=== PATIENT | female | born 1935 | race Caucasian/White ===

== ENCOUNTER → 2019-09-30 14:09 | Outpatient (BNVA) | payer MEDICARE, MEDICAID, SELFPAY | PROVIDERS: Family Provider Family Medicine; PCP Family Medicine; Visit Provider Internal Medicine Cardiovascular Disease | DX: R06.02 Shortness of breath (principal); I50.33 Acute on chronic diastolic (congestive) heart failure | CPT/HCPCS: 80048; 83880 ==

== ENCOUNTER 2020-03-04 12:22 | Outpatient (CLI) | payer MEDICARE, MEDICAID, SELFPAY ==
--- NOTE | 2020-03-04 12:35 | MR_ITS ---
WS: [id number] MRI RIGHT SHOULDER NONCONTRAST TECHNIQUE: Sagittal T2, coronal T1, T2 and proton density imaging. Axial gradient PDE imaging. CLINICAL INFORMATION: SHOULDER PAIN COMPARISON: None. FINDINGS: Moderate degenerative arthritis at the AC joint. Subacromial space is relatively well-preserved. Prio r rotator cuff anchors. Rotator cuff anchors degrade imaging due to susceptibility artifact. Supraspinatus appears repaired and intact. Thinning of the supraspinatus distally. Infraspinatus appe ars intact. Normal teres minor and subscapularis. Chronic appearing thinning and atrophy of the dista l subscapularis. Subcoracoid effusion. Proximal biceps tendon is medially dislocated from the bicipit al groove. Middle and distal biceps tendon intact with physiologic fluid along the biceps tendon rangel th. Small joint effusion. Moderate to advanced degenerative arthritis involving the glenoid humeral artic ulation. Hypertrophic changes at the glenohumeral joint with spurring along the medial humeral neck. Chronic irregularity involving the glenoid labrum. MR/MR shoulder RT wo con* [id number] IMPRESSION: 1. Prior postoperative changes right rotator cuff anchors. This degrades image s due to susceptibility artifact. 2. Rotator cuff appears intact. No acute appearing rotator cuff tears. 3. Chronic atrophy involving the supraspinatus and subscapularis tendons. 4. Biceps tendon is medially dislocated from the bicipital groove proximally l ikely chronic. Middle and distal biceps tendon intact within the bicipital groo ve. 5. Moderate degenerative arthritis AC joint. 6. Advanced degenerative arthritis glenohumeral joint with hypertrophic spurri ng involving the medial humeral neck.
== END 2020-03-04 12:23 | disposition home or self-care (01) ==
LOC: RADWPI 12:27
PROVIDERS: Family Provider Family Medicine; PCP Family Medicine; Visit Provider Family Medicine
DX: M25.511 Pain in right shoulder (principal); M19.011 Primary osteoarthritis, right shoulder; M77.9 Enthesopathy, unspecified
CPT/HCPCS: 73221

== ENCOUNTER → 2020-04-06 08:23 | Outpatient (BNVA) | payer MEDICARE, MEDICAID, SELFPAY | PROVIDERS: Family Provider Family Medicine; PCP Family Medicine; Referring Provider Family Medicine; Visit Provider Specialist | DX: M25.511 Pain in right shoulder (principal); M19.011 Primary osteoarthritis, right shoulder | CPT/HCPCS: 73030 ==

== ENCOUNTER 2020-04-13 14:20 | Outpatient (CLI) | payer MEDICARE, MEDICAID, SELFPAY ==
[2020-04-13 15:03] LABS: Basophils % 0.3 %; Eosinophils # 0.4 10^3/uL (0.0-0.8); Eosinophils % 4.1 %; Hematocrit 35.4 % (37.0-47.0); Lymphocytes # 1.2 10^3/uL (0.8-4.8); Lymphocytes % 13.3 %; Mean Corpuscular HGB Conc 31.1 g/dL (30.0-36.0); Mean Corpuscular Hemoglobin 30.8 pg (28.0-34.0); Mean Corpuscular Volume 99.2 fL (81-99); Mean Platelet Volume 12.2 fL (7.4-10.4); Monocytes # 0.6 10^3/uL (0.2-0.9); Monocytes % 6.8 %; Neutrophils # 6.71 10^3/uL (1.8-7.7); Neutrophils % 74.9 %; Nucleated Red Blood Cells % 0 %; Platelet Count 151 10^3/cmm (130-400); Red Blood Count 3.57 10^6/uL (4.1-5.3); Red Cell Distribution Width 12.9 % (12.1-15.1)
[2020-04-13 15:15] LABS: Alanine Aminotransferase 25 U/L (0-33); Albumin Level 3.8 g/dL (3.5-5.2); Alkaline Phosphatase 91 IU/L (35-105); Anion Gap 12.9 (5-19); Aspartate Amino Transferase 19 U/L (0-32); Blood Urea Nitrogen 50 mg/dL (8-23); Calcium 7.9 mg/dL (8.5-10.5); Carbon Dioxide 28 mmol/L (22-29); Chloride 104 mmol/L (98-107); Globulin 2.4 g/dL (1.3-4.6); Glucose 122 mg/dL (65-115); Osmolality Calculated 305 mOsm/kg (285-295); Potassium 4.9 mmol/L (3.5-5.1); Sodium 140 mmol/L (136-145); Total Bilirubin 0.2 mg/dL (0.15-1.2); Total Protein 6.2 g/dL (6.6-8.7)
--- NOTE | 2020-04-13 18:59 | ONC FU_ITS ---
Dr. Borja Patient Follow-Up Note Patient: Cecilio Ashton Unit #: [id number]: 1935 Dicatated By: Dann Borja M.D.Date of Visit:Apr 13, 2020 Onc Med Follow-up/Prog Note Chief Complaint: Breast cancer. History of Present Illness: This is an 84 year-old woman with grade 2 infiltrating ductal carcinoma of the right breast, stage IA (T1c, N0, M0), ER/AZ positive and HER-2/jaime nonamplified. She had presented with an abnormal screening mammogram on 06/21/2016, which showed a new focal asymmetry in the subareolar region of the right breast, BI-RADS 0. Diagnostic mammogram/ultrasound on 07/19/2016 showed a persistent ill defined focal asymmetry in the anterior third subareolar region of the right breast. It measured 7 mm in diameter. Ultrasound showed a hypoechoic nodule or complex cyst measuring 3.5 x 4.6 x 5 mm. The findings were BI-RADS 4B category, suspicious. An ultrasound directed biopsy on 08/07/2016 showed infiltrating ductal carcinoma, grade 1/3. The breast prognostic profile showed intermediate Ki-67 at 15%. ER was positive at 100% with AZ positive at 47%. HER-2/jaime was nonamplified, 2+ by IHC with amplification ratio by FISH of 1.5, 4.1 HER-2 copies/cell. She was referred to Dr. Doan. She underwent right breast lumpectomy with axillary sentinel lymph node biopsy on 08/30/2016. Pathology showed grade 2/3 infiltrating ductal carcinoma measuring 1.3 x 1.0 cm. The margins were free of tumor and atypia. There was no involvement in 1 axillary sentinel lymph node. I had seen her initially on 09/18/2015. I opted to evaluate further with Oncotype DX before making a decision on her adjuvant therapy. She is seen here today to review those results. It showed a recurrence score of 25, intermediate risk category, corresponding to a recurrence risk of 16% at 10 years with adjuvant hormonal therapy. She opted not to take adjuvant chemotherapy. She was given radiation to the right breast, completed on 11/27/2016 to a total dose of 5256 cGy. She began adjuvant hormonal therapy with anastrozole 1 mg daily on 01/16/2017. Her baseline DEXA scan on 01/24/2017 showed osteopenia with T score -1.8 in the right femoral neck. On 04/10/2017 she started treatment with Prolia for maintenance of bone health. As of her followup visit on 04/10/2018 she appeared stable clinically and she continued anastrozole 1 mg daily. Her other medical illnesses include hypertension, hyperlipidemia, type II diabetes, and chronic kidney disease. She suffered a TIA/stroke in 2009. Her vision is severely impaired, apparently due to combination of diabetic retinopathy and macular degeneration. She is followed by Dr. Shore, and she has been getting injections in her eyes. She had previously smoked, but for only 10 years. She quit smoking in 1975. INTERIM HISTORY: In April 2018 she reported an increase in her musculoskeletal pain. Her treatment was put on hold. Bone scan on 05/14/2018 showed evidence of degenerative disease in the right shoulder and both knees. There was no evidence of metastatic disease. She continued adjuvant hormonal therapy with anastrozole. On 09/25/2018 she underwent surgical repair of an open wound on her abdomen, apparently related to a remote appendectomy procedure. She had no complications with the surgery. Pathology was benign. She continued her adjuvant hormonal therapy with anastrozole 1 mg daily. At her follow-up visit in March 2019 she had developed some new pain and swelling in the right leg. I opted to have her stop the anastrozole, at least temporarily. Her venous Doppler was negative. Her symptoms improved, and she restarted the anastrozole in May. Her further follow-up was interrupted by restrictions imposed by the coronavirus pandemic. She is seen now for a follow-up visit. She says her energy is not good, and she has been less active. She does a little walking, but she is mostly sedentary. She says she goes to sleep very easily. Her ECOG score is 3. She has good appetite. She does not have fever, night sweats, or hot flashes. She does have a home health nurse who checks her blood pressure once a week, and has been running normal at home. She has some shortness of breath with exertion. She does not complain of cough and she has not been having chest pain. She has no GI complaints. Bladder function has been adequate taking Lasix 3 days a week. She has been having pain in her right shoulder. She has seen Dr. Al, and she has been told that she needs a joint replacement. She sometimes has headache. She has no focal neurologic symptoms. Medications: AmLODIPine Besylate 1 Tablet (of 5 mg) Oral daily, Anastrozole 1 (1 mg) Tablet Oral daily, Aspirin 1 (81 mg) Tablet Oral daily, Carvedilol 1 (25 mg) Tablet Oral b.i.d., Cholecalciferol 1,000 (1000 Units) Capsule Oral daily, Fish Oil Capsule Oral, Flax Seeds Powder Oral, Gabapentin (100 mg) Capsule Oral b.i.d., Isosorbide Mononitrate ER 1 (60 mg) Tablet SR 24 HR Oral b.i.d., Klor-Con 10 1 (8 meq) Tablet, controlled release Oral daily PRN, Lasix 1 (20 mg) Tablet Oral daily PRN, Levothyroxine Sodium 1 (88 mcg) Tablet Oral daily, Losartan Potassium 1 (100 mg) Tablet Oral daily, Lovastatin 40 (40 mg) Tablet Oral daily, Multivitamin Adult 1 Tablet Oral daily, Omeprazole 1 (20 mg) Tablet, enteric coated Oral b.i.d., PreserVision AREDS 2 1 Capsule Oral daily, Requip 1 (0.25 mg) Tablet Oral at bedtime, Ventolin HFA 2 Puff(s) (of 108 (90 base) mcg/act) Aerosol, solution Inhalation q 4 hours PRN Allergies: Lisinopril, Plavix, and Sulfa Antibiotics. Review of Systems: Constitutional - Her energy is poor. She is able to do some light walking but she is otherwise sedentary. She has a caregiver that helps with housework. Her appetite is good and her weight is up about 4 pounds. No fever, night sweats, or hot flashes. ECOG score is 3, ENMT - She has sinus congestion/drainage. No mouth sores. No sore throat or difficulty swallowing, Hematologic/Lymphatic - She bruises easily, Respiratory - She gets short of breath with exertion. No cough. No pleuritic pain or hemoptysis, Cardiovascular - No angina pain. No palpitations, Gastrointestinal - No nausea or vomiting. No heartburn or acid reflux. No diarrhea or constipation. No blood in the stool or black stools, Genitourinary (F) - No dysuria or hematuria. She has urinary frequency with her Lasix. No urgency or incontinence, Musculoskeletal - She has pain in her right shoulder, Integumentary - No skin complications, Neurologic - She has sinus headaches. No dizziness. No numbness or tingling. No other focal neurologic symptoms, Psychiatric - No anxiety or depression. No insomnia. Vital Signs: Performed on Apr 13, 2020 15:40 Height - 59.00 in Weight - 168.4 lbs (HIGH) BSA - 1.71 sq.m BMI - 34.01 (HIGH) Temperature - 98.6 F Pulse - 60 /min Respiration - 22 /min BP - 178/91 mm(hg) (HIGH) O2 Sat - 98 % Pain - 6 Physical Examination: Constitutional - She looks pretty good generally, Eyes - Sclerae nonicteric. Conjunctivae clear, ENMT - No lesions noted in the oral cavity, Hematologic/Lymphatic - No cervical, clavicular, or axillary adenopathy, Respiratory - Lungs are clear with some decrease in air movement bilaterally, Cardiovascular - Heart rhythm is regular. There is a II/ systolic murmur at the base. There is no gallop or rub noted, Abdomen - Soft. Liver and spleen are not enlarged. There is no abdominal mass or ascites noted and there is no inguinal adenopathy, Extremities - No edema, Neurologic - No focal neurologic deficits noted. Lab/Imaging: Test performed on Apr 13, 2020 14:35 Sodium 140 mmol/L Potassium 4.9 mmol/L Chloride 104 mmol/L CO2 28 mmol/L Anion Gap 12.9 BUN 50 mg/dL Creatinine 2.3 mg/dL Cr Clearance (Est) 22.35 mL/min Glucose 122 mg/dL Osmolality - Calculated 305 mOsm/kg Calcium 7.9 mg/dL Protein, Total 6.2 g/dL Albumin 3.8 g/dL Globulin 2.4 g/dL Bilirubin, Total 0.2 mg/dL ALT (SGPT) 25 U/L AST (SGOT) 19 U/L Alkaline Phosphatase 91 IU/L WBC 9.0 10 3/uL RBC 3.57 10 6/uL HGB 11.0 g/dL HCT 35.4 % MCV 99.2 fL MCH 30.8 pg MCHC 31.1 g/dL RDW 12.9 % Platelet Count 151 10 3/cmm MPV 12.2 fL Neutrophils 6.71 10 3/uL Lymphocytes 1.2 10 3/uL Monocytes 0.6 10 3/uL Eosinophils 0.4 10 3/uL Basophils 0.0 10 3/uL Neutrophil % 74.9 % Lymphocyte % 13.3 % Monocyte % 6.8 % Eosinophil % 4.1 % Basophils % 0.3 % NRBC % 0 % Impression: 1. Patient with grade 2 infiltrating ductal carcinoma of the right breast, stage IA (T1c, N0, M0), ER/AZ positive and HER-2/jaime nonamplified. She underwent right breast lumpectomy with axillary sentinel lymph node biopsy on 08/30/2016. Her Oncotype DX showed a recurrence score of 25, corresponding to a recurrence risk of 16% at 10 years with adjuvant hormonal therapy. She opted not to take adjuvant chemotherapy. 2. She was given radiation to the right breast, which she completed on 11/27/2016 to a total dose of 5256 cGy. She tolerated treatment well. 3. Adjuvant hormonal therapy with anastrozole 1 mg daily began on 01/16/2017. 4. She had evidence of osteopenia on her baseline bone density, T score -1.8 in the right femoral neck. She has been on treatment with Prolia. Her other medical illnesses include: 5. Hypertension. 6. Hyperlipidemia. 7. Type II diabetes. 8. Chronic kidney disease. 9. She has a prior history of TIA/stroke in 2009. 10. She has severely impaired vision, apparently due to combination of diabetic retinopathy and macular degeneration. In April 2018 the anastrozole was put on hold because of an increase in her musculoskeletal pain. Bone scan showed no evidence of metastatic disease, and her symptoms did not improve significantly when she was off the medication. As of her follow-up visit on 04/04/2018 she restarted the anastrozole at 1 mg daily. As of her follow-up visit in September 2018 she appeared to be tolerating it well. At her follow-up visit in March 2019 she had new pain and swelling in her right leg. As a precaution I did have her stop the anastrozole. Her venous Doppler was negative. Her symptoms subsequently improved, and she restarted the anastrozole in May. Her further follow-up was interrupted by restrictions imposed by the coronavirus pandemic. During that time she did receive an injection of Prolia, administered at home by the home health nurse. Since her last visit, she has had some decline in her performance status. There has been no obvious recurrence of the breast cancer by clinical evaluation, but she has had a significant decline in her renal function with creatinine increasing from 1.8 to 2.3 mg/dL. 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 I also defer any further treatment with denosumab. I will tentatively plan a follow-up visit here in 3 months. Signed By: Dann Borja M.D. <<Signature on File>>
== END 2020-04-13 14:21 | disposition home or self-care (01) ==
PROVIDERS: PCP Family Medicine; Visit Provider Internal Medicine Medical Oncology
DX: C50.111 Malignant neoplasm of central portion of right female breast (principal); Z17.0 Estrogen receptor positive status [ER+]; E11.22 Type 2 diabetes mellitus with diabetic chronic kidney disease; N18.9 Chronic kidney disease, unspecified; E11.319 Type 2 diabetes mellitus with unspecified diabetic retinopathy without macular edema; E78.5 Hyperlipidemia, unspecified; H35.30 Unspecified macular degeneration; I10 Essential (primary) hypertension; Z79.811 Long term (current) use of aromatase inhibitors; Z86.73 Personal history of transient ischemic attack (TIA), and cerebral infarction without residual deficits; Z92.3 Personal history of irradiation
CPT/HCPCS: 80053; 85025; 99214

== ENCOUNTER → 2020-06-02 10:08 | Outpatient (BNVA) | payer MEDICARE, MEDICAID, SELFPAY | PROVIDERS: PCP Family Medicine; Visit Provider Specialist | DX: M19.011 Primary osteoarthritis, right shoulder (principal) | CPT/HCPCS: 73030 ==

== ENCOUNTER 2020-06-08 10:45 | Outpatient (CLI) | payer MEDICARE, MEDICAID, SELFPAY ==
--- NOTE | 2020-06-08 10:53 | MM_ITS ---
WS: [id number] BILATERAL DIGITAL DIAGNOSTIC MAMMOGRAM MAMMOGRAPHY WITH CAD CLINICAL INFORMATION: HX OF BREAST CA COMPARISON: October 13, 2018 TECHNIQUE: Bilateral CC, MLO, and ML views. FINDINGS: Scattered fibroglandular densities bilaterally. Punctate calcifications. Vascular calcifications. No suspicious focal mass, asymmetry, calcifications, or architectural distortion. No evidence of marko gnancy. MM/[place] [id number] IMPRESSION: BI-RADS: 2-Benign FOLLOW UP: 1 Year Follow-up Recommend return to annual diagnostic mammography.
== END 2020-06-08 10:46 | disposition home or self-care (01) ==
LOC: ONCMED 10:50
PROVIDERS: PCP Family Medicine; Visit Provider Internal Medicine Medical Oncology
DX: Z85.3 Personal history of malignant neoplasm of breast (principal)
CPT/HCPCS: 77066

== ENCOUNTER 2020-06-20 09:24 | Outpatient (CLI) | payer MEDICARE, MEDICAID, SELFPAY ==
--- NOTE | 2020-06-20 10:15 | USCV_ITS ---
Cecilio Ashton Age: 85 Gender: F : 1935 Exam Date: 06/20/2020 09:55 Ordering Phys: Edwin Soliz MD ([email or web address]) Technologist: Dale Lincoln Exam Location: [facility] – [place] Indication: RT SIDE ENDART Risk Factors: DIABETIC Previous Vascular Surgery: Right Brachial BP: / Left Brachial BP: / Right Left Velocity (cm/s) Spectral Plaque Velocity (cm/s) Spectral Plaque Syst/Diast Broadening Syst/Diast Broadening 58.80/ 11.90 Prox CCA 57.40 / 8.90 64.10/ 8.90 Mid CCA 65.50 / 11.20 70.00/ 7.40 Distal CCA 55.10 / 6.00 Hetro 42.90/ 11.70 Prox ICA 71.50 / 14.20 Hetro 60.80/ 13.90 Mid ICA 61.10 / 12.70 Hetro 54.10/ 13.40 Distal ICA 70.80 / 16.40 76.40 ECA 105.00 0.87 ICA/CCA 1.14 Antegrade Vertebral Antegrade 46.20/ 8.90 cm/s 29.10/ 8.20 cm/s Bi Subclavian Bi 99.80 92.40 FINDINGS Minimal plaques the right bifurcation and proximal internal carotid artery. Moderate dense plaques at the left bifurcation and proximal internal carotid artery. Antegrade flow in the vertebral arteries bilaterally. Normal Doppler flow velocities in the external carotid arteries bilaterally CONCLUSIONS Minimal plaques the right bifurcation and proximal internal carotid artery. Moderate dense plaques at the left bifurcation and proximal internal carotid arterywith velocity elevation consistent with 16-49% stenosis. Intimal thickening in the common carotid arteries bilaterally Compared to the study from 05/05/2018, there is slight worsening of stenosis on the left side Dr Edwin Soliz MD [facility] (Electronically Signed) Final Date: 20 June 2020 19:16 S
== END 2020-06-20 09:25 | disposition home or self-care (01) ==
LOC: US 09:25
PROVIDERS: PCP Family Medicine; Visit Provider Internal Medicine Cardiovascular Disease
DX: I65.23 Occlusion and stenosis of bilateral carotid arteries (principal); M19.011 Primary osteoarthritis, right shoulder
CPT/HCPCS: 80053; 81001; 85025; 87635; 93880

== ENCOUNTER → 2020-06-22 11:11 | Outpatient (BNVA) | payer MEDICARE, MEDICAID, SELFPAY | PROVIDERS: PCP Family Medicine; Visit Provider Specialist | DX: Z01.812 Encounter for preprocedural laboratory examination (principal); M12.811 Other specific arthropathies, not elsewhere classified, right shoulder | CPT/HCPCS: 87635 ==

== ENCOUNTER 2020-06-28 14:08 | Inpatient (IN) | payer MEDICARE, MEDICAID, SELFPAY ==
[2020-06-20 10:40] VITALS: BMI 31.2
[2020-06-20 11:10] LABS: Basophils % 0.8 %; Eosinophils # 0.3 10^3/uL (0.0-0.8); Eosinophils % 5.1 %; Hematocrit 35.7 % (37.0-47.0); Hemoglobin 10.8 g/dL (11.5-15.3); Lymphocytes # 1.1 10^3/uL (0.8-4.8); Lymphocytes % 20.7 %; Mean Corpuscular HGB Conc 30.3 g/dL (30.0-36.0); Mean Corpuscular Hemoglobin 30.6 pg (28.0-34.0); Mean Corpuscular Volume 101.1 fL (81-99); Mean Platelet Volume 11.9 fL (7.4-10.4); Monocytes # 0.4 10^3/uL (0.2-0.9); Monocytes % 7.1 %; Neutrophils # 3.51 10^3/uL (1.8-7.7); Neutrophils % 65.9 %; Nucleated Red Blood Cells % 0 %; Platelet Count 143 10^3/cmm (130-400); Red Blood Count 3.53 10^6/uL (4.1-5.3); Red Cell Distribution Width 13.5 % (12.1-15.1); White Blood Count 5.3 10^3/uL (4.0-10.0)
[2020-06-20 11:18] LABS: Alanine Aminotransferase 20 U/L (0-33); Albumin Level 3.7 g/dL (3.5-5.2); Alkaline Phosphatase 96 IU/L (35-105); Aspartate Amino Transferase 19 U/L (0-32); Blood Urea Nitrogen 44 mg/dL (8-23); Carbon Dioxide 28 mmol/L (22-29); Chloride 105 mmol/L (98-107); Globulin 2.2 g/dL (1.3-4.6); Glucose 111 mg/dL (65-115); Osmolality Calculated 306 mOsm/kg (285-295); Sodium 142 mmol/L (136-145); Total Bilirubin 0.2 mg/dL (0.15-1.2); Total Protein 5.9 g/dL (6.6-8.7)
--- NOTE | 2020-06-20 11:23 | ECG_ITS ---
[facility] Test Date: 2020-06-20 Pat Name: Cecilio Ashton Department: Room: Gender: Female [employer]: : 1935 Requested By: Nic Lopez Order Number: [id number] lOga MD: CHELSEA BUTLER Measurements Intervals Vendor Rate: 57 P: -2 MN: 157 QRS: 12 QRSD: 142 T: 52 QT: 422 QTc: 414 Interpretive Statements SINUS BRADYCARDIA WITH SINUS ARRHYTHMIA LEFT BUNDLE BRANCH BLOCK [120+ ms QRS DURATION, 80+ ms Q/S IN V1/V2, 85+ ms R IN I/aVL/V5/V6] Compared to ECG 02/25/2015 10:26:29 Sinus rhythm no longer present Electronically Signed On 06-20-2020 17:33:17 [employer] by CHELSEA BUTLER [id number]
[2020-06-20 11:30] LABS: Add Urine Microscopic? YES; Bacteria Urine TRACE /hpf; Bilirubin Urine Neg (Negative); Blood Urine Neg (Negative); Glucose Urine UA Norm (Normal); Ketones Urine Negative (Negative); Leukocyte Esterase Urine 1+ (Negative); Nitrate Urine Negative (Negative); Protein Urine 1+ (Negative); Squamous Epithelial Cell Urine 0-4 /hpf (0-5); Urine Appearance Clear (CLEAR); Urine Color Yellow (Yellow); Urobilinogen Urine Norm (Negative); pH Urine 5 (5-7)
[2020-06-20 11:31] LABS: Add Urine Culture? No; Mucus Urine 1+ /hpf
--- NOTE | 2020-06-20 12:25 | ANES.PREANE2 ---
Pre-Anesthetic Assessment Pre-Anesthetic Assessment: Height/Weight: Height 1.52 m Weight 72.575 kg Preop Diagnosis: DJD right shoulder Proposed Procedure: Operation Date: 06/28/20 15:10 Proposed Procedures p Right Total Reverse Shoulder Arthroplasty 52974 M19.011(Right) - Yesica Al MD Was Beta Andres taken within 24 hours: Yes Social: Social History: No alcohol and No tobacco Exam: Pre-Anes Outpt Exam: alert, oriented x 3, clear to auscultation bilaterally and regular rate & rhythm Airway: Submandibular: WNL Cervical ROM: WNL MP: 2 Dentition: Full Pulmonary: Pulmonary: None reported CV/HEM: CV/HEM: CAD, HTN and PVD : : None reported Hepatic: Hepatic: None reported GI: GI: GERD Metabolic: Metabolic: DM and Thyroid Neuropsych: Neuropsych: None reported Anesthetic Plan: ASA status: 3 Anesthesia: General and Regional (specify below) Other: Interscalene nerve blk Risk of > 500 ml blood loss (7ml/kg in children): Yes, adequate IV access and fluids planned Other Pertinent Information: Patient is blind. PFSH Anesthesia PFSH: Medical History (Updated 06/06/20 @ 12:40 by Yesica Al MD) Bilateral carotid artery stenosis Bilateral cataracts CAD (coronary artery disease) Had the most recent cardiac cauterization in January 2012. She was found to have mild to moderate diffuse coronary artery disease. Most recent myocardial perfusion imaging in 2013. No evidence of ischemia. Chronic kidney disease Diabetes Hyperlipidemia Hypertension Hypothyroid Leg swelling SOB (shortness of breath) Subclavian artery stenosis, right Surgical History History of appendectomy History of shoulder surgery Hx of cholecystectomy Family History Other CAD (coronary artery disease) Chronic kidney disease (CKD) Diabetes Family history of premature coronary artery disease Hyperlipidemia Hypertension Lung disease Stroke Social History Smoking and tobacco status: former smoker Alcohol intake: never Data Anesthesia CBC & Chem 7: 06/20/20 10:45 06/20/20 10:45 Other Labs: Laboratory Results - last 48 hr 06/20/20 06/20/20 06/20/20 10:45 10:45 10:50 WBC 5.3 RBC 3.53 L Hgb 10.8 L Hct 35.7 L MCV 101.1 H MCH 30.6 MCHC 30.3 RDW 13.5 Plt Count 143 MPV 11.9 H Neut % (Auto) 65.9 Lymph % (Auto) 20.7 [place] % (Auto) 7.1 Eos % (Auto) 5.1 Baso % (Auto) 0.8 Neut # (Auto) 3.51 Lymph # (Auto) 1.1 [place] # (Auto) 0.4 Eos # (Auto) 0.3 Baso # (Auto) 0.0 Nucleated RBC % (auto) 0 Nucleated RBCs # 0.0 Sodium 142 Potassium 5.0 Chloride 105 Carbon Dioxide 28 Anion Gap 14.0 BUN 44 H Creatinine 2.5 H GFR Calculation Not Reportable Glucose 111 Calculated Osmolality 306 H Calcium 9.0 Total Bilirubin 0.2 AST 19 ALT 20 Alkaline Phosphatase 96 Total Protein 5.9 L Albumin 3.7 Globulin 2.2 Urine Color Yellow Urine Appearance Clear Urine pH 5 Ur Specific [place] 1.020 Urine Protein 1+ H Urine Glucose (UA) Norm Urine Ketones Negative Urine Blood Neg Urine Nitrate Negative Urine Bilirubin Neg Urine Urobilinogen Norm Ur Leukocyte Esterase 1+ H Urine RBC None Urine WBC 5-10 H Ur Squamous Epith Cells 0-4 H Amorphous Sediment Not Reportable Urine Bacteria Trace Urine Mucus 1+ Cardiac Studies: No Data to Display
[2020-06-28] VITALS (18 sets, daily range): BP systolic 108–153; BP diastolic 55–82; PULSE 57–88; RESP 12–22; TEMP 36.1–36.5; O2SAT 90–100
--- NOTE | 2020-06-28 | SCC_ITS ---
Procedure Done: Right reverse shoulder arthroplasty with long head of biceps tenodesis with associated intra-articular biceps resection Implants: The [employer] reverse shoulder system with a size 28 reunion RSA glenoid base plate with a 24 mm x 6.5 mm center screw, 4.5 mm x 20 mm inferior, posterior and superior peripheral screws, and a 4.5 x 16 mm anterior screw, a concentric glenosphere size 32 with 2 mm offset. A reunion S humeral stem with a 13 mm diameter by 97 mm length and a humeral cup size 32 mm x 4 mm with a humeral insert size 32 mm x 4 mm 52.5 seconds of fluoroscopic guidance, for a cumulative dose of 4.48 mGy, was provided to Dr. Al by the radiology department. C-arm images of the RIGHT shoulder were saved for the patient's permanent record. RAVINDER
[2020-06-28] MEDS: sodium chloride 0.9% 1,000 ML 30 ML IV (11:44)
[2020-06-28] MEDS: fentaNYL 50 mcg/mL INJ 2mL 100 MCG IVP (12:36)
--- NOTE | 2020-06-28 12:36 | P.ANESUD_ITS ---
Pre-Anesthetic Update Pre-Anesthetic Assessment: Date of Surgery/Procedure: 06/28/20 Preop Drea gnosis: DJD right shoulder Proposed Procedure: Operation Date: 06/28/20 12:55 Proposed Procedures p Right Total Reverse Shoulder Arthroplasty 56328 M19.011(Right) - Yesica Al MD Any changes to Pre-Anesthetic Assessment?: No Last Intake: Intake Last Liquid Date 06/27/20 Last Liquid Time 21:00 Last Solid Date 06/27/20 Last Solid Time 17:30 Vitals: Temperature 97.2 F L 06/28/20 11:13 Temperature Source Temporal Artery S can 06/28/20 11:13 Pulse Rate 66 06/28/20 11:13 Pulse Rhythm 06/28/20 11:38 Pulse Strength 3+ Normal 06/28/20 11:38 Respiratory Rate 18 06/28/20 11:13 Blood Pressure 152/82 06/28/20 11:13 Blood Pressure [place] n 105 06/28/20 11:13 Pulse Oximetry 94 06/28/20 11:13 Oxygen Delivery Me thod 06/28/20 11:38 Exam: Pre-Anes Outpt Exam: alert, oriented x 3, clear to auscultation bilaterally and regular rate & rhythm Cardiac Studies: No Data to Display
--- NOTE | 2020-06-28 12:37 | ANES.PROC ---
Anesthesia Procedures Procedure/Date: 06/28/20 Nerve Block ^: Nerve Block 1: Main Anesthesia: general anesthesia Time Out Performed: Yes Consent: requested by attending/covering physician, risks and benefits reviewed and patient agrees to proceed Nerve block location: interscalene Anesthesia monitors applied: pulse oximetry, EKG and BP cuff Nerve block position: supine Anesthetic Used: ropivicaine 0.5% and with decadron Amount of anesthesia used (mL): 30 Ultrasound used to: recognize landmarks and visualize and ID interscalene groove Nerve Stimulator Used?: No Interscalene/Femoral BLK: 2 stimuplex 22 g needle used for position and inplane approach Injection: neg aspiration of heme Patient Tolerated Procedure: well and no complications Complications: none
[2020-06-28] MEDS: midazolam 1 mg/mL INJ 5 ML 5 MG IVP (12:38)
[2020-06-28] MEDS: vancomycin 1,000 MG in sodium chloride 0.9% 250 ML 250 MG IV (14:21)
--- NOTE | 2020-06-28 14:27 | P.HPUD_ITS ---
Surgery/Procedure H&P Update DATE OF PROCEDURE: June 28, 2020 DATE H&P PERFORMED: 06/02/20 H&P UPDATE INFORMATION: I have reviewed H&P completed within last 30 days, I have examined patient prior to procedure, No changes to prior documentation and H&P is in [facility] EMR on date indicated PREOP DIAGNOSIS: DJD right shoulder PLANNED PROCEDURE: Operation Date: 06/28/20 12:55 Proposed Procedures p Right Total Reverse Shoulder Arthroplasty 04277 M19.011(Right) - Yesica Al MD Related Problem List Diagnoses (1) Rotator cuff arthropathy of right shoulder: (2) Osteoarthritis of right shoulder: Qualifiers: Osteoarthritis type: primary Qualified Code(s): M19.011 - Primary osteoarthritis, right shoulder
[2020-06-28] MEDS: vancomycin 1,000 MG SDV 1000 MG XX (15:49)
[2020-06-28] MEDS: ceFAZolin 1,000 mg SDV 1000 MG IRRIGATION (15:49)
--- NOTE | 2020-06-28 17:53 | P.OP_ITS ---
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 A reunion S humeral stem with a 13 mm diameter by 97 mm length and a humeral cup size 32 mm x 4 mm with a humeral insert size 32 mm x 4 mm. Specimens removed/disposition: Humeral head disposed of Pathology: none sent Surgeon: Yesica Al Caregivers Non Medical: [facility] Caryn OR technicians Anesthesia: General (Intubated with preoperative interscalene block, ASA 3) Estimated blood loss (mL): 200 IV fluids (mL): 1,100 Urine output (mL): 300 Complications: None Findings: Severe degenerative osteoarthritis of the right shoulder Condition: stable Disposition: PACU (Then to floor for postoperative rehabilitation and pain management) Brief History: This 85-year-old woman presented with remote rotator cuff injury to the right shoulder. MRI demonstrated findings consistent with prior rotator cuff repair, significant thinning of the rotator cuff, and severe degenerative osteoarthritis consistent with rotator cuff arthropathy. She has had very limited use of her right upper extremity. She has pain with any range of motion. She presents today for reverse shoulder arthroplasty. Risks and complications were discussed with her preoperatively. She wished to proceed with operative intervention. Procedure: The patient was brought to the operating theater and placed in a beachchair position following administration of general anesthesia intubated as well as the preoperative interscalene block. Once she was positioned and confirmation was made that we could place the shoulder in appropriate positions to accomplish the surgical procedure, the right upper extremity was prepped and draped in usual fashion utilizing DuraPrep. We confirmed we could visualize appropriately with fluoroscopy as well prior to prepping. Following the DuraPrep, the patient's arm was draped free. A stockinette was placed distally. This allowed us full access to the shoulder. Preoperatively, the patient's arm had been marked and I subsequently initialed this, during our surgical pause, we confirmed the site and side of surgery and this ralph was visualized. Additionally, the clavicle as well as the acromioclavicular joint and the coracoid were marked to allow appropriate incision placement. Preoperative antibiotic, vancomycin g, and TXA 1 g was also given. Surgical pause was performed prior to incision. Prior to incision, a manipulation of the shoulder was accomplished as the patient only had, even under anesthesia, approximately 40 degrees of abduction and 0 external rotation. Incision then began between the acromioclavicular joint and coracoid and continued along the deltopectoral groove. This was a standard deltopectoral incision. Dissection continued through skin and soft tissues using a scalpel,and hemostasis was obtained using electrocautery. The deltopectoral fascia was incised and care was taken to protect the cephalic vein. Cephalic vein was retracted laterally and pectoralis was retracted medially. Soft tissues were then elevated from the subscapularis tendon. Retractors were placed. The coracoid was palpated as well as the musculocutaneous nerve and these were retracted as well as the deltoid on the opposite side. The leash of vessels at the inferior aspect of the subscapularis was cauterized. Tag sutures were placed 2 cm medial to the biceps tendon and further medial and an incision was made through the capsule and subscapularis tendon between the 2 lines of sutures. There was an osteophyte in this area which was excised. Additionally, note was made that the patient had a previous rotator cuff tear utilizing a metal anchor. Incision was continued transversely both superiorly through the rotator interval and inferiorly to allow access to the shoulder joint. Additionally, the biceps tendon was noted to be torn. This required a biceps tendon resection intra-articularly with associated extra- articular tenodesis. There was noted to be very thinned soft tissue in the area of the supraspinatus and infraspinatus. There was no soft tissue to which to reconnect the subscapularis at the end of the procedure. The humeral head was dislocated from the glenohumeral joint. Soft tissues were elevated off of the neck of the humerus following osteophyte removal. In this way we were able to mobilize the humerus. Osteotomy was accomplished of the humeral head, and we were then able to move the humeral head out of the way to visualize the glenoid. Soft tissues were resected from around glenoid and down onto the glenoid neck. Cautery was used to do this so that we could fully visualize for placement of the components. Care was taken to protect the musculocutaneous and also the axillary nerves during this process. The glenoid was found to be somewhat osteopenic. It also had a significant labrum and synovitis which appeared prominent and was excised. The glenoid was visualized. The guidewire was placed into the glenoid using the jig which is included in the system. This pin was placed until a bicortical hole was obtained. Care was taken to assure that we were bicortical. This was measured and the screw measured a size 24 mm. Prior to removal of the guidewire, reaming was accomplished. We reamed until we had good cortical bleeding bone. Following this the guide pin was removed and a depth gauge was utilized to assure that this was the appropriate length screw to truly be bicortical. Palpation with the depth gauge demonstrated that we were indeed bicortical. Finding this to be so and having reamed to good bleeding bone, the 28 mm reunion RSA glenoid base plate was screwed into position with the peripher al screws being at 12:00, 3:00, 6:00, and 9:00 positions. This was screwed securely into place and the peripheral screws were placed. We had good purchase with all peripheral screws and their length included 20 mm superior, posterior, and inferior, and a 16 mm screw anterior. Once the glenoid had been thus prepared, the concentric glenosphere, size 32 mm with a 2 mm offset was impacted into position. Care was taken to fully evaluate that the glenosphere had seated completely. Attention was directed to the humerus to prepare the humerus and avoid compression of the proximal humerus with retraction to allow access to the glenoid. Once the humeral head osteotomy had been accomplished and osteophytes at been removed, we were able to mobilize the humerus and bring it up out of the wound slightly. Sequential reamers were then passed and subsequently sequential broaches. We broached to a size 13 S with a 13 S reamer having been passed as well. The broach was left in position and a trial humeral cup size 32 mm x 4 mm with a 32 mm x 4 mm humeral insert was placed into position. A trial reduction was accomplished with the trial glenosphere at 32 mm with a 2 mm offset and with a 32 mm x 4 mm humeral cup and a 32 mm +10 mm humeral insert. With this construct, we had excellent range of motion. We were able to abduct to 90?, and we had free range of motion below this with excellent internal and external rotation. The patient was able to reach the back of his head. We had no obvious impingement. Distraction on the arm demonstrated less than a millimeter of distraction. Gentle range of motion was accomplished secondary to the severe osteopenia. Therefore, this was the chosen size for the implant. All trial components were removed including the broach. Upon evaluation of the humerus, we did feel that the size 13S good fit and fill with no evidence of loosening. Bony tissue was trimmed from around the area as was soft tissue. A size 13 S reunion TSA modular humeral stem was impacted into position. Onto this subsequently was placed the 32 mm x 4 mm humeral cup which had been assembled to the 32 x 4 mm humeral insert. The construct was reduced. Once again, range of motion was performed, we had excellent stability with no evidence of dislocation. Therefore, attention was directed to closure. The shoulder was irrigated copiously. This was suctioned dry and subsequently irrigated with normal saline containing Ancef. We were not able to effectively close the subscapularis secondary to contracture. The deltopectoral groove was then evaluated. The vein was intact. Soft tissues were closed in this area with 0 Vicryl over the vein area with care being taken to protect the vein. We then placed vancomycin powder and Surgiflo. The subcutaneous tissues were closed using 2-0 Monocryl. The skin was closed with a running 3-0 Monocryl. This was followed by Exofin and Steri-Strips. Sterile dressing was placed consisting of a Telfa, 4 x 4 and Tegaderm. The patient was placed in a slingshot style sling and was returned to recovery room in satisfactory condition where she will be discharged to the floor for postoperative rehabilitation and pain management. There were no specimens and no complications. X-rays were obtained intraoperatively and demonstrated both appropriate position and reduction of the components as well as excellent fit of the humeral canal. Associated Problem List Diagnoses (1) Rotator cuff arthropathy of right shoulder: (2) Osteoarthritis of right shoulder: Qualifiers: Osteoarthritis type: primary Qualified Code(s): M19.011 - Primary osteoarthritis, right shoulder
--- NOTE | 2020-06-28 18:03 | XR_ITS ---
WS: [id number] C-ARM RADIOGRAPHS RIGHT SHOULDER; 5 IMAGES HISTORY: RIGHT REVERSE TOTAL SHOULDER ARTHROPLASTY COMPARISON: 06/02/2020 Intraoperative imaging during reverse RIGHT shoulder replacement. Prosthetic components by C-arm appe ared good position and alignment. XR/XR shoulder RT min 2V* [id number] IMPRESSION: Intraoperative imaging during reverse shoulder prosthesis placement. No apparen t complications.
--- NOTE | 2020-06-28 18:33 | ANE.PACU2 ---
Inpatient post-anesthesia follow up: Airway intact: Yes Vital signs: Temperature 97.2 F Pulse Rate 66 Respiratory Rate 18 Blood Pressure 152/82 Pulse Oximetry 94 Oxygen Delivery Me thod Room Air Oxygen Flow Rate Fraction of Inspir ed Oxygen Hydration adequate: Yes Nausea and vomiting: No Pain level: 1 Mental status: Baseline
--- NOTE | 2020-06-28 18:54 | ANE.PACU2 ---
Inpatient post-anesthesia follow up: Airway intact: Yes Vital signs: Temperature 97 F Pulse Rate 58 Respiratory Rate 18 Blood Pressure 120/61 Pulse Oximetry 92 Oxygen Delivery Me thod Nasal Cannula Oxygen Flow Rate 3 Fraction of Inspir ed Oxygen Hydration adequate: Yes Nausea and vomiting: No Pain level: 1 Mental status: Altered Additional Comments: Mild sedation, slight hypoxemia (likely secondary to phrenic nerve blk from IS nerve blk)
[2020-06-28] MEDS: oxyCODONE 5 mg IR Tab/Cap PO (21:50)
[2020-06-29] VITALS (9 sets, daily range): BP systolic 123–157; BP diastolic 56–76; PULSE 67–89; RESP 16–22; TEMP 36.7–37.7; O2SAT 88–95
[2020-06-29 02:38] LABS: Basophils % 0.1 %; Hematocrit 32.8 % (37.0-47.0); Hemoglobin 10.3 g/dL (11.5-15.3); Lymphocytes # 0.5 10^3/uL (0.8-4.8); Lymphocytes % 5.3 %; Mean Corpuscular HGB Conc 31.4 g/dL (30.0-36.0); Mean Corpuscular Hemoglobin 30.7 pg (28.0-34.0); Mean Corpuscular Volume 97.6 fL (81-99); Monocytes # 0.4 10^3/uL (0.2-0.9); Monocytes % 4.1 %; Neutrophils # 8.17 10^3/uL (1.8-7.7); Neutrophils % 90.1 %; Nucleated Red Blood Cells % 0 %; Platelet Count 139 10^3/cmm (130-400); Red Blood Count 3.36 10^6/uL (4.1-5.3); Red Cell Distribution Width 13.2 % (12.1-15.1); White Blood Count 9.1 10^3/uL (4.0-10.0)
[2020-06-29 02:55] LABS: Anion Gap 14.1 (5-19); Blood Urea Nitrogen 38 mg/dL (8-23); Calcium 8.8 mg/dL (8.5-10.5); Carbon Dioxide 25 mmol/L (22-29); Chloride 105 mmol/L (98-107); Glucose 166 mg/dL (65-115); Osmolality Calculated 299 mOsm/kg (285-295); Potassium 6.1 mmol/L (3.5-5.1); Sodium 138 mmol/L (136-145)
[2020-06-29] MEDS: oxyCODONE 5 mg IR Tab/Cap PO ×2 (07:42→13:46)
[2020-06-29] MEDS: FUROsemide 20 mg Tablet PO (09:13)
[2020-06-29] MEDS: isosorbide mononitrate ER 60 mg Tablet PO (09:13)
[2020-06-29] MEDS: gabapentin 300 mg Capsule PO (09:13)
[2020-06-29] MEDS: cholecalciferol (vitamin D3) 1,000 unit Tablet 1000 UNIT PO (09:13)
[2020-06-29] MEDS: amlodipine 10 mg Tablet PO (09:13)
[2020-06-29] MEDS: docusate sodium 100 mg Capsule PO (09:13)
[2020-06-29] MEDS: carvedilol 25 mg Tablet PO (09:13)
[2020-06-29] MEDS: aspirin 81 mg EC Tablet PO (09:14)
[2020-06-29] MEDS: pantoprazole DR 40 mg Tablet PO (09:14)
[2020-06-29] MEDS: levothyroxine 88 mcg Tablet PO (09:14)
[2020-06-29] MEDS: losartan 50 mg Tablet 100 MG PO (09:14)
[2020-06-29] MEDS: atorvastatin 40 mg Tablet 20 MG PO (09:21)
[2020-06-29] MEDS: anastrozole 1 mg Tablet PO (09:21)
--- NOTE | 2020-06-29 11:41 | PC.NURSE ---
i reported the low 02 88% to the nurse
--- NOTE | 2020-06-29 14:09 | PC.CHAP ---
Pastoral Care Encounter/Spiritual Assessment Type of Contact [] Declined healthcare project manager visit [] Patient/Family/Request visit [] Outpatient visit [] Follow-up visit [] Physician referral [] Code/Alert [x] Routine visit [] Staff referral [] Actively dying [] Patient sleeping [] Family support [] [] Out of room [] Palliative care [] [] Receiving care in room [] Pre-surgical visit [] Trauma [] Long length of stay [] ICU visit [] Other: Relational/Emotional Strength [] Patient feels connected with others/family/visitors/staff [] Distress [] Loneliness/isolation [] Abandonment Spirituality of Patient [] Person of Kat [] Attends Islam of their Kat [] Believes in Prayer [] Reads Bible or Yarsani materials [] There are Spiritual issues to be addressed Hot Stone Setter Interventions [] Prayer [] Active listening [] Non-anxious presence [] Spiritual/emotional support [] Crisis/trauma care [] Spiritual counseling [] Bereavement support [] Provided bereavement packet [] Provided Bible/devotional materials [] Provided toy/stuffed animal, coloring book to patient or family member [] Provided Communion [] Anointing/[place] [] Salvation [] Completed spiritual assessment [] Other: Impact on Illness or Injury [] Angry [] Fearful [] Anxious [] Often cries [] Exhaustion [] Unable to work [] Unable to attend roman catholic [] Unable to walk/stand [] Unable to read [] Unable to drive [] Unable to eat/drink [] Unable to sleep [] Unable to be with family [] Patient intubated [] Other: Summary Time spent with patient
--- NOTE | 2020-06-29 16:20 | PC.NURSE ---
Reviewed patient's discharge with patient and her son. Patient provided with all discharge instructions including the [address] Al requested to be sent home. Patient was also dispensed her pain medication here and it was reviewed with patient and son how to take them. Patient has sling in place at discharge. Patient is A&Ox3. Respirations even and non-labored on room air. IV was removed intact. Patient tolerated well.
--- NOTE | 2020-06-29 16:57 | P.DS_ITS ---
Discharge Providers Date of Admission: 06/28/20 14:08 Date of Discharge: June 29, 2020 Attending Provider at Admission: Yesica Al MD Attending Provider at Discharge: Yesica Al MD Primary Care Provider: Yvette Pickens MD Diagnoses at Discharge Discharge Diagnosis (1) Rotator cuff arthropathy of right shoulder: Status: Acute (2) Osteoarthritis of right shoulder: Status: Acute Qualifiers: Osteoarthritis type: primary Qualified Code(s): M19.011 - Primary osteoarthritis, right shoulder Reason for Visit Reason for Visit: right reverse total shoulder arthroplasty Brief History: This 85-year-old woman presented with remote rotator cuff injury to the right shoulder. MRI demonstrated findings consistent with prior rotator cuff repair, significant thinning of the rotator cuff, and severe degenerative osteoarthritis consistent with rotator cuff arthropathy. She has had very limited use of her right upper extremity. She has pain with any range of motion. She presents today for reverse shoulder arthroplasty. Risks and complications were discussed with her preoperatively. She wished to proceed with operative intervention. Hospital Course Hospital Course Patient was admitted to the hospital after same-day surgery to address her right shoulder rotator cuff arthropathy. The procedure was as follows: Right reverse shoulder arthroplasty with long head of biceps tenodesis with associated intra- articular biceps resection. Following this procedure, the patient was admitted to the floor. She was monitored from a medical perspective and also her pain was addressed. The morning following surgery, she began physical therapy which she tolerated well. She was medically stable with no complications. Therefore, plans are made for the patient's discharge to home. The patient was in agreement and actually was very anxious to be discharged home on postop day 1. She was felt to be safe and therefore was discharged and will follow up with me as previously scheduled. The dressing was removed. The wound was benign. This was covered with a clear Tegaderm. The patient was in her slingshot sling and advised to remain there. She was also educated as to restrictions following this procedure. She understands and is sent home with a protocol to follow. She will also have in home therapies. Physical Exam Const: COMMON NORMALS: no acute distress, average body habitus, patient oriented x3 and alert GENERAL APPEARANCE: cooperative and comfortable ORIENTATION/CONSCIOUSNESS: Yes awake HENMT: COMMON NORMALS: normocephalic and atraumatic HEAD & SCALP: normocephalic and atraumatic Eye: GENERAL EYE: appearance normal, both eyes and all related structures Chest: COMMONS NORMALS: normal inspection of the chest Resp: COMMON NORMALS: normal respiratory effort EFFORT & INSPECTION: Yes able to speak in complete sentences and Yes symmetric chest movement Extremity: RIGHT UPPER EXTREMITY: Yes shoulder joint (Patient is status post reverse shoulder arthroplasty.) Right shoulder: Yes Right shoulder joint inspection exam (The wound is benign with no evidence of drainage. No tenderness), Yes Right shoulder joint ROM exam (Not evaluated.) and Yes Right sh oulder joint neurovascular exam (Intact distal to the surgical site.) Neuro: COMMON NORMALS: patient oriented x3 SENSORIUM/ORIENTATION: Yes alert Psych: COMMON NORMALS: mental status grossly normal APPEARANCE: Yes grossly normal ATTITUDE: Yes calm and Yes engaged ATTENTION/CONCENTRATION: Yes attention grossly intact Skin: COMMON NORMALS: no rashes or lesions noted GENERAL SKIN EXAM: no rashes or lesions noted Urinary Catheter Management^: F: Cath Placed During This Visit: yes, but has since been removed by the nurse Reason for Continuing Indwelling Catheter: Decision to DC Catheter Urinary Catheter Date of Insertion: 06/28/20 Urinary Catheter Time of Insertion: 14:55 Date Urinary Catheter Removed: 06/29/20 Time Urinary Catheter Discontinued: 08:00 Discharge Data Data Completed and Pending: Completed Studies During Hospitalization Category Date Time Status XR shoulder RT mi n 2V* [id number] Routin e Exams 06/28/20 18:03 Completed Labs from last 24 hours 06/29/20 06/29/20 02:04 02:04 WBC 9.1 RBC 3.36 L Hgb 10.3 L Hct 32.8 L MCV 97.6 MCH 30.7 MCHC 31.4 RDW 13.2 Plt Count 139 MPV 12.0 H Neut % (Auto) 90.1 Lymph % (Auto) 5.3 Roberts % (Auto) 4.1 Eos % (Auto) 0.0 Baso % (Auto) 0.1 Neut # (Auto) 8.17 H Lymph # (Auto) 0.5 L Roberts # (Auto) 0.4 Eos # (Auto) 0.0 Baso # (Auto) 0.0 Nucleated RBC % (a uto) 0 Nucleated RBCs # 0.0 Sodium 138 Potassium 6.1 H Chloride 105 Carbon Dioxide 25 Anion Gap 14.1 BUN 38 H Creatinine 2.3 H GFR Calculation Not Reportable Glucose 166 H Calculated Osmolal ity 299 H Calcium 8.8 Vitals: Last Vital Signs Temp 98.1 F 06/29/20 16:20 Pulse 70 06/29/20 16:20 Resp 16 06/29/20 16:20 BP 145/60 06/29/20 16:20 Pulse Ox 92 06/29/20 16:20 Discharge Plan Discharge Patient Disposition: Home Health Service Condition: Stable Prescriptions: New acetaminophen 500 mg Tablet 1,000 mg PO Q8H 15 Days Qty: 90 RF: 0 oxycodone 5 mg Tablet 5 mg PO Q4H PRN (Reason: Moderate To Severe Pain) Qty: 30 RF: 0 Continued amlodipine 10 mg tablet 10 mg PO DAILY RF: 0 levothyroxine [Levoxyl] 88 mcg tablet 88 mcg PO DAILY RF: 0 lovastatin 40 mg tablet 40 mg PO DAILY RF: 0 omeprazole 20 mg capsule,delayed release(DR/EC) 20 mg PO BID RF: 0 omega-3 fatty acids [Fish Oil Concentrate] 1,000 mg capsule 1,000 mg PO BID RF: 0 PreserVision Lutein 226 mg-200 unit -5 mg-0.8 mg capsule 1 cap PO DAILY RF: 0 aspirin [Adult Low Dose Aspirin] 81 mg tablet,delayed release (DR/EC) 81 mg PO BID RF: 0 flaxseed oil 1,000 mg capsule 1,000 mg PO DAILY RF: 0 cholecalciferol (vitamin D3) 25 mcg (1,000 unit) tablet 1,000 unit PO DAILY RF: 0 anastrozole 1 mg tablet 1 mg PO DAILY RF: 0 potassium chloride 8 mEq tablet extended release 8 meq PO DAILY RF: 0 gabapentin 300 mg tablet 300 mg PO DAILY RF: 0 furosemide 20 mg tablet 20 mg PO BID RF: 0 losartan 100 mg tablet 100 mg PO DAILY Qty: 90 RF: 3 isosorbide mononitrate 60 mg tablet extended release 24 hr 60 mg PO BID Qty: 180 RF: 3 carvedilol 25 mg tablet 25 mg PO BID Qty: 180 RF: 3 Discharge Orders: Discharge Order (Routine); Ordered 06/29/20 Ordered By: Yesica Al [place] [facility] [place] [Outside] Yesica Al MD [Physician] - 07/11/20 10:45 am Discharge Diet: Advance as tolerated and Usual diet Discharge Activity: Limit activity as instructed and As per PT/OT instructions Patient Instructions: Oxycodone, Rapid Release (By mouth), Shoulder Arthroplasty (DC), How to Use a Sling (GEN) Activity Restrictions/Additional Instructions: Wear sling at all times. Keep elbow in front of your side. You should have a shoulder protocol sent home with you. Please follow this as indicated and work with home health. Discharge Attestations Time Spent in Discharge Care*: greater than 30 min Specific Discharge Activities: educating patient, documenting/other paperwork and evaluating patient/reviewing data Quality Metrics Clinical Quality Measures During this hospital stay, did patient experience: None Coding Level of Care Code Acute Director Nicu for Andrés Deng Diagnoses Rotator cuff arthropathy of right shoulder M12.811 Osteoarthritis of right shoulder M19.011 Osteoarthritis type: primary
== END 2020-06-29 16:20 | disposition home or self-care (01) | DRG 483 ==
LOC: MEDSURG 14:08
PROVIDERS: Admitting Provider Specialist; PCP Family Medicine; Visit Provider Specialist
PROC: 0RRJ00Z Replacement of Right Shoulder Joint with Reverse Ball and Socket Synthetic Substitute, Open Approach (ICD-10-PCS; CPT 23472; principal; 2020-06-28 12:35)
DX: M19.011 Primary osteoarthritis, right shoulder (principal); I25.10 Atherosclerotic heart disease of native coronary artery without angina pectoris; K21.9 Gastro-esophageal reflux disease without esophagitis; H54.7 Unspecified visual loss; E11.51 Type 2 diabetes mellitus with diabetic peripheral angiopathy without gangrene; E03.9 Hypothyroidism, unspecified; I65.23 Occlusion and stenosis of bilateral carotid arteries; E78.5 Hyperlipidemia, unspecified; N18.9 Chronic kidney disease, unspecified; E11.22 Type 2 diabetes mellitus with diabetic chronic kidney disease; I12.9 Hypertensive chronic kidney disease with stage 1 through stage 4 chronic kidney disease, or unspecified chronic kidney disease; Z79.82 Long term (current) use of aspirin; Z87.891 Personal history of nicotine dependence
CPT/HCPCS: 12345; 36415; 64415; 73030; 76000; 76942; 80048; 85025; 93005; 96365; 96374; 96375; 97110; 97167; C1776; J0131; J0690; J1100; J2250; J2405; J2704; J2710; J2795; J3010; J3370; J3490; J7030; J7050; J8999

== ENCOUNTER 2020-06-30 19:42 | Inpatient (IN) | payer MEDICARE, MEDICAID, SELFPAY ==
[2020-06-30] VITALS (9 sets, daily range): BP systolic 82–125; BP diastolic 45–61; PULSE 72–97; RESP 15–24; TEMP 37.4; O2SAT 90–97; BMI 33.2
--- NOTE | 2020-06-30 19:49 | CTR_ITS ---
PROCEDURE INFORMATION: Exam: CT Head Without Contrast Exam date and time: 06/30/2020 8:01 PM Age: 85 years old Clinical indication: Altered mental status/memory loss TECHNIQUE: Imaging protocol: Computed tomography of the head without contrast. Radiation optimization: All CT scans at this facility use at least one of these dose optimization techniques: automated exposure control; mA and/or kV adjustment per patient size (includes targeted exams where dose is matched to clinical indication); or iterative reconstruction. COMPARISON: CT head wo con* [id number] 02/25/2015 11:00 AM RADIATION DOSE METRICS: Total DLP (mGy-cm): 937.56 FINDINGS: Brain: Normal. No hemorrhage. Unremarkable white matter. No mass effect. Cerebral ventricles: No ventriculomegaly. Bones/joints: Unremarkable. No acute fracture. Paranasal sinuses: Visualized sinuses are unremarkable. No fluid levels. Mastoid air cells: Visualized mastoid air cells are well aerated. Soft tissues: Unremarkable. CT/CT head wo con* [id number] IMPRESSION: Negative for intracranial hemorrhage or mass effect. Radiation Dose CTDIVOL = (mGy): DLP = 937.56 (mGy-cm)
--- NOTE | 2020-06-30 19:50 | XR_ITS ---
WS: [id number] XR chest 1V portable [id number] REASON FOR EXAM: Altered mental status FINDINGS: Moderate tortuosity of the thoracic aorta without dilatation. Heart is normal. Although a hand partially overlies the lower right chest there is definitely a right lower lobe inter stitial and alveolar infiltrate. There may also be an early infiltrate in the left lower lung. There is been total right shoulder arthroplasty. XR/XR chest 1V portable [id number] IMPRESSION: Right lower lobe infiltrate. This is of unknown chronicity since there are no p rior examinations but the finding is most compatible with acute/subacute pneumo nitis.
--- NOTE | 2020-06-30 19:51 | ECG_ITS ---
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 Measurements Intervals [place] Rate: 84 P: [place]: QRS: 33 QRSD: 137 T: 70 QT: 409 QTc: 486 Interpretive Statements Possible sinus rhythm heavy artifact Defective EKG Need to repeat Electronically Signed On 07-01-2020 20:47:19 CONDENSER SETTER by Edwin Soliz M.D. [id number]
--- NOTE | 2020-06-30 19:52 | W.ED.AMS ---
HPI - Altered Mental Status General: Chief Complaint: Altered Mental Status Stated Complaint: ams Time Seen by Provider: 06/30/20 19:43 Source: patient Mode of arrival: ambulatory Limitations: no limitations History of Present Illness: HPI narrative: Mrs. Ashton is a nice 85-year-old female brought in from home with report of altered mental status. Patient apparently had shoulder replacement surgery [address] Lewis here at the hospital. She was recovering expectedly according to her sister who she lives with until yesterday when she began taking a pain medication for her shoulder. Her sister states that since taking that pain medication the patient has slept almost all the time, is not eating or drinking well and today she appeared as though she was having trouble breathing. There is been no report of fever. EMS was called and found the patient to have a pulse ox of 89% on room air and she was hypotensive with a blood pressure of 90/70. Her blood pressure improved with 200 cc of normal saline. She was placed on 6 L of nasal cannula oxygen which raised her pulse ox into the mid 90s. The patient did improve with her mentation throughout the transport and upon arrival here. The patient when asked states she has pain in her right shoulder from her surgery but otherwise denies any distal numbness, tingling or weakness. She is alert to person, place, time but does not understand the situation or reason for her to be transferred to the hospital. EMS reports in route the patient would fall back asleep even midsentence and it was only as time went on that she improved with this. Patient denies cough, headache, shortness of breath, back pain, abdominal pain, urinary symptoms or other extremity pain. Review of Systems General: Reports: ROS unobtainable due to mental status (Pertinent positive review of systems noted in HPI) [facility] ED PFSH: Medical History (Updated 07/01/20 @ 00:32 by Jodi Ortega) Bilateral carotid artery stenosis Bilateral cataracts CAD (coronary artery disease) Had the most recent cardiac cauterization in January 2012. She was found to have mild to moderate diffuse coronary artery disease. Most recent myocardial perfusion imaging in 2013. No evidence of ischemia. Chronic kidney disease Diabetes Hyperlipidemia Hypertension Hypothyroid Leg swelling SOB (shortness of breath) Subclavian artery stenosis, right Surgical History History of appendectomy History of shoulder surgery Hx of cholecystectomy Family History Other CAD (coronary artery disease) Chronic kidney disease (CKD) Diabetes Family history of premature coronary artery disease Hyperlipidemia Hypertension Lung disease Stroke Social History Smoking and tobacco status: former smoker Alcohol intake: never Physical Exam Const: COMMON NORMALS: no acute distress, patient oriented x3, no limitations and alert GENERAL APPEARANCE: cooperative HENMT: COMMON NORMALS: normocephalic, atraumatic, external ears normal, EAC's normal and Normal external nose present HEAD & SCALP: normal to inspection, normocephalic and atraumatic FACE & SINUS: normal facial exam and face symmetric NOSE: Normal external nose present and Normal nares present EXTERNAL EAR: Yes external ears normal EXTERNAL AUDITORY CANAL: EAC's normal MOUTH: Normal oral and palatal mucosa present, lip normal and tongue normal Eye: COMMON NORMALS: Equal, round and reactive pupils present and conjunctivae normal GENERAL EYE: appearance normal, both eyes and all related structures ALIGNMENT: Yes alignment normal PERIORBITAL: periorbital findings normal EYELID: eyelids normal CONJUNCTIVA: Yes conjunctivae normal SCLERA: sclerae normal PUPIL: Yes Equal, round and reactive pupils present Neck/C-Spine: COMMON NORMALS: full ROM, no lymphadenopathy, supple, no meningeal signs and no JVD GENERAL: Yes normal visual inspection and Yes trachea midline Chest: COMMONS NORMALS: normal inspection of the chest and normal palpation of entire chest wall Resp: COMMON NORMALS: normal respiratory effort, No retractions, No use of accessory muscles and clear to auscultation bilaterally EFFORT & INSPECTION: Yes able to speak in complete sentences and Yes symmetric chest movement AUSCULTATION: clear to auscultation bilaterally, no crackles, no rales and no wheezes Cardio: COMMON NORMALS: no JVD, regular rate, regular rhythm, S1 normal heart sound present and S2 normal heart sound present RATE: regular rate RHYTHM: regular rhythm HEART SOUNDS: S1 normal heart sound present, S2 normal heart sound present, no click, no gallops, no murmurs and no rubs GI: COMMON NORMALS: Soft to palpation and No hepatosplenomegaly present PALPATION: Yes Soft to palpation, No Tenderness to palpation present (GI), No Guarding due to palpation present (GI), No Rigid due to palpation, Yes No hepatosplenomegaly present, No Hernia present, No Palpable mass present and No Pulsatile mass present : COMMON NORMALS: Yes no CVA tenderness BLADDER/KIDNEY EXAM: Yes no CVA tenderness EXTERNAL FEMALE EXAM: No Hernia present Back/Pelvis: COMMON NORMALS: no CVA tenderness, thoracic and lumbar spine normal to inspection, no thoracic nor lumbar tenderness and thoraco-lumbar ROM normal Extremity: COMMON NORMALS: capillary refill normal, no joint enlargement and no calf tenderness NARRATIVE EXTREMITY EXAM: Right shoulder with mild tenderness to palpation. Remainder of musculoskeletal examination is unremarkable. Neuro: COMMON NORMALS: patient oriented x3, CN's II-XII intact bilaterally, moves all extremities, no focal motor deficits and no sensory deficits noted SENSORIUM/ORIENTATION: Yes alert MENINGEAL SIGNS: Yes no meningeal signs SPEECH: speech normal Skin: COMMON NORMALS: no rashes or lesions noted, turgor normal, no jaundice, no petechiae and no mottling GENERAL SKIN EXAM: no rashes or lesions noted and turgor normal Course Vital Signs: Vital signs: Vital Signs Temperature 99.4 F 06/30/20 19:51 Pulse Rate 65 07/01/20 00:27 Respiratory Rate 18 07/01/20 00:27 Blood Pressure 114/69 07/01/20 00:27 Pulse Oximetry 96 07/01/20 00:27 MDM - Altered Mental Status MDM Narrative: Medical decision making narrative: Patient appears to be in hypercapnic respiratory failure secondary to narcotics. She may have some atelectasis or early pneumonia in her lungs to explain her hypoxia. PE cannot be completely ruled out but the patient has no leg pain or swelling. I discussed this with the hospitalist, Dr. Medel and he will decide whether he wants to anticoagulate her empirically or continue to watch her clinically. Patient's blood pressures been good and she is making urine after Ruiz catheter was placed. Patient CT on pelvis performed because there was concern about air in the gallbladder. The patient had thought she may have had a cholecystectomy in the past but it was not clear. CT abdomen pelvis does not reveal any gallbladder problems so we will just treat her medically at this time. Lab Data: Attestation: I reviewed the patient's lab results. Labs: Lab Results 06/30/20 06/30/20 06/30/20 Range/Units 20:20 20:20 20:20 WBC 6.3 (4.0-10.0) 10^3/ uL RBC 2.82 L (4.1-5.3) 10^6/u L Hgb 8.6 L (11.5-15.3) g/dL Hct 28.8 L (37.0-47.0) % MCV 102.1 H (81-99) fL MCH 30.5 (28.0-34.0) pg MCHC 29.9 L (30.0-36.0) g/dL RDW 13.4 (12.1-15.1) % Plt Count 118 L (130-400) 10^3/c mm MPV 11.9 H (7.4-10.4) fL Neut % (Auto) 71.9 % Lymph % (Auto) 15.6 % [place] % (Auto) 8.4 % Eos % (Auto) 2.7 % Baso % (Auto) 0.6 % Neut # (Auto) 4.55 (1.8-7.7) 10^3/u L Lymph # (Auto) 1.0 (0.8-4.8) 10^3/u L [place] # (Auto) 0.5 (0.2-0.9) 10^3/u L Eos # (Auto) 0.2 (0.0-0.8) 10^3/u L Baso # (Auto) 0.0 (0.0-0.1) 10^3/u L Nucleated RBC % (a uto) 0 % Nucleated RBCs # 0.0 /100WBC PT 15.90 H (12.1-14.9) SECO NDS INR 1.23 H (0.8-1.2) Specimen Type Sample Site ABG pH (7.35-7.45) ABG pCO2 (35-45) mmHg ABG pO2 (80.0-100.0) mmH g ABG HCO3 (22-26) mmol/L ABG Base Excess (-2.0-2.0) mmol/ L [place] Test Hematocrit (37-47) % O2 Delivery Device O2 Liters/Min % FiO2 % Scientific Artist ID Sodium 136 (136-145) mmol/L Potassium 5.2 H (3.5-5.1) mmol/L Chloride 102 (98-107) mmol/L Carbon Dioxide 28 (22-29) mmol/L Anion Gap 11.2 (5-19) BUN 44 H (8-23) mg/dL Creatinine 3.4 H (0.5-0.9) mg/dL GFR Calculation Not Reportable Glucose 151 H (65-115) mg/dL Calculated Osmolal ity 296 H (285-295) mOsm/k g Lactic Acid (0.5-2.2) mmol/L Calcium 8.4 L (8.5-10.5) mg/dL Magnesium 1.6 L (1.7-2.3) mg/dL Total Bilirubin 0.3 (0.15-1.2) mg/dL AST 18 (0-32) U/L ALT 14 (0-33) U/L Alkaline Phosphata se 75 (35-105) IU/L Troponin T Baselin e (0-10) ng/L NT-Pro-B Natriuret Pep 1820 H (0-450) pg/mL Total Protein 4.3 L (6.6-8.7) g/dL Albumin 2.8 L (3.5-5.2) g/dL Globulin 1.5 (1.3-4.6) g/dL Lipase (13-60) U/L Urine Color (Yellow) Urine Appearance (CLEAR) Urine pH (5-7) Ur Specific Gravit y (1.005-1.030) Urine Protein (Negative) Urine Glucose (UA) (Normal) Urine Ketones (Negative) Urine Blood (Negative) Urine Nitrate (Negative) Urine Bilirubin (Negative) Urine Urobilinogen (Negative) mg/dL Ur Leukocyte Fadia ase (Negative) Urine RBC (0-2) /hpf Urine WBC (0-5) /hpf Ur Squamous Epith Cells (0-5) /hpf Amorphous Sediment Urine Bacteria (NONE) /hpf Urine Opiates Scre en (Negative) ng/mL Ur Barbiturates Sc reen (Negative) ng/mL Ur Phencyclidine S crn (Negative) ng/mL Ur Amphetamines Sc reen (Negative) ng/mL U Benzodiazepines Scrn (Negative) ng/mL Urine Cocaine Scre en (Negative) ng/mL U Marijuana (THC) Screen (Negative) ng/mL Influenza Type A A g (Negative) Influenza Type B A g (Negative) SARS-CoV-2 Ag (Rap id) (Negative) 06/30/20 06/30/20 06/30/20 Range/Units 20:20 20:20 20:25 WBC (4.0-10.0) 10^3/ uL RBC (4.1-5.3) 10^6/u L Hgb (11.5-15.3) g/dL Hct (37.0-47.0) % MCV (81-99) fL MCH (28.0-34.0) pg MCHC (30.0-36.0) g/dL RDW (12.1-15.1) % Plt Count (130-400) 10^3/c mm MPV (7.4-10.4) fL Neut % (Auto) % Lymph % (Auto) % [place] % (Auto) % Eos % (Auto) % Baso % (Auto) % Neut # (Auto) (1.8-7.7) 10^3/u L Lymph # (Auto) (0.8-4.8) 10^3/u L [place] # (Auto) (0.2-0.9) 10^3/u L Eos # (Auto) (0.0-0.8) 10^3/u L Baso # (Auto) (0.0-0.1) 10^3/u L Nucleated RBC % (a uto) % Nucleated RBCs # /100WBC PT (12.1-14.9) SECO NDS INR (0.8-1.2) Specimen Type Sample Site ABG pH (7.35-7.45) ABG pCO2 (35-45) mmHg ABG pO2 (80.0-100.0) mmH g ABG HCO3 (22-26) mmol/L ABG Base Excess (-2.0-2.0) mmol/ L [place] Test Hematocrit (37-47) % O2 Delivery Device O2 Liters/Min % FiO2 % Scientific Artist ID Sodium (136-145) mmol/L Potassium (3.5-5.1) mmol/L Chloride (98-107) mmol/L Carbon Dioxide (22-29) mmol/L Anion Gap (5-19) BUN (8-23) mg/dL Creatinine (0.5-0.9) mg/dL GFR Calculation Glucose (65-115) mg/dL Calculated Osmolal ity (285-295) mOsm/k g Lactic Acid 0.6 (0.5-2.2) mmol/L Calcium (8.5-10.5) mg/dL Magnesium (1.7-2.3) mg/dL Total Bilirubin (0.15-1.2) mg/dL AST (0-32) U/L ALT (0-33) U/L Alkaline Phosphata se (35-105) IU/L Troponin T Baselin e 45 H (0-10) ng/L NT-Pro-B Natriuret Pep (0-450) pg/mL Total Protein (6.6-8.7) g/dL Albumin (3.5-5.2) g/dL Globulin (1.3-4.6) g/dL Lipase (13-60) U/L Urine Color (Yellow) Urine Appearance (CLEAR) Urine pH (5-7) Ur Specific Gravit y (1.005-1.030) Urine Protein (Negative) Urine Glucose (UA) (Normal) Urine Ketones (Negative) Urine Blood (Negative) Urine Nitrate (Negative) Urine Bilirubin (Negative) Urine Urobilinogen (Negative) mg/dL Ur Leukocyte Fadia ase (Negative) Urine RBC (0-2) /hpf Urine WBC (0-5) /hpf Ur Squamous Epith Cells (0-5) /hpf Amorphous Sediment Urine Bacteria (NONE) /hpf Urine Opiates Scre en (Negative) ng/mL Ur Barbiturates Sc reen (Negative) ng/mL Ur Phencyclidine S crn (Negative) ng/mL Ur Amphetamines Sc reen (Negative) ng/mL U Benzodiazepines Scrn (Negative) ng/mL Urine Cocaine Scre en (Negative) ng/mL U Marijuana (THC) Screen (Negative) ng/mL Influenza Type A A g Negative (Negative) Influenza Type B A g Negative (Negative) SARS-CoV-2 Ag (Rap id) (Negative) 06/30/20 06/30/20 06/30/20 Range/Units 20:25 20:27 21:42 WBC (4.0-10.0) 10^3/ uL RBC (4.1-5.3) 10^6/u L Hgb (11.5-15.3) g/dL Hct (37.0-47.0) % MCV (81-99) fL MCH (28.0-34.0) pg MCHC (30.0-36.0) g/dL RDW (12.1-15.1) % Plt Count (130-400) 10^3/c mm MPV (7.4-10.4) fL Neut % (Auto) % Lymph % (Auto) % [place] % (Auto) % Eos % (Auto) % Baso % (Auto) % Neut # (Auto) (1.8-7.7) 10^3/u L Lymph # (Auto) (0.8-4.8) 10^3/u L [place] # (Auto) (0.2-0.9) 10^3/u L Eos # (Auto) (0.0-0.8) 10^3/u L Baso # (Auto) (0.0-0.1) 10^3/u L Nucleated RBC % (a uto) % Nucleated RBCs # /100WBC PT (12.1-14.9) SECO NDS INR (0.8-1.2) Specimen Type Arterial Arterial Sample Site Radial, left Radial, left ABG pH 7.30 L 7.31 L (7.35-7.45) ABG pCO2 55.2 H 51.8 H (35-45) mmHg ABG pO2 60.5 L 122.0 H (80.0-100.0) mmH g ABG HCO3 27.2 H 26.0 (22-26) mmol/L ABG Base Excess 0.4 -0.6 (-2.0-2.0) mmol/ L [place] Test Pos Pos Hematocrit 26.8 L 27.6 L (37-47) % O2 Delivery Device Nc Bipap O2 Liters/Min 6.0 % FiO2 35.0 % Scientific Artist ID Harkr Harkr Sodium (136-145) mmol/L Potassium (3.5-5.1) mmol/L Chloride (98-107) mmol/L Carbon Dioxide (22-29) mmol/L Anion Gap (5-19) BUN (8-23) mg/dL Creatinine (0.5-0.9) mg/dL GFR Calculation Glucose (65-115) mg/dL Calculated Osmolal ity (285-295) mOsm/k g Lactic Acid (0.5-2.2) mmol/L Calcium (8.5-10.5) mg/dL Magnesium (1.7-2.3) mg/dL Total Bilirubin (0.15-1.2) mg/dL AST (0-32) U/L ALT (0-33) U/L Alkaline Phosphata se (35-105) IU/L Troponin T Baselin e (0-10) ng/L NT-Pro-B Natriuret Pep (0-450) pg/mL Total Protein (6.6-8.7) g/dL Albumin (3.5-5.2) g/dL Globulin (1.3-4.6) g/dL Lipase (13-60) U/L Urine Color (Yellow) Urine Appearance (CLEAR) Urine pH (5-7) Ur Specific Gravit y (1.005-1.030) Urine Protein (Negative) Urine Glucose (UA) (Normal) Urine Ketones (Negative) Urine Blood (Negative) Urine Nitrate (Negative) Urine Bilirubin (Negative) Urine Urobilinogen (Negative) mg/dL Ur Leukocyte Fadia ase (Negative) Urine RBC (0-2) /hpf Urine WBC (0-5) /hpf Ur Squamous Epith Cells (0-5) /hpf Amorphous Sediment Urine Bacteria (NONE) /hpf Urine Opiates Scre en (Negative) ng/mL Ur Barbiturates Sc reen (Negative) ng/mL Ur Phencyclidine S crn (Negative) ng/mL Ur Amphetamines Sc reen (Negative) ng/mL U Benzodiazepines Scrn (Negative) ng/mL Urine Cocaine Scre en (Negative) ng/mL U Marijuana (THC) Screen (Negative) ng/mL Influenza Type A A g (Negative) Influenza Type B A g (Negative) SARS-CoV-2 Ag (Rap id) Negative (Negative) 06/30/20 06/30/20 06/30/20 Range/Units 22:05 22:05 23:50 WBC (4.0-10.0) 10^3/ uL RBC (4.1-5.3) 10^6/u L Hgb (11.5-15.3) g/dL Hct (37.0-47.0) % MCV (81-99) fL MCH (28.0-34.0) pg MCHC (30.0-36.0) g/dL RDW (12.1-15.1) % Plt Count (130-400) 10^3/c mm MPV (7.4-10.4) fL Neut % (Auto) % Lymph % (Auto) % [place] % (Auto) % Eos % (Auto) % Baso % (Auto) % Neut # (Auto) (1.8-7.7) 10^3/u L Lymph # (Auto) (0.8-4.8) 10^3/u L [place] # (Auto) (0.2-0.9) 10^3/u L Eos # (Auto) (0.0-0.8) 10^3/u L Baso # (Auto) (0.0-0.1) 10^3/u L Nucleated RBC % (a uto) % Nucleated RBCs # /100WBC PT (12.1-14.9) SECO NDS INR (0.8-1.2) Specimen Type Sample Site ABG pH (7.35-7.45) ABG pCO2 (35-45) mmHg ABG pO2 (80.0-100.0) mmH g ABG HCO3 (22-26) mmol/L ABG Base Excess (-2.0-2.0) mmol/ L [place] Test Hematocrit (37-47) % O2 Delivery Device O2 Liters/Min % FiO2 % Scientific Artist ID Sodium (136-145) mmol/L Potassium (3.5-5.1) mmol/L Chloride (98-107) mmol/L Carbon Dioxide (22-29) mmol/L Anion Gap (5-19) BUN (8-23) mg/dL Creatinine (0.5-0.9) mg/dL GFR Calculation Glucose (65-115) mg/dL Calculated Osmolal ity (285-295) mOsm/k g Lactic Acid (0.5-2.2) mmol/L Calcium (8.5-10.5) mg/dL Magnesium (1.7-2.3) mg/dL Total Bilirubin (0.15-1.2) mg/dL AST (0-32) U/L ALT (0-33) U/L Alkaline Phosphata se (35-105) IU/L Troponin T Baselin e (0-10) ng/L NT-Pro-B Natriuret Pep (0-450) pg/mL Total Protein (6.6-8.7) g/dL Albumin (3.5-5.2) g/dL Globulin (1.3-4.6) g/dL Lipase 19 (13-60) U/L Urine Color Yellow (Yellow) Urine Appearance Clear (CLEAR) Urine pH 5.0 (5-7) Ur Specific Gravit y 1.015 (1.005-1.030) Urine Protein Trace (Negative) Urine Glucose (UA) Norm (Normal) Urine Ketones Negative (Negative) Urine Blood Neg (Negative) Urine Nitrate Negative (Negative) Urine Bilirubin Neg (Negative) Urine Urobilinogen Norm (Negative) mg/dL Ur Leukocyte Fadia ase Negative (Negative) Urine RBC None (0-2) /hpf Urine WBC None (0-5) /hpf Ur Squamous Epith Cells None (0-5) /hpf Amorphous Sediment Not Reportable Urine Bacteria Trace (NONE) /hpf Urine Opiates Scre en Negative (Negative) ng/mL Ur Barbiturates Sc reen Negative (Negative) ng/mL Ur Phencyclidine S crn Negative (Negative) ng/mL Ur Amphetamines Sc reen Negative (Negative) ng/mL U Benzodiazepines Scrn Negative (Negative) ng/mL Urine Cocaine Scre en Negative (Negative) ng/mL U Marijuana (THC) Screen Negative (Negative) ng/mL Influenza Type A A g (Negative) Influenza Type B A g (Negative) SARS-CoV-2 Ag (Rap id) (Negative) Imaging Data^: CXR: Attestation: I personally reviewed and interpreted this imaging study as follows: My impression: Possible right lower lobe infiltrate although this could be caused by patient's underlying arm. CT Head: Radiologist's impression: [address] [address] [address] Scan Report Signed Patient: Cecilio Ashton AUnfederico #: [id number] : 1935Acct#:[id number] Age/Sex: 85 / FADM Date: 06/30/20 Loc: ERRoom/Bed: Attending Dr: Ordering Provider/Ordering MD: Jodi Ortega DO Date of Service: 06/30/20 Procedure(s): CT head wo con* [id number] Accession Number(s): [id number] Report Number: [id number] PROCEDURE INFORMATION: Exam: CT Head Without Contrast Exam date and time: 06/30/2020 8:01 PM Age: 85 years old Clinical indication: Altered mental status/memory loss TECHNIQUE: Imaging protocol: Computed tomography of the head without contrast. Radiation optimization: All CT scans at this facility use at least one of these dose optimization techniques: automated exposure control; mA and/or kV adjustment per patient size (includes targeted exams where dose is matched to clinical indication); or iterative reconstruction. COMPARISON: CT head wo con* [id number] 02/25/2015 11:00 AM RADIATION DOSE METRICS: Total DLP (mGy-cm): 937.56 FINDINGS: Brain: Normal. No hemorrhage. Unremarkable white matter. No mass effect. Cerebral ventricles: No ventriculomegaly. Bones/joints: Unremarkable. No acute fracture. Paranasal sinuses: Visualized sinuses are unremarkable. No fluid levels. Mastoid air cells: Visualized mastoid air cells are well aerated. Soft tissues: Unremarkable. CT/CT head wo con* [id number] IMPRESSION: Negative for intracranial hemorrhage or mass effect. Radiation Dose CTDIVOL = (mGy): DLP = 937.56 (mGy-cm) Dictated By:Albert Lemons MD Signed By:Albert Lemons MDSigned Date/Time:06/30/202229 DD/ 27 CT Abd/Pel: Radiologist's impression: [address] [address] [address] Scan Report Signed Patient: Cecilio Ashton AUnit #: [id number] : 6Acct#:[id number] Age/Sex: 85 / FADM Date: 06/30/20 Loc: ERRoom/Bed: Attending Dr: Ordering Provider/Ordering MD: Jodi Ortega DO Date of Service: 06/30/20 Procedure(s): CT abdomen pelvis wo con [id number] Accession Number(s): [id number] Report Number: [id number] PROCEDURE INFORMATION: Exam: CT Abdomen And Pelvis Without Contrast Exam date and time: 06/30/2020 11:28 PM Age: 85 years old Clinical indication: Abnormal findings; Abnormal radiologic finding of the abdomen; Patient HX: Possible gb abnormality seen on chest CT this p. M. ; Additional info: Abdominal pain TECHNIQUE: Imaging protocol: Computed tomography of the abdomen and pelvis without contrast. Radiation optimization: All CT scans at this facility use at least one of these dose optimization techniques: automated exposure control; mA and/or kV adjustment per patient size (includes targeted exams where dose is matched to clinical indication); or iterative reconstruction. COMPARISON: CR Hips [place] 5v wwo Pelvis* [id number] 04/07/2019 12:06 PM RADIATION DOSE METRICS: Total DLP (mGy-cm): 1161.68 FINDINGS: Lungs: Bibasilar atelectasis versus infiltrate. Liver: Normal. No mass. Gallbladder and bile ducts: Gallbladder appears absent, a portion of duodenum is seen extending to the biliary fossa reflecting the area of concern on comparison chest CT. Pancreas: Normal. No ductal dilation. Spleen: Normal. No splenomegaly. Adrenal glands: Normal. No mass. Kidneys and ureters: Bilateral punctate nonobstructing renal calyceal stones Several bilateral renal cysts, negative for follow-up advised. Right distal ureter 5.6 mm calculus suspected without significant hydronephrosis. Stomach and bowel: Diverticulosis without diverticulitis. Appendix: No evidence of appendicitis. Intraperitoneal space: Unremarkable. No free air. No significant fluid collection. Vasculature: Infrarenal fusiform abdominal aneurysm measuring up 3 cm without findings of rupture. Lymph nodes: Unremarkable. No enlarged lymph nodes. Urinary bladder: Ruiz catheter in the urinary bladder with air presumed iatrogenic. Reproductive: Unremarkable as visualized. Bones/joints: Unremarkable. No acute fracture. Soft tissues: Unremarkable. CT/CT abdomen pelvis wo con [id number] IMPRESSION: 1. Right distal ureter 5.6 mm calculus suspected without significant hydronephrosis. 2. Ruiz catheter in the urinary bladder with air presumed iatrogenic. 3. Infrarenal fusiform abdominal aneurysm measuring up 3 cm without findings of rupture. 4. Bibasilar atelectasis versus infiltrate. 5. Bilateral punctate nonobstructing renal calyceal stones 6. Several bilateral renal cysts, negative for follow-up advised. 7. Diverticulosis without diverticulitis. 8. Gallbladder appears absent, a portion of duodenum is seen extending to the biliary fossa reflecting the area of concern on comparison chest CT. COMMENTS: Consistent with the [employer]'s Incidental Findings Committee white paper (J Am [place]iol 2018): Any incidental renal lesion less than 1 cm or classified as too small to characterize, or any incidental cystic renal lesion characterized as simple-appearing, is likely benign. No follow-up imaging is recommended for these lesions per consensus recommendations based on imaging criteria. Radiation Dose CTDIVOL = (mGy): DLP = 1161.68 (mGy-cm) Dictated By:Albert Lemons MD Signed By:Albert Lemons MDSigned Date/Time:06/30/202349 DD/ EKG Data^: EKG 1: Attestation: I personally reviewed and interpreted this EKG as follows: EKG interpretation date: 06/30/20 EKG interpretation time: 20:02 Interpretation: Possible atrial fibrillation with a ventricular rate of 84 beats a minute, significant wandering baseline artifact. Underlying wide-complex QRS rhythm. Wide complex QRS rhythm found on previous. EKG 2: Attestation: I personally reviewed and interpreted this EKG as follows: EKG interpretation date: 06/30/20 EKG interpretation time: 22:12 Interpretation: Probable normal sinus rhythm at 86 beats a minute, possible wandering atrial pacemaker, left bundle branch block. Similar to previous. Discharge Plan Discharge Patient Disposition: Admitted As Inpatient Admit Provider: Adriano Medel Clinical Impression: Acute hypercapnic respiratory failure, Pneumonia, Acute on chronic renal failure Condition: Stable Coding Level of Care Code ED Sales Analytics Manager for Chg Fwd Exam Comprehensive
[2020-06-30] MEDS: sodium chloride 0.9% 1,000 ML 75 ML IV (20:11)
--- NOTE | 2020-06-30 20:16 | PC.PHAR ---
pt unable to verify medications due to ams-pts sister states a nurse sets up pts medications-[facility] home is closed no way to get med list-entered meds from ext med history and some medications were entered from previous entered med list-everything is noted in the pharmacy comments on each medication
--- NOTE | 2020-06-30 20:20 | CTR_ITS ---
PROCEDURE INFORMATION: Exam: CT Chest Without Contrast; Diagnostic Exam date and time: 06/30/2020 9:29 PM Age: 85 years old Clinical indication: Cough; Additional info: Cough, hypoxemia TECHNIQUE: Imaging protocol: Diagnostic computed tomography of the chest without contrast. Radiation optimization: All CT scans at this facility use at least one of these dose optimization techniques: automated exposure control; mA and/or kV adjustment per patient size (includes targeted exams where dose is matched to clinical indication); or iterative reconstruction. COMPARISON: CR XR chest 1V portable [id number] 06/30/2020 8:02 PM RADIATION DOSE METRICS: Total DLP (mGy-cm): 1157.7 FINDINGS: Lungs: Bilateral atelectasis versus infiltrate in the basilar lung gilbert. Pleural space: Unremarkable. No pneumothorax. No pleural effusion. Heart: Coronary artery atherosclerotic calcifications. Aorta: Unremarkable. No aortic aneurysm. Lymph nodes: Unremarkable. No enlarged lymph nodes. Gallbladder and bile ducts: Possible air seen in the gallbladder, incompletely visualized. Bones/joints: Unremarkable. No acute fracture. Soft tissues: Subcutaneous air and soft tissue swelling about the right shoulder with a right shoulder replacement seen, findings may be postsurgical if there has been recent surgery in this region. Right adrenal apparent 18 mm fat density lesion consistent with a benign myelolipoma. CT/CT chest wo con [id number] IMPRESSION: 1. Bilateral atelectasis versus infiltrate in the basilar lung gilbert. 2. Possible air seen in the gallbladder, incompletely visualized. 3. Subcutaneous air and soft tissue swelling about the right shoulder with a right shoulder replacement seen, findings may be postsurgical if there has been recent surgery in this region. 4. Coronary artery atherosclerotic calcifications. Radiation Dose CTDIVOL = (mGy): DLP = 1157.7 (mGy-cm)
[2020-06-30 20:38] LABS: ABG PCO2 55.2 mmHg (35-45); Arterial Blood Gas Hematocrit 26.8 % (37-47); Base Excess ABG 0.4 mmol/L (-2.0-2.0); Blood Gas Allen Test Pos; Blood Gas Operator Identificat HARKR; Blood Gas Sample Site Radial, left; Blood Gas Sample Type Arterial; HCO3 ABG 27.2 mmol/L (22-26); Oxygen Device NC; PO2 ABG 60.5 mmHg (80.0-100.0)
[2020-06-30 20:40] LABS: Basophils % 0.6 %; Eosinophils # 0.2 10^3/uL (0.0-0.8); Eosinophils % 2.7 %; Hematocrit 28.8 % (37.0-47.0); Hemoglobin 8.6 g/dL (11.5-15.3); Lymphocytes % 15.6 %; Mean Corpuscular HGB Conc 29.9 g/dL (30.0-36.0); Mean Corpuscular Hemoglobin 30.5 pg (28.0-34.0); Mean Corpuscular Volume 102.1 fL (81-99); Mean Platelet Volume 11.9 fL (7.4-10.4); Monocytes # 0.5 10^3/uL (0.2-0.9); Monocytes % 8.4 %; Neutrophils # 4.55 10^3/uL (1.8-7.7); Neutrophils % 71.9 %; Nucleated Red Blood Cells % 0 %; Platelet Count 118 10^3/cmm (130-400); Red Blood Count 2.82 10^6/uL (4.1-5.3); Red Cell Distribution Width 13.4 % (12.1-15.1); White Blood Count 6.3 10^3/uL (4.0-10.0)
--- NOTE | 2020-06-30 20:41 | PC.PHAR ---
pt unable to verify medications-pts sister states a nurse sets up pts medications-[facility] at home is closed no way to get med list-entered meds from ext med history and some medications were entered from previous entered med list-everything is noted in the pharmacy comments on each medication
[2020-06-30 21:05] LABS: SARS Covid-2 Antigen Negative (Negative)
[2020-06-30 21:06] LABS: Influenza A by IFA Negative (Negative); Influenza B by IFA Negative (Negative)
[2020-06-30 21:07] LABS: Lactic Sepsis W/Reflex 0.6 mmol/L (0.5-2.2)
[2020-06-30 21:10] LABS: Troponin(5th) Baseline 45 ng/L (0-10)
[2020-06-30 21:19] LABS: Alanine Aminotransferase 14 U/L (0-33); Albumin Level 2.8 g/dL (3.5-5.2); Alkaline Phosphatase 75 IU/L (35-105); Anion Gap 11.2 (5-19); Aspartate Amino Transferase 18 U/L (0-32); Blood Urea Nitrogen 44 mg/dL (8-23); Calcium 8.4 mg/dL (8.5-10.5); Carbon Dioxide 28 mmol/L (22-29); Chloride 102 mmol/L (98-107); Globulin 1.5 g/dL (1.3-4.6); Glucose 151 mg/dL (65-115); Magnesium 1.6 mg/dL (1.7-2.3); NT Pro B Type Natriuretic Pept 1820 pg/mL (0-450); Osmolality Calculated 296 mOsm/kg (285-295); Potassium 5.2 mmol/L (3.5-5.1); Sodium 136 mmol/L (136-145); Total Bilirubin 0.3 mg/dL (0.15-1.2); Total Protein 4.3 g/dL (6.6-8.7)
[2020-06-30] MEDS: piperacillin-tazobactam 3.375 GM in sodium chloride 0.9% (plus) 50 ML IV (21:20)
[2020-06-30 21:23] LABS: INR 1.23 (0.8-1.2)
--- NOTE | 2020-06-30 21:51 | ECG_ITS ---
[facility] Test Date: 2020-06-30 Pat Name: Cecilio Ashton Department: Room: Gender: Female Make Up Artist: : 1935 Requested By: Jodi Holder Order Number: [id number] Olga MD: Edwin Soliz M.D. Measurements Intervals [place] Rate: 86 P: MT: QRS: -4 QRSD: 142 T: 23 QT: 406 QTc: 486 Interpretive Statements Possible multifocal atrial rhythm with heavy artifacts. LEFT BUNDLE BRANCH BLOCK [120+ ms QRS DURATION, 80+ ms Q/S IN V1/V2, 85+ ms R IN I/aVL/V5/V6] Compared to ECG 06/30/2020 20:02:35 Left bundle-branch block now present Ventricular premature complex(es) no longer present Aberrant conduction of supraventricular beat(s) no longer present Intraventricular conduction delay no longer present Myocardial infarct finding no longer present Need to repeat the study Electronically Signed On 07-01-2020 20:56:03 GUITAR REPAIR TECHNICIAN by Edwin Soliz M.D. [id number]
[2020-06-30 21:52] LABS: ABG PCO2 51.8 mmHg (35-45); ABG PH Result 7.31 (7.35-7.45); Arterial Blood Gas Hematocrit 27.6 % (37-47); Base Excess ABG -0.6 mmol/L (-2.0-2.0); Blood Gas Allen Test Pos; Blood Gas Sample Type Arterial
[2020-06-30 21:55] LABS: Blood Gas Operator Identificat HARKR; Blood Gas Sample Site Radial, left; Oxygen Device BIPAP
[2020-06-30 22:29] LABS: Urine Appearance Clear (CLEAR); Urine Color Yellow (Yellow)
[2020-06-30 22:30] LABS: Bilirubin Urine Neg (Negative); Blood Urine Neg (Negative); Glucose Urine UA Norm (Normal); Ketones Urine Negative (Negative); Leukocyte Esterase Urine Negative (Negative); Nitrate Urine Negative (Negative); Protein Urine Trace (Negative); Specific Gravity, Urine 1.015 (1.005-1.030); Urobilinogen Urine Norm (Negative)
[2020-06-30 22:32] LABS: Add Urine Culture? No; Bacteria Urine TRACE /hpf
[2020-06-30 22:36] LABS: Amphetamines Screen Urine Negative (Negative); Barbiturates Screen Urine Negative (Negative); Benzodiazepines Screen Urine Negative (Negative); Cocaine Screen Urine Negative (Negative); Opiate Screen Urine Negative (Negative); PCP Screen Urine Negative (Negative); THC Screen Urine Negative (Negative)
--- NOTE | 2020-06-30 22:53 | CTR_ITS ---
PROCEDURE INFORMATION: Exam: CT Abdomen And Pelvis Without Contrast Exam date and time: 06/30/2020 11:28 PM Age: 85 years old Clinical indication: Abnormal findings; Abnormal radiologic finding of the abdomen; Patient HX: Possible gb abnormality seen on chest CT this p. M. ; Additional info: Abdominal pain TECHNIQUE: Imaging protocol: Computed tomography of the abdomen and pelvis without contrast. Radiation optimization: All CT scans at this facility use at least one of these dose optimization techniques: automated exposure control; mA and/or kV adjustment per patient size (includes targeted exams where dose is matched to clinical indication); or iterative reconstruction. COMPARISON: CR Hips [place] 5v wwo Pelvis* [id number] 04/07/2019 12:06 PM RADIATION DOSE METRICS: Total DLP (mGy-cm): 1161.68 FINDINGS: Lungs: Bibasilar atelectasis versus infiltrate. Liver: Normal. No mass. Gallbladder and bile ducts: Gallbladder appears absent, a portion of duodenum is seen extending to the biliary fossa reflecting the area of concern on comparison chest CT. Pancreas: Normal. No ductal dilation. Spleen: Normal. No splenomegaly. Adrenal glands: Normal. No mass. Kidneys and ureters: Bilateral punctate nonobstructing renal calyceal stones Several bilateral renal cysts, negative for follow-up advised. Right distal ureter 5.6 mm calculus suspected without significant hydronephrosis. Stomach and bowel: Diverticulosis without diverticulitis. Appendix: No evidence of appendicitis. Intraperitoneal space: Unremarkable. No free air. No significant fluid collection. Vasculature: Infrarenal fusiform abdominal aneurysm measuring up 3 cm without findings of rupture. Lymph nodes: Unremarkable. No enlarged lymph nodes. Urinary bladder: Ruiz catheter in the urinary bladder with air presumed iatrogenic. Reproductive: Unremarkable as visualized. Bones/joints: Unremarkable. No acute fracture. Soft tissues: Unremarkable. CT/CT abdomen pelvis wo con [id number] IMPRESSION: 1. Right distal ureter 5.6 mm calculus suspected without significant hydronephrosis. 2. Ruiz catheter in the urinary bladder with air presumed iatrogenic. 3. Infrarenal fusiform abdominal aneurysm measuring up 3 cm without findings of rupture. 4. Bibasilar atelectasis versus infiltrate. 5. Bilateral punctate nonobstructing renal calyceal stones 6. Several bilateral renal cysts, negative for follow-up advised. 7. Diverticulosis without diverticulitis. 8. Gallbladder appears absent, a portion of duodenum is seen extending to the biliary fossa reflecting the area of concern on comparison chest CT. COMMENTS: Consistent with the [employer]'s Incidental Findings Committee white paper (J Am [place] Radiol 2018): Any incidental renal lesion less than 1 cm or classified as too small to characterize, or any incidental cystic renal lesion characterized as simple-appearing, is likely benign. No follow-up imaging is recommended for these lesions per consensus recommendations based on imaging criteria. Radiation Dose CTDIVOL = (mGy): DLP = 1161.68 (mGy-cm)
[2020-06-30] MEDS: sodium chloride 0.9% 1,000 ML 100 ML IV (23:03)
[2020-06-30] MEDS: magnesium sulfate premix 2 GM/50 ML PIGGYBACK IV (23:53)
--- NOTE | 2020-06-30 23:58 | P.HP_ITS ---
Providers/Chief Complaint Primary Care Provider: Yvette Pickens MD Chief Complaint: ams History of Present Illness Cecilio Ashton is a 85 year old female who was recently discharged on 06/28 after right reverse shoulder arthroplasty, was discharged home on oxycodone 5 mg every 4h as needed and acetaminophen came in today for chief complaint of altered mental status. As per the family since her day of discharge with initiation of opioids her mentation has been very fluctuant. She is also taking gabapentin 300 mg. 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 Her anastrozole was restarted at 1 mg which was stopped because of worsening kidney function. There is documentation regarding decline in her performance status and worsening of kidney function creatinine increasing from 1.8-2.3. She also carries history of hypertension, dyslipidemia, type 2 diabetes, prior history of TIA stroke in 2009 severely impaired vision due to diabetic retinopathy macular degeneration. Patient is stating that she does not do well with any kind of narcotic or sedating agent even Benadryl will knock her out she thinks her oxycodone is the culprit which made her very drowsy. She has not eaten well in last 48 hours she is feeling extremely dehydrated and thirsty, she has not noticed any nausea, vomiting, diarrhea, dysuria. At the time my evaluation she is awake alert oriented x3 GCS 15 very pleasant to communicate about any active shortness of breath however I noticed that her saturation dropped to 88% when I took her BiPAP off to get HPI. Diagnosis in the ER revealed metabolic encephalopathy, worsening creatinine, hypercapnic respiratory failure, macrocytic anemia hemoglobin 8.6 a day ago hemoglobin 10.3, will repeat H&H, hypomagnesemia, hyperkalemia 5.2, EKG showed left bundle branch block, atrial fibrillation pattern, BNP 1800 at the time of my evaluation she is on BiPAP, FiO2 35% decreased to 28%, CT chest showed groundglass opacities, ureteral stone noted without significant hydronephrosis, Review of Systems Const: Reports: change in appetite and fatigue; Denies: fever(s), chills or body aches Eyes: Denies: change in vision ENMT: Denies: throat pain Card: Denies: chest pain Resp: Denies: dyspnea GI: Denies: abdominal pain : Denies: flank pain Musc: Reports: extremity pain, joint pain, joint stiffness and limited range of motion Skin/Breast: Denies: lesions Neuro: Denies: headache(s) Psych: Denies: anxiety Endo: Denies: polyuria Mike/Lymph: Denies: easy bruising All/Imm: Denies: urticaria Medications/Allergies Home Medications Medication Instructions Recorded Confirmed Last Taken Type anastrozole 1 mg tablet 1 mg PO DAILY 09/30/19 06/30/20 06/27/20 History aspirin 81 mg tablet,delayed 81 mg PO BID tab 09/30/19 06/30/20 06/25/20 History release cholecalciferol (vitamin D3) 25 1,000 unit PO DAILY 09/30/19 06/30/20 06/27/20 History mcg (1,000 unit) tablet flaxseed oil 1,000 mg capsule 1,000 mg PO DAILY 09/30/19 06/30/20 06/27/20 History lovastatin 40 mg tablet 40 mg PO DAILY 09/30/19 06/30/20 06/27/20 History omega-3 fatty acids 1,000 mg 1,000 mg PO BID 09/30/19 06/30/20 06/27/20 History capsule omeprazole 20 mg capsule,delayed 20 mg PO BID 09/30/19 06/30/20 06/27/20 History release potassium chloride 8 mEq 8 meq PO BID 09/30/19 06/30/20 06/27/20 History tablet,extended release vit C-vit P-[id number] ox-lutein 1 cap PO DAILY cap 09/30/19 06/30/20 06/27/20 History 226 mg-200 unit-5 mg-0.8 mg capsule losartan 100 mg tablet 100 mg PO DAILY #90 tab 10/06/19 06/30/20 06/27/20 Rx carvedilol 25 mg tablet 25 mg PO BID #180 tab 02/12/20 06/30/20 06/28/20 08:00 Rx furosemide 20 mg tablet 20 mg PO BID tab 03/31/20 06/30/20 06/27/20 History acetaminophen 1,000 mg PO Q8H 15 Days #90 tab 06/29/20 06/30/20 Unknown Rx oxycodone 5 mg PO Q4H PRN #30 tab 06/29/20 06/30/20 Unknown Rx amlodipine 5 mg PO DAILY 06/30/20 06/30/20 Unknown History gabapentin 100 mg PO QID PRN 06/30/20 06/30/20 Unknown History isosorbide mononitrate 60 mg PO Q12H 06/30/20 06/30/20 Unknown History levothyroxine 100 mcg PO DAILY 06/30/20 06/30/20 Unknown History Allergies Allergy/AdvReac Type Severity Reaction Status Date / Time clopidogrel [From Plavix] Allergy gi bleed Verified 06/02/20 09:56 Sulfa (Sulfonamide Allergy cant Verified 06/02/20 09:56 Antibiotics) breathe lisinopril AdvReac cough Verified 06/02/20 09:56 PFSH Acute PFSH: Medical History (Updated 07/01/20 @ 00:48 by Adriano Medel MD) Bilateral carotid artery stenosis Bilateral cataracts CAD (coronary artery disease) Had the most recent cardiac cauterization in January 2012. She was found to have mild to moderate diffuse coronary artery disease. Most recent my ocardial perfusion imaging in 2013. No evidence of ischemia. Chronic kidney disease Diabetes Hyperlipidemia Hypertension Hypothyroid Leg swelling SOB (shortness of breath) Subclavian artery stenosis, right Surgical History History of appendectomy History of shoulder surgery Hx of cholecystectomy Family History Other CAD (coronary artery disease) Chronic kidney disease (CKD) Diabetes Family history of premature coronary artery disease Hyperlipidemia Hypertension Lung disease Stroke Social History Smoking and tobacco status: former smoker Alcohol intake: never Vitals/I&O/Wt Last Vital Signs Temp 99.4 F 06/30/20 19:51 Pulse 97 06/30/20 23:52 Resp 20 H 06/30/20 23:52 BP 111/48 06/30/20 23:52 Pulse Ox 96 06/30/20 23:52 06/30/20 06/30/20 07/01/20 14:59 22:59 06:59 Intake Total 277.5 / 277.5 872.5 / 1150.0 Balance 277.5 / 277.5 872.5 / 1150.0 Weight last 48 hrs Weight 77.111 kg Physical Exam Narrative: EXAM NARRATIVE: This is a very pleasant elderly female who at the time of my evaluation was on BiPAP Awake alert oriented x3 Appears very dehydrated No active respite distress noted S1, S2 variable, no active sign of CHF Assisted breath sounds bilaterally No active rhonchi or crackles noticed Abdomen soft bowel sounds present soft, visceral obesity Lower extremity no edema gangrene ulcer She is wearing compression stockings She is wearing sling shot in right arm No neurological deficit noted She is awake alert GCS 15 No active chest pain or respiratory distress Dry buccal mucous membranes, dry cracked lips Urinary Catheter Management^: Ruiz: Cath Placed During This Visit: yes Urinary Catheter Date of Insertion: 06/30/20 Urinary Catheter Time of Insertion: 22:06 Data : 06/30/20 20:20 06/30/20 20:20 A&P Assessment and plan (1) Acute hypercapnic respiratory failure: Status: Acute (2) Acute on chronic renal failure: Status: Acute Qualifiers: Acute renal failure type: unspecified Chronic kidney disease stage: unspecified stage Qualified Code(s): N17.9 - Acute kidney failure, unspecified; N18.9 - Chronic kidney disease, unspecified (3) Diabetes: Status: Acute Qualifiers: Diabetes mellitus type: type 2 Diabetes mellitus group home insulin use: with group home use Diabetes mellitus complication status: with hyperglycemia Qualified Code(s): E11.65 - Type 2 diabetes mellitus with hyperglycemia; Z79.4 - [place] (current) use of insulin (4) Hypothyroid: Status: Acute Qualifiers: Hypothyroidism type: acquired Qualified Code(s): E03.9 - Hypothyroidism, unspecified (5) Hyperkalemia: Status: Acute (6) Hypomagnesemia: Status: Acute Additional A&P Information Acute hypercapnic respiratory failure This most likely secondary to hypoventilation due to use of opioids and worsening kidney function Hold narcotics and use Tylenol for analgesia Currently doing well on BiPAP repeat ABG in the morning, she is awake alert GCS 15 Continue current BiPAP settings, FiO2 28% Noticed transient desaturation to 88% secondary to hypoventilation and atelectasis, will get home O2 evaluation before discharge, incentive spirometry at bedside Acute on chronic kidney disease stage III Hyperkalemia, no potassium related EKG changes however she has baseline atrial fibrillation left bundle branch block pattern We will give her Kayexalate Hold nephrotoxic agents, losartan Anastrozole is on hold, discontinue potassium supplementation Type 2 diabetes, currently she is euglycemic I will keep her on low dose sliding scale Hypomagnesemia: Repleted Macrocytic anemia noted, vitamin B12 level adequate, will check another H&H Full code Cardiac consistent carb diet DVT prophylaxis Heparin Attestations Medical Necessity Statement*: Anticipating discharge in less than 48 hours continued BiPAP for hypercapnic respiratory failure, nonopioid prescription for analgesia Time Spent in Patient Care: (>than 50% of time spent in counselling and/or direct pt care on unit) . 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
[2020-07-01] VITALS (13 sets, daily range): BP systolic 105–158; BP diastolic 62–78; PULSE 64–83; RESP 14–19; TEMP 36.4–36.8; O2SAT 94–97
[2020-07-01 00:18] LABS: Lipase 19 U/L (13-60)
[2020-07-01 00:33] LABS: Troponin 5 2HR 44.17 ng/L (0-10)
[2020-07-01 01:38] LABS: D Dimer 0.78 ug/mIFEU (0-0.59)
[2020-07-01 01:56] LABS: Procalcitonin 0.48 ng/mL (0-0.5)
[2020-07-01] MEDS: heparin 5,000 unit/mL INJ 1 mL 5000 UNIT SUBCUT ×3 (02:30→17:44)
[2020-07-01] MEDS: sodium polystyrene sulfonate 15 gm/60 mL Btl PO (02:31)
[2020-07-01] MEDS: sodium chloride 0.9% 1,000 ML 75 ML IV ×2 (02:32→11:29)
[2020-07-01 05:34] LABS: Blood Urea Nitrogen 45 mg/dL (8-23); Calcium 8.1 mg/dL (8.5-10.5); Carbon Dioxide 23 mmol/L (22-29); Chloride 103 mmol/L (98-107); Glucose 202 mg/dL (65-115); Osmolality Calculated 299 mOsm/kg (285-295); Sodium 136 mmol/L (136-145)
[2020-07-01 05:39] LABS: Anion Gap 15.7 (5-19); Potassium 5.7 mmol/L (3.5-5.1)
[2020-07-01 05:43] LABS: ABG PCO2 45.7 mmHg (35-45); ABG PH Result 7.32 (7.35-7.45); HCO3 ABG 23.7 mmol/L (22-26)
[2020-07-01 05:44] LABS: Arterial Blood Gas Hematocrit 28.5 % (37-47); BIPAP 18/6; Base Excess ABG -2.4 mmol/L (-2.0-2.0); Blood Gas Allen Test positive; Oxygen Device bipap
[2020-07-01 05:54] LABS: Basophils % 0.3 %; Hematocrit 29.8 % (37.0-47.0); Hemoglobin 9.1 g/dL (11.5-15.3); Lymphocytes # 0.5 10^3/uL (0.8-4.8); Lymphocytes % 7.7 %; Mean Corpuscular HGB Conc 30.5 g/dL (30.0-36.0); Mean Corpuscular Hemoglobin 30.7 pg (28.0-34.0); Mean Corpuscular Volume 100.7 fL (81-99); Mean Platelet Volume 11.9 fL (7.4-10.4); Monocytes # 0.1 10^3/uL (0.2-0.9); Monocytes % 1.4 %; Neutrophils # 5.71 10^3/uL (1.8-7.7); Neutrophils % 89.3 %; Nucleated Red Blood Cells % 0 %; Platelet Count 93 10^3/cmm (130-400); Red Blood Count 2.96 10^6/uL (4.1-5.3); Red Cell Distribution Width 13.2 % (12.1-15.1); White Blood Count 6.4 10^3/uL (4.0-10.0)
[2020-07-01 07:01] LABS: Glucose Point of Care 217 mg/dL (70-110)
[2020-07-01] MEDS: sennosides-docusate Tablet 1 TAB PO (08:10)
[2020-07-01] MEDS: cyanocobalamin 1,000 mcg Tablet 500 MCG PO (08:10)
[2020-07-01 10:47] LABS: Glucose Point of Care 269 mg/dL (70-110)
[2020-07-01] MEDS: fixodent 39 gm Tube 1 APPLIC DENTAL (11:52)
--- NOTE | 2020-07-01 13:23 | PM.PN ---
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 Laboratory work up on arrival showed WBC of 6.3, hemoglobin of 8.6 which was a decrease from 10.3 on 06/29, hematocrit 28.8 and a platelet count of 118. sodium 136, potassium 5.2, chloride 102, bicarb 28, BUN 44 and creatinine of 3.4. Magnesium of 1.6. INR 1.23 and D-dimer 0.78. ProBNP of 1820, Troponin T of 45 with repeat of 44.1. Procalcitonin of 0.48. Influenza A/B and CoV 19 Ag negative. Initial arterial blood gases showed a pH of 7.31, pCO2 51.8, bicarb of 26 while on BiPAP. Intial BP of 82/61, HR of 75, and temp of 98.0. In ER and overnight patient was given Solu-Medrol 125 mg IV x1, Zosyn 3.375 g IV x1, Kayexalate 15 g p.o. x1. Imaging studies included a CT head without contrast which did not show any evidence of acute intracranial abnormality. Chest x-ray showed right lower lobe infiltrate the chronicity of which was unknown. CT of chest showed bilateral atelectasis versus infiltrate in the bibasilar lung gilbert. Subcutaneous air in soft tissue swelling of the right shoulder consistent with postsurgical changes. Additionally coronary artery atherosclerotic calcifications. CT of abdomen and pelvis showed a right distal ureteral 5.6 mm calculus suspected without significant hydronephrosis , bilateral renal cysts. A additionally gallbladder appeared absent. Patient was eventually weaned off BiPAP at the time of my evaluation. She was resting comfortably on room air. Was alert and awake in wanting to be discharged home. Repeat laboratory workup has shown a WBC of 6.4, hemoglobin of 9.1 which was increased from 8.6, hematocrit 29.8 and a platelet count of 93. This was a further drop from 118. Sodium 136, potassium 5.7, chloride 103, bicarb 23, BUN 45 and creatinine of 3.5. Medications: Reviewed: Yes Vitals/I&O/Wt Last Vital Signs Temp 97.5 F L 07/01/20 15:00 Pulse 80 07/01/20 19:46 Resp 17 07/01/20 19:46 BP 139/67 07/01/20 15:00 Pulse Ox 97 07/01/20 19:46 07/01/20 07/01/20 07/01/20 06:59 14:59 22:59 Intake Total 872.5 / 1150.0 911.25 / 911.25 Output Total 900 / 900 400 / 400 250 / 650 Balance -27.5 / 250.0 511.25 / 511.25 -250 / 261.25 Weight last 48 hrs Weight 77.111 kg Physical Exam Narrative: EXAM NARRATIVE: General -alert awake oriented in no apparent distress HEENT -grossly unremarkable Chest -nonlabored respirations CVS -normal sinus rhythm Abdomen-soft nontender nondistended Extremity - no significant edema, Right shoulder post op/sling Urinary Catheter Management^: Ruiz: Cath Placed During This Visit: yes Reason for Continuing Indwelling Catheter: Acute Urinary Retention or Obstruction Urinary Catheter Date of Insertion: 06/30/20 Urinary Catheter Time of Insertion: 22:06 Data : 07/01/20 04:45 07/01/20 04:45 Micro: Microbiology 06/30/20 23:50 Blood Culture - Preliminary Blood SPECIMEN COLLECTED 06/30/20 23:50 Blood Culture - Preliminary Blood SPECIMEN COLLECTED A&P Assessment and plan (1) Acute hypercapnic respiratory failure: Status: Acute (2) Hyperkalemia: Status: Acute (3) Hypomagnesemia: Status: Acute (4) Acute on chronic renal failure: Status: Acute Qualifiers: Acute renal failure type: unspecified Chronic kidney disease stage: unspecified stage Qualified Code(s): N17.9 - Acute kidney failure, unspecified; N18.9 - Chronic kidney disease, unspecified (5) Rotator cuff arthropathy of right shoulder: Status: Acute (6) Osteoarthritis of right shoulder: Status: Acute Qualifiers: Osteoarthritis type: primary Qualified Code(s): M19.011 - Primary osteoarthritis, right shoulder (7) CAD (coronary artery disease): Status: Acute Qualifiers: Coronary Disease-Associated Artery/Lesion type: [place] artery [place] vs. transplanted heart: [place] heart Associated angina: without angina Qualified Code(s): I25.10 - Atherosclerotic heart disease of [place] coronary artery without angina pectoris (8) Bilateral carotid artery stenosis: Status: Acute (9) Hypertension: Status: Acute Qualifiers: Hypertension type: essential hypertension Qualified Code(s): I10 - Essential (primary) hypertension (10) Hyperlipidemia: Status: Acute Qualifiers: Hyperlipidemia type: mixed hyperlipidemia Qualified Code(s): E78.2 - Mixed hyperlipidemia (11) Diabetes: Status: Acute Qualifiers: Diabetes mellitus type: type 2 Diabetes mellitus long term care phlebotomist insulin use: with residential use Diabetes mellitus complication status: with hyperglycemia Qualified Code(s): E11.65 - Type 2 diabetes mellitus with hyperglycemia; Z79.4 - senior living (current) use of insulin (12) Hypothyroid: Status: Acute Qualifiers: Hypothyroidism type: acquired Qualified Code(s): E03.9 - Hypothyroidism, unspecified Acute hypercapnic / hypoxemic respiratory failure - Weaned off BiPAP - resolved - Supplemental o2 as needed - Doubt infectious process - CT chest / Chest xray - noted - Continue nebulizer treatments Acute on Chronic stage 3 kidney failure - Creatinine baseline 1.8 -2.0 - Increasing to 3.5 - Likely due to hypotension,dehydration - Holding lasix / Losartan - Renally dose medication - Will check Renal US - Cautious fluid hydration - NS at 75 cc/hr overnight x 12 hr - Will consult nephrology in am Hyperkalemia - Likely due to above - Hold Losartan - Hold Home K replacement - S/p Kayexelate last night - Repeat in AM - Monitor on tele Hypomagnesemia - Replaced last night - Repeat in AM Acute on chronic anemia - Likley due to Post op, renal disease - Will repeat h/h in am - No evidence of bleeding - Transfuse if < 7 - Holding aspirin - MCV high likely due to reticulocytosis Thrombocytopenia - Worsening - 118 - > 93 - Will hold Heparin - Monitor for bleeding Acute encephalopathy - Likely due to sedative medication vs metabolic - Will hold narcotics - Improving Diabetes Mellitus - Sliding scale insulin Hypothyroidism - Continue replacement Hypertension - No longer hypotensive - Will resume antihypertensive - Will start at lower dose - Increase slowly based on Bp Dyslipidemia - Lipitor 20 mg PO qhs DVT ppx - SCDS only due to worsening anemia / thrombocytopenia Attestations Medical Necessity Statement*: Will require further hospitalization for management of worsening renal failure, anemia, thrombocytopenia. Anticipate additional 2-3 days in hospital. Time Spent in Patient Care: Greater than 35 minutes (>than 50% of time spent in counselling and/or direct pt care on unit). Coding Level of Care Code Acute Station Helper for Andrés Fwd Diagnoses Acute hypercapnic respiratory failure J96.02 Hyperkalemia E87.5 Hypomagnesemia E83.42 Acute on chronic renal failure N17.9; N18.9 Acute renal failure type: unspecified Chronic kidney disease stage: unspecified stage Rotator cuff arthropathy of right shoulder M12.811 Osteoarthritis of right shoulder M19.011 Osteoarthritis type: primary CAD (coronary artery disease) I25.10 Coronary Disease-Associated Artery/Lesion type: [place] artery [place] vs. transplanted heart: [place] heart Associated angina: without angina Bilateral carotid artery stenosis I65.23 Hypertension I10 Hypertension type: essential hypertension Hyperlipidemia E78.2 Hyperlipidemia type: mixed hyperlipidemia Diabetes E11.65; Z79.4 Diabetes mellitus type: type 2 Diabetes mellitus long term care phlebotomist insulin use: with long term care phlebotomist use Diabetes mellitus complication status: with hyperglycemia Hypothyroid E03.9 Hypothyroidism type: acquired
[2020-07-01 16:02] LABS: Glucose Point of Care 219 mg/dL (70-110)
[2020-07-01] MEDS: ipratropium-albuterol 3 mL Neb INHALATION (19:41)
[2020-07-01 21:36] LABS: Glucose Point of Care 124 mg/dL (70-110)
[2020-07-01] MEDS: isosorbide mononitrate ER 60 mg Tablet PO (22:01)
[2020-07-02] VITALS (9 sets, daily range): BP systolic 144–160; BP diastolic 71–79; PULSE 67–79; RESP 16–19; TEMP 36.6–36.7; O2SAT 94–98
[2020-07-02] MEDS: sodium chloride 0.9% 1,000 ML 75 ML IV (00:39)
[2020-07-02 06:17] LABS: Glucose Point of Care 123 mg/dL (70-110)
[2020-07-02 06:41] LABS: Basophils % 0.4 %; Eosinophils # 0.1 10^3/uL (0.0-0.8); Eosinophils % 1.9 %; Hemoglobin 8.7 g/dL (11.5-15.3); Lymphocytes # 0.7 10^3/uL (0.8-4.8); Lymphocytes % 12.7 %; Mean Corpuscular Hemoglobin 30.6 pg (28.0-34.0); Mean Corpuscular Volume 105.6 fL (81-99); Mean Platelet Volume 11.6 fL (7.4-10.4); Monocytes # 0.4 10^3/uL (0.2-0.9); Monocytes % 8.1 %; Neutrophils # 3.94 10^3/uL (1.8-7.7); Neutrophils % 76.1 %; Nucleated Red Blood Cells % 0 %; Platelet Count 144 10^3/cmm (130-400); Red Blood Count 2.84 10^6/uL (4.1-5.3); White Blood Count 5.2 10^3/uL (4.0-10.0)
[2020-07-02 07:02] LABS: Alanine Aminotransferase 19 U/L (0-33); Albumin Level 2.6 g/dL (3.5-5.2); Alkaline Phosphatase 73 IU/L (35-105); Anion Gap 12.5 (5-19); Aspartate Amino Transferase 22 U/L (0-32); Blood Urea Nitrogen 44 mg/dL (8-23); Calcium 8.3 mg/dL (8.5-10.5); Carbon Dioxide 26 mmol/L (22-29); Chloride 109 mmol/L (98-107); Globulin 2.4 g/dL (1.3-4.6); Glucose 131 mg/dL (65-115); Magnesium 1.9 mg/dL (1.7-2.3); Osmolality Calculated 309 mOsm/kg (285-295); Potassium 4.5 mmol/L (3.5-5.1); Sodium 143 mmol/L (136-145); Total Bilirubin 0.2 mg/dL (0.15-1.2)
[2020-07-02 08:12] LABS: Glucose Point of Care 109 mg/dL (70-110)
[2020-07-02] MEDS: cyanocobalamin 1,000 mcg Tablet 500 MCG PO (09:36)
[2020-07-02] MEDS: sennosides-docusate Tablet 1 TAB PO (09:37)
[2020-07-02] MEDS: levothyroxine 100 mcg Tablet PO (09:37)
[2020-07-02] MEDS: amlodipine 5 mg Tablet PO (09:37)
[2020-07-02] MEDS: atorvastatin 40 mg Tablet 20 MG PO (09:37)
[2020-07-02] MEDS: isosorbide mononitrate ER 60 mg Tablet PO ×2 (09:37→19:57)
[2020-07-02] MEDS: carvedilol 25 mg Tablet 3.125 MG PO ×2 (09:38→18:08)
[2020-07-02] MEDS: ipratropium-albuterol 3 mL Neb INHALATION ×2 (09:49→14:28)
[2020-07-02 11:28] LABS: Glucose Point of Care 147 mg/dL (70-110)
--- NOTE | 2020-07-02 14:24 | P.PN_ITS ---
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 Laboratory work up on arrival showed WBC of 6.3, hemoglobin of 8.6 which was a decrease from 10.3 on 06/29, hematocrit 28.8 and a platelet count of 118. sodium 136, potassium 5.2, chloride 102, bicarb 28, BUN 44 and creatinine of 3.4. Magnesium of 1.6. INR 1.23 and D-dimer 0.78. ProBNP of 1820, Troponin T of 45 with repeat of 44.1. Procalcitonin of 0.48. Influenza A/B and CoV 19 Ag negative. Initial arterial blood gases showed a pH of 7.31, pCO2 51.8, bicarb of 26 while on BiPAP. Intial BP of 82/61, HR of 75, and temp of 98.0. In ER and overnight patient was given Solu-Medrol 125 mg IV x1, Zosyn 3.375 g IV x1, Kayexalate 15 g p.o. x1. Imaging studies included a CT head without contrast which did not show any evidence of acute intracranial abnormality. Chest x-ray showed right lower lobe infiltrate the chronicity of which was unknown. CT of chest showed bilateral atelectasis versus infiltrate in the bibasilar lung gilbert. Subcutaneous air in soft tissue swelling of the right shoulder consistent with postsurgical changes. Additionally coronary artery atherosclerotic calcifications. CT of abdomen and pelvis showed a right distal ureteral 5.6 mm calculus suspected without significant hydronephrosis , bilateral renal cysts. A additionally gallbladder appeared absent. Patient was eventually weaned off BiPAP at the time of my evaluation. She was resting comfortably on room air. Was alert and awake in wanting to be discharged home. Repeat laboratory workup has shown a WBC of 6.4, hemoglobin of 9.1 which was increased from 8.6, hematocrit 29.8 and a platelet count of 93. This was a further drop from 118. Sodium 136, potassium 5.7, chloride 103, bicarb 23, BUN 45 and creatinine of 3.5. Subjective 07/02/20 No new clinical events overnight. No fever, chills, nausea or vomiting. Patient was working with physical therapy. Was placed on 2L of o2 via NC overnight. Medications: Reviewed: Yes Vitals/I&O/Wt Last Vital Signs Temp 97.9 F 07/02/20 11:04 Pulse 73 07/02/20 11:04 Resp 16 07/02/20 11:04 BP 156/71 07/02/20 11:04 Pulse Ox 97 07/02/20 11:04 07/01/20 07/02/20 07/02/20 22:59 06:59 14:59 Intake Total 120 / 1031.25 600 / 600 Output Total 250 / 650 1300 / 1950 550 / 550 Balance -250 / 261.25 -1180 / -918.75 50 / 50 Weight last 48 hrs Weight 77.111 kg Physical Exam Narrative: EXAM NARRATIVE: General -alert awake oriented in no apparent distress on 2L via NC HEENT -grossly unremarkable Chest -nonlabored respirations CVS -normal sinus rhythm Abdomen-soft nontender nondistended Extremity - no significant edema, Right shoulder post op/sling Urinary Catheter Management^: Good: Cath Placed During This Visit: yes Reason for Continuing Indwelling Catheter: Acute Urinary Retention or Obstruction Urinary Catheter Date of Insertion: 06/30/20 Urinary Catheter Time of Insertion: 22:06 Data : 07/02/20 06:04 07/02/20 06:04 Micro: Microbiology 06/30/20 23:50 Blood Culture - Preliminary Blood NEGATIVE TO DATE 06/30/20 23:50 Blood Culture - Preliminary Blood NEGATIVE TO DATE A&P Assessment and plan (1) Acute hypercapnic respiratory failure: Status: Acute (2) Hyperkalemia: Status: Acute (3) Hypomagnesemia: Status: Acute (4) Acute on chronic renal failure: Status: Acute Qualifiers: Acute renal failure type: unspecified Chronic kidney disease stage: unspecified stage Qualified Code(s): N17.9 - Acute kidney failure, unspecified; N18.9 - Chronic kidney disease, unspecified (5) Rotator cuff arthropathy of right shoulder: Status: Acute (6) Osteoarthritis of right shoulder: Status: Acute Qualifiers: Osteoarthritis type: primary Qualified Code(s): M19.011 - Primary osteoarthritis, right shoulder (7) CAD (coronary artery disease): Status: Acute Qualifiers: Coronary Disease-Associated Artery/Lesion type: [place] artery [place] vs. transplanted heart: [place] heart Associated angina: without angina Qualified Code(s): I25.10 - Atherosclerotic heart disease of [place] coronary artery without angina pectoris (8) Bilateral carotid artery stenosis: Status: Acute (9) Hypertension: Status: Acute Qualifiers: Hypertension type: essential hypertension Qualified Code(s): I10 - Essential (primary) hypertension (10) Hyperlipidemia: Status: Acute Qualifiers: Hyperlipidemia type: mixed hyperlipidemia Qualified Code(s): E78.2 - Mixed hyperlipidemia (11) Diabetes: Status: Acute Qualifiers: Diabetes mellitus type: type 2 Diabetes mellitus jail insulin use: with jail use Diabetes mellitus complication status: with hyperglycemia Qualified Code(s): E11.65 - Type 2 diabetes mellitus with hyperglycemia; Z79.4 - long-term (current) use of insulin (12) Hypothyroid: Status: Acute Qualifiers: Hypothyroidism type: acquired Qualified Code(s): E03.9 - Hypothyroidism, unspecified Acute hypercapnic / hypoxemic respiratory failure - Likely due to respiratory depression from narcotics - Weaned off BiPAP - Doubt infectious process - CT chest / Chest xray - noted - Continue nebulizer treatments - Currently on 2L via NC - Will needed home o2 eval prior to dischage. Acute on Chronic stage 3 kidney failure - Creatinine baseline 1.8 -2.0 - Increasing to 3.5 -> improved to 2.6 today - Will D/C IVF now - Increasing oral intake - Likely due to hypotension,dehydration - Holding lasix / Losartan - Renally dose medication - Follow up on renal US - Will consult nephrology if worsening - If continues to improve will d/c good in am Non-obstructive Ureteral stone - Noted on CT abd/Pelvis - Right distal ureteral 5.6 mm calculus - No associated hydronephrosis - Outpatient urology consult Hyperkalemia - Resolved. - Likely due to above - Hold Losartan - Hold Home K replacement - S/p Kayexelate last night - Repeat in AM - Monitor on tele Hypomagnesemia - Resolved - 1.6 to 1.9 post replacement - Repeat in AM Acute on chronic anemia - Likely due to Post op, renal disease - Will repeat h/h in am - Hb stable -. 8.7 - Will start iron replacement - No evidence of bleeding - Transfuse if < 7 - Resume aspirin 81 mg PO BID - MCV high likely due to reticulocytosis Thrombocytopenia - Improving today - 118 - > 93 - > 143 - Resume heparin 5000 unit BID - No prior hx of HIT - Monitor for bleeding Acute encephalopathy - Resolved. - Likely due to sedative medication vs metabolic - Will hold narcotics - Improving Diabetes Mellitus - Sliding scale insulin Hypothyroidism - Continue replacement Hypertension - No longer hypotensive - Will resume antihypertensive - Increasing slowing - Will consider resuming b-[place] Dyslipidemia - Lipitor 20 mg PO qhs DVT ppx - SCDS only due to worsening anemia / thrombocytopenia Attestations Medical Necessity Statement*: Require further hospitalization management of acute renal insufficiency on chronic, hypoxia requiring supplemental oxygen and postop care. Time Spent in Patient Care: Greater than 35 minutes (>than 50% of time spent in counselling and/or direct pt care on unit) . Coding Level of Care Code Acute [employer] for Andrés Deng Diagnoses Acute hypercapnic respiratory failure J96.02 Hyperkalemia E87.5 Hypomagnesemia E83.42 Acute on chronic renal failure N17.9; N18.9 Acute renal failure type: unspecified Chronic kidney disease stage: unspecified stage Rotator cuff arthropathy of right shoulder M12.811 Osteoarthritis of right shoulder M19.011 Osteoarthritis type: primary CAD (coronary artery disease) I25.10 Coronary Disease-Associated Artery/Lesion type: [place] artery [place] vs. 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
[2020-07-02] MEDS: heparin 5,000 unit/mL INJ 1 mL 5000 UNIT SUBCUT (15:06)
[2020-07-02 16:25] LABS: LAB Peripheral Smear Sent for Review
[2020-07-02 16:39] LABS: Glucose Point of Care 169 mg/dL (70-110)
[2020-07-02] MEDS: aspirin 81 mg EC Tablet PO (18:09)
--- NOTE | 2020-07-02 20:21 | USR_ITS ---
PROCEDURE INFORMATION: Exam: US Retroperitoneal; Complete; Kidneys and Bladder Exam date and time: 07/02/2020 8:38 AM Age: 85 years old Clinical indication: Abnormal findings; Abnormal lab test; Abnormal kidney function lab tests; Additional info: Worsening renal failure TECHNIQUE: Imaging protocol: Real-time ultrasound of the retroperitoneum with image documentation. Complete exam focused on the kidneys and bladder. COMPARISON: US Renal Kidney Structu* [id number] 07/23/2017 12:47 PM FINDINGS: Pancreas: Right kidney: Right kidney measures 10.0 cm in length. Thinning of renal parenchyma. No hydronephrosis. 1.3 cm right renal cyst. Small quantity of right perinephric fluid. Left kidney: CT detected 3 mm left renal calculus is not visualized on ultrasound. Poorly visualized left kidney. 1.3 cm left renal cyst. No hydronephrosis. Urinary bladder: Ruiz catheter in the decompressed bladder limiting evaluation. US/US renal BI* [id number] IMPRESSION: 1. 1.3 cm bilateral renal cysts. 2. Small quantity of right perinephric fluid. COMMENTS: Consistent with the [employer]'s Incidental Findings Committee white paper (J Am [place] [employer]iol 2018): Any incidental renal lesion less than 1 cm or classified as too small to characterize, or any incidental cystic renal lesion characterized as simple-appearing, is likely benign. No follow-up imaging is recommended for these lesions per consensus recommendations based on imaging criteria.
[2020-07-02 21:29] LABS: Glucose Point of Care 145 mg/dL (70-110)
[2020-07-03] VITALS (11 sets, daily range): BP systolic 151–182; BP diastolic 74–79; PULSE 72–88; RESP 17–20; TEMP 36.5–37.8; O2SAT 94–97
[2020-07-03] MEDS: heparin 5,000 unit/mL INJ 1 mL 5000 UNIT SUBCUT ×2 (03:08→14:16)
[2020-07-03] MEDS: ipratropium-albuterol 3 mL Neb INHALATION ×3 (04:00→14:34)
[2020-07-03 05:44] LABS: Basophils % 0.3 %; Eosinophils # 0.4 10^3/uL (0.0-0.8); Eosinophils % 6.8 %; Hematocrit 28.7 % (37.0-47.0); Hemoglobin 8.8 g/dL (11.5-15.3); Lymphocytes # 0.7 10^3/uL (0.8-4.8); Lymphocytes % 12.8 %; Mean Corpuscular HGB Conc 30.7 g/dL (30.0-36.0); Mean Corpuscular Hemoglobin 30.3 pg (28.0-34.0); Mean Platelet Volume 11.3 fL (7.4-10.4); Monocytes # 0.5 10^3/uL (0.2-0.9); Neutrophils # 4.12 10^3/uL (1.8-7.7); Neutrophils % 71.4 %; Nucleated Red Blood Cells % 0 %; Platelet Count 154 10^3/cmm (130-400); Red Cell Distribution Width 12.8 % (12.1-15.1); White Blood Count 5.8 10^3/uL (4.0-10.0)
[2020-07-03 06:15] LABS: Ferritin 205 ng/mL (15-150); Iron 41 ug/dL (37-145); Percent Saturation 22.4 % (20-50); Total Iron Binding Capacity 183 mcg/dl; Unsaturated Iron Binding 142 ug/dL (112-347)
[2020-07-03 06:16] LABS: Alanine Aminotransferase 22 U/L (0-33); Albumin Level 2.9 g/dL (3.5-5.2); Alkaline Phosphatase 72 IU/L (35-105); Anion Gap 13.7 (5-19); Aspartate Amino Transferase 21 U/L (0-32); Blood Urea Nitrogen 39 mg/dL (8-23); Calcium 8.6 mg/dL (8.5-10.5); Carbon Dioxide 23 mmol/L (22-29); Chloride 106 mmol/L (98-107); Globulin 1.8 g/dL (1.3-4.6); Glucose 116 mg/dL (65-115); Magnesium 1.5 mg/dL (1.7-2.3); Osmolality Calculated 296 mOsm/kg (285-295); Potassium 4.7 mmol/L (3.5-5.1); Sodium 138 mmol/L (136-145); Total Bilirubin 0.2 mg/dL (0.15-1.2); Total Protein 4.7 g/dL (6.6-8.7)
[2020-07-03 06:29] LABS: Vitamin B12 1041 pg/mL (232-1245)
[2020-07-03 06:56] LABS: Glucose Point of Care 132 mg/dL (70-110)
[2020-07-03 07:18] LABS: Folate Level 16.4 ng/mL (4.8-37.3)
[2020-07-03] MEDS: sennosides-docusate Tablet 1 TAB PO (09:12)
[2020-07-03] MEDS: aspirin 81 mg EC Tablet PO ×2 (09:12→16:46)
[2020-07-03] MEDS: amlodipine 5 mg Tablet PO (09:13)
[2020-07-03] MEDS: levothyroxine 100 mcg Tablet PO (09:13)
[2020-07-03] MEDS: atorvastatin 40 mg Tablet 20 MG PO (09:13)
[2020-07-03] MEDS: carvedilol 25 mg Tablet 3.125 MG PO ×2 (09:13→16:47)
[2020-07-03 11:43] LABS: Glucose Point of Care 132 mg/dL (70-110)
[2020-07-03] MEDS: cyanocobalamin 1,000 mcg Tablet 500 MCG PO (12:12)
[2020-07-03] MEDS: isosorbide mononitrate ER 60 mg Tablet PO ×2 (12:12→20:36)
[2020-07-03 16:48] LABS: Glucose Point of Care 113 mg/dL (70-110)
--- NOTE | 2020-07-03 19:00 | PM.PN ---
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 Laboratory work up on arrival showed WBC of 6.3, hemoglobin of 8.6 which was a decrease from 10.3 on 06/29, hematocrit 28.8 and a platelet count of 118. sodium 136, potassium 5.2, chloride 102, bicarb 28, BUN 44 and creatinine of 3.4. Magnesium of 1.6. INR 1.23 and D-dimer 0.78. ProBNP of 1820, Troponin T of 45 with repeat of 44.1. Procalcitonin of 0.48. Influenza A/B and CoV 19 Ag negative. Initial arterial blood gases showed a pH of 7.31, pCO2 51.8, bicarb of 26 while on BiPAP. Intial BP of 82/61, HR of 75, and temp of 98.0. In ER and overnight patient was given Solu-Medrol 125 mg IV x1, Zosyn 3.375 g IV x1, Kayexalate 15 g p.o. x1. Imaging studies included a CT head without contrast which did not show any evidence of acute intracranial abnormality. Chest x-ray showed right lower lobe infiltrate the chronicity of which was unknown. CT of chest showed bilateral atelectasis versus infiltrate in the bibasilar lung gilbert. Subcutaneous air in soft tissue swelling of the right shoulder consistent with postsurgical changes. Additionally coronary artery atherosclerotic calcifications. CT of abdomen and pelvis showed a right distal ureteral 5.6 mm calculus suspected without significant hydronephrosis , bilateral renal cysts. A additionally gallbladder appeared absent. Patient was eventually weaned off BiPAP at the time of my evaluation. She was resting comfortably on room air. Was alert and awake in wanting to be discharged home. Repeat laboratory workup has shown a WBC of 6.4, hemoglobin of 9.1 which was increased from 8.6, hematocrit 29.8 and a platelet count of 93. This was a further drop from 118. Sodium 136, potassium 5.7, chloride 103, bicarb 23, BUN 45 and creatinine of 3.5. Subjective 07/02/20 No new clinical events overnight. No fever, chills, nausea or vomiting. Patient was working with physical therapy. Was placed on 2L of o2 via NC overnight. 07/03 Noted to have a temp of 100.0 last night otherwise doing well. No chills, nausea or vomiting. Respiratory status stable. Medications: Reviewed: Yes Vitals/I&O/Wt Last Vital Signs Temp 98.3 F 07/03/20 15:36 Pulse 72 07/03/20 15:36 Resp 18 07/03/20 15:36 BP 178/75 07/03/20 15:36 Pulse Ox 96 07/03/20 15:36 07/03/20 07/03/20 07/03/20 06:59 14:59 22:59 Intake Total 240 / 240 Output Total 1000 / 2725 900 / 900 910 / 1810 Balance -1000 / -1885 -660 / -660 -910 / -1570 Physical Exam Narrative: EXAM NARRATIVE: General -alert awake oriented in no apparent distress on 2L via NC HEENT -grossly unremarkable Chest -nonlabored respirations CVS -normal sinus rhythm Abdomen-soft nontender nondistended Extremity - no significant edema, Right shoulder post op/sling Urinary Catheter Management^: Good: Cath Placed During This Visit: yes, but has since been removed by the nurse Reason for Continuing Indwelling Catheter: Decision to DC Catheter Urinary Catheter Date of Insertion: 06/30/20 Urinary Catheter Time of Insertion: 22:06 Date Urinary Catheter Removed: 07/03/20 Time Urinary Catheter Discontinued: 17:00 Data : 07/03/20 05:27 07/03/20 05:27 A&P Assessment and plan (1) Acute hypercapnic respiratory failure: Status: Acute (2) Hyperkalemia: Status: Acute (3) Hypomagnesemia: Status: Acute (4) Acute on chronic renal failure: Status: Acute Qualifiers: Acute renal failure type: unspecified Chronic kidney disease stage: unspecified stage Qualified Code(s): N17.9 - Acute kidney failure, unspecified; N18.9 - Chronic kidney disease, unspecified (5) Rotator cuff arthropathy of right shoulder: Status: Acute (6) Osteoarthritis of right shoulder: Status: Acute Qualifiers: Osteoarthritis type: primary Qualified Code(s): M19.011 - Primary osteoarthritis, right shoulder (7) CAD (coronary artery disease): Status: Acute Qualifiers: Coronary Disease-Associated Artery/Lesion type: [place] artery [place] vs. transplanted heart: [place] heart Associated angina: without angina Qualified Code(s): I25.10 - Atherosclerotic heart disease of [place] coronary artery without angina pectoris (8) Bilateral carotid artery stenosis: Status: Acute (9) Hypertension: Status: Acute Qualifiers: Hypertension type: essential hypertension Qualified Code(s): I10 - Essential (primary) hypertension (10) Hyperlipidemia: Status: Acute Qualifiers: Hyperlipidemia type: mixed hyperlipidemia Qualified Code(s): E78.2 - Mixed hyperlipidemia (11) Diabetes: Status: Acute Qualifiers: Diabetes mellitus type: type 2 Diabetes mellitus 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 - Likely due to respiratory depression from narcotics - Doubt infectious process however low grade temp today - Recheck pro-keyur in am - CT chest / Chest xray - noted - Continue nebulizer treatments - Currently on 2L via NC - Will needed home o2 eval prior to discharge - will order eval for am . Acute on Chronic stage 3 kidney failure - Creatinine baseline 1.8 -2.0 - Increasing to 3.5 -> improved to 2.2 today - Likely due to hypotension,dehydration - Holding lasix / Losartan - Renally dose medication - Renal US - no hydronephrosis , small right perinephric fluid - If recurrant fever will check UA - Will consult nephrology if worsening - Remove Good Non-obstructive Ureteral stone - Noted on CT abd/Pelvis - Right distal ureteral 5.6 mm calculus - No associated hydronephrosis - Outpatient urology consult Hyperkalemia - Resolved. - Likely due to above - Hold Losartan - Hold Home K replacement - S/p Kayexelate last night - Repeat in AM - Monitor on tele Hypomagnesemia - 1.5 - Mag 2g IV x 1 ordered - Recheck in am Acute on chronic anemia - Likely due to Post op, renal disease - Will repeat h/h in am - Hb stable -. 8.7 - 8.8 - Iron studies - WNL - No evidence of bleeding - Transfuse if < 7 - On aspirin 81 mg PO BID - V12, folate level pending. - peripheral smear ordered on 07/02 Thrombocytopenia - Improving today - 118 - > 93 - > 143 0 > 154 - Heparin 5000 unit BID - No prior hx of HIT - Monitor for bleeding Acute encephalopathy - Resolved. - Likely due to sedative medication vs metabolic - Will hold narcotics - Improving Diabetes Mellitus - Sliding scale insulin Hypothyroidism - Continue replacement Hypertension - No longer hypotensive - Will resume antihypertensive - Increasing slowing - Will consider resuming b-[place] Dyslipidemia - Lipitor 20 mg PO qhs DVT ppx - SCDS - Heparin 5000 units BID resumed. Disposition - Anticipate discharge in am if no recurrance of fever. Attestations Medical Necessity Statement*: Require additional day in hospital for temp monitoring, good removal, home o2 eval possible placement. Time Spent in Patient Care: Greater than 35 minutes (>than 50% of time spent in counselling and/or direct pt care on unit). Coding Level of Care Code Acute [employer] Depositor for g Fwd Diagnoses Acute hypercapnic respiratory failure J96.02 Hyperkalemia E87.5 Hypomagnesemia E83.42 Acute on chronic renal failure N17.9; N18.9 Acute renal failure type: unspecified Chronic kidney disease stage: unspecified stage Rotator cuff arthropathy of right shoulder M12.811 Osteoarthritis of right shoulder M19.011 Osteoarthritis type: primary CAD (coronary artery disease) I25.10 Coronary Disease-Associated Artery/Lesion type: [place] artery [place] vs. transplanted heart: [place] heart Associated angina: without angina Bilateral carotid artery stenosis I65.23 Hypertension I10 Hypertension type: essential hypertension Hyperlipidemia E78.2 Hyperlipidemia type: mixed hyperlipidemia Diabetes E11.65; Z79.4 Diabetes mellitus type: type 2 Diabetes mellitus termite renewal inspector insulin use: with group home use Diabetes mellitus complication status: with hyperglycemia Hypothyroid E03.9 Hypothyroidism type: acquired
[2020-07-03 20:32] LABS: Glucose Point of Care 139 mg/dL (70-110)
[2020-07-03] MEDS: magnesium sulfate premix 2 GM/50 ML PIGGYBACK IV (20:36)
[2020-07-04] VITALS: BP 158/86; PULSE 75; RESP 18; TEMP 36.9; O2SAT 96
[2020-07-04] MEDS: heparin 5,000 unit/mL INJ 1 mL 5000 UNIT SUBCUT (02:29)
[2020-07-04 04:00] VITALS: BP 183/75; PULSE 81; RESP 20; TEMP 36.5; O2SAT 96
--- NOTE | 2020-07-04 05:25 | PC.NURSE ---
SHIFT SUMMARY Has done well tonight. No distress noted. O2 in place at 2l per NC. Occ dry cough. Up to BSC with assist and is voiding well since DC of Sara 07/03/20. Right arm in sling/immobilizer from recent shoulder replacement surgery. Received dose of IV Mag 2 gms last pm.
[2020-07-04 05:53] LABS: Basophils % 0.4 %; Eosinophils # 0.3 10^3/uL (0.0-0.8); Eosinophils % 6.2 %; Hematocrit 28.4 % (37.0-47.0); Hemoglobin 8.8 g/dL (11.5-15.3); Lymphocytes # 0.6 10^3/uL (0.8-4.8); Lymphocytes % 13.7 %; Mean Corpuscular Hemoglobin 30.2 pg (28.0-34.0); Mean Corpuscular Volume 97.6 fL (81-99); Mean Platelet Volume 11.3 fL (7.4-10.4); Monocytes # 0.4 10^3/uL (0.2-0.9); Monocytes % 8.1 %; Neutrophils # 3.23 10^3/uL (1.8-7.7); Neutrophils % 71.2 %; Nucleated Red Blood Cells % 0 %; Platelet Count 141 10^3/cmm (130-400); Red Blood Count 2.91 10^6/uL (4.1-5.3); Red Cell Distribution Width 12.8 % (12.1-15.1); White Blood Count 4.5 10^3/uL (4.0-10.0)
[2020-07-04 06:22] LABS: Procalcitonin 0.17 ng/mL (0-0.5)
[2020-07-04 06:41] LABS: Alanine Aminotransferase 20 U/L (0-33); Albumin Level 2.9 g/dL (3.5-5.2); Alkaline Phosphatase 69 IU/L (35-105); Anion Gap 13.4 (5-19); Aspartate Amino Transferase 18 U/L (0-32); Blood Urea Nitrogen 32 mg/dL (8-23); Calcium 9.1 mg/dL (8.5-10.5); Carbon Dioxide 25 mmol/L (22-29); Chloride 107 mmol/L (98-107); Globulin 2.2 g/dL (1.3-4.6); Glucose 122 mg/dL (65-115); Magnesium 1.9 mg/dL (1.7-2.3); Osmolality Calculated 300 mOsm/kg (285-295); Potassium 4.4 mmol/L (3.5-5.1); Sodium 141 mmol/L (136-145); Total Bilirubin 0.3 mg/dL (0.15-1.2); Total Protein 5.1 g/dL (6.6-8.7)
[2020-07-04 07:48] LABS: Glucose Point of Care 133 mg/dL (70-110)
[2020-07-04 07:53] VITALS: BP 175/79; PULSE 75; RESP 20; TEMP 36.8; O2SAT 96
[2020-07-04] MEDS: carvedilol 25 mg Tablet 3.125 MG PO (08:15)
[2020-07-04] MEDS: levothyroxine 100 mcg Tablet PO (08:16)
[2020-07-04] MEDS: cyanocobalamin 1,000 mcg Tablet 500 MCG PO (08:16)
[2020-07-04] MEDS: atorvastatin 40 mg Tablet 20 MG PO (08:17)
[2020-07-04] MEDS: sennosides-docusate Tablet 1 TAB PO (08:17)
[2020-07-04] MEDS: isosorbide mononitrate ER 60 mg Tablet PO (08:17)
[2020-07-04] MEDS: aspirin 81 mg EC Tablet PO (08:17)
[2020-07-04] MEDS: amlodipine 5 mg Tablet PO (08:17)
[2020-07-04] MEDS: ipratropium-albuterol 3 mL Neb INHALATION (08:56)
[2020-07-04 09:00] VITALS: PULSE 81; RESP 20; O2SAT 96
[2020-07-04 09:11] VITALS: O2SAT 92
[2020-07-04 10:53] VITALS: BP 175/79; PULSE 81; RESP 20; TEMP 36.8; O2SAT 96
--- NOTE | 2020-07-04 16:01 | P.DS_ITS ---
Discharge Providers Date of Admission: 07/01/20 17:32 Date of Discharge: July 04, 2020 Attending Provider at Admission: Adriano Medel MD Attending Provider at Discharge: Grazyna Stinson Primary Care Provider: Yvette Pickens MD Diagnoses at Discharge Discharge Diagnosis (1) Acute hypercapnic respiratory failure: Status: Resolved (2) Hyperkalemia: Status: Resolved (3) Hypomagnesemia: Status: Resolved (4) Acute on chronic renal failure: Status: Resolved Qualifiers: Acute renal failure type: unspecified Chronic kidney disease stage: unspecified stage Qualified Code(s): N17.9 - Acute kidney failure, unspecified; N18.9 - Chronic kidney disease, unspecified (5) Rotator cuff arthropathy of right shoulder: Status: Acute (6) Osteoarthritis of right shoulder: Status: Acute Qualifiers: Osteoarthritis type: primary Qualified Code(s): M19.011 - Primary osteoarthritis, right shoulder (7) CAD (coronary artery disease): Status: Acute Permanent problem details: Had the most recent cardiac cauterization in January 2012. She was found to have mild to moderate diffuse coronary artery disease. Most recent myocardial perfusion imaging in 2013. No evidence of ischemia. Qualifiers: Coronary Disease-Associated Artery/Lesion type: [place] artery [place] vs. transplanted heart: [place] heart Associated angina: without angina Qualified Code(s): I25.10 - Atherosclerotic heart disease of [place] coronary artery without angina pectoris (8) Bilateral carotid artery stenosis: Status: Acute (9) Hypertension: Status: Acute Qualifiers: Hypertension type: essential hypertension Qualified Code(s): I10 - Essential (primary) hypertension (10) Hyperlipidemia: Status: Acute Qualifiers: Hyperlipidemia type: mixed hyperlipidemia Qualified Code(s): E78.2 - Mixed hyperlipidemia (11) Diabetes: Status: Acute Qualifiers: Diabetes mellitus type: type 2 Diabetes mellitus half-way insulin use: with half-way use Diabetes mellitus complication status: with hyperglycemia Qualified Code(s): E11.65 - Type 2 diabetes mellitus with hyperglycemia; Z79.4 - retirement (current) use of insulin (12) Hypothyroid: Status: Acute Qualifiers: Hypothyroidism type: acquired Qualified Code(s): E03.9 - Hypothyroidism, unspecified Reason for Visit Reason for Visit: ams Hospital Course Hospital Course 85 year old female with past medical history of 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 Laboratory work up on arrival showed WBC of 6.3, hemoglobin of 8.6 which was a decrease from 10.3 on 06/29, hematocrit 28.8 and a platelet count of 118. sodium 136, potassium 5.2, chloride 102, bicarb 28, BUN 44 and creatinine of 3.4. Magnesium of 1.6. INR 1.23 and D-dimer 0.78. ProBNP of 1820, Troponin T of 45 with repeat of 44.1. Procalcitonin of 0.48. Influenza A/B and CoV 19 Ag negative. Initial arterial blood gases showed a pH of 7.31, pCO2 51.8, bicarb of 26 while on BiPAP. Intial BP of 82/61, HR of 75, and temp of 98.0. In ER and overnight patient was given Solu-Medrol 125 mg IV x1, Zosyn 3.375 g IV x1, Kayexalate 15 g p.o. x1. Imaging studies included a CT head without contrast which did not show any evidence of acute intracranial abnormality. Chest x-ray showed right lower lobe infiltrate the chronicity of which was unknown. CT of chest showed bilateral atelectasis versus infiltrate in the bibasilar lung [place]. Subcutaneous air in soft tissue swelling of the right shoulder consistent with postsurgical changes. Additionally coronary artery atherosclerotic calcifications. CT of abdomen and pelvis showed a right distal ureteral 5.6 mm calculus suspected without significant hydronephrosis , bilateral renal cysts. A additionally gallbladder appeared absent. Repeat laboratory workup has shown a WBC of 6.4, hemoglobin of 9.1 which was increased from 8.6, hematocrit 29.8 and a platelet count of 93. This was a fur ther drop from 118. Sodium 136, potassium 5.7, chloride 103, bicarb 23, BUN 45 and creatinine of 3.5. Acute worsening of renal failure was suspected to be due to hypotension and poor po intake. Ruiz was placed. Cautiously re-hydrated. Lasix was changed to PRN instead of scheduled until repeat outpatient follow up. Creatinine had significantly improved back to around baseline. 3.5- > 2.2. Renal US was done which did not show any evidence of hydronephrosis. Did have a ureteral stone on CT noted above. Urology follow up outpatient was requested. Did not have any flank pain or hematuria. Patient was eventually weaned off BiPAP at the time of my evaluation shortly after admission. She was resting comfortably on room air. Did not qualify for oxygen on home o2 eval. Mental status had returned to baseline. Discharged in stable condition. Physical Exam Narrative: EXAM NARRATIVE: General -alert awake oriented in no apparent distress on RA HEENT -grossly unremarkable Chest -nonlabored respirations CVS -normal sinus rhythm Abdomen-soft nontender nondistended Extremity - no significant edema, Right shoulder post op/sling Urinary Catheter Management^: Ruiz: Cath Placed During This Visit: yes, but has since been removed by the nurse Reason for Continuing Indwelling Catheter: Decision to DC Catheter Urinary Catheter Date of Insertion: 06/30/20 Urinary Catheter Time of Insertion: 22:06 Date Urinary Catheter Removed: 07/03/20 Time Urinary Catheter Discontinued: 17:00 Discharge Data Data Completed and Pending: Completed Studies During Hospitalization Category Date Time Status CT abdomen pelvis wo con [id number] Stat Cat Scan 06/30/20 22:[address] chest wo con 7 1250 Stat Cat Scan 06/30/20 20:[address] head wo con* 7 0450 Stat Cat Scan 06/30/20 19:49 Completed XR chest 1V jennifer ble [id number] Stat Exams 06/30/20 19:50 Completed US renal BI* [id number] Routine Ultrasound 07/02/20 20:21 Completed Pending at discharge Category Date Time Status Blood Culture Sta t Lab 06/30/20 23:50 Results Vitals: Last Vital Signs Temp 98.3 F 07/04/20 10:53 Pulse 81 07/04/20 10:53 Resp 20 H 07/04/20 10:53 BP 175/79 07/04/20 10:53 Pulse Ox 96 07/04/20 10:53 Discharge Plan Discharge Patient Disposition: Home Health Service Condition: Stable Prescriptions: Continued lovastatin 40 mg tablet 40 mg PO DAILY RF: 0 omeprazole 20 mg capsule,delayed release(DR/EC) 20 mg PO BID RF: 0 omega-3 fatty acids [Fish Oil Concentrate] 1,000 mg capsule 1,000 mg PO BID RF: 0 PreserVision Lutein 226 mg-200 unit -5 mg-0.8 mg capsule 1 cap PO DAILY RF: 0 aspirin [Adult Low Dose Aspirin] 81 mg tablet,delayed release (DR/EC) 81 mg PO BID RF: 0 flaxseed oil 1,000 mg capsule 1,000 mg PO DAILY RF: 0 cholecalciferol (vitamin D3) 25 mcg (1,000 unit) tablet 1,000 unit PO DAILY RF: 0 anastrozole 1 mg tablet 1 mg PO DAILY RF: 0 losartan 100 mg tablet 100 mg PO DAILY Qty: 90 RF: 3 carvedilol 25 mg tablet 25 mg PO BID Qty: 180 RF: 3 acetaminophen 500 mg Tablet 1,000 mg PO Q8H 15 Days Qty: 90 RF: 0 amlodipine 5 mg tablet 5 mg PO DAILY RF: 0 levothyroxine 100 mcg tablet 100 mcg PO DAILY RF: 0 gabapentin 100 mg capsule 100 mg PO QID PRN (Reason: Pain) RF: 0 isosorbide mononitrate 60 mg tablet extended release 24 hr 60 mg PO Q12H RF: 0 Changed furosemide 20 mg tablet 40 mg PO DAILY PRN (Reason: Weight Gain) Qty: 0 RF: 0 Discontinued potassium chloride 8 mEq tablet extended release 8 meq PO BID RF: 0 oxycodone 5 mg Tablet 5 mg PO Q4H PRN (Reason: Moderate To Severe Pain) Qty: 30 RF: 0 Discharge Orders: Discharge Order (Routine); Ordered 07/04/20 Ordered By: Grazyna Stinson Other Ambulatory Orders: Basic Metabolic Panel (Routine) Timeframe: 1 Week Facility: [facility] - Location: Lab - Main Lab Ordered By: Grazyna Stinson Referrals: [facility] [Outside] Yvette Pickens MD [Primary Care Provider] - 07/14/20 10:00 am Discharge Diet: Cardiac Discharge Activity: Resume usual activity Patient Instructions: Chronic Kidney Disease (DC), Hyperkalemia (DC), Hypertension (DC), Hypomagnesemia (DC), Pneumonia (DC) Activity Restrictions/Additional Instructions: Monitor daily weight - take lasix if rapidly increasing > 5lb in 24hr. Repeat BPM in 3 days. Return to ER if recurrance of respiratory distress or fever. Discharge Attestations Time Spent in Discharge Care*: greater than 30 min Specific Discharge Activities: educating patient, discussing with case work aide/social workers/dc planners, documenting/other paperwork and evaluating patient/reviewing data Status at Discharge: Cognitive status at discharge: cognitively intact , Behavioral status at discharge: cooperative , Functional status at discharge: other assisted ambulation Overall status at discharge: patient is back to baseline Quality Metrics Clinical Quality Measures During this hospital stay, did patient experience: None Coding Level of Care Code Acute Customer Specialist for [facility] Fwd Diagnoses Acute hypercapnic respiratory failure J96.02 Hyperkalemia E87.5 Hypomagnesemia E83.42 Acute on chronic renal failure N17.9; N18.9 Acute renal failure type: unspecified Chronic kidney disease stage: unspecified stage Rotator cuff arthropathy of right shoulder M12.811 Osteoarthritis of right shoulder M19.011 Osteoarthritis type: primary CAD (coronary artery disease) I25.10 Coronary Disease-Associated Artery/Lesion type: [place] artery [place] vs. transplanted heart: [place] heart Associated angina: without angina Bilateral carotid artery stenosis I65.23 Hypertension I10 Hypertension type: essential hypertension Hyperlipidemia E78.2 Hyperlipidemia type: mixed hyperlipidemia Diabetes E11.65; Z79.4 Diabetes mellitus type: type 2 Diabetes mellitus half-way insulin use: with termite treater use Diabetes mellitus complication status: with hyperglycemia Hypothyroid E03.9 Hypothyroidism type: acquired
== END 2020-07-04 11:04 | disposition home health service (06) | DRG 189 ==
LOC: ER 19:49 → MEDSURG 07-01 00:16
PROVIDERS: Admitting Provider Internal Medicine; Emergency Provider Emergency Medicine; PCP Family Medicine; Visit Provider Hospitalist
DX: J96.02 Acute respiratory failure with hypercapnia (principal); G93.41 Metabolic encephalopathy; J98.11 Atelectasis; N20.1 Calculus of ureter; Q61.02 Congenital multiple renal cysts; N17.9 Acute kidney failure, unspecified; Z96.611 Presence of right artificial shoulder joint; C50.911 Malignant neoplasm of unspecified site of right female breast; Z92.23 Personal history of estrogen therapy; E11.22 Type 2 diabetes mellitus with diabetic chronic kidney disease; I12.9 Hypertensive chronic kidney disease with stage 1 through stage 4 chronic kidney disease, or unspecified chronic kidney disease; N18.30 Chronic kidney disease, stage 3 unspecified; E78.5 Hyperlipidemia, unspecified; E11.65 Type 2 diabetes mellitus with hyperglycemia; E11.311 Type 2 diabetes mellitus with unspecified diabetic retinopathy with macular edema; Z86.73 Personal history of transient ischemic attack (TIA), and cerebral infarction without residual deficits; E86.0 Dehydration; D53.9 Nutritional anemia, unspecified; E83.42 Hypomagnesemia; E87.5 Hyperkalemia; I44.7 Left bundle-branch block, unspecified; I48.91 Unspecified atrial fibrillation; I95.9 Hypotension, unspecified; D69.6 Thrombocytopenia, unspecified; H54.8 Legal blindness, as defined in USA; Z92.3 Personal history of irradiation; Z92.21 Personal history of antineoplastic chemotherapy; T40.605A Adverse effect of unspecified narcotics, initial encounter; Z87.891 Personal history of nicotine dependence; E03.9 Hypothyroidism, unspecified; I25.10 Atherosclerotic heart disease of native coronary artery without angina pectoris; I65.23 Occlusion and stenosis of bilateral carotid arteries
CPT/HCPCS: 12345; 36415; 36416; 36600; 51702; 70450; 71045; 71250; 74176; 76770; 80048; 80053; 80306; 80500; 81001; 82607; 82728; 82746; 82803; 82962; 83540; 83550; 83605; 83690; 83735; 83880; 84145; 84484; 85025; 85045; 85378; 85610; 87040; 87426; 87804; 93005; 94640; 94660; 96372; 96375; 97110; 97167; 97535; 99283; G0378; J0131; J1644; J1815; J2543; J2930; J3475; J7030

== ENCOUNTER 2020-07-27 09:39 | Outpatient (CLI) | payer MEDICARE, MEDICAID, SELFPAY ==
--- NOTE | 2020-07-27 09:30 | XR_ITS ---
WS: [id number] KUB, 07/27/2020 Clinical Data: KIDNEY STONE Comparison: CT abdomen and pelvis, 06/30/2020. Findings: There are calcifications overlying the midportion of the left kidney. The right kidney is greatly obs cured by colon gas and fecal material. There is partial obscuring of the left kidney by colon gas. Th ere is a true pelvic calcification on the right and this is possibly a distal right ureteral calculus . There is degenerative change of the lumbar vertebral bodies. There is a large amount of fecal materia l throughout the colon. There are vascular calcifications in the abdominal aorta and the splenic lianne ry. XR/XR KUB [id number] Impression: 1. Possible left renal calcifications. 2. Possible distal right ureteral calcification.
== END 2020-07-27 09:40 | disposition home or self-care (01) ==
PROVIDERS: PCP Family Medicine; Visit Provider Nurse Practitioner Family
DX: N20.0 Calculus of kidney (principal)
CPT/HCPCS: 74018; 81003

== ENCOUNTER → 2020-08-03 08:52 | Outpatient (BNVA) | payer MEDICARE, MEDICAID, SELFPAY | PROVIDERS: PCP Family Medicine; Visit Provider Specialist | DX: M19.011 Primary osteoarthritis, right shoulder (principal) | CPT/HCPCS: 73030 ==

== ENCOUNTER 2020-08-08 07:56 | Outpatient (CLI) | payer MEDICARE, MEDICAID, SELFPAY ==
--- NOTE | 2020-08-08 08:15 | XRR_ITS ---
PROCEDURE INFORMATION: Exam: XR Abdomen, 1 View Exam date and time: 08/08/2020 8:10 AM Age: 85 years old Clinical indication: Condition or disease; Kidney or ureter condition; Calculus (stone) in kidney; Prior surgery; Surgery type: Gb, appy TECHNIQUE: Imaging protocol: XR of the abdomen. Views: Frontal supine view of the abdomen. 1 View. COMPARISON: CR XR KUB [id number] 07/27/2020 9:59 AM FINDINGS: Gastrointestinal tract: Scattered abdominal and pelvic colonic fecal debris. Organs: Calcifications overlies the left renal shadow and are similar. Vasculature: Calcified abdominal aorta. Clustered small calcifications adjacent to the lower sacrococcygeal structure are similar and may reflect phlebolith. A larger oval calcification in the low right pelvis is not visualized and could represent interval passage or could be obscured. Bones/joints: Advanced degenerative change of the spine. XR/XR KUB [id number] IMPRESSION: 1. Persistent suspected left intrarenal calculi. 2. Larger low right pelvic oval calcification could reflect interval passage or is obscured by fecal debris.
== END 2020-08-08 07:57 | disposition home or self-care (01) ==
LOC: RAD 08:09
PROVIDERS: PCP Family Medicine; Visit Provider Urology
DX: N20.0 Calculus of kidney (principal)
CPT/HCPCS: 74018; 81003

== ENCOUNTER 2020-08-22 06:41 | Outpatient (CLI) | payer MEDICARE, MEDICAID, SELFPAY ==
--- NOTE | 2020-08-22 08:30 | CT_ITS ---
WS: [id number] CT ABDOMEN AND PELVIS NONCONTRAST HISTORY: RENAL STONE TECHNIQUE: Imaging performed through the abdomen and pelvis. Coronal and sagittal reformats are submi tted. All CT scans at [facility] use at least one of these dose optimization techniques: automated exposure control; mA and/or kV adjustment per patient size (includes targeted exams where d ose is matched to clinical indication); or iterative reconstruction. DLP: 1756.41 mGy.cm COMPARISON: 06/30/2020 Lower thorax: Heart is slightly enlarged. Small hiatal hernia. Extensive atherosclerosis in the thora cic aorta. Liver: Normal size liver. No mass or bile duct dilatation. Gallbladder: Not visualized. May been surgically removed. No bile duct dilatation. Pancreas: Mild diffuse pancreatic atrophy. Normal size duct. No mass or pancreatitis. Spleen: Normal spleen with granulomata. Adrenal glands: Macroscopic fat-containing mass associated with the RIGHT adrenal gland is poorly def ined measuring 2 cm in diameter. There are a few calcifications in the RIGHT adrenal gland limbs. Thi s fat-containing mass has been present since at least 2007 with only slight enlargement. LEFT adrenal gland is negative. Right kidney: Mild atrophy of the RIGHT kidney. There are several small cortical densities and hypode nsities associated with the kidney. There is no significant hydronephrosis. Again noted is a 5 mm keyur cification which may be in the distal RIGHT ureter. This may be better in the ureter but does not donna ear to be causing any significant obstruction. Left kidney: Mild atrophy with cortical cyst exophytic from the mid kidney measuring 1.5 cm. Nonobstr ucting calcification in the mid kidney measures 6 mm. Aorta: Mild dilatation and atherosclerosis. Extensive calcification continues into the iliac arteries . No free fluid, intraperitoneal air or significant lymphadenopathy. GI tract: Fecal retention and constipation. No obstruction. Numerous diverticula without evidence for acute diverticulitis. Abdominal wall: Fat-containing umbilical hernia. Pelvis: Atrophic uterus and ovaries. Urinary bladder is moderately well distended. Osseous structures: Advanced degenerative changes in the lumbar spine. No fractures. CT/CT kidney stone [id number] IMPRESSION: 1. No significant RIGHT hydroureter ureter or hydronephrosis. 2. Previously described calcification in the distal RIGHT ureter measuring 5 m m is again identified without change in position. This could be embedded in the distal RIGHT ureter but is not causing a significant obstruction. 3. Mild bilateral renal atrophy and LEFT nephrolithiasis. 4. Moderate to severe atherosclerosis aorta with mild ectasia and dilatation. No interval change.
== END 2020-08-22 06:42 | disposition home or self-care (01) ==
LOC: CT 06:49
PROVIDERS: PCP Family Medicine; Visit Provider Urology
DX: N20.0 Calculus of kidney (principal); I70.0 Atherosclerosis of aorta; I77.819 Aortic ectasia, unspecified site; N26.1 Atrophy of kidney (terminal); N20.1 Calculus of ureter
CPT/HCPCS: 74176; 81003; 87635

== ENCOUNTER 2020-08-24 11:57 | Outpatient (CLI) | payer MEDICARE, MEDICAID, SELFPAY ==
[2020-08-24 12:44] LABS: Basophils % 0.9 %; Eosinophils # 0.4 10^3/uL (0.0-0.8); Eosinophils % 8.3 %; Hematocrit 31.4 % (37.0-47.0); Hemoglobin 9.6 g/dL (11.5-15.3); Lymphocytes % 23.3 %; Mean Corpuscular HGB Conc 30.6 g/dL (30.0-36.0); Mean Corpuscular Hemoglobin 30.5 pg (28.0-34.0); Mean Corpuscular Volume 99.7 fL (81-99); Mean Platelet Volume 11.9 fL (7.4-10.4); Monocytes # 0.4 10^3/uL (0.2-0.9); Neutrophils # 2.59 10^3/uL (1.8-7.7); Neutrophils % 58.1 %; Nucleated Red Blood Cells % 0 %; Platelet Count 161 10^3/cmm (130-400); Red Blood Count 3.15 10^6/uL (4.1-5.3); Red Cell Distribution Width 13.2 % (12.1-15.1); White Blood Count 4.5 10^3/uL (4.0-10.0)
[2020-08-24 13:16] LABS: Alanine Aminotransferase 9 U/L (0-33); Albumin Level 3.2 g/dL (3.5-5.2); Alkaline Phosphatase 79 IU/L (35-105); Anion Gap 12.8 (5-19); Aspartate Amino Transferase 12 U/L (0-32); Blood Urea Nitrogen 43 mg/dL (8-23); Calcium 9.3 mg/dL (8.5-10.5); Carbon Dioxide 28 mmol/L (22-29); Chloride 103 mmol/L (98-107); Globulin 2.4 g/dL (1.3-4.6); Glucose 116 mg/dL (65-115); Osmolality Calculated 300 mOsm/kg (285-295); Potassium 4.8 mmol/L (3.5-5.1); Sodium 139 mmol/L (136-145); Total Bilirubin 0.2 mg/dL (0.15-1.2); Total Protein 5.6 g/dL (6.6-8.7)
--- NOTE | 2020-08-24 20:22 | ONC FU_ITS ---
Dr. Borja Patient Follow-Up Note Patient: Cecilio Ashton Unit #: [id number]: 1935 Dicatated By: Dann Borja M.D.Date of Visit:Aug 24, 2020 Onc Med Follow-up/Prog Note Chief Complaint: Breast cancer. History of Present Illness: This is an 85 year-old woman with grade 2 infiltrating ductal carcinoma of the right breast, stage IA (T1c, N0, M0), ER/MA positive and HER-2/jaime nonamplified. She had presented with an abnormal screening mammogram on 06/21/2016, which showed a new focal asymmetry in the subareolar region of the right breast, BI-RADS 0. Diagnostic mammogram/ultrasound on 07/19/2016 showed a persistent ill defined focal asymmetry in the anterior third subareolar region of the right breast. It measured 7 mm in diameter. Ultrasound showed a hypoechoic nodule or complex cyst measuring 3.5 x 4.6 x 5 mm. The findings were BI-RADS 4B category, suspicious. An ultrasound directed biopsy on 08/07/2016 showed infiltrating ductal carcinoma, grade 1/3. The breast prognostic profile showed intermediate Ki-67 at 15%. ER was positive at 100% with MA positive at 47%. HER-2/jaime was nonamplified, 2+ by IHC with amplification ratio by FISH of 1.5, 4.1 HER-2 copies/cell. She was referred to Dr. Doan. She underwent right breast lumpectomy with axillary sentinel lymph node biopsy on 08/30/2016. Pathology showed grade 2/3 infiltrating ductal carcinoma measuring 1.3 x 1.0 cm. The margins were free of tumor and atypia. There was no involvement in 1 axillary sentinel lymph node. I had seen her initially on 09/18/2015. I opted to evaluate further with Oncotype DX before making a decision on her adjuvant therapy. She is seen here today to review those results. It showed a recurrence score of 25, intermediate risk category, corresponding to a recurrence risk of 16% at 10 years with adjuvant hormonal therapy. She opted not to take adjuvant chemotherapy. She was given radiation to the right breast, completed on 11/27/2016 to a total dose of 5256 cGy. She began adjuvant hormonal therapy with anastrozole 1 mg daily on 01/16/2017. Her baseline DEXA scan on 01/24/2017 showed osteopenia with T score -1.8 in the right femoral neck. On 04/10/2017 she started treatment with Prolia for maintenance of bone health. As of her followup visit on 04/10/2018 she appeared stable clinically and she continued anastrozole 1 mg daily. Her other medical illnesses include hypertension, hyperlipidemia, type II diabetes, and chronic kidney disease. She suffered a TIA/stroke in 2009. Her vision is severely impaired, apparently due to combination of diabetic retinopathy and macular degeneration. She is followed by Dr. Shore, and she has been getting injections in her eyes. She had previously smoked, but for only 10 years. She quit smoking in 1975. INTERIM HISTORY: In April 2018 she reported an increase in her musculoskeletal pain. Her treatment was put on hold. Bone scan on 05/14/2018 showed evidence of degenerative disease in the right shoulder and both knees. There was no evidence of metastatic disease. She continued adjuvant hormonal therapy with anastrozole. On 09/25/2018 she underwent surgical repair of an open wound on her abdomen, apparently related to a remote appendectomy procedure. She had no complications with the surgery. Pathology was benign. She continued her adjuvant hormonal therapy with anastrozole 1 mg daily. At her follow-up visit in March 2019 she had developed some new pain and swelling in the right leg. I opted to have her stop the anastrozole, at least temporarily. Her venous Doppler was negative. Her symptoms improved, and she restarted the anastrozole in May. Her further follow-up was interrupted by restrictions imposed by the coronavirus pandemic. She returned for a follow-up visit on 2020-04-13. At that point there had been a significant decline in her renal function with creatinine increasing from 1.8 to 2.3 mg/dL. As a precaution, I had her stop the anastrozole and I deferred any further treatment with denosumab. On 06/28/20 she underwent rotator cuff repair on the right. She had no complications with the procedure, but 2 days later she was admitted to the hospital with acute respiratory failure in association with acute renal failure and hyperkalemia. She improved with IV fluids and other supportive measures. She was found to have a right distal ureteral stone by CT scan. The stone was persistent and outpatient follow-up with Dr. Kim, and she is scheduled to undergo shockwave lithotripsy. She complains that she still has no energy. She is able to get up and around pretty well. Her ECOG score is 2. She has good appetite. She does not have fever or night sweats. She is short of breath with activity. She does not complain of cough and she has not been having chest pain. She has no GI complaints. She says her bladder function is somewhat erratic. She is pushing her fluid intake. She still has some discomfort in the low abdomen/pelvic area. She also has been having back pain. She still has some pain in the right shoulder following the surgery in June. She does not complain of headache or dizziness, and she has no focal neurologic symptoms. Medications: AmLODIPine Besylate 1 Tablet (of 5 mg) Oral daily, Anastrozole 1 (1 mg) Tablet Oral daily, Aspirin 1 (81 mg) Tablet Oral daily, Carvedilol 1 (25 mg) Tablet Oral b.i.d., Cholecalciferol 1,000 (1000 Units) Capsule Oral daily, Fish Oil Capsule Oral, Flax Seeds Powder Oral, Gabapentin (100 mg) Capsule Oral b.i.d., Isosorbide Mononitrate ER 1 (60 mg) Tablet SR 24 HR Oral b.i.d., Klor-Con 10 1 (8 meq) Tablet, controlled release Oral daily PRN, Lasix 1 (20 mg) Tablet Oral daily PRN, Levothyroxine Sodium 1 (88 mcg) Tablet Oral daily, Losartan Potassium 1 (25 mg) Tablet Oral daily, Lovastatin 40 (40 mg) Tablet Oral daily, Multivitamin Adult 1 Tablet Oral daily, Omeprazole 1 (20 mg) Tablet, enteric coated Oral b.i.d., PreserVision AREDS 2 1 Capsule Oral daily, Requip 1 (0.25 mg) Tablet Oral at bedtime, Ventolin HFA 2 Puff(s) (of 108 (90 base) mcg/act) Aerosol, solution Inhalation q 4 hours PRN Allergies: Lisinopril, Plavix, and Sulfa Antibiotics. Vital Signs: Performed on Aug 24, 2020 13:51 Height - 59.00 in Weight - 169.4 lbs (HIGH) BSA - 1.72 sq.m BMI - 34.21 (HIGH) Temperature - 98.1 F (LOW) Pulse - 68 /min Respiration - 16 /min BP - 122/62 mm(hg) O2 Sat - 94 % (LOW) Pain - 5 Physical Examination: Constitutional - She appears somewhat weak generally, Eyes - Sclerae nonicteric. Conjunctivae clear, ENMT - No lesions noted in the oral cavity, Hematologic/Lymphatic - No cervical, clavicular, or axillary adenopathy, Respiratory - Lungs sound clear, Cardiovascular - Heart rhythm is regular. There is a II/ systolic murmur at the base. There is no gallop or rub noted, Abdomen - Soft. Liver and spleen are not enlarged. There is no abdominal mass or ascites noted and there is no inguinal adenopathy, Extremities - Slight edema, Neurologic - No focal neurologic deficits noted. Lab/Imaging: Test performed on Aug 24, 2020 12:19 Sodium 139 mmol/L Potassium 4.8 mmol/L Chloride 103 mmol/L CO2 28 mmol/L Anion Gap 12.8 BUN 43 mg/dL Creatinine 2.6 mg/dL Cr Clearance (Est) 19.54 mL/min Glucose 116 mg/dL Osmolality - Calculated 300 mOsm/kg Calcium 9.3 mg/dL Protein, Total 5.6 g/dL Albumin 3.2 g/dL Globulin 2.4 g/dL Bilirubin, Total 0.2 mg/dL ALT (SGPT) 9 U/L AST (SGOT) 12 U/L Alkaline Phosphatase 79 IU/L WBC 4.5 10 3/uL RBC 3.15 10 6/uL HGB 9.6 g/dL HCT 31.4 % MCV 99.7 fL MCH 30.5 pg MCHC 30.6 g/dL RDW 13.2 % Platelet Count 161 10 3/cmm MPV 11.9 fL Neutrophils 2.59 10 3/uL Lymphocytes 1.0 10 3/uL Monocytes 0.4 10 3/uL Eosinophils 0.4 10 3/uL Basophils 0.0 10 3/uL Neutrophil % 58.1 % Lymphocyte % 23.3 % Monocyte % 9.0 % Eosinophil % 8.3 % Basophils % 0.9 % NRBC % 0 % Problem List: 1. Grade 2 infiltrating ductal carcinoma of the right breast, stage IA (T1c, N0, M0), ER/MA positive and HER-2/jaime nonamplified. She underwent right breast lumpectomy with axillary sentinel lymph node biopsy on 08/30/2016. Her Oncotype DX showed a recurrence score of 25, corresponding to a recurrence risk of 16% at 10 years with adjuvant hormonal therapy. She opted not to take adjuvant chemotherapy. 2. She was given radiation to the right breast, which she completed on 11/27/2016 to a total dose of 5256 cGy. She tolerated treatment well. 3. Adjuvant hormonal therapy with anastrozole 1 mg daily began on 01/16/2017. 4. She had evidence of osteopenia on her baseline bone density, T score -1.8 in the right femoral neck. She has been on treatment with Prolia. 5. Hypertension. 6. Hyperlipidemia. 7. Type II diabetes. 8. Chronic kidney disease. 9. She has a prior history of TIA/stroke in 2009. 10. She has severely impaired vision, apparently due to combination of diabetic retinopathy and macular degeneration. Problems Addressed with this Encounter and Plan: 1. Grade 2 infiltrating ductal carcinoma of the right breast, stage IA (T1c, N0, M0), ER/MA positive and HER-2/jaime nonamplified. She underwent right breast lumpectomy with axillary sentinel lymph node biopsy on 08/30/2016. Her Oncotype DX showed a recurrence score of 25, corresponding to a recurrence risk of 16% at 10 years with adjuvant hormonal therapy. She opted not to take adjuvant chemotherapy. She completed radiation to the right breast in November 2016 and she then began adjuvant hormonal therapy with anastrozole 1 mg daily. It was temporarily put on hold in Apr 2018 due to increased musculoskeletal pain, but it was restarted the following month. As of her follow-up visit on 04/13/2020 both the anastrozole and the Prolia were put on hold due to a significant decline in her renal function. Thus far during follow-up there has been no evidence of recurrence of the breast cancer. However, with continued worsening in her renal function, I think it is best for now to keep the anastrozole on hold. I will tentatively plan a follow-up visit in 3 months. 2. As of Mar 2020 there have been a decline in her renal function. In Jun 2020 she was admitted to the hospital with acute respiratory failure and acute renal failure 2 days following a right shoulder rotator cuff repair. She did improve with IV fluids and supportive measures. However, her renal function has since then declined again. 3. She has been followed by urology for a persistent right distal ureteral stone, and she is scheduled to undergo ESWL. 4. She has become moderately anemic. This may just be due to to her worsening chronic kidney disease. At least for now I will just check her serum iron studies. She will have further evaluation as indicated. Signed By: Dann Borja M.D. <<Signature on File>>
[2020-08-25 10:37] LABS: Iron 64 ug/dL (37-145); Percent Saturation 28.5 % (20-50); Total Iron Binding Capacity 224 mcg/dl; Unsaturated Iron Binding 160 ug/dL (112-347)
== END 2020-08-24 11:58 | disposition home or self-care (01) ==
LOC: ONCMED 12:00
PROVIDERS: PCP Family Medicine; Visit Provider Internal Medicine Medical Oncology
DX: Z92.3 Personal history of irradiation (principal); Z79.890 Hormone replacement therapy; M85.861 Other specified disorders of bone density and structure, right lower leg; I10 Essential (primary) hypertension; E78.5 Hyperlipidemia, unspecified; E11.9 Type 2 diabetes mellitus without complications; N18.9 Chronic kidney disease, unspecified; Z86.73 Personal history of transient ischemic attack (TIA), and cerebral infarction without residual deficits; H54.7 Unspecified visual loss
CPT/HCPCS: 80053; 83540; 83550; 85025; 99214

== ENCOUNTER 2020-08-25 12:14 | Day surgery (SDC) | payer MEDICARE, MEDICAID, SELFPAY ==
[2020-08-24 15:50] VITALS: BMI 33.0
[2020-08-25] VITALS (7 sets, daily range): BP systolic 103–171; BP diastolic 61–97; PULSE 62–77; RESP 16–20; TEMP 36.2–36.8; O2SAT 92–99
--- NOTE | 2020-08-25 | SCC_ITS ---
Procedure Done: 1. Cystoscopy with RIGHT retrograde ureteropyelogram 2. Right ureteroscopy, laser lithotripsy and stent 25.4 seconds of fluoroscopic guidance, for a cumulative dose of 6.87 mGy, was provided to Dr. Kim by the radiology department. C-arm images of the abdomen were saved for the patient's permanent record. [facility]
--- NOTE | 2020-08-25 13:11 | ANES.PREANE2 ---
Pre-Anesthetic Assessment Pre-Anesthetic Assessment: Height/Weight: Height 1.52 m Weight 76.657 kg Temp Pulse Resp BP Pulse Ox 97.3 F L 68 16 171/67 95 08/25/20 12:39 08/25/20 12:39 08/25/20 12:39 08/25/20 12:39 08/25/20 12:39 Preop Diagnosis: Right distal ureteral stone Proposed Procedure: Operation Date: 08/25/20 12:40 Proposed Procedures p Cystoscopy 21564 [id number] N20.0(Not Applicable) - Hussain Kim MD s Retrograde Pyelogram(Right) - MD leatha Elizabeth Ureteroscopy(Not Applicable) - MD leatha Elizabeth Laser Lithotripsy(Not Applicable) - MD leatha Elizabeth Ureteral Stent Placement(Not Applicable) - Hussain Kim MD Familial anesthetic complications: None Was Beta Andres taken within 24 hours: Yes Last intake: Intake Last Liquid Date 08/25/20 Last Liquid Time 08:30 Last Solid Date 08/24/20 Last Solid Time 17:30 Social: Social History: No alcohol and No tobacco Exam: Pre-Anes Outpt Exam: alert, oriented x 3, clear to auscultation bilaterally and regular rate & rhythm Airway: Cervical ROM: WNL MP: 3 Dentition: False CV/HEM: CV/HEM: CAD and HTN : : Chronic renal Insufficiency GI: GI: GERD Metabolic: Metabolic: Morbid obesity and Thyroid Anesthetic Plan: ASA status: 3 Anesthesia: General Risk of > 500 ml blood loss (7ml/kg in children): No PFSH Anesthesia PFSH: Medical History Bilateral carotid artery stenosis Bilateral cataracts CAD (coronary artery disease) Had the most recent cardiac cauterization in January 2012. She was found to have mild to moderate diffuse coronary artery disease. Most recent myocardial perfusion imaging in 2013. No evidence of ischemia. Chronic kidney disease Diabetes Hyperlipidemia Hypertension Hypothyroid Leg swelling Renal stone Right ureteral stone Rotator cuff arthropathy of right shoulder SOB (shortness of breath) Subclavian artery stenosis, right Surgical History History of appendectomy History of shoulder surgery Hx of cholecystectomy Family History Other CAD (coronary artery disease) Chronic kidney disease (CKD) Diabetes Family history of premature coronary artery disease Hyperlipidemia Hypertension Lung disease Stroke Social History Smoking and tobacco status: former smoker Alcohol intake: never Current occupational status: retired Data Anesthesia Cardiac Studies: No Data to Display
[2020-08-25] MEDS: sodium chloride 0.9% 1,000 ML 30 ML IV (13:21)
--- NOTE | 2020-08-25 13:36 | W.PM.OPSUD ---
Surgery/Procedure H&P Update DATE OF PROCEDURE: August 25, 2020 DATE H&P PERFORMED: 08/22/20 H&P UPDATE INFORMATION: I have reviewed H&P completed within last 30 days, I have examined patient prior to procedure, No changes to prior documentation and [place] [facility] date indicated CHANGES TO PREVIOUS DOCUMENTATION: Reviewed the CT scan again. The calcification in question could potentially be embedded in the wall of the ureter or even potentially outside of the ureter. Retrograde ureteroscopy will clarify for us. If the stone is visualized in the ureter or embedded in the ureteral wall we will treated as prescribed with laser lithotripsy removal and stent placement. PREOP DIAGNOSIS: Right distal ureteral stone PLANNED PROCEDURE: Operation Date: 08/25/20 12:40 Proposed Procedures p Cystoscopy [id number] N20.0(Not Applicable) - Hussain Kim MD s Retrograde Pyelogram(Right) - MD leatha Elizabeth Ureteroscopy(Not Applicable) - MD leatha Elizabeth Laser Lithotripsy(Not Applicable) - MD leatha Elizabeth Ureteral Stent Placement(Not Applicable) - Hussain Kim MD
--- NOTE | 2020-08-25 13:38 | P.OP_ITS ---
Operative Report Date of procedure: August 25, 2020 Pre-op Diagnosis: Right distal ureteral stone Post-op diagnosis: same Procedure Done: 1. Cystoscopy with RIGHT retrograde ureteropyelogram 2. Right ureteroscopy, laser lithotripsy and stent Implants: 6 Luxembourger by 24 cm double-pigtail stent without string Pathology: Right distal ureteral stone fragments Surgeon: Judy Anesthesia: General Estimated blood loss: minimal Urine output: not measured Complications: None Findings: Stone in the expected position of the distal ureter. Was not embedded in the wall. Easily fragmented with 365 ?m thulium superpulse laser fiber. Fragments removed. Stent left indwelling Condition: stable Disposition: PACU Brief History: Mrs. Ashton is a delightful 85-year-old white female who was originally evaluated on 07/27/2020 after being hospitalized ( June 2020) for acute renal failure respiratory failure and with the discovery of a 5.6 mm right distal ureteral calculus without severe hydronephrosis. She was unaware of having passed the stone. She did complain of some lower abdominal pain consistent with a stone located in the distal ureter as well as some right flank pain suspicious for renal colic. The symptoms persisted. Follow-up KUB is failed to show the stone clearly and ultimately because of the persistent symptoms a repeat CT scan was performed which confirmed the suspicious calcification in the same location. Description was that the stone appeared to be potentially embedded in the wall of the ureter. There was some inflammatory change of the UVJ on that side. Could not completely rule out the possibility of the calcification being extra ureteral. She is admitted today for further evaluation with retrograde ureteropyelogram ureteroscopy and as needed laser lithotripsy with stent placement. Procedure: After routine preoperative evaluation examination and obtaining of informed consent she was taken to the operating suite on 08/25/2020 where general anesthesia was administered without difficulty after appropriate timeout was performed, SCDs confirmed to be functioning, preoperative antibiotics administ ered, beta-tonia protocol confirmed. Prepped and draped in usual sterile fashion in dorsolithotomy position paying careful attention to avoiding pressure points. 21 Luxembourger cystoscope with 30 degree lens was introduced into the urethra meatus and advanced into the bladder under videoscopy. The bladder was systematically examined and found to be normal. No stones were seen. An 8 Luxembourger cone-tipped catheter was intubated to the right ureteral orifice for right retrograde ureteropyelogram: A filling defect in the very distal aspect of the ureter was identified. The ureter proximal to that was minimally dilated. The filling defect was consistent with a stone seen on CT scan. Flexible tip guidewire was then passed up to the right ureter into the upper pole calyx. The wire was secured to the drapes as a safety wire. 7.5 Luxembourger offset semirigid ureteroscope was then advanced next to the wire into the ureter. The stone was encountered in the expected position and was fragmented with a 365 ?m thulium superpulse laser fiber into small fragments that were and removed with several passes of the parachute basket. On final inspection all fragments were removed. There was some inflammation where the stone had been located and for that reason the stent was left indwelling. The cystoscope was then backloaded over the guidewire and a 6 Luxembourger by 24 cm double-pigtail stent without string was passed without difficulty through the cystoscope over the guidewire up the ureter into appropriate position as confirmed via fluoroscopy and cystoscopy. The bladder was drained. No fragments remained. She tolerated procedure well without complications and was awakened in the operating room and returned to the recovery room in stable condition. PLANS: 1. Anticipate discharge from outpatient surgery 2. Follow-up next week for cystoscopy and stent removal.
[2020-08-25] MEDS: levofloxacin-dextrose 5 % 500 MG/100 ML PREMIX 100 MG IV (13:40)
--- NOTE | 2020-08-25 13:43 | SC_ITS ---
WS: [id number] C-arm fluoroscopy for right retrograde, 08/25/2020 Clinical Data: surgery Comparison: None. Findings: Dr. Kim injected the right ureter. The contrast material flowed into the right renal pelvis. The n a right ureteral catheter was inserted. SC/C-arm FL for Urology Impression: Insertion of right ureteral catheter.
[2020-08-25] MEDS: iohexol 300 mg/mL 50 mL Btl (OR ONLY) XX (14:10)
--- NOTE | 2020-08-25 14:55 | SUR.PHASEI ---
PT AWAKES EASILY TO VOICE , PT ASKS APPROPRIATE QUESTIONS, PT DENIES PAIN AND NAUSEA, PT NOW ON RA TRIAL, PT SLEEPS IF NOT DISTURBED, VSS MONITOR SR WITH BBB OCC PVC UNCHANGED FROM PRE SURGERY.
--- NOTE | 2020-08-25 15:53 | ANE.PACU2 ---
Inpatient post-anesthesia follow up: Airway intact: Yes Vital signs: Temperature 98.1 F Pulse Rate 62 Respiratory Rate 16 Blood Pressure 138/81 Pulse Oximetry 96 Oxygen Delivery Me thod Room Air Oxygen Flow Rate 3 Fraction of Inspir ed Oxygen Hydration adequate: Yes Nausea and vomiting: No Pain level: 2 Mental status: Baseline
[2020-08-30 22:47] LABS: Stone Source RIGHT URETER
== END 2020-08-25 15:55 | disposition home or self-care (01) ==
PROVIDERS: PCP Family Medicine; Visit Provider Urology
PROC: 0TJB8ZZ Inspection of Bladder, Via Natural or Artificial Opening Endoscopic (ICD-10-PCS; CPT 52000; principal; 2020-08-25 12:40)
PROC: (CPT 74420; 2020-08-25 12:40)
PROC: 0TJ98ZZ Inspection of Ureter, Via Natural or Artificial Opening Endoscopic (ICD-10-PCS; CPT 52351; 2020-08-25 12:40)
PROC: (CPT 52356; 2020-08-25 12:40)
PROC: (CPT 50605; 2020-08-25 12:40)
DX: N20.1 Calculus of ureter (principal); I25.10 Atherosclerotic heart disease of native coronary artery without angina pectoris; K21.9 Gastro-esophageal reflux disease without esophagitis; E66.01 Morbid (severe) obesity due to excess calories; Z68.33 Body mass index [BMI] 33.0-33.9, adult; E11.22 Type 2 diabetes mellitus with diabetic chronic kidney disease; I12.9 Hypertensive chronic kidney disease with stage 1 through stage 4 chronic kidney disease, or unspecified chronic kidney disease; N18.9 Chronic kidney disease, unspecified; E03.9 Hypothyroidism, unspecified; Z87.891 Personal history of nicotine dependence; Z79.82 Long term (current) use of aspirin
CPT/HCPCS: 52356; 12345; 76000; 82365; 88300; C2625; J1956; J2704; J3010; J3490; J7030

== ENCOUNTER → 2020-09-02 09:32 | Outpatient (BNVA) | payer MEDICARE, MEDICAID, SELFPAY | PROVIDERS: PCP Family Medicine; Visit Provider Urology | DX: N20.1 Calculus of ureter (principal); Z96.0 Presence of urogenital implants | CPT/HCPCS: 81003 ==

== ENCOUNTER 2020-09-09 12:22 | Outpatient (CLI) | payer MEDICARE, MEDICAID, SELFPAY ==
--- NOTE | 2020-09-09 12:31 | USCV_ITS ---
Cecilio Ashton Age: 85 Gender: F : 1935 Exam Date: 09/09/2020 12:44 Ordering Phys: Yvette Pickens MD Technologist: Mini Lafleur Exam Location: [facility] [place]_ Indication: LOCALIZED EDEMA, RECENT SHOULDER SURGERY HISTORY: Upper extremity swelling. PROCEDURES: Venous duplex imaging was performed in only the right upper extremity. The following venous structures were evaluated: internal jugular vein, subclavian vein, axillary vein, and brachial veins. In addition, the basilic vein, cephalic vein, radial vein, and ulnar vein. Serial compression, augmentation maneuvers, and spectral Doppler flow evaluation were performed. FINDINGS: Normal 2-D, color Doppler and phasicity noted in ther right upper extremity venous system extending from the right internal jugular vein through the main forearm. No thrombosis or occlusion noted. CONCLUSIONS No right upper extremity DVT. Dr. Trudy Jacobsen DO (Electronically Signed) Final Date: 09 September 2020 13:35 S
== END 2020-09-09 12:23 | disposition home or self-care (01) ==
LOC: RAD 12:25
PROVIDERS: PCP Family Medicine; Visit Provider Family Medicine
DX: R60.0 Localized edema (principal)
CPT/HCPCS: 93971

== ENCOUNTER → 2020-09-28 12:30 | Outpatient (BNVA) | payer MEDICARE, MEDICAID, SELFPAY | PROVIDERS: PCP Family Medicine; Visit Provider Internal Medicine Cardiovascular Disease | DX: I13.0 Hypertensive heart and chronic kidney disease with heart failure and stage 1 through stage 4 chronic kidney disease, or unspecified chronic kidney disease (principal); I50.33 Acute on chronic diastolic (congestive) heart failure; R06.02 Shortness of breath; N18.30 Chronic kidney disease, stage 3 unspecified; E11.22 Type 2 diabetes mellitus with diabetic chronic kidney disease; I25.10 Atherosclerotic heart disease of native coronary artery without angina pectoris; E11.65 Type 2 diabetes mellitus with hyperglycemia; Z79.4 Long term (current) use of insulin; E03.9 Hypothyroidism, unspecified; E78.2 Mixed hyperlipidemia; I65.23 Occlusion and stenosis of bilateral carotid arteries; Z87.891 Personal history of nicotine dependence | CPT/HCPCS: 80048; 83880 ==

== ENCOUNTER → 2020-10-19 09:37 | Outpatient (BNVA) | payer MEDICARE, MEDICAID, SELFPAY | PROVIDERS: PCP Family Medicine; Visit Provider Specialist | DX: M19.011 Primary osteoarthritis, right shoulder (principal) | CPT/HCPCS: 73030 ==

== ENCOUNTER 2020-12-01 10:46 | Outpatient (CLI) | payer MEDICARE, MEDICAID, SELFPAY ==
[2020-12-01 11:27] LABS: Basophils % 0.4 %; Eosinophils # 0.2 10^3/uL (0.0-0.8); Eosinophils % 3.7 %; Hematocrit 35.1 % (37.0-47.0); Lymphocytes # 1.2 10^3/uL (0.8-4.8); Lymphocytes % 23.8 %; Mean Corpuscular HGB Conc 31.3 g/dL (30.0-36.0); Mean Corpuscular Hemoglobin 30.1 pg (28.0-34.0); Mean Corpuscular Volume 95.9 fL (81-99); Mean Platelet Volume 11.7 fL (7.4-10.4); Monocytes # 0.4 10^3/uL (0.2-0.9); Monocytes % 8.7 %; Neutrophils # 3.05 10^3/uL (1.8-7.7); Neutrophils % 63.2 %; Nucleated Red Blood Cells % 0 %; Platelet Count 163 10^3/cmm (130-400); Red Blood Count 3.66 10^6/uL (4.1-5.3); Red Cell Distribution Width 14.2 % (12.1-15.1); White Blood Count 4.8 10^3/uL (4.0-10.0)
[2020-12-01 11:46] LABS: Alanine Aminotransferase 12 U/L (0-33); Albumin Level 3.5 g/dL (3.5-5.2); Alkaline Phosphatase 87 IU/L (35-105); Anion Gap 11.2 (5-19); Aspartate Amino Transferase 17 U/L (0-32); Blood Urea Nitrogen 49 mg/dL (8-23); Calcium 9.3 mg/dL (8.5-10.5); Carbon Dioxide 28 mmol/L (22-29); Chloride 101 mmol/L (98-107); Globulin 2.4 g/dL (1.3-4.6); Glucose 96 mg/dL (65-115); Osmolality Calculated 293 mOsm/kg (285-295); Potassium 5.2 mmol/L (3.5-5.1); Sodium 135 mmol/L (136-145); Total Bilirubin 0.3 mg/dL (0.15-1.2); Total Protein 5.9 g/dL (6.6-8.7)
--- NOTE | 2020-12-04 08:48 | ONC FU_ITS ---
Dr. Borja Patient Follow-Up Note Patient: Cecilio Ashton Unit #: [id number]: 1935 Dicatated By: Dann Borja M.D.Date of Visit:December 01, 2020 Onc Med Follow-up/Prog Note Chief Complaint: Breast cancer. History of Present Illness: This is an 85 year-old woman with grade 2 infiltrating ductal carcinoma of the right breast, stage IA (T1c, N0, M0), ER/WI positive and HER-2/jaime nonamplified. She had presented with an abnormal screening mammogram on 06/21/2016, which showed a new focal asymmetry in the subareolar region of the right breast, BI-RADS 0. Diagnostic mammogram/ultrasound on 07/19/2016 showed a persistent ill defined focal asymmetry in the anterior third subareolar region of the right breast. It measured 7 mm in diameter. Ultrasound showed a hypoechoic nodule or complex cyst measuring 3.5 x 4.6 x 5 mm. The findings were BI-RADS 4B category, suspicious. An ultrasound directed biopsy on 08/07/2016 showed infiltrating ductal carcinoma, grade 1/3. The breast prognostic profile showed intermediate Ki-67 at 15%. ER was positive at 100% with WI positive at 47%. HER-2/jaime was nonamplified, 2+ by IHC with amplification ratio by FISH of 1.5, 4.1 HER-2 copies/cell. She was referred to Dr. Doan. She underwent right breast lumpectomy with axillary sentinel lymph node biopsy on 08/30/2016. Pathology showed grade 2/3 infiltrating ductal carcinoma measuring 1.3 x 1.0 cm. The margins were free of tumor and atypia. There was no involvement in 1 axillary sentinel lymph node. I had seen her initially on 09/18/2015. I opted to evaluate further with Oncotype DX before making a decision on her adjuvant therapy. She is seen here today to review those results. It showed a recurrence score of 25, intermediate risk category, corresponding to a recurrence risk of 16% at 10 years with adjuvant hormonal therapy. She opted not to take adjuvant chemotherapy. She was given radiation to the right breast, completed on 11/27/2016 to a total dose of 5256 cGy. She began adjuvant hormonal therapy with anastrozole 1 mg daily on 01/16/2017. Her baseline DEXA scan on 01/24/2017 showed osteopenia with T score -1.8 in the right femoral neck. On 04/10/2017 she started treatment with Prolia for maintenance of bone health. As of her followup visit on 04/10/2018 she appeared stable clinically and she continued anastrozole 1 mg daily. In April 2018 she reported an increase in her musculoskeletal pain. Her treatment was put on hold. Bone scan on 05/14/2018 showed evidence of degenerative disease in the right shoulder and both knees. There was no evidence of metastatic disease, and she then restarted the anastrozole. On 09/25/2018 she underwent surgical repair of an open wound on her abdomen, apparently related to a remote appendectomy procedure. She had no complications with the surgery. Pathology was benign. She continued her adjuvant hormonal therapy with anastrozole 1 mg daily. At her follow-up visit in March 2019 she had developed some new pain and swelling in the right leg. I opted to have her stop the anastrozole, at least temporarily. Her venous Doppler was negative. Her symptoms improved, and she restarted the anastrozole in May. Her further follow-up was interrupted by restrictions imposed by the coronavirus pandemic. She was seen again on 04/13/2020. At that point there had been a significant decline in her renal function with creatinine increasing from 1.8 to 2.3 mg/dL. As a precaution, I had her stop the anastrozole and I deferred any further treatment with denosumab. On 06/28/20 she underwent rotator cuff repair on the right. She had no complications with the procedure, but 2 days later she was admitted to the hospital with acute respiratory failure in association with acute renal failure and hyperkalemia. She improved with IV fluids and other supportive measures. She was found to have a right distal ureteral stone by CT scan. The stone was persistent and on 08/25/2020 she underwent cystoscopy with right ureteroscopy, laser lithotripsy, and placement of ureteral stent. Her other medical illnesses include hypertension, hyperlipidemia, type II diabetes, and chronic kidney disease. She suffered a TIA/stroke in 2009. Her vision is severely impaired, apparently due to combination of diabetic retinopathy and macular degeneration. She is followed by Dr. Shore, and she has been getting injections in her eyes. She had previously smoked, but for only 10 years. She quit smoking in 1975. INTERIM HISTORY: She is seen for a follow-up visit. She says she has been getting more energy and getting stronger gradually. She has been able to do more walking and she is able to do a little bit of light work. ECOG score is 2. She has good appetite. She has no fever, night sweats, or hot flashes. She has some allergy related sinus drainage and cough. She is sometimes short of breath. She does not complain of chest pain. She has no GI or complaints. She has some residual pain following a right shoulder replacement. She has no other joint or bone pain. She does report having a few headaches, presumed to be sinus. She has no focal neurologic symptoms. Medications: AmLODIPine Besylate 1 Tablet (of 5 mg) Oral daily, Anastrozole 1 (1 mg) Tablet Oral daily, Aspirin 1 (81 mg) Tablet Oral daily, Carvedilol 1 (25 mg) Tablet Oral b.i.d., Cholecalciferol 1,000 (1000 Units) Capsule Oral daily, Fish Oil Capsule Oral, Flax Seeds Powder Oral, Gabapentin (100 mg) Capsule Oral b.i.d., Isosorbide Mononitrate ER 1 (60 mg) Tablet SR 24 HR Oral b.i.d., Klor-Con 10 1 (8 meq) Tablet, controlled release Oral daily PRN, Lasix 1 (20 mg) Tablet Oral daily PRN, Levothyroxine Sodium 1 (88 mcg) Tablet Oral daily, Losartan Potassium 1 (25 mg) Tablet Oral daily, Lovastatin 40 (40 mg) Tablet Oral daily, Multivitamin Adult 1 Tablet Oral daily, Omeprazole 1 (20 mg) Tablet, enteric coated Oral b.i.d., PreserVision AREDS 2 1 Capsule Oral daily, Requip 1 (0.25 mg) Tablet Oral at bedtime, Ventolin HFA 2 Puff(s) (of 108 (90 base) mcg/act) Aerosol, solution Inhalation q 4 hours PRN Allergies: Lisinopril, Plavix, and Sulfa Antibiotics. Vital Signs: Performed on December 01, 2020 12:37 Height - 59.00 in Weight - 166.2 lbs (LOW) BSA - 1.70 sq.m BMI - 33.57 (HIGH) Temperature - 98.0 F (LOW) Pulse - 69 /min Respiration - 18 /min BP - 107/65 mm(hg) O2 Sat - 98 % Pain - 8 Fatigue - 0 Physical Examination: Constitutional - She appears somewhat weak generally, Eyes - Sclerae nonicteric. Conjunctivae clear, ENMT - No lesions noted in the oral cavity, Hematologic/Lymphatic - No cervical, clavicular, or axillary adenopathy, Respiratory - Lungs sound clear, Cardiovascular - Heart rhythm is regular. There is a II/ systolic murmur at the base. There is no gallop or rub noted, Abdomen - Soft. Liver and spleen are not enlarged. There is no abdominal mass or ascites noted and there is no inguinal adenopathy, Extremities - There are mild venous stasis changes. There is no edema, Integumentary - There is a small elevated skin lesion on the right nasal ala. It measures 0.5 cm, Neurologic - No focal neurologic deficits noted. Lab/Imaging: Test performed on December 01, 2020 11:10 Sodium 135 mmol/L Potassium 5.2 mmol/L Chloride 101 mmol/L CO2 28 mmol/L Anion Gap 11.2 BUN 49 mg/dL Creatinine 2.2 mg/dL Cr Clearance (Est) 22.65 mL/min Glucose 96 mg/dL Osmolality - Calculated 293 mOsm/kg Calcium 9.3 mg/dL Protein, Total 5.9 g/dL Albumin 3.5 g/dL Globulin 2.4 g/dL Bilirubin, Total 0.3 mg/dL ALT (SGPT) 12 U/L AST (SGOT) 17 U/L Alkaline Phosphatase 87 IU/L WBC 4.8 10 3/uL RBC 3.66 10 6/uL HGB 11.0 g/dL HCT 35.1 % MCV 95.9 fL MCH 30.1 pg MCHC 31.3 g/dL RDW 14.2 % Platelet Count 163 10 3/cmm MPV 11.7 fL Neutrophils 3.05 10 3/uL Lymphocytes 1.2 10 3/uL Monocytes 0.4 10 3/uL Eosinophils 0.2 10 3/uL Basophils 0.0 10 3/uL Neutrophil % 63.2 % Lymphocyte % 23.8 % Monocyte % 8.7 % Eosinophil % 3.7 % Basophils % 0.4 % NRBC % 0 % Problem List: 1. Grade 2 infiltrating ductal carcinoma of the right breast, stage IA (T1c, N0, M0), ER/WI positive and HER-2/jaime nonamplified. She underwent right breast lumpectomy with axillary sentinel lymph node biopsy on 08/30/2016. Her Oncotype DX showed a recurrence score of 25, corresponding to a recurrence risk of 16% at 10 years with adjuvant hormonal therapy. She opted not to take adjuvant chemotherapy. 2. She was given radiation to the right breast, which she completed on 11/27/2016 to a total dose of 5256 cGy. She tolerated treatment well. 3. Adjuvant hormonal therapy with anastrozole 1 mg daily began on 01/16/2017. 4. She had evidence of osteopenia on her baseline bone density, T score -1.8 in the right femoral neck. She has been on treatment with Prolia. 5. Hypertension. 6. Hyperlipidemia. 7. Type II diabetes. 8. Chronic kidney disease. 9. She has a prior history of TIA/stroke in 2009. 10. She has severely impaired vision, apparently due to combination of diabetic retinopathy and macular degeneration. Problems Addressed with this Encounter and Plan: 1. Patient with grade 2 infiltrating ductal carcinoma of the right breast, stage IA (T1c, N0, M0), ER/WI positive and HER-2/jaime nonamplified. She underwent right breast lumpectomy with axillary sentinel lymph node biopsy on 08/30/2016. Her Oncotype DX showed a recurrence score of 25, corresponding to a recurrence risk of 16% at 10 years with adjuvant hormonal therapy. She opted not to take adjuvant chemotherapy. She completed radiation to the right breast in November 2016 and she then began adjuvant hormonal therapy with anastrozole 1 mg daily. It was temporarily put on hold in Apr 2018 due to increased musculoskeletal pain, but it was restarted the following month. As of her follow-up visit on 04/13/2020 both the anastrozole and the Prolia were put on hold due to a significant decline in her renal function. She has had some ongoing problems associated with her renal function and she also has become mildly anemic. There has been no evidence, though, of recurrence of the breast cancer. She remains on expectant management. I will see her again in 6 months, or sooner as needed. 2. As of March 2020 there was a decline in her renal function, and in June 2020 she was admitted to the hospital with acute respiratory failure and acute renal failure 2 days following a right shoulder rotator cuff repair. She initially improved with IV fluids and supportive measures. However, her renal function had subsequently declined again. She appears now to have stabilized wtih stage IV chronic kidney disease. 3. She has osteopenia. She had previously been on treatment with Prolia. It has been on hold since her renal function decline. Her most recent DEXA scan was in January 2017, and I will schedule a repeat study with her next visit, at which time she also will be due for her surveillance mammogram. 4. She has a small elevated skin lesion on the right nasal ala. It appears somewhat suspicious, so I will go ahead and schedule her for a dermatology appointment. Signed By: Dann Borja M.D. <<Signature on File>>
== END 2020-12-01 10:47 | disposition home or self-care (01) ==
LOC: ONCMED 10:48
PROVIDERS: PCP Family Medicine; Visit Provider Internal Medicine Medical Oncology
DX: Z08 Encounter for follow-up examination after completed treatment for malignant neoplasm (principal); Z85.3 Personal history of malignant neoplasm of breast; Z90.11 Acquired absence of right breast and nipple; M81.0 Age-related osteoporosis without current pathological fracture; M85.80 Other specified disorders of bone density and structure, unspecified site; I10 Essential (primary) hypertension; E78.5 Hyperlipidemia, unspecified; E11.22 Type 2 diabetes mellitus with diabetic chronic kidney disease; N18.9 Chronic kidney disease, unspecified; E11.311 Type 2 diabetes mellitus with unspecified diabetic retinopathy with macular edema; Z86.73 Personal history of transient ischemic attack (TIA), and cerebral infarction without residual deficits; Z79.899 Other long term (current) drug therapy; Z79.890 Hormone replacement therapy
CPT/HCPCS: 36415; 80053; 85025; 99214

== ENCOUNTER 2021-05-05 09:25 | Outpatient (CLI) | payer MEDICARE, MEDICAID, SELFPAY ==
--- NOTE | 2021-05-05 09:33 | XR_ITS ---
WS: [id number] XR knee RT 3V* [id number] REASON FOR EXAM: R KNEE PAIN FINDINGS: Moderate narrowing of the medial knee joint space with small marginal osteophytes. Mild narrowing of the lateral knee joint space. Small marginal osteophytes of the patella. No focal bone or soft tissue abnormality. 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
== END 2021-05-05 09:26 | disposition home or self-care (01) ==
PROVIDERS: PCP Family Medicine; Visit Provider Family Medicine
DX: G25.3 Myoclonus (principal); M17.11 Unilateral primary osteoarthritis, right knee
CPT/HCPCS: 73562

== ENCOUNTER 2021-05-24 16:46 | Outpatient (CLI) | payer MEDICARE, MEDICAID, SELFPAY | END 2021-05-24 16:47 | disposition home or self-care (01) | LOC: SLEEP 16:47 | PROVIDERS: PCP Family Medicine; Visit Provider Family Medicine | DX: G25.3 Myoclonus (principal) | CPT/HCPCS: 94762 ==

== ENCOUNTER 2021-06-08 14:29 | Outpatient (CLI) | payer MEDICARE, MEDICAID, SELFPAY ==
--- NOTE | 2021-06-08 14:44 | XR_ITS ---
WS: [id number] DEXA (DUAL ENERGY X-RAY ABSORPTIOMETRY) Bone mineral density was performed using a [employer] machine. HISTORY: OSTEOPENIA, ASSISTED USE OF AROMATASE INHIBITORS, DISORDER COMPARISON: 01/24/2017 Lumbar spine BMD (L1-L4): 1.445 g/cm2 T score: 2.2 Z score: 3.6 Total hip BMD: Left: 0.805 g/cm2. T score: -1.6 Z score: 0.3 Right: 0.794 g/cm2. T score: -1.7 Z score: 0.2 10 year probability of a major osteoporotic fracture is 18%. Compared to the prior study from 01/24/2017. Lumbar spine bone mineral density has increased by 12.9%. Bilateral hips bone mineral density has increased by 1.3%. XR/XR DEXA axial skeleton* [id number] IMPRESSION: OSTEOPENIA based upon the WHO classification for females. 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
== END 2021-06-08 14:30 | disposition home or self-care (01) ==
PROVIDERS: PCP Family Medicine; Visit Provider Internal Medicine Medical Oncology
DX: M85.80 Other specified disorders of bone density and structure, unspecified site (principal); Z79.899 Other long term (current) drug therapy
CPT/HCPCS: 77080

== ENCOUNTER 2021-06-12 12:16 | Outpatient (CLI) | payer MEDICARE, MEDICAID, SELFPAY ==
--- NOTE | 2021-06-12 12:51 | MM_ITS ---
WS: [id number] I osteophytic DIGITAL MAMMOGRAM WITH CAD HISTORY: HX OF BREAST CA COMPARISON: 06/08/2020, 10/13/2018, 10/10/2017 and 07/19/2016 Bilateral CC, ML and MLO views submitted. Computer aided detection analyzed. Breast composition: There are scattered areas of fibroglandular density. 8mm area of increased densit y and spiculation central to the RIGHT nipple. This is the area of prior lumpectomy. The asymmetry ap pears slightly more prominent on the CC projection as compared to prior studies. This postsurgical ar ea is intermittently appeared more prominent. MM/[place] [id number] IMPRESSION: BI-RADS: 0-Incomplete: Need additional imaging evaluation FOLLOW UP: Need Additional Imaging RIGHT breast: Spot compression views (CC and MLO). True ML. Ultrasound to follo w if abnormality persists.
[2021-06-12 13:46] LABS: Basophils % 0.4 %; Eosinophils # 0.3 10^3/uL (0.0-0.8); Eosinophils % 4.3 %; Hemoglobin 11.7 g/dL (11.5-15.3); Lymphocytes # 1.1 10^3/uL (0.8-4.8); Lymphocytes % 16.4 %; Mean Corpuscular HGB Conc 32.5 g/dL (30.0-36.0); Mean Corpuscular Hemoglobin 31.8 pg (28.0-34.0); Mean Corpuscular Volume 97.8 fl (81-99); Mean Platelet Volume 11.6 fL (7.4-10.4); Monocytes # 0.5 10^3/uL (0.2-0.9); Monocytes % 7.3 %; Neutrophils # 4.75 10^3/uL (1.8-7.7); Neutrophils % 70.7 %; Nucleated Red Blood Cells % 0 %; Platelet Count 145 10^3/cmm (130-400); Red Blood Count 3.68 10^6/uL (4.1-5.3); White Blood Count 6.7 10^3/uL (4.0-10.0)
[2021-06-12 14:25] LABS: Alanine Aminotransferase 19 U/L (0-33); Albumin Level 3.4 g/dL (3.5-5.2); Alkaline Phosphatase 98 IU/L (35-105); Anion Gap 11.6 (5-19); Aspartate Amino Transferase 17 U/L (0-32); Blood Urea Nitrogen 40 mg/dL (8-23); Calcium 8.6 mg/dL (8.5-10.5); Carbon Dioxide 31 mmol/L (22-29); Chloride 101 mmol/L (98-107); Globulin 2.2 g/dL (1.3-4.6); Glucose 89 mg/dL (65-115); Osmolality Calculated 297 mOsm/kg (285-295); Potassium 4.6 mmol/L (3.5-5.1); Sodium 139 mmol/L (136-145); Total Bilirubin 0.3 mg/dL (0.15-1.2); Total Protein 5.6 g/dL (6.6-8.7)
[2021-06-12 14:41] LABS: 25 Hydroxy Vitamin D 77 ng/mL (30-100)
--- NOTE | 2021-06-16 09:22 | ONC FU_ITS ---
Dr. Borja Patient Follow-Up Note Patient: Cecilio Ashton Unit #: [id number]: 1935 Dicatated By: Dann Borja M.D.Date of Visit:Jun 12, 2021 Onc Med Follow-up/Prog Note Chief Complaint: Breast cancer. History of Present Illness: This is an 86 year-old woman with grade 2 infiltrating ductal carcinoma of the right breast, stage IA (T1c, N0, M0), ER/ID positive and HER-2/jaime nonamplified. She had presented with an abnormal screening mammogram on 06/21/2016, which showed a new focal asymmetry in the subareolar region of the right breast, BI-RADS 0. Diagnostic mammogram/ultrasound on 07/19/2016 showed a persistent ill defined focal asymmetry in the anterior third subareolar region of the right breast. It measured 7 mm in diameter. Ultrasound showed a hypoechoic nodule or complex cyst measuring 3.5 x 4.6 x 5 mm. The findings were BI-RADS 4B category, suspicious. An ultrasound directed biopsy on 08/07/2016 showed infiltrating ductal carcinoma, grade 1/3. The breast prognostic profile showed intermediate Ki-67 at 15%. ER was positive at 100% with ID positive at 47%. HER-2/jaime was nonamplified, 2+ by IHC with amplification ratio by FISH of 1.5, 4.1 HER-2 copies/cell. She was referred to Dr. Doan. She underwent right breast lumpectomy with axillary sentinel lymph node biopsy on 08/30/2016. Pathology showed grade 2/3 infiltrating ductal carcinoma measuring 1.3 x 1.0 cm. The margins were free of tumor and atypia. There was no involvement in 1 axillary sentinel lymph node. I had seen her initially on 09/18/2015. I opted to evaluate further with Oncotype DX before making a decision on her adjuvant therapy. She is seen here today to review those results. It showed a recurrence score of 25, intermediate risk category, corresponding to a recurrence risk of 16% at 10 years with adjuvant hormonal therapy. She opted not to take adjuvant chemotherapy. She was given radiation to the right breast, completed on 11/27/2016 to a total dose of 5256 cGy. She began adjuvant hormonal therapy with anastrozole 1 mg daily on 01/16/2017. Her baseline DEXA scan on 01/24/2017 showed osteopenia with T score -1.8 in the right femoral neck. On 04/10/2017 she started treatment with Prolia for maintenance of bone health. As of her followup visit on 04/10/2018 she appeared stable clinically and she continued anastrozole 1 mg daily. In April 2018 she reported an increase in her musculoskeletal pain. Her treatment was put on hold. Bone scan on 05/14/2018 showed evidence of degenerative disease in the right shoulder and both knees. There was no evidence of metastatic disease, and she then restarted the anastrozole. On 09/25/2018 she underwent surgical repair of an open wound on her abdomen, apparently related to a remote appendectomy procedure. She had no complications with the surgery. Pathology was benign. She continued her adjuvant hormonal therapy with anastrozole 1 mg daily. At her follow-up visit in March 2019 she had developed some new pain and swelling in the right leg. I opted to have her stop the anastrozole, at least temporarily. Her venous Doppler was negative. Her symptoms improved, and she restarted the anastrozole in May. Her further follow-up was interrupted by restrictions imposed by the coronavirus pandemic. She was seen again on 04/13/2020. At that point there had been a significant decline in her renal function with creatinine increasing from 1.8 to 2.3 mg/dL. As a precaution, I had her stop the anastrozole and I deferred any further treatment with denosumab. On 06/28/20 she underwent rotator cuff repair on the right. She had no complications with the procedure, but 2 days later she was admitted to the hospital with acute respiratory failure in association with acute renal failure and hyperkalemia. She improved with IV fluids and other supportive measures. She was found to have a right distal ureteral stone by CT scan. The stone was persistent and on 08/25/2020 she underwent cystoscopy with right ureteroscopy, laser lithotripsy, and placement of ureteral stent. Her other medical illnesses include hypertension, hyperlipidemia, type II diabetes, and chronic kidney disease. She suffered a TIA/stroke in 2009. Her vision is severely impaired, apparently due to combination of diabetic retinopathy and macular degeneration. She is followed by Dr. Shore, and she has been getting injections in her eyes. She had previously smoked, but for only 10 years. She quit smoking in 1975. INTERIM HISTORY: She is seen for a follow-up visit. She has been feeling pretty good generally. Her activity is limited by her vision. She says she does walk every day. ECOG score is 2. She has good appetite. She has no fever or night sweats. She has not had sore mouth or throat. She does get short of breath with activity. She was found to have oxygen desaturation on overnight oximetry test, and she is now on supplemental oxygen at night. She does not complain of cough and she has not been having chest pain. She currently has no GI or complaints. She has joint pain, especially in her knees, and she also has back pain. She says she has had some relief following a cortisone shot in her right knee last Saturday. She does not complain of headache or dizziness, and she has no focal neurologic symptoms. Medications: AmLODIPine Besylate 1 Tablet (of 5 mg) Oral daily, Aspirin 1 (81 mg) Tablet Oral daily, Carvedilol 1 (25 mg) Tablet Oral b.i.d., Cholecalciferol 1,000 (1000 Units) Capsule Oral daily, Fish Oil Capsule Oral, Flax Seeds Powder Oral, Gabapentin (100 mg) Capsule Oral b.i.d., Isosorbide Mononitrate ER 1 (60 mg) Tablet SR 24 HR Oral b.i.d., Klor-Con 10 1 (8 meq) Tablet, controlled release Oral daily PRN, Lasix 1 (20 mg) Tablet Oral daily PRN, Levothyroxine Sodium 1 (88 mcg) Tablet Oral daily, Losartan Potassium 1 (25 mg) Tablet Oral daily, Lovastatin 40 (40 mg) Tablet Oral daily, Omeprazole 1 (20 mg) Tablet, enteric coated Oral b.i.d., PreserVision AREDS 2 1 Capsule Oral daily Allergies: Lisinopril, Plavix, and Sulfa Antibiotics. Vital Signs: Performed on Jun 12, 2021 15:30 Height - 59.00 in Weight - 173.8 lbs (HIGH) BSA - 1.74 sq.m BMI - 35.10 (HIGH) Temperature - 98.5 F Pulse - 74 /min Respiration - 18 /min BP - 166/70 mm(hg) (HIGH) O2 Sat - 92 % (LOW) Pain - 6 Fatigue - 4 Physical Examination: Constitutional - She appears somewhat weak generally, Eyes - Sclerae nonicteric. Conjunctivae clear, ENMT - No lesions noted in the oral cavity, Hematologic/Lymphatic - No cervical, clavicular, or axillary adenopathy, Respiratory - Lungs sound clear, Cardiovascular - Heart rhythm is regular. There is a II/ systolic murmur at the base. There is no gallop or rub noted, Abdomen - Soft. Liver and spleen are not enlarged. There is no abdominal mass or ascites noted and there is no inguinal adenopathy, Extremities - Mild edema, Neurologic - No focal neurologic deficits noted. Lab/Imaging: CBC shows hemoglobin 11.7 g, white blood cell count 6700, and platelet count 145,000. Comprehensive metabolic profile shows an increase in her creatinine to 2.5 mg/dL with BUN 40 mg/dL. The bilirubin and liver enzymes are normal. Albumin is slightly low at 3.4 g/dL. Problem List: 1. Grade 2 infiltrating ductal carcinoma of the right breast, stage IA (T1c, N0, M0), ER/ID positive and HER-2/jaime nonamplified. She underwent right breast lumpectomy with axillary sentinel lymph node biopsy on 08/30/2016. Her Oncotype DX showed a recurrence score of 25, corresponding to a recurrence risk of 16% at 10 years with adjuvant hormonal therapy. She opted not to take adjuvant chemotherapy. 2. She was given radiation to the right breast, which she completed on 11/27/2016 to a total dose of 5256 cGy. She tolerated treatment well. 3. Adjuvant hormonal therapy with anastrozole 1 mg daily began on 01/16/2017. 4. She had evidence of osteopenia on her baseline bone density, T score -1.8 in the right femoral neck. She has been on treatment with Prolia. 5. Hypertension. 6. Hyperlipidemia. 7. Type II diabetes. 8. Chronic kidney disease. 9. She has a prior history of TIA/stroke in 2009. 10. She has severely impaired vision, apparently due to combination of diabetic retinopathy and macular degeneration. Problems Addressed with this Encounter and Plan: Patient with grade 2 infiltrating ductal carcinoma of the right breast, stage IA (T1c, N0, M0), ER/ID positive and HER-2/jaime nonamplified. She underwent right breast lumpectomy with axillary sentinel lymph node biopsy on 08/30/2016. Her Oncotype DX showed a recurrence score of 25, corresponding to a recurrence risk of 16% at 10 years with adjuvant hormonal therapy. She opted not to take adjuvant chemotherapy. She completed radiation to the right breast in November 2016 and she then began adjuvant hormonal therapy with anastrozole 1 mg daily. It was temporarily put on hold in Apr 2018 due to increased musculoskeletal pain, but it was restarted the following month. As of her follow-up visit on 04/13/2020 both the anastrozole and the Prolia were put on hold due to a significant decline in her renal function. During follow-up she has had ongoing issues with the chronic kidney disease and she also has been mildly anemic. There has been no evidence, though, of recurrence of her breast cancer. She continues expectant management. I will see her again in 6 months. Signed By: Dann Borja M.D. <<Signature on File>>
== END 2021-06-12 12:17 | disposition home or self-care (01) ==
LOC: RADSHAW 12:29 → ONCMED 13:19
PROVIDERS: PCP Family Medicine; Visit Provider Internal Medicine Medical Oncology
DX: Z08 Encounter for follow-up examination after completed treatment for malignant neoplasm (principal); Z85.3 Personal history of malignant neoplasm of breast; Z90.11 Acquired absence of right breast and nipple; M85.80 Other specified disorders of bone density and structure, unspecified site; I10 Essential (primary) hypertension; E78.5 Hyperlipidemia, unspecified; E11.22 Type 2 diabetes mellitus with diabetic chronic kidney disease; N18.9 Chronic kidney disease, unspecified; E11.311 Type 2 diabetes mellitus with unspecified diabetic retinopathy with macular edema; Z86.73 Personal history of transient ischemic attack (TIA), and cerebral infarction without residual deficits; Z79.899 Other long term (current) drug therapy; Z92.21 Personal history of antineoplastic chemotherapy; Z92.3 Personal history of irradiation
CPT/HCPCS: 36415; 77066; 80053; 82306; 85025; 99214

== ENCOUNTER 2021-07-04 09:44 | Outpatient (CLI) | payer MEDICARE, MEDICAID, SELFPAY ==
--- NOTE | 2021-07-04 09:52 | US_ITS ---
WS: [id number] ADDITIONAL VIEWS RIGHT BREAST RIGHT breast ultrasound, limited. HISTORY: INCREASED DENSITY RT BREAST COMPARISON: 06/12/2021, 08/08/2019 Compression views right CC and MLO projection. The asymmetry posterior to the RIGHT nipple nearly completely resolves with additional imaging. There are a few adjacent calcifications and at least 2 biopsy clips at this site. Minimally persistent sof t tissue thickening. RIGHT breast ultrasound, limited. There is a large amount of shadowing posterior to the areolar. Ther e is shadowing and areas of decreased echogenicity. No increased vascularity. Favor all these changes are probably post operative and post biopsy changes with scarring and gliosis. Due to the persistent increased soft tissue six-month diagnostic imaging will be recommended. US/US breast RT limited* [id number] IMPRESSION: BI-RADS: 3-Probably Benign FOLLOW-UP: 6 Month Follow-up Diagnostic imaging RIGHT breast and ultrasound recommended in 6 months.
== END 2021-07-04 09:45 | disposition home or self-care (01) ==
LOC: RADSHAW 09:48
PROVIDERS: PCP Family Medicine; Visit Provider Internal Medicine Medical Oncology
DX: R92.8 Other abnormal and inconclusive findings on diagnostic imaging of breast (principal)
CPT/HCPCS: 76642; 77065

== ENCOUNTER → 2021-12-14 12:45 | Outpatient (BNVA) | payer MEDICARE, MEDICAID, SELFPAY | PROVIDERS: PCP Family Medicine; Visit Provider Internal Medicine Cardiovascular Disease | DX: I25.10 Atherosclerotic heart disease of native coronary artery without angina pectoris (principal); I12.9 Hypertensive chronic kidney disease with stage 1 through stage 4 chronic kidney disease, or unspecified chronic kidney disease; E11.22 Type 2 diabetes mellitus with diabetic chronic kidney disease; E11.65 Type 2 diabetes mellitus with hyperglycemia; Z79.4 Long term (current) use of insulin; Z79.84 Long term (current) use of oral hypoglycemic drugs; N18.30 Chronic kidney disease, stage 3 unspecified; R06.02 Shortness of breath; I65.23 Occlusion and stenosis of bilateral carotid arteries; E78.2 Mixed hyperlipidemia; E03.9 Hypothyroidism, unspecified; R60.0 Localized edema; Z87.891 Personal history of nicotine dependence | CPT/HCPCS: 99214 ==

== ENCOUNTER 2022-01-05 09:14 | Outpatient (CLI) | payer MEDICARE, MEDICAID, SELFPAY ==
--- NOTE | 2022-01-05 09:19 | MM_ITS ---
WS: [id number] DIAGNOSTIC BILATERAL DIGITAL BREAST TOMOSYNTHESIS MAMMOGRAPHY WITH CAD HISTORY: Follow-up soft tissue prominence RIGHT breast. COMPARISON: 07/04/2021, 06/12/2021 and 06/08/2020 TECHNIQUE: Bilateral craniocaudad, mediolateral oblique, and mediolateral views are submitted with to mosynthesis and SM. Spot compression RIGHT CC and MLO. Computer aided detection utilized. Breast composition: There are scattered areas of fibroglandular density. The asymmetry central to the nipple is still present on tomosynthesis but appears less masslike. This may be scar tissue adjacent to several biopsy clips. Calcifications in the LEFT breast are stable. MM/[place] [id number] IMPRESSION: BI-RADS: 3-Probably Benign FOLLOW UP: 6 Month Follow-up Recommend diagnostic RIGHT mammogram follow-up in 6 months. Asymmetry persists but appears less masslike. Probably scar tissue. Ultrasound was not performed t cameron at the patient's request.
[2022-01-05 10:32] LABS: Basophils % 0.7 %; Eosinophils # 0.2 10^3/uL (0.0-0.8); Eosinophils % 4.1 %; Hematocrit 31.1 % (37.0-47.0); Lymphocytes % 23.6 %; Mean Corpuscular HGB Conc 32.2 g/dL (30.0-36.0); Mean Corpuscular Hemoglobin 31.3 pg (28.0-34.0); Mean Corpuscular Volume 97.5 fl (81-99); Mean Platelet Volume 11.7 fL (7.4-10.4); Monocytes # 0.4 10^3/uL (0.2-0.9); Neutrophils # 2.76 10^3/uL (1.8-7.7); Neutrophils % 63.1 %; Nucleated Red Blood Cells % 0 %; Platelet Count 150 10^3/cmm (130-400); Red Blood Count 3.19 10^6/uL (4.1-5.3); Red Cell Distribution Width 13.2 % (12.1-15.1); White Blood Count 4.4 10^3/uL (4.0-10.0)
[2022-01-05 10:46] LABS: Alanine Aminotransferase 14 U/L (0-33); Albumin Level 3.3 g/dL (3.5-5.2); Alkaline Phosphatase 69 IU/L (35-105); Anion Gap 14.7 (5-19); Aspartate Amino Transferase 16 U/L (0-32); Blood Urea Nitrogen 56 mg/dL (8-23); Carbon Dioxide 27 mmol/L (22-29); Chloride 100 mmol/L (98-107); Globulin 2.2 g/dL (1.3-4.6); Glucose 102 mg/dL (65-115); Osmolality Calculated 298 mOsm/kg (285-295); Potassium 5.7 mmol/L (3.5-5.1); Sodium 136 mmol/L (136-145); Total Bilirubin 0.4 mg/dL (0.15-1.2); Total Protein 5.5 g/dL (6.6-8.7)
== END 2022-01-05 09:15 | disposition home or self-care (01) ==
LOC: RAD 09:16
PROVIDERS: PCP Family Medicine; Visit Provider Internal Medicine Medical Oncology
DX: C50.111 Malignant neoplasm of central portion of right female breast (principal)
CPT/HCPCS: 77062; 80053; 85025

== ENCOUNTER 2022-01-05 10:53 | Oncology outpatient (recurring) (ONCR) | payer MEDICARE, MEDICAID, SELFPAY | END 2022-01-18 23:59 | disposition home or self-care (01) | PROVIDERS: PCP Family Medicine; Referring Provider Surgery; Visit Provider Nurse Practitioner Family | DX: C50.111 Malignant neoplasm of central portion of right female breast (principal); Z17.0 Estrogen receptor positive status [ER+]; M81.0 Age-related osteoporosis without current pathological fracture; E11.22 Type 2 diabetes mellitus with diabetic chronic kidney disease; I12.9 Hypertensive chronic kidney disease with stage 1 through stage 4 chronic kidney disease, or unspecified chronic kidney disease; N18.30 Chronic kidney disease, stage 3 unspecified; Z79.899 Other long term (current) drug therapy; Z79.818 Long term (current) use of other agents affecting estrogen receptors and estrogen levels; Z87.891 Personal history of nicotine dependence | CPT/HCPCS: 99214 ==

== ENCOUNTER 2022-01-17 17:37 | Inpatient (IN) | payer MEDICARE, MEDICAID, SELFPAY ==
--- NOTE | 2022-01-17 17:46 | CTR_ITS ---
PROCEDURE INFORMATION: Exam: CT Chest Without Contrast; Diagnostic Exam date and time: 01/17/2022 9:33 PM Age: 86 years old Clinical indication: Abdominal pain; Flank; Other: Bilateral; Chest wall pain; Prior surgery; Surgery date: 6+ months; Surgery type: Hyst, carlos, appx; Patient HX: HX of breast cancer; Additional info: Chest/abd pain TECHNIQUE: Imaging protocol: Diagnostic computed tomography of the chest without contrast. Radiation optimization: All CT scans at this facility use at least one of these dose optimization techniques: automated exposure control; mA and/or kV adjustment per patient size (includes targeted exams where dose is matched to clinical indication); or iterative reconstruction. COMPARISON: CT chest wo con [id number] 06/30/2020 10:13 PM RADIATION DOSE METRICS: Total DLP (mGy-cm): 1710.96 FINDINGS: Lungs: Emphysema. 3 mm right upper lobe nodule, series 2, image 7. 5 mm right upper lobe nodule, image 12. 11 mm nodule in the left upper lobe, image 20. Mild interstitial scarring in both lungs. No consolidation. Pleural spaces: Unremarkable. No pneumothorax. No pleural effusion. Heart: Coronary artery calcifications. The heart size is upper normal. Trace pericardial effusion. Lymph nodes: Unremarkable. No enlarged lymph nodes. Vasculature: Calcified plaque in the thoracic aorta without aneurysm. Bones/joints: Right shoulder arthroplasty. Soft tissues: Unremarkable. at 18-24 months. (Reference: Tk) 2. No acute finding. References: Tk Carrillo, et al. Guidelines for Management of Incidental Pulmonary Nodules Detected on CT Images: From the Fleischner Society 2017. Radiology. 2017;284(1):228-243. PROCEDURE INFORMATION: Exam: CT Abdomen And Pelvis Without Contrast Exam date and time: 01/17/2022 9:33 PM Age: 86 years old Clinical indication: Abdominal pain; Flank; Other: Bilateral; Chest wall pain; Prior surgery; Surgery date: 6+ months; Surgery type: Hyst, carlos, appx; Patient HX: HX of breast cancer; Additional info: Chest/abd pain TECHNIQUE: Imaging protocol: Computed tomography of the abdomen and pelvis without contrast. Radiation optimization: All CT scans at this facility use at least one of these dose optimization techniques: automated exposure control; mA and/or kV adjustment per patient size (includes targeted exams where dose is matched to clinical indication); or iterative reconstruction. COMPARISON: CT abdomen pelvis wo con [id number] 06/30/2020 11:21 PM RADIATION DOSE METRICS: Total DLP (mGy-cm): 1710.96 FINDINGS: Liver: Normal. No mass. Gallbladder and bile ducts: The gallbladder is not visualized. The bile ducts are normal. Pancreas: Small calcifications in the pancreatic head. Otherwise unremarkable. Spleen: Calcified granulomas in the spleen. 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 The left adrenal is normal. Kidneys and ureters: Bilateral renal cysts, Hounsfield units less than 20. No follow-up imaging recommended. 2 mm calcifications in both kidneys could represent nonobstructing calculi or arterial calcifications. No ureteral calculus or hydronephrosis. Stomach and bowel: Diverticulosis of the colon. No diverticulitis. The stomach and small bowel are unremarkable. No obstruction. Appendix: The appendix is not visualized. No secondary signs of appendicitis. Intraperitoneal space: Unremarkable. No free air. No significant fluid collection. Vasculature: Diffuse arterial calcifications. Borderline aneurysmal dilatation of the abdominal aorta measuring 3.0 cm. Lymph nodes: Unremarkable. No enlarged lymph nodes. Urinary bladder: Unremarkable as visualized. Reproductive: Small calcified uterine fibroid. The ovaries are unremarkable. Bones/joints: Degenerative spine. No fracture. Soft tissues: Small fat containing umbilical hernia. CT/[place] [id number] IMPRESSION: 1. 11 mm left upper lobe nodule and smaller nodules in the right lung. For patients at low risk (minimal or absent history of smoking and of other known risk factors), recommend CT Chest at 3-6 months, then consider CT Chest at 18-24 months. For patients at high risk (history of smoking or of other known risk factors), recommend CT Chest at 3-6 months, then CT Chest IMPRESSION: 1. No acute finding. 2. Diverticulosis of the colon. COMMENTS: 1. Consistent with the [employer]'s Incidental Findings Committee white paper (J Am [place] Radiol 2017): For any incidental adrenal lesion greater than or equal to 1 cm but less than or equal to 4 cm classified in this report as benign, likely benign, or containing fat (including classification as an adenoma or myelolipoma), no follow-up imaging is recommended per consensus recommendations based on imaging criteria. Further lab evaluation could be pursued if warranted based on clinical findings. 2. Consistent with the [employer]'s Incidental Findings Committee white paper (J Am [place] Radiol 2018): Any incidental renal lesion less than 1 cm or classified as too small to characterize, or any incidental cystic renal lesion characterized as simple-appearing, is likely benign. No follow-up imaging is recommended for these lesions per consensus recommendations based on imaging criteria.
--- NOTE | 2022-01-17 17:47 | ECG_ITS ---
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 Measurements Intervals [place] Rate: 85 P: 59 [place]: 173 QRS: 9 QRSD: 150 T: 74 QT: 409 QTc: 488 Interpretive Statements SINUS RHYTHM LEFT BUNDLE BRANCH BLOCK [120+ ms QRS DURATION, 80+ ms Q/S IN V1/V2, 85+ ms R IN I/aVL/V5/V6] Compared to ECG 06/30/2020 22:12:58 No significant changes Electronically Signed On 01-18-2022 18:57:32 CDT by Elian Rogers M.D. [email or web address] residential centerIgnis IT Solutionsuniversity [email or web address] health [email or web address].[email or web address]/OM/[id number]
--- NOTE | 2022-01-17 17:48 | ED_ITS ---
HPI - Chest Pain General: Chief Complaint: Back Pain/Injury Stated Complaint: BACK PAIN, KIDNEY PAIN Time Seen by Provider: 01/17/22 17:42 History of Present Illness: 86-year-old presents due to left flank pain chest pain and left lower quadrant abdominal pain. States this started yesterday. Denies any nausea vomiting diarrhea or constipation. She told EMS that she had pain on the right side of the abdomen but denies this to me. States pain is achy and nonradiating. Is not exertional or pleuritic. Denies any shortness of breath or lower extremity pain or swelling. Denies any dysuria or pelvic discharge. Review of Systems Narrative: - CONSTITUTIONAL: Denies weight loss, fever and chills. - HEENT: Denies changes in vision and hearing. - RESPIRATORY: Denies SOB and cough. - CV: As above - GI: As above - : Denies dysuria and urinary frequency. - MSK: Denies myalgia and joint pain. - SKIN: Denies rash and pruritus. - NEUROLOGICAL: Denies headache, weakness, numbness and syncope. - PSYCHIATRIC: Denies suicidal ideation PFSH ED PFSH: Medical History Bilateral carotid artery stenosis Bilateral cataracts CAD (coronary artery disease) Had the most recent cardiac cauterization in January 2012. She was found to have mild to moderate diffuse coronary artery disease. Most recent myocar dial perfusion imaging in 2013. No evidence of ischemia. Chronic kidney disease Diabetes Hyperlipidemia Hypertension Hypothyroid Leg swelling Retained ureteral stent Right ureteral stone Rotator cuff arthropathy of right shoulder SOB (shortness of breath) Subclavian artery stenosis, right Surgical History History of appendectomy History of shoulder surgery Hx of cholecystectomy Family History Other CAD (coronary artery disease) Chronic kidney disease (CKD) Diabetes Family history of premature coronary artery disease Hyperlipidemia Hypertension Lung disease Stroke Social History Smoking and tobacco status: former smoker Alcohol intake: never Current occupational status: retired Physical Exam Narrative: EXAM NARRATIVE: - GENERAL: Alert and oriented x 3. No acute distress. Well-nourished. - EYES: EOMI. Anicteric. - HENT: Atraumatic, no C-spine tenderness. Moist mucous membranes. No scleral icterus. No cervical lymphadenopathy. - LUNGS: Clear to auscultation bilaterally. No accessory muscle use. Equal lung sounds bilaterally. No respiratory distress. - CARDIOVASCULAR: Regular rate and rhythm. No murmur. No JVD. - ABDOMEN: Soft, mild left lower quadrant tenderness, non-distended. Left CVA tenderness , no rebound or guarding, negative Hubbard sign. No palpable masses. - EXTREMITIES: No edema. Non-tender. - SKIN: No rashes or lesions. Warm. - NEUROLOGIC: No meningismus or focal neurological deficits. CN II-XII grossly intact. - PSYCHIATRIC: Cooperative. Appropriate mood and affect. Course Vital Signs: Vital signs: Vital Signs Temperature 98.7 F 01/17/22 17:54 Pulse Rate 89 01/17/22 18:31 Respiratory Rate 20 H 01/17/22 18:31 Blood Pressure 188/80 01/17/22 18:31 Pulse Oximetry 99 01/17/22 18:31 MDM - Chest Pain Medical Decision Making 86-year-old presents due to abdominal pain and chest pain. Physical exam largely unremarkable except for some abdominal and flank tenderness. Urinalysis concerning for UTI. Rocephin provided. EKG does not reveal any acute ischemic change however high-sensitivity troponin is elevated to the 80s which is higher than her previous baseline 40s. She also has CKD and her creatinine is 4. There may be a an element of reduced troponin clearance. Repeat 2-hour troponin is not significantly changing. Aspirin provided. Unable to obtain CTA due to creatinine elevation. Noncontrast CT does not reveal any sign of dissection or other acute abnormality. There are some pulmonary nodules for which outpatient follow-up was recommended. However unable to obtain complete evaluation for PE. Patient may benefit from VQ scan. Remainder of lab work is unremarkable. Remainder of lab work and imaging reviewed. Discussed with hospitalist and they agreed patient would benefit from admission. Patient admitted in stable condition. Further evaluation management per hospitalist team. Lab Data : 01/17/22 18:50 01/17/22 20:19 Radiology Impressions Chest/Abdomen/Pelvis CT 01/17/22 17:46 IMPRESSION: 1. 11 mm left upper lobe nodule and smaller nodules in the right lung. For patients at low risk (minimal or absent history of smoking and of other known risk factors), recommend CT Chest at 3-6 months, then consider CT Chest at 18-24 months. For patients at high risk (history of smoking or of other known risk factors), recommend CT Chest at 3-6 months, then CT Chest IMPRESSION: 1. No acute finding. 2. Diverticulosis of the colon. COMMENTS: 1. Consistent with the [employer]'s Incidental Findings Committee white paper (J Am [place] Radiol 2017): For any incidental adrenal lesion greater than or equal to 1 cm but less than or equal to 4 cm classified in this report as benign, likely benign, or containing fat (including classification as an adenoma or myelolipoma), no follow-up imaging is recommended per consensus recommendations based on imaging criteria. Further lab evaluation could be pursued if warranted based on clinical findings. 2. Consistent with the [place] [employer]'s Incidental Findings Committee white paper (J Am [place] Radiol 2018): Any incidental renal lesion less than 1 cm or classified as too small to characterize, or any incidental cystic renal lesion characterized as simple-appearing, is likely benign. No follow-up imaging is recommended for these lesions per consensus recommendations based on imaging criteria. Laboratory Results WBC Cancelled 01/17/22 20:19 Corrected WBC Cancelled 01/17/22 20:19 RBC Cancelled 01/17/22 20:19 Hgb Cancelled 01/17/22 20:19 Hct Cancelled 01/17/22 20:19 MCV Cancelled 01/17/22 20:19 MCH Cancelled 01/17/22 20:19 MCHC Cancelled 01/17/22 20:19 RDW Cancelled 01/17/22 20:19 Plt Count Cancelled 01/17/22 20:19 MPV Cancelled 01/17/22 20:19 Gran % Cancelled 01/17/22 20:19 Neut % (Auto) Cancelled 01/17/22 20:19 Lymph % (Auto) Cancelled 01/17/22 20:19 [place] % (Auto) Cancelled 01/17/22 20:19 Eos % (Auto) Cancelled 01/17/22 20:19 Baso % (Auto) Cancelled 01/17/22 20:19 Neut # (Auto) Cancelled 01/17/22 20:19 Lymph # (Auto) Cancelled 01/17/22 20:19 [place] # (Auto) Cancelled 01/17/22 20:19 Eos # (Auto) Cancelled 01/17/22 20:19 Baso # (Auto) Cancelled 01/17/22 20:19 Absolute Gran (auto) Cancelled 01/17/22 20:19 Nucleated RBC % (auto) Cancelled 01/17/22 20:19 Nucleated RBCs # Cancelled 01/17/22 20:19 Sodium 138 mmol/L (136-145) 01/17/22 20:19 Potassium 4.3 mmol/L (3.5-5.1) 01/17/22 20:19 Chloride 102 mmol/L (98-107) 01/17/22 20:19 Carbon Dioxide 24 mmol/L (22-29) 01/17/22 20:19 Anion Gap 16.3 (5-19) 01/17/22 20:19 BUN 46 mg/dL (8-23) H 01/17/22 20:19 Creatinine 4.1 mg/dL (0.5-0.9) H 01/17/22 20:19 GFR Calculation Not Reportable 01/17/22 20:19 Glucose 85 mg/dL (65-115) 01/17/22 20:19 Calculated Osmolality 297 mOsm/kg (285-295) H 01/17/22 20:19 Lactate 0.6 mmol/L (0.5-2.2) 01/17/22 18:50 Calcium 8.0 mg/dL (8.5-10.5) L 01/17/22 20:19 Total Bilirubin 0.5 mg/dL (0.15-1.2) 01/17/22 20:19 AST 16 U/L (0-32) 01/17/22 20:19 ALT 11 U/L (0-33) 01/17/22 20:19 Alkaline Phosphatase 59 IU/L (35-105) 01/17/22 20:19 Troponin T Baseline 89 ng/L (0-10) H 01/17/22 18:50 Troponin T 120 Minute 81.13 ng/L (0-10) H 01/17/22 21:55 Delta Troponin T -7.87 ABS# (0-10) L 01/17/22 21:55 Total Protein 4.7 g/dL (6.6-8.7) L 01/17/22 20:19 Albumin 2.8 g/dL (3.5-5.2) L 01/17/22 20:19 Globulin 1.9 g/dL (1.3-4.6) 01/17/22 20:19 Lipase 38 U/L (13-60) 01/17/22 20:19 Urine Color Yellow (Yellow) 01/17/22 18:50 Urine Appearance Sl hazy (CLEAR) 01/17/22 18:50 Urine pH 5 (5-7) 01/17/22 18:50 Ur Specific [place] 1.010 (1.005-1.030) 01/17/22 18:50 Urine Protein 3+ (Negative) H 01/17/22 18:50 Urine Glucose (UA) Norm (Normal) 01/17/22 18:50 Urine Ketones Negative (Negative) 01/17/22 18:50 Urine Blood 3+ (Negative) H 01/17/22 18:50 Urine Nitrate Negative (Negative) 01/17/22 18:50 Urine Bilirubin Neg (Negative) 01/17/22 18:50 Urine Urobilinogen Norm mg/dL (Negative) 01/17/22 18:50 Ur Leukocyte Esterase Trace (Negative) H 01/17/22 18:50 Urine RBC >100 /hpf (0-2) H 01/17/22 18:50 Urine WBC >100 /hpf (0-5) H 01/17/22 18:50 Ur Squamous Epith Cells 0-4 /hpf (0-5) H 01/17/22 18:50 Amorphous Sediment 1+ /hpf 01/17/22 18:50 Urine Bacteria Trace /hpf (NONE) 01/17/22 18:50 SARS-CoV-2 Ag (Rapid) Negative (Negative) 01/17/22 18:50 EKG Data EKG 1: Other EKG comments: Sinus rhythm, left bundle branch block, no sign of acute ischemia or other acute abnormality. Discharge Plan Discharge Condition: Stable Prescriptions: No Action losartan 25 mg tablet 25 mg PO DAILY 0RF furosemide 20 mg tablet 40 mg PO DAILY PRN0RF levothyroxine 125 mcg tablet 125 mcg PO DAILY 0RF magnesium oxide 400 mg (241.3 mg magnesium) tablet 400 mg PO DAILY 0RF omeprazole 20 mg capsule,delayed release(DR/EC) 20 mg PO BID 0RF omega-3 fatty acids [Fish Oil Concentrate] 1,000 mg capsule 1,000 mg PO BID 0RF flaxseed oil 1,000 mg capsule 1,000 mg PO DAILY 0RF cholecalciferol (vitamin D3) 25 mcg (1,000 unit) tablet 1,000 unit PO DAILY 0RF aspirin [Adult Low Dose Aspirin] 81 mg tablet,delayed release (DR/EC) 81 mg PO DAILY 0RF PreserVision Lutein 226 mg-200 unit -5 mg-0.8 mg capsule 1 cap PO BID 0RF carvedilol 25 mg tablet 25 mg PO BID Qty: 180 3RF isosorbide mononitrate 60 mg tablet extended release 24 hr 60 mg PO Q12H Qty: 180 2RF hydralazine 25 mg tablet 25 mg PO TID Qty: 90 6RF gabapentin 100 mg capsule 200 mg PO DAILY 0RF lovastatin 20 mg tablet 40 mg PO DAILY 0RF Referrals: Yvette Pickens MD [Primary Care Provider] - Coding Level of Care Code ED Rate Clerk for Andrés Deng
[2022-01-17 17:54] VITALS: BP 165/88; PULSE 90; RESP 20; TEMP 37.1; O2SAT 99
[2022-01-17] MEDS: sodium chloride 0.9% 1,000 ML 999 ML IV (18:25)
[2022-01-17 18:26] VITALS: RESP 20; O2SAT 98
[2022-01-17] MEDS: ondansetron 2 mg/ML SDV 2 mL 4 MG IVP (18:26)
[2022-01-17] MEDS: fentaNYL 50 mcg/mL INJ 2mL IVP (18:26)
[2022-01-17 18:31] VITALS: BP 188/80; PULSE 89; RESP 20; O2SAT 99
[2022-01-17 18:58] LABS: Basophils % 0.3 %; Eosinophils # 0.2 10^3/uL (0.0-0.8); Eosinophils % 2.3 %; Lymphocytes # 0.9 10^3/uL (0.8-4.8); Lymphocytes % 12.9 %; Monocytes # 0.5 10^3/uL (0.2-0.9); Monocytes % 7.4 %; Neutrophils # 5.37 10^3/uL (1.8-7.7); Neutrophils % 76.8 %; Nucleated Red Blood Cells % 0 %; Red Cell Distribution Width 12.9 % (12.1-15.1)
[2022-01-17 19:21] LABS: Troponin(5th) Baseline 89 ng/L (0-10)
[2022-01-17 19:22] LABS: Lactate (Lactic Acid level) 0.6 mmol/L (0.5-2.2)
--- NOTE | 2022-01-17 19:47 | ECG_ITS ---
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 Measurements Intervals [place] Rate: 66 P: 62 MD: 166 QRS: 34 QRSD: 141 T: 68 QT: 460 QTc: 485 Interpretive Statements SINUS RHYTHM LEFT BUNDLE BRANCH BLOCK [120+ ms QRS DURATION, 80+ ms Q/S IN V1/V2, 85+ ms R IN I/aVL/V5/V6] Compared to ECG 01/17/2022 18:19:35 No significant changes Electronically Signed On 01-18-2022 19:02:51 CDT by Elian Rogers M.D. [id number]
[2022-01-17 19:50] LABS: Add Urine Culture? Yes; Amorphous Sediment Urine 1+ /hpf; Bacteria Urine TRACE /hpf; Bilirubin Urine Neg (Negative); Blood Urine 3+ (Negative); Glucose Urine UA Norm (Normal); Ketones Urine Negative (Negative); Leukocyte Esterase Urine Trace (Negative); Nitrate Urine Negative (Negative); Protein Urine 3+ (Negative); RBC Urine >100 /hpf (0-2); Squamous Epithelial Cell Urine 0-4 /hpf (0-5); Urine Appearance SL Hazy (CLEAR); Urine Color Yellow (Yellow); Urobilinogen Urine Norm (Negative); WBC Urine >100 /hpf (0-5); pH Urine 5 (5-7)
[2022-01-17 20:31] LABS: Hematocrit 26.9 % (37.0-47.0); Hemoglobin 8.9 g/dL (11.5-15.3); Mean Corpuscular HGB Conc 33.1 g/dL (30.0-36.0); Mean Corpuscular Hemoglobin 31.9 pg (28.0-34.0); Mean Corpuscular Volume 96.4 fl (81-99); Mean Platelet Volume 12.1 fL (7.4-10.4); Platelet Count 93 10^3/cmm (130-400); Red Blood Count 2.79 10^6/uL (4.1-5.3); White Blood Count 6.5 10^3/uL (4.0-10.0)
[2022-01-17 20:35] LABS: SARS Covid-2 Antigen Negative (Negative)
[2022-01-17 20:43] LABS: Alanine Aminotransferase 11 U/L (0-33); Albumin Level 2.8 g/dL (3.5-5.2); Alkaline Phosphatase 59 IU/L (35-105); Anion Gap 16.3 (5-19); Aspartate Amino Transferase 16 U/L (0-32); Blood Urea Nitrogen 46 mg/dL (8-23); Carbon Dioxide 24 mmol/L (22-29); Chloride 102 mmol/L (98-107); Globulin 1.9 g/dL (1.3-4.6); Glucose 85 mg/dL (65-115); Lipase 38 U/L (13-60); Osmolality Calculated 297 mOsm/kg (285-295); Potassium 4.3 mmol/L (3.5-5.1); Sodium 138 mmol/L (136-145); Total Bilirubin 0.5 mg/dL (0.15-1.2); Total Protein 4.7 g/dL (6.6-8.7)
[2022-01-17] MEDS: cefTRIAXone 2,000 MG in sodium chloride 0.9% (plus) 50 ML 100 MG IV (20:45)
[2022-01-17 22:26] LABS: Troponin 5 2HR 81.13 ng/L (0-10); Troponin 5 2HR Delta -7.87 ABS# (0-10)
--- NOTE | 2022-01-17 23:47 | ECG_ITS ---
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 Measurements Intervals [place] Rate: 63 P: 36 DC: 171 QRS: 8 QRSD: 140 T: 68 QT: 463 QTc: 478 Interpretive Statements SINUS RHYTHM LEFT BUNDLE BRANCH BLOCK [120+ ms QRS DURATION, 80+ ms Q/S IN V1/V2, 85+ ms R IN I/aVL/V5/V6] Compared to ECG 01/17/2022 20:26:19 No significant changes Electronically Signed On 01-18-2022 19:01:21 CDT by Elian Rogers M.D. [email or web address] [email or web address] [email or web address] community hospitalColoWrapriverside method[facility] [email or web address]/[id number]
[2022-01-18] VITALS (8 sets, daily range): BP systolic 150–180; BP diastolic 54–73; PULSE 0–72; RESP 16–24; TEMP 36.6–36.9; O2SAT 93–98; BMI 33.1
[2022-01-18] MEDS: aspirin 81 mg Chew Tablet 324 MG PO (00:06)
[2022-01-18 02:55] LABS: Troponin 5 6HR 88.46 ng/L (0-10)
[2022-01-18 02:57] LABS: Troponin 5 6HR Delta -0.54 ng/L (0-12)
--- NOTE | 2022-01-18 04:25 | P.HP_ITS ---
Providers/Chief Complaint Admitting Physician: Florence Alcala MD Primary Care Provider: Yvette Pickens MD Chief Complaint: BACK PAIN, KIDNEY PAIN History of Present Illness Cecilio Ashton is a 86 year old female with h/o breast Ca, not currently on chemo, CKD , oxygen dependent at baseline 2-3lpm, recurrent nephrolithiasis, HTN, HLD, DM, CVa 2009 presented to the ER with c/o left flank pain over the last 24 hrs. describes pain as sharp, intermittent, no exacerbating or relieving factors. Pain was eventually improved after undergoing straight cath. Unknown urine amount at this time. Denies any burning or pain during urination. CT abd/pelvis without ureteral calculus or hydronephrosis. Denies any fever, chest pain, dyspnea, palpitations, syncope Review of Systems General: Reports: 10 or more systems reviewed and unremarkable except in HPI and below Const: Denies: fever(s), chills or body aches Eyes: Denies: change in vision, blurry vision or photophobia ENMT: Reports: hoarseness; Denies: throat pain, enlarged tonsils, odynophagia or nasal congestion Card: Denies: chest pain, palpitations, irregular heart rhythm, edema, swelling of feet/ankles, lightheadedness, pre-syncope, dyspnea on exertion or orthopnea Resp: Denies: dyspnea, productive cough, non-productive cough, wheezing, stridor, pain on inspiration, change in phlegm color, hemoptysis or chest congestion GI: Denies: abdominal pain, nausea, vomiting, hematemesis, coffee ground emesis, dysphagia, heartburn, diarrhea, constipation, GI cramping, change in stool character, hematochezia or melena : Denies: flank pain, difficulty voiding, dysuria, urinary frequency, urinary urgency, urinary hesitancy or hematuria Musc: Denies: neck pain, back pain, extremity pain, joint swelling, joint warmth or deformity Neuro: Denies: headache(s), numbness in extremities, weakness in extremities, sensory changes, difficulty walking, frequent falls, dizziness, vertigo, behavioral changes, Slurred speech present or seizure-like activity Psych: Denies: anxiety, depression, suicidal ideation or homicidal ideation Endo: Denies: polyuria, polydipsia, tired all the time, cold intolerance or hot flashes Mike/Lymph: Denies: easy bruising or easy bleeding Medications/Allergies Home Medications Medication Instructions Recorded Confirmed Last Taken Type cholecalciferol (vitamin D3) 25 1,000 unit PO DAILY 09/30/19 01/18/22 1 Day Ago History mcg (1,000 unit) tablet ~08/24/20 flaxseed oil 1,000 mg capsule 1,000 mg PO DAILY 09/30/19 01/05/22 08/25/20 07:00 History omega-3 fatty acids 1,000 mg 1,000 mg PO BID 09/30/19 01/05/22 1 Day Ago History capsule (Fish Oil Concentrate) ~08/24/20 omeprazole 20 mg capsule,delayed 20 mg PO BID 09/30/19 01/18/22 08/25/20 07:00 History release carvedilol 25 mg tablet 25 mg PO BID #180 tab 09/20/20 01/18/22 Unknown Rx losartan 25 mg tablet 25 mg PO DAILY tab 09/28/20 01/18/22 Unknown History isosorbide mononitrate 60 mg 60 mg PO Q12H #180 tab 04/14/21 01/18/22 Unknown Rx tablet,extended release 24 hr aspirin 81 mg tablet,delayed 81 mg PO DAILY tab 06/20/21 01/18/22 Unknown History release (Adult Low Dose Aspirin) lovastatin 20 mg tablet 40 mg PO DAILY tab 06/20/21 01/18/22 Unknown History vit C-vit [id number] ox-lutein 1 cap PO BID cap 06/20/21 01/18/22 Unknown History 226 mg-200 unit-0.8 mg-5 mg capsule (PreserVision Lutein) furosemide 20 mg tablet 20 mg PO DAILY ea 12/14/21 01/18/22 Unknown History levothyroxine 125 mcg tablet 125 mcg PO DAILY tab 12/14/21 01/05/22 Unknown History magnesium oxide 400 mg (241.3 mg 400 mg PO DAILY 12/14/21 01/05/22 Unknown History magnesium) tablet hydralazine 25 mg tablet 25 mg PO TID #90 tab 12/19/21 01/18/22 Unknown Rx gabapentin 100 mg capsule 200 mg PO DAILY cap 01/05/22 01/05/22 Unknown History Allergies Allergy/AdvReac Type Severity Reaction Status Date / Time amlodipine Allergy Severe Swelling Verified 01/05/22 11:06 clopidogrel [From Plavix] Allergy gi bleed Verified 01/05/22 11:06 oxycodone Allergy can't Verified 01/05/22 11:06 breathe Sulfa (Sulfonamide Allergy cant Verified 01/05/22 11:06 Antibiotics) breathe lisinopril AdvReac cough Verified 01/05/22 11:06 prednisone AdvReac chest pain Verified 01/05/22 11:06 and heaviness PFSH Acute PFSH: Medical History Bilateral carotid artery stenosis Bilateral cataracts CAD (coronary artery disease) Had the most recent cardiac cauterization in January 2012. She was found to have mild to moderate diffuse coronary artery disease. Most recent myocardial perfusion imaging in 2013. No evidence of ischemia. Chronic kidney disease Diabetes Hyperlipidemia Hypertension Hypothyroid Leg swelling Retained ureteral stent Right ureteral stone Rotator cuff arthropathy of right shoulder SOB (shortness of breath) Subclavian artery stenosis, right Surgical History History of appendectomy History of shoulder surgery Hx of cholecystectomy Family History Other CAD (coronary artery disease) Chronic kidney disease (CKD) Diabetes Family history of premature coronary artery disease Hyperlipidemia Hypertension Lung disease Stroke Social History Smoking and tobacco status: former smoker Alcohol intake: never Current occupational status: retired Vitals/I&O/Wt Last Vital Signs Temp 98.5 F 01/18/22 04:10 Pulse 65 01/18/22 04:10 Resp 17 01/18/22 04:10 BP 178/70 01/18/22 04:10 Pulse Ox 96 01/18/22 04:10 01/17/22 01/17/22 01/18/22 14:59 22:59 06:59 Intake Total 1050 / 1050 Balance 1050 / 1050 Weight last 48 hrs Weight 74.525 kg Physical Exam Narrative: General: No acute distress, AO x3 HEENT: PERRLA, pupils bilaterally equal and reactive Chest: Normal vesicular breath sounds, no added sounds CVS: S1-S2 regular, no murmurs, no tachycardia, no gallops, no rubs Abdomen: Soft, nontender, mild tenderness to palpation left CVA Ext: no edema, clubbing or cyanosis Data : 01/17/22 18:50 01/17/22 20:19 Other Labs: Radiology Impressions Chest/Abdomen/Pelvis CT 01/17/22 17:46 IMPRESSION: 1. 11 mm left upper lobe nodule and smaller nodules in the right lung. For patients at low risk (minimal or absent history of smoking and of other known risk factors), recommend CT Chest at 3-6 months, then consider CT Chest at 18-24 months. For patients at high risk (history of smoking or of other known risk factors), recommend CT Chest at 3-6 months, then CT Chest IMPRESSION: 1. No acute finding. 2. Diverticulosis of the colon. COMMENTS: 1. Consistent with the [employer]'s Incidental Findings Committee white paper (J Am [place] [employer]iol 2017): For any incidental adrenal lesion greater than or equal to 1 cm but less than or equal to 4 cm classified in this report as benign, likely benign, or containing fat (including classification as an adenoma or myelolipoma), no follow-up imaging is recommended per consensus recommendations based on imaging criteria. Further lab evaluation could be pursued if warranted based on clinical findings. 2. Consistent with the [employer]'s Incidental Findings Committee white paper (J [employer] [place] [employer]iol 2018): Any incidental renal lesion less than 1 cm or classified as too small to characterize, or any incidental cystic renal lesion characterized as simple-appearing, is likely benign. No follow-up imaging is recommended for these lesions per consensus recommendations based on imaging criteria. Laboratory Results WBC Cancelled 01/17/22 20:19 Corrected WBC Cancelled 01/17/22 20:19 RBC Cancelled 01/17/22 20:19 Hgb Cancelled 01/17/22 20:19 Hct Cancelled 01/17/22 20:19 MCV Cancelled 01/17/22 20:19 MCH Cancelled 01/17/22 20:19 MCHC Cancelled 01/17/22 20:19 RDW Cancelled 01/17/22 20:19 Plt Count Cancelled 01/17/22 20:19 MPV Cancelled 01/17/22 20:19 Gran % Cancelled 01/17/22 20:19 Neut % (Auto) Cancelled 01/17/22 20:19 Lymph % (Auto) Cancelled 01/17/22 20:19 Rains % (Auto) Cancelled 01/17/22 20:19 Eos % (Auto) Cancelled 01/17/22 20:19 Baso % (Auto) Cancelled 01/17/22 20:19 Neut # (Auto) Cancelled 01/17/22 20:19 Lymph # (Auto) Cancelled 01/17/22 20:19 Rains # (Auto) Cancelled 01/17/22 20:19 Eos # (Auto) Cancelled 01/17/22 20:19 Baso # (Auto) Cancelled 01/17/22 20:19 Absolute Gran (auto) Cancelled 01/17/22 20:19 Nucleated RBC % (auto) Cancelled 01/17/22 20:19 Nucleated RBCs # Cancelled 01/17/22 20:19 Sodium 138 mmol/L (136-145) 01/17/22 20:19 Potassium 4.3 mmol/L (3.5-5.1) 01/17/22 20:19 Chloride 102 mmol/L (98-107) 01/17/22 20:19 Carbon Dioxide 24 mmol/L (22-29) 01/17/22 20:19 Anion Gap 16.3 (5-19) 01/17/22 20:19 BUN 46 mg/dL (8-23) H 01/17/22 20:19 Creatinine 4.1 mg/dL (0.5-0.9) H 01/17/22 20:19 GFR Calculation Not Reportable 01/17/22 20:19 Glucose 85 mg/dL (65-115) 01/17/22 20:19 Calculated Osmolality 297 mOsm/kg (285-295) H 01/17/22 20:19 Lactate 0.6 mmol/L (0.5-2.2) 01/17/22 18:50 Calcium 8.0 mg/dL (8.5-10.5) L 01/17/22 20:19 Total Bilirubin 0.5 mg/dL (0.15-1.2) 01/17/22 20:19 AST 16 U/L (0-32) 01/17/22 20:19 ALT 11 U/L (0-33) 01/17/22 20:19 Alkaline Phosphatase 59 IU/L (35-105) 01/17/22 20:19 Troponin T Baseline 89 ng/L (0-10) H 01/17/22 18:50 Troponin T 120 Minute 81.13 ng/L (0-10) H 01/17/22 21:55 Delta Troponin T -7.87 ABS# (0-10) L 01/17/22 21:55 Troponin T Hi Sens 6Hr 88.46 ng/L (0-10) H 01/18/22 01:42 Troponin T Hi Sens 6Hr Delta -0.54 ng/L (0-12) L 01/18/22 01:42 Total Protein 4.7 g/dL (6.6-8.7) L 01/17/22 20:19 Albumin 2.8 g/dL (3.5-5.2) L 01/17/22 20:19 Globulin 1.9 g/dL (1.3-4.6) 01/17/22 20:19 Lipase 38 U/L (13-60) 01/17/22 20:19 Urine Color Yellow (Yellow) 01/17/22 18:50 Urine Appearance Sl hazy (CLEAR) 01/17/22 18:50 Urine pH 5 (5-7) 01/17/22 18:50 Ur Specific [place] 1.010 (1.005-1.030) 01/17/22 18:50 Urine Protein 3+ (Negative) H 01/17/22 18:50 Urine Glucose (UA) Norm (Normal) 01/17/22 18:50 Urine Ketones Negative (Negative) 01/17/22 18:50 Urine Blood 3+ (Negative) H 01/17/22 18:50 Urine Nitrate Negative (Negative) 01/17/22 18:50 Urine Bilirubin Neg (Negative) 01/17/22 18:50 Urine Urobilinogen Norm mg/dL (Negative) 01/17/22 18:50 Ur Leukocyte Esterase Trace (Negative) H 01/17/22 18:50 Urine RBC >100 /hpf (0-2) H 01/17/22 18:50 Urine WBC >100 /hpf (0-5) H 01/17/22 18:50 Ur Squamous Epith Cells 0-4 /hpf (0-5) H 01/17/22 18:50 Amorphous Sediment 1+ /hpf 01/17/22 18:50 Urine Bacteria Trace /hpf (NONE) 01/17/22 18:50 SARS-CoV-2 Ag (Rapid) Negative (Negative) 01/17/22 18:50 A&P Assessment and plan (1) UTI (urinary tract infection): + UA with + LA, >100WBC Started on Ceftriaxone 1giv q24h pending urine cx check blood cx Given also left CVA tenderness cannot exclude pyelonpehritis at this time Status: Acute (2) Acute kidney injury superimposed on CKD: Cr at 4.1 >>3.9 >> 2.5 patient unable to tell me if she has been making usual amount of urine States that pain was significantly improved after straight cath ?may have been urinary retention - amount of urine obtained not currently charted Clinically appears to be dehydrated, gentle iv hydration with NS @ 50 cc/hr Bladder scan and Jean-Baptiste placement if urinary retention monitor I/O CT abd/ pelvis without obstructing calculus Status: Acute (3) Flank pain: Status: Acute Attestations Medical Necessity Statement*: anticipate >2 midnight admission for iv abx for UTI, management of MARI on CKD Coding Level of Care Code Acute Sash Sticker for [facility] Fwd Diagnoses UTI (urinary tract infection) N39.0 Acute kidney injury superimposed on CKD N17.9; N18.9 Flank pain R10.9
[2022-01-18] MEDS: heparin 5,000 unit/mL INJ 1 mL 5000 UNIT SUBCUT ×2 (05:49→17:59)
[2022-01-18] MEDS: isosorbide mononitrate ER 60 mg Tablet PO ×2 (05:50→17:59)
[2022-01-18] MEDS: sodium chloride 0.9% 1,000 ML 50 ML IV (05:50)
--- NOTE | 2022-01-18 08:03 | PM.MISC ---
Miscellaneous Note Note: Patient was examined in [facility] room #2 52 She is not complaining of any active chest pain, CVA tenderness absent Patient stated that she was not able to rest all night because of the IV pole BP She asked what she was diagnosed with I did tell her that her urine looks abnormal, she has UTI however CT abdomen pelvis did not show pyelonephritis, CVA tenderness is improved Patient is stating that as soon as Ruiz cath was placed her chest discomfort also improved EKG showing incomplete left bundle branch block No active chest pain Troponin trending down I would request echo No active chest pain Patient was going to rest Euvolemic Pupils are symmetrical Abdomen distended visceral obesity soft CVA tenderness absent No signs of edema of legs Patient looks dehydrated UTI Continue antibiotics Acute on chronic kidney disease, likely postobstructive, will repeat BMP today Patient has a Ruiz catheter draining clear yellow urine We will follow-up with urine culture I did not appreciate signs of CVA tenderness CT abdomen pelvis did not mention pyelonephritis as well No fever or leukocytosis Patient was asked me when she can go home I told her about continuation of antibiotics and waiting at least 48 hours Chronic normocytic anemia hemoglobin ranges between 8.9-10 Monitor for now, Patient lives alone She is full code
[2022-01-18 08:46] LABS: Anion Gap 15.2 (5-19); Blood Urea Nitrogen 48 mg/dL (8-23); Calcium 8.1 mg/dL (8.5-10.5); Carbon Dioxide 25 mmol/L (22-29); Chloride 103 mmol/L (98-107); Glucose 80 mg/dL (65-115); Osmolality Calculated 300 mOsm/kg (285-295); Potassium 4.2 mmol/L (3.5-5.1); Sodium 139 mmol/L (136-145)
[2022-01-18] MEDS: aspirin 81 mg EC Tablet PO (08:50)
[2022-01-18] MEDS: atorvastatin 40 mg Tablet 20 MG PO (08:51)
[2022-01-18] MEDS: carvedilol 25 mg Tablet PO ×2 (08:51→18:00)
[2022-01-18] MEDS: levothyroxine 125 mcg Tablet PO (08:51)
[2022-01-18] MEDS: pantoprazole DR 40 mg Tablet PO (08:51)
[2022-01-18] MEDS: hyDRALAzine 50 mg Tablet PO ×3 (10:10→20:12)
--- NOTE | 2022-01-18 10:23 | PC.CHAP ---
Pastoral Care Encounter/Spiritual Assessment Type of Contact [x] Declined tray delivery aide visit [] Patient/Family/Request visit [] Outpatient visit [] Follow-up visit [] Physician referral [] Code/Alert [] Routine visit [] Staff referral [] Actively dying [] Patient sleeping [] Family support [] [] Out of room [] Palliative care [] [] Receiving care in room [] Pre-surgical visit [] Trauma [] Long length of stay [] ICU visit [] Other: Relational/Emotional Strength [] Patient feels connected with others/family/visitors/staff [] Distress [] Loneliness/isolation [] Abandonment Spirituality of Patient [] Person of Kat [] Attends Yarsani of their Kat [] Believes in Prayer [] Reads Bible or Baptism materials [] There are Spiritual issues to be addressed Geriatric Aide Interventions [] Prayer [] Active listening [] Non-anxious presence [] Spiritual/emotional support [] Crisis/trauma care [] Spiritual counseling [] Bereavement support [] Provided bereavement packet [] Provided Bible/devotional materials [] Provided toy/stuffed animal, coloring book to patient or family member [] Provided Communion [] Anointing/[place] [] Salvation [] Completed spiritual assessment [] Other: Impact on Illness or Injury [] Angry [] Fearful [] Anxious [] Often cries [] Exhaustion [] Unable to work [] Unable to attend congregation [] Unable to walk/stand [] Unable to read [] Unable to drive [] Unable to eat/drink [] Unable to sleep [] Unable to be with family [] Patient intubated [] Other: Summary Declined tray delivery aide visit Time spent with patient 5 mins
--- NOTE | 2022-01-18 15:43 | PC.PHAR ---
PT HAS A NURSE FROM [facility] FILL HER PILL BOXES WEEKLY- PT UNABLE TO VERIFY MEDICATIONS- VERIFIED MEDS USING EXTERNAL MED LIST. AMLODIPINE WAS ON PT'S EXTERNAL MED LIST FILLED 12/08/21 FOR 90DS, HOWEVER AMLODIPINE IS ALSO ON PT'S ALLERGY LIST SO I DID NOT ADD IT TO PT'S MED LIST AND PT'S NURSE ON MED SURGE SAID IT WAS NOT SCHEDULED TO BE GIVEN. I CALLED [facility] FOR A MED LIST AND TO SPEAK TO PT'S NURSE AND WAS TOLD THEY COULD NOT GIVE ME AN UPDATED MED LIST BECAUSE THE DR HAS NOT SIGNED OFF ON IT SINCE JANUARY 2021. ALSO THE PT'S NURSE WAS NOT AVAILABLE BOTH TIMES I CALLED.
[2022-01-18] MEDS: acetaminophen 325 mg Tablet 650 MG PO (17:59)
--- NOTE | 2022-01-18 18:48 | PC.NURSE ---
Patient continues to report pain and groaning. Patient describes pain as burning with catheter and states she has quit peeing . Explained to patient that the catheter will cause irritation to bladder and urethra and despite feeling like she may need to urinate the catheter will drain bladder.
[2022-01-18] MEDS: lidocaine 5% Patch 1 PATCH TOPICAL (20:11)
[2022-01-18] MEDS: cefTRIAXone 1,000 MG in sodium chloride 0.9% (plus) 50 ML 100 MG IV (20:13)
[2022-01-19] VITALS (8 sets, daily range): BP systolic 117–164; BP diastolic 46–62; PULSE 69–91; RESP 16–20; TEMP 36.7–36.9; O2SAT 93–99
[2022-01-19 00:14] LABS: Glucose Point of Care 95 mg/dL (70-110)
[2022-01-19] MEDS: sodium chloride 0.9% 1,000 ML 50 ML IV (00:42)
[2022-01-19 03:00] LABS: Basophils % 0.7 %; Eosinophils # 0.2 10^3/uL (0.0-0.8); Eosinophils % 3.4 %; Hematocrit 29.7 % (37.0-47.0); Hemoglobin 9.6 g/dL (11.5-15.3); Lymphocytes # 0.9 10^3/uL (0.8-4.8); Lymphocytes % 15.9 %; Mean Corpuscular HGB Conc 32.3 g/dL (30.0-36.0); Mean Corpuscular Hemoglobin 31.6 pg (28.0-34.0); Mean Corpuscular Volume 97.7 fl (81-99); Monocytes # 0.3 10^3/uL (0.2-0.9); Neutrophils # 4.01 10^3/uL (1.8-7.7); Neutrophils % 72.6 %; Nucleated Red Blood Cells % 0 %; Platelet Count 109 10^3/cmm (130-400); Red Blood Count 3.04 10^6/uL (4.1-5.3); Red Cell Distribution Width 12.9 % (12.1-15.1); White Blood Count 5.5 10^3/uL (4.0-10.0)
[2022-01-19 03:21] LABS: Alanine Aminotransferase 12 U/L (0-33); Alkaline Phosphatase 60 IU/L (35-105); Anion Gap 15.6 (5-19); Aspartate Amino Transferase 19 U/L (0-32); Blood Urea Nitrogen 42 mg/dL (8-23); Calcium 8.4 mg/dL (8.5-10.5); Carbon Dioxide 23 mmol/L (22-29); Chloride 104 mmol/L (98-107); Globulin 2.1 g/dL (1.3-4.6); Glucose 97 mg/dL (65-115); Osmolality Calculated 296 mOsm/kg (285-295); Potassium 4.6 mmol/L (3.5-5.1); Sodium 138 mmol/L (136-145); Total Bilirubin 0.2 mg/dL (0.15-1.2); Total Protein 5.1 g/dL (6.6-8.7)
[2022-01-19] MEDS: heparin 5,000 unit/mL INJ 1 mL 5000 UNIT SUBCUT ×2 (05:18→17:22)
[2022-01-19] MEDS: isosorbide mononitrate ER 60 mg Tablet PO ×2 (05:18→17:22)
[2022-01-19 06:48] LABS: Glucose Point of Care 95 mg/dL (70-110)
[2022-01-19 07:11] LABS: Glucose Point of Care 89 mg/dL (70-110)
--- NOTE | 2022-01-19 07:47 | ECG_ITS ---
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 Interpretive Statements NAME OF STUDY: LEXISCAN SESTAMIBI STRESS TEST INDICATION: Unstable angina PROCEDURE: At the baseline, the blood pressure was 147/59 mm Hg with a heart rate of 74 bpm. The electrocardiogram showed sinus rhythm with frequent PAC's. LBBB. ??? The Lexiscan was infused over a period of 20 seconds. A total of 0.4 milligrams of Lexiscan was infused. The stress phase was continued for a total of 5 minutes. Heart rate at the end of the stress phase was 76 bpm with a blood pressure of 138/50 mm Hg. The EKG at the peak infusion revealed no significant ST-T wave changes. ??? Sestamibi was injected 20 seconds after the Lexiscan infusion. ??? Blood pressure at the end of the recovery phase was 150/53 mm Hg with a heart rate of 77 beats per minute. ??? CONCLUSION: 1. Non diagnostic EKG changes with the LexiScan infusion due to baseline LBBB. 2. No LexiScan induced chest pain or cardiac arrhythmia. 3. Normal blood pressure and heart rate response. 4. Sestamibi/sestamibi perfusion scan pending; see separate report. Electronically Signed On 01-28-2022 19:30:21 CDT by Brittany Johnson M.D. [id number]
[2022-01-19] MEDS: ondansetron 2 mg/ML SDV 2 mL 4 MG IVP ×2 (08:05→08:13)
[2022-01-19] MEDS: regadenoson 0.4 Mg/5 ml Syringe IVP (08:13)
[2022-01-19] MEDS: aminophylline 25 mg/mL SDV 10 mL IVP ×2 (08:16→08:18)
--- NOTE | 2022-01-19 08:34 | NMCV_ITS ---
NM ernie perf SPECT r/s* [id number] Cecilio Ashton Age: 86 Gender: F : 1935 Exam Date: 01/19/2022 08:34 Ordering Phys: Adriano Medel MD Technologist: TIMOTHY Snowden Exam Location: [facility] Indications: CHEST PAIN STRESS TEST Please see separate stress test report in [facility] for full findings IMAGE PROTOCOL Rest/Stress 1 Lexiscan Day Radiopharmaceutical Dose (mCi) Administration Site Administered by Rest: Tc-99m 10.9 IV TIMOTHY Mccoy Sestamibi Stress:Tc-99m 32.7 IV TIMOTHY Mccoy Sestamibi Rest: 19-Jan-2022 60 Discovery 630 Stress: 19-Jan-2022 30 Discovery 630 0.4mg Lexiscan. Supine position only as patient was unable to lay prone. SPECT RESULTS Technical Quality: Excellent Raw Data Analysis: Normal Image Corrections: No attenuation or motion correction applied Summed Stress Score: 0 Summed Rest Score: 0 Summed Difference Score: 0 PERFUSION FINDINGS SPECT images demonstrate homogeneous tracer distribution throughout the myocardium. FUNCTIONAL RESULTS (calculated via Gated SPECT) Stress Image LV EF (%): 76 Stress EDV (mL):97 TID: 0.96 Stress ESV (mL):23 FUNCTIONAL FINDINGS: The left ventricle is normal in size. Transient Ischemia Dilatation of 0.96. There is normal left ventricular systolic function. The left ventricular ejection fraction is normal with a value of 76%. There is normal left ventricular wall thickening with no regional wall motion abnormality. IMPRESSIONS 1. Myocardial perfusion imaging is normal. 2. Overall left ventricular systolic function is normal without regional wall motion abnormalities, LVEF=76%. 3. EKG portion of the study will be reported separately. 4. Scan indicates low risk for cardiac events. Brittany Johnson MD (Electronically Signed) Final Date: 19 January 2022 13:14 S
[2022-01-19] MEDS: levothyroxine 125 mcg Tablet PO (09:14)
[2022-01-19] MEDS: aspirin 81 mg EC Tablet PO (09:14)
[2022-01-19] MEDS: hyDRALAzine 50 mg Tablet PO ×2 (09:14→17:22)
[2022-01-19] MEDS: pantoprazole DR 40 mg Tablet PO (09:14)
[2022-01-19] MEDS: carvedilol 25 mg Tablet PO ×2 (09:14→17:22)
[2022-01-19] MEDS: atorvastatin 40 mg Tablet 20 MG PO (09:14)
[2022-01-19] MEDS: lidocaine 5% Patch 1 PATCH TOPICAL (09:15)
--- NOTE | 2022-01-19 09:35 | P.PN_ITS ---
Subjective Subjective: Good urine output Creatinine trending down Patient is stating that last night she was hurting in her back around paraspinal area She did not spike fever, no leukocytosis She is also complaining of pain in her left groin area I saw her after her stress test, she said she is worn out and wants to sleep Vitals/I&O/Wt Last Vital Signs Temp 98.2 F 01/19/22 04:00 Pulse 78 01/19/22 08:24 Resp 20 H 01/19/22 04:00 BP 150/53 01/19/22 08:24 Pulse Ox 98 01/19/22 04:00 01/18/22 01/19/22 01/19/22 22:59 06:59 14:59 Intake Total 200 / 800 1000 / 1800 Output Total 850 / 850 300 / 1150 Balance -650 / -50 700 / 650 Weight last 48 hrs Weight 74.525 kg Physical Exam Narrative: I did not appreciate any rash, fungal infection of left groin area She has paraspinal muscle tenderness I would not call it severe tenderness at this point S1, S2 Currently on 2.5 L nasal cannula No active chest pain Abdomen soft No signs of peritonitis Awake and alert Nonfocal neuro exam Does look dehydrated Urinary Catheter Management: Ruiz Latex: Cath Placed During This Visit: yes Reason for Continuing Indwelling Catheter: Acute Urinary Retention or Obstruction Urinary Catheter Date of Insertion: 01/18/22 Urinary Catheter Time of Insertion: 05:53 Data : 01/19/22 02:39 01/19/22 02:39 Micro: Microbiology 01/17/22 18:50 Urine Culture - Final Urine,Clean Catch 01/18/22 06:15 Blood Culture - Preliminary Blood NEGATIVE TO DATE 01/18/22 06:10 Blood Culture - Preliminary Blood NEGATIVE TO DATE A&P Assessment and plan (1) Flank pain: Status: Acute (2) Acute kidney injury superimposed on CKD: Status: Acute (3) UTI (urinary tract infection): Status: Acute (4) Leg edema: Status: Acute (5) Chronic kidney disease (CKD): Status: Acute (6) 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: Status: Acute (7) Leg swelling: Status: Acute (8) Retained ureteral stent: Status: Resolved (9) Right ureteral stone: Status: Acute (10) Diabetes: Status: Acute Qualifiers: Diabetes mellitus type: type 2 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 insulin use: with extermination supervisor use Diabetes mellitus complication status: with hyperglycemia Qualified Code(s): E11.65 - Type 2 diabetes mellitus with hyperglycemia; 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 (11) Hypothyroid: Status: Acute Qualifiers: Hypothyroidism type: acquired Qualified Code(s): E03.9 - Hypothyroidism, unspecified Plan UTI Continue antibiotics We can discontinue IV fluids and let her eat She has stress test done today No active chest pain Echo is unremarkable Hemodynamically stable Paraspinal muscle tenderness Left groin area pain I do not appreciate any hernia or rash Will give her Tylenol for now Acute on chronic kidney disease, creatinine improving Good urine output Chronic anemia and thrombocytopenia: Stable Patient does not want to go to a [facility] She lives alone Full code Plan to discharge her over the weekend if stays clinically stable She can have cardiac consistent carb diet Attestations Medical Necessity Statement*: Discharge over the weekend Time Spent in Patient Care: 30 Coding Level of Care Code Acute [place] Machine Operator for [facility] Fwd Diagnoses Flank pain R10.9 Acute kidney injury superimposed on CKD N17.9; N18.9 UTI (urinary tract infection) N39.0 Leg edema R60.0 Chronic kidney disease (CKD) N18.9 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
[2022-01-19 10:22] LABS: Estmated Average Glucose 103; Hemoglobin A1C 5.2 % (4.0-6.0)
[2022-01-19 12:26] LABS: Glucose Point of Care 120 mg/dL (70-110)
[2022-01-19 16:57] LABS: Glucose Point of Care 128 mg/dL (70-110)
[2022-01-19] MEDS: cefTRIAXone 1,000 MG in sodium chloride 0.9% (plus) 50 ML 100 MG IV (21:15)
--- NOTE | 2022-01-19 22:04 | PC.NURSE ---
BP @ 1999 was 117/46, BP @ 2129 was 121/47, Dr. Alcala notified, instruction to hold 2100 dose
[2022-01-20] VITALS (7 sets, daily range): BP systolic 113–151; BP diastolic 48–70; PULSE 71–90; RESP 16–18; TEMP 36.8–37.1; O2SAT 92–98
[2022-01-20 04:29] LABS: Basophils % 0.4 %; Eosinophils # 0.1 10^3/uL (0.0-0.8); Eosinophils % 1.4 %; Hemoglobin 9.5 g/dL (11.5-15.3); Lymphocytes # 0.9 10^3/uL (0.8-4.8); Lymphocytes % 12.4 %; Mean Corpuscular HGB Conc 30.6 g/dL (30.0-36.0); Mean Corpuscular Hemoglobin 30.8 pg (28.0-34.0); Mean Corpuscular Volume 100.6 fl (81-99); Mean Platelet Volume 11.8 fL (7.4-10.4); Monocytes # 0.5 10^3/uL (0.2-0.9); Monocytes % 7.5 %; Neutrophils # 5.19 10^3/uL (1.8-7.7); Nucleated Red Blood Cells % 0 %; Platelet Count 126 10^3/cmm (130-400); Red Blood Count 3.08 10^6/uL (4.1-5.3); Red Cell Distribution Width 13.1 % (12.1-15.1)
[2022-01-20] MEDS: heparin 5,000 unit/mL INJ 1 mL 5000 UNIT SUBCUT (04:53)
[2022-01-20] MEDS: isosorbide mononitrate ER 60 mg Tablet PO (04:53)
[2022-01-20 05:15] LABS: Anion Gap 17.7 (5-19); Blood Urea Nitrogen 45 mg/dL (8-23); Calcium 8.4 mg/dL (8.5-10.5); Carbon Dioxide 23 mmol/L (22-29); Chloride 104 mmol/L (98-107); Creatinine Clr Calc Pharmacy 10.7532; Glucose 109 mg/dL (65-115); Osmolality Calculated 302 mOsm/kg (285-295); Potassium 4.7 mmol/L (3.5-5.1); Sodium 140 mmol/L (136-145)
[2022-01-20 07:01] LABS: Glucose Point of Care 118 mg/dL (70-110)
[2022-01-20 07:01] LABS: Glucose Point of Care 206 mg/dL (70-110)
[2022-01-20 07:27] LABS: NT Pro B Type Natriuretic Pept 23646 pg/mL (0-450)
[2022-01-20] MEDS: bumetanide 0.25 mg/mL SDV 4 mL 1 MG IVP (09:24)
[2022-01-20] MEDS: insulin lispro 100 unit/1 mL SUBCUT (09:24)
[2022-01-20] MEDS: levothyroxine 125 mcg Tablet PO (09:25)
[2022-01-20] MEDS: aspirin 81 mg EC Tablet PO (09:25)
[2022-01-20] MEDS: carvedilol 25 mg Tablet PO (09:25)
[2022-01-20] MEDS: pantoprazole DR 40 mg Tablet PO (09:25)
[2022-01-20] MEDS: atorvastatin 40 mg Tablet 20 MG PO (09:25)
[2022-01-20] MEDS: lidocaine 5% Patch 1 PATCH TOPICAL (09:30)
[2022-01-20 11:43] LABS: Glucose Point of Care 132 mg/dL (70-110)
--- NOTE | 2022-01-20 12:16 | PM.DCS ---
Discharge Providers Date of Admission: 01/17/22 22:42 Date of Discharge: January 20, 2022 Attending Provider at Admission: Florence Alcala MD Attending Provider at Discharge: Adriano Medel MD Primary Care Provider: Yvette Pickens MD Diagnoses at Discharge Discharge Diagnosis (1) Flank pain: Status: Acute (2) Acute kidney injury superimposed on CKD: Status: Acute (3) UTI (urinary tract infection): Status: Acute (4) Leg edema: Status: Acute (5) Chronic kidney disease (CKD): Status: Acute (6) 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: Status: Acute (7) Leg swelling: Status: Acute (8) Retained ureteral stent: Status: Resolved (9) Right ureteral stone: Status: Acute (10) Diabetes: Status: Acute Qualifiers: Diabetes mellitus type: type 2 Diabetes mellitus group home insulin use: with group home use Diabetes mellitus complication status: with hyperglycemia Qualified Code(s): E11.65 - Type 2 diabetes mellitus with hyperglycemia; Z79.4 - halfway (current) use of insulin (11) Hypothyroid: Status: Acute Qualifiers: Hypothyroidism type: acquired Qualified Code(s): E03.9 - Hypothyroidism, unspecified Reason for Visit Reason for Visit: BACK PAIN, KIDNEY PAIN Hospital Course Hospital Course 86-year-old female who carries history of chronic kidney disease, chronic COPD uses 3 to 4 L of oxygen at home, was admitted for management of UTI and acute on chronic kidney disease. She also complained of chest pain. Patient stated that as soon as Ruiz cath was placed her symptoms resolved. There was concern for urinary retention, patient was not oliguric, she was given gentle fluid hydration that brought her creatinine down to 3.9 on 01/20 it is 4.5, patient is stating that she is aware of her chronic kidney disease and does not want to stay in the hospital longer, she would like to follow-up with leak patcher outpatient, I have discontinued her magnesium and losartan. For her hypertension I have added metoprolol, she takes Imdur and hydralazine at home. I have updated her daughter about aortic aneurysm 3 cm which needs to be looked at annually, she also has pulmonary nodule I have given her CT scan of chest and abdomen which can be done within 3 months. 's referral has been provided at the time of discharge. Cardiac stress test was unremarkable which was done to rule out coronary ischemia for her symptoms of chest pain. CT chest abdomen pelvis did not show any signs of pyelonephritis. My concern is related to her worsening of chronic kidney disease I have made some adjustment in her medications, she will need outpatient nephrology follow-up as soon as possible. Urine output on day 1 1200 mL, urine output on day 2 800ml, no signs of uremia, patient is stating that she has been noticing twitching of her upper extremities, she was on gabapentin however that has been discontinued because of chronic kidney disease Cultures remain negative, I will give her 3 more days of cefpodoxime. ReMains afebrile. I will CC myself for her CT scan of her chest, BMP along PCP. On day of discharge I have requested BNP which is 23,000, she can take Lasix at home, recheck BMP within few days clinically patient did not look fluid overloaded Physical Exam Narrative: Very pleasant cooperative female Nonfocal neuro exam She is awake and alert Abdomen soft No CVA tenderness Paraspinal muscle tenderness elicited Clinically does not look fluid overloaded Currently doing well between 3 to 4 L of nasal cannula No audible stridor or wheezing S1, S2 Urinary Catheter Management: Ruiz Latex: Cath Placed During This Visit: yes Reason for Continuing Indwelling Catheter: Acute Urinary Retention or Obstruction Urinary Catheter Date of Insertion: 01/18/22 Urinary Catheter Time of Insertion: 05:53 Discharge Data Studies Completed and Pending Completed Studies During Hospitalization Category [place] [id number] Stat Cat Scan 01/17/22 17:46 Completed Sestamibi Stress Test Request Routine Exams 01/19/22 07:47 Draft NM ernie perf SPECT r/s* [id number] Routine Nuc Med 01/19/22 08:34 Completed Pending at discharge Category Date Time Status Sestamibi Stress Test Request Routine Exams 01/18/22 08:34 Stop Req Blood Culture Stat Lab 01/18/22 06:15 Results Radiology Impressions Chest/Abdomen/Pelvis CT 01/17/22 17:46 IMPRESSION: 1. 11 mm left upper lobe nodule and smaller nodules in the right lung. For patients at low risk (minimal or absent history of smoking and of other known risk factors), recommend CT Chest at 3-6 months, then consider CT Chest at 18-24 months. For patients at high risk (history of smoking or of other known risk factors), recommend CT Chest at 3-6 months, then CT Chest IMPRESSION: 1. No acute finding. 2. Diverticulosis of the colon. COMMENTS: 1. Consistent with the [employer]'s Incidental Findings Committee white paper (J Am [place] [employer] 2017): For any incidental adrenal lesion greater than or equal to 1 cm but less than or equal to 4 cm classified in this report as benign, likely benign, or containing fat (including classification as an adenoma or myelolipoma), no follow-up imaging is recommended per consensus recommendations based on imaging criteria. Further lab evaluation could be pursued if warranted based on clinical findings. 2. Consistent with the [employer]'s Incidental Findings Committee white paper ([employer] [place] [employer] 2018): Any incidental renal lesion less than 1 cm or classified as too small to characterize, or any incidental cystic renal lesion characterized as simple-appearing, is likely benign. No follow-up imaging is recommended for these lesions per consensus recommendations based on imaging criteria. Laboratory Results WBC 7.0 10^3/uL (4.0-10.0) 01/20/22 04:09 Corrected WBC Cancelled 01/17/22 20:19 RBC 3.08 10^6/uL (4.1-5.3) L 01/20/22 04:09 Hgb 9.5 g/dL (11.5-15.3) L 01/20/22 04:09 Hct 31.0 % (37.0-47.0) L 01/20/22 04:09 MCV 100.6 fl (81-99) H 01/20/22 04:09 MCH 30.8 pg (28.0-34.0) 01/20/22 04:09 MCHC 30.6 g/dL (30.0-36.0) D 01/20/22 04:09 RDW 13.1 % (12.1-15.1) 01/20/22 04:09 Plt Count 126 10^3/cmm (130-400) L 01/20/22 04:09 MPV 11.8 fL (7.4-10.4) H 01/20/22 04:09 Gran % Cancelled 01/17/22 20:19 Neut % (Auto) 74.0 % 01/20/22 04:09 Lymph % (Auto) 12.4 % 01/20/22 04:09 Mckenzie % (Auto) 7.5 % 01/20/22 04:09 Eos % (Auto) 1.4 % 01/20/22 04:09 Baso % (Auto) 0.4 % 01/20/22 04:09 Neut # (Auto) 5.19 10^3/uL (1.8-7.7) 01/20/22 04:09 Lymph # (Auto) 0.9 10^3/uL (0.8-4.8) 01/20/22 04:09 Mckenzie # (Auto) 0.5 10^3/uL (0.2-0.9) 01/20/22 04:09 Eos # (Auto) 0.1 10^3/uL (0.0-0.8) 01/20/22 04:09 Baso # (Auto) 0.0 10^3/uL (0.0-0.1) 01/20/22 04:09 Absolute Gran (auto) Cancelled 01/17/22 20:19 Nucleated RBC % (auto) 0 % 01/20/22 04:09 Nucleated RBCs # 0.0 /100WBC 01/20/22 04:09 Sodium 140 mmol/L (136-145) 01/20/22 04:09 Potassium 4.7 mmol/L (3.5-5.1) 01/20/22 04:09 Chloride 104 mmol/L (98-107) 01/20/22 04:09 Carbon Dioxide 23 mmol/L (22-29) 01/20/22 04:09 Anion Gap 17.7 (5-19) 01/20/22 04:09 BUN 45 mg/dL (8-23) H 01/20/22 04:09 Creatinine 4.5 mg/dL (0.5-0.9) H 01/20/22 04:09 GFR Calculation Not Reportable 01/20/22 04:09 Glucose 109 mg/dL (65-115) 01/20/22 04:09 POC Glucose 132 mg/dL (70-110) H 01/20/22 10:53 Estimat Average Glucose 103 01/19/22 02:39 Hemoglobin A1c 5.2 % (4.0-6.0) 01/19/22 02:39 Calculated Osmolality 302 mOsm/kg (285-295) H 01/20/22 04:09 Lactate 0.6 mmol/L (0.5-2.2) 01/17/22 18:50 Calcium 8.4 mg/dL (8.5-10.5) L 01/20/22 04:09 Total Bilirubin 0.2 mg/dL (0.15-1.2) 01/19/22 02:39 AST 19 U/L (0-32) 01/19/22 02:39 ALT 12 U/L (0-33) 01/19/22 02:39 Alkaline Phosphatase 60 IU/L (35-105) 01/19/22 02:39 Troponin T Baseline 89 ng/L (0-10) H 01/17/22 18:50 Troponin T 120 Minute 81.13 ng/L (0-10) H 01/17/22 21:55 Delta Troponin T -7.87 ABS# (0-10) L 01/17/22 21:55 Troponin T Hi Sens 6Hr 88.46 ng/L (0-10) H 01/18/22 01:42 Troponin T Hi Sens 6Hr Delta -0.54 ng/L (0-12) L 01/18/22 01:42 NT-Pro-B Natriuret Pep 00582 pg/mL (0-450) H 01/20/22 04:09 Total Protein 5.1 g/dL (6.6-8.7) L 01/19/22 02:39 Albumin 3.0 g/dL (3.5-5.2) L 01/19/22 02:39 Globulin 2.1 g/dL (1.3-4.6) 01/19/22 02:39 Lipase 38 U/L (13-60) 01/17/22 20:19 Urine Color Yellow (Yellow) 01/17/22 18:50 Urine Appearance Sl hazy (CLEAR) 01/17/22 18:50 Urine pH 5 (5-7) 01/17/22 18:50 Ur Specific [place] 1.010 (1.005-1.030) 01/17/22 18:50 Urine Protein 3+ (Negative) H 01/17/22 18:50 Urine Glucose (UA) Norm (Normal) 01/17/22 18:50 Urine Ketones Negative (Negative) 01/17/22 18:50 Urine Blood 3+ (Negative) H 01/17/22 18:50 Urine Nitrate Negative (Negative) 01/17/22 18:50 Urine Bilirubin Neg (Negative) 01/17/22 18:50 Urine Urobilinogen Norm mg/dL (Negative) 01/17/22 18:50 Ur Leukocyte Esterase Trace (Negative) H 01/17/22 18:50 Urine RBC >100 /hpf (0-2) H 01/17/22 18:50 Urine WBC >100 /hpf (0-5) H 01/17/22 18:50 Ur Squamous Epith Cells 0-4 /hpf (0-5) H 01/17/22 18:50 Amorphous Sediment 1+ /hpf 01/17/22 18:50 Urine Bacteria Trace /hpf (NONE) 01/17/22 18:50 SARS-CoV-2 Ag (Rapid) Negative (Negative) 01/17/22 18:50 Vitals Last Vital Signs Temp 98.7 F 01/20/22 07:39 Pulse 73 01/20/22 07:39 Resp 16 01/20/22 07:39 BP 125/48 01/20/22 07:39 Pulse Ox 96 01/20/22 08:00 Discharge Plan Discharge Patient Disposition: Home Condition: Stable Prescriptions: New metoprolol tartrate 50 mg tablet 50 mg PO BID Qty: 60 3RF cefpodoxime 200 mg tablet 200 mg PO BID Qty: 6 0RF Rx Instructions: must administer with a meal/food Continued furosemide 20 mg tablet 20 mg PO DAILY 0RF levothyroxine 125 mcg tablet 125 mcg PO DAILY 0RF omeprazole 20 mg capsule,delayed release(DR/EC) 20 mg PO BID 0RF flaxseed oil 1,000 mg capsule 1,000 mg PO DAILY 0RF cholecalciferol (vitamin D3) 25 mcg (1,000 unit) tablet 1,000 unit PO DAILY 0RF aspirin [Adult Low Dose Aspirin] 81 mg tablet,delayed release (DR/EC) 81 mg PO DAILY 0RF PreserVision Lutein 226 mg-200 unit -5 mg-0.8 mg capsule 1 cap PO BID 0RF isosorbide mononitrate 60 mg tablet extended release 24 hr 60 mg PO Q12H Qty: 180 2RF gabapentin 100 mg capsule 200 mg PO DAILY 0RF lovastatin 20 mg tablet 40 mg PO DAILY 0RF Fish Oil 300-1,000 mg Capsule,Delayed Release(Dr/Ec) 1 cap PO DAILY 0RF hydralazine 25 mg tablet 25 mg PO TID Qty: 90 3RF Discontinued losartan 25 mg tablet 25 mg PO DAILY 0RF magnesium oxide 400 mg (241.3 mg magnesium) tablet 400 mg PO DAILY 0RF carvedilol 25 mg tablet 25 mg PO BID Qty: 180 3RF Discharge Orders: Discharge Order (Routine); Ordered 01/20/22 Ordered By: Adriano Medel Other Ambulatory Orders: Basic Metabolic Panel (Routine) Timeframe: 1 Week Facility: [facility] - Location: Lab - Main Lab Ordered By: Adriano Medel CT chest abdomen wo con (Routine) Timeframe: 3 Months Facility: [facility] - Location: Radiology [place] [facility] Ordered By: Adriano Medel Referrals: Yvette Pickens MD [Primary Care Provider] - 2 weeks John Garcia MD [Referring] - 1 week Discharge Diet: Cardiac and Low Salt Discharge Activity: Increase activity as tolerated Patient Instructions: Opioid Safety Discharge Attestations Time Spent in Discharge Care*: less than 30 min Status at Discharge: Cognitive status at discharge: cognitively intact, Behavioral status at discharge: cooperative, Quality Metrics Clinical Quality Measures [ No reported AMI, CVA or VTE this stay] Coding Level of Care Code Acute Chg [facility] note Diagnoses Flank pain R10.9 Acute kidney injury superimposed on CKD N17.9; N18.9 UTI (urinary tract infection) N39.0 Leg edema R60.0 Chronic kidney disease (CKD) N18.9 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 C50.111 Leg swelling M79.89 Retained ureteral stent Z96.0 Right ureteral stone N20.1 Diabetes E11.65; Z79.4 Diabetes mellitus type: type 2 Diabetes mellitus group home insulin use: with 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
--- NOTE | 2022-01-20 13:42 | PC.SOCIAL ---
IMM Updated IMM dated and initialed and copy placed in chart and given to patient
== END 2022-01-20 13:35 | disposition home or self-care (01) | DRG 683 ==
LOC: ER 23:07 → MEDSURG 23:36
PROVIDERS: Admitting Provider Student in an Organized Health Care Education/Training Program; Emergency Provider Emergency Medicine; PCP Family Medicine; Visit Provider Internal Medicine
DX: N17.9 Acute kidney failure, unspecified (principal); N39.0 Urinary tract infection, site not specified; I25.10 Atherosclerotic heart disease of native coronary artery without angina pectoris; E11.22 Type 2 diabetes mellitus with diabetic chronic kidney disease; E11.65 Type 2 diabetes mellitus with hyperglycemia; I12.9 Hypertensive chronic kidney disease with stage 1 through stage 4 chronic kidney disease, or unspecified chronic kidney disease; N18.9 Chronic kidney disease, unspecified; E78.5 Hyperlipidemia, unspecified; E03.9 Hypothyroidism, unspecified; Z87.891 Personal history of nicotine dependence; R91.8 Other nonspecific abnormal finding of lung field; Z85.3 Personal history of malignant neoplasm of breast; Z99.81 Dependence on supplemental oxygen; Z87.442 Personal history of urinary calculi; D63.1 Anemia in chronic kidney disease; Z96.0 Presence of urogenital implants; D69.6 Thrombocytopenia, unspecified; J44.9 Chronic obstructive pulmonary disease, unspecified; N20.0 Calculus of kidney
CPT/HCPCS: 36415; 36416; 51702; 51798; 71250; 74176; 78452; 80048; 80053; 81001; 82962; 83036; 83605; 83690; 83880; 84484; 85025; 87040; 87086; 87426; 93005; 93017; 96365; 96372; 96375; 97110; 97161; 99285; A9500; J0280; J0696; J1644; J1815; J2405; J2785; J3010; J3490; J7030

== ENCOUNTER → 2022-06-18 12:45 | Outpatient (BNVA) | payer MEDICARE, MEDICAID, SELFPAY | PROVIDERS: PCP Family Medicine; Visit Provider Internal Medicine Cardiovascular Disease | DX: I25.10 Atherosclerotic heart disease of native coronary artery without angina pectoris (principal); I71.40 Abdominal aortic aneurysm, without rupture, unspecified; E11.22 Type 2 diabetes mellitus with diabetic chronic kidney disease; I12.0 Hypertensive chronic kidney disease with stage 5 chronic kidney disease or end stage renal disease; N18.6 End stage renal disease; Z99.2 Dependence on renal dialysis; Z87.891 Personal history of nicotine dependence; Z79.84 Long term (current) use of oral hypoglycemic drugs; E78.2 Mixed hyperlipidemia | CPT/HCPCS: 99214 ==

== ENCOUNTER 2022-07-31 14:08 | Emergency (ER) | payer MEDICARE, MEDICAID, SELFPAY ==
[2022-07-31 14:11] VITALS: BP 120/59; PULSE 71; RESP 16; TEMP 36.3; O2SAT 100; BMI 26.0
--- NOTE | 2022-07-31 14:12 | W.ED.GENADLT ---
HPI - General Adult General: Chief complaint: General Medical Stated complaint: Port Bleeding Time Seen by Provider: 07/31/22 14:10 Source: patient Mode of arrival: EMS History of Present Illness: 87-year-old female presents emergency room with a tunneled dialysis catheter in the left femoral artery. She has noticed little bleeding from it with motion. She just recently returned home she has a history of breast cancer and is currently also in renal failure receiving dialysis. No other complaints no chest pain Onset (ago): minute(s) Severity: moderate Relieving factors: none Exacerbating factors: none Associated symptoms: Deny chest pain, confusion, cough, diaphoresis, decreased appetite, dyspnea, fevers/chills, headache(s), malaise, nausea, rash, palpitations, seizures, short of breath, syncope, vomiting or weakness Treatments prior to arrival: none Review of Systems Const: Denies: fever(s), chills, fatigue, malaise or diaphoresis ENMT: Denies: throat pain, ear or mastoid pain, nasal discharge or nasal congestion Card: Denies: chest pain, palpitations or syncope Resp: Denies: dyspnea GI: Denies: abdominal pain, nausea or vomiting : Denies: flank pain, difficulty voiding, dysuria, urinary frequency or urinary urgency Skin/Breast: Denies: rash or pruritus Neuro: Denies: headache(s) or confusion PFSH ED PFSH: Medical History Acute kidney injury superimposed on CKD Asymptomatic menopausal state Bilateral carotid artery stenosis Bilateral cataracts CAD (coronary artery disease) Had the most recent cardiac catheterization in January 2012. She was found to have mild to moderate diffuse coronary artery disease. Most recent myocardial perfusion imaging in 2013. No evidence of ischemia. 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 Other specified disorders of bone density and structure, unspecified thigh Personal history of irradiation Retained ureteral stent Right ureteral stone Rotator cuff arthropathy of right shoulder SOB (shortness of breath) Subclavian artery stenosis, right UTI (urinary tract infection) Surgical History History of appendectomy History of lumpectomy of right breast History of shoulder surgery Hx of cholecystectomy Hx of repair of rotator cuff Hx of shoulder replacement Family History Other CAD (coronary artery disease) Chronic kidney disease (CKD) Diabetes Family history of premature coronary artery disease Hyperlipidemia Hypertension Lung disease Stroke Social History Smoking and tobacco status: former smoker Alcohol intake: never Current occupational status: retired Physical Exam Const: COMMON NORMALS: no acute distress GENERAL APPEARANCE: cooperative and comfortable ORIENTATION/CONSCIOUSNESS: Yes awake, Yes oriented to person, Yes oriented to place and Yes oriented to time HENMT: COMMON NORMALS: normocephalic, atraumatic and hearing grossly normal bilaterally HEAD & SCALP: normocephalic and atraumatic Resp: COMMON NORMALS: normal respiratory effort, No retractions, No use of accessory muscles and clear to auscultation bilaterally AUSCULTATION: clear to auscultation bilaterally Cardio: COMMON NORMALS: regular rate, regular rhythm and No murmurs present (Cardio) RATE: regular rate RHYTHM: regular rhythm GI: COMMON NORMALS: Soft to palpation and No hepatosplenomegaly present AUSCULTATION: Yes normoactive bowel sounds PALPATION: Yes Soft to palpation, No Tenderness to palpation present (GI), No Guarding due to palpation present (GI) and Yes No hepatosplenomegaly present Extremity: COMMON NORMALS: normal to inspection, capillary refill normal, no clubbing, cyanosis or edema, no calf tenderness and no pedal edema Neuro: SENSORIUM/ORIENTATION: Yes oriented to person, Yes oriented to place and Yes oriented to time Skin: COMMON NORMALS: no rashes or lesions noted GENERAL SKIN EXAM: no rashes or lesions noted OTHER: At the entrance site of the tunneled catheter in the left groin there is a small amount of bloody draining with movement but mostly is dried no active bleeding. Course Vital Signs: Vital signs: Vital Signs Temperature 97.4 F L 07/31/22 14:11 Pulse Rate 71 07/31/22 14:11 Respiratory Rate 16 07/31/22 14:11 Blood Pressure 120/59 07/31/22 14:11 Pulse Oximetry 100 07/31/22 14:11 Oxygen Delivery Me thod 07/31/22 14:11 Oxygen Flow Rate 2 07/31/22 14:11 MDM - General Adult Medical Decision Making Tunneled catheter redressed. Unfortunately because of positioning sink until it develops some epithelialization at the entrance site will continue to use from time to time advised patient to hold mild direct pressure in that area return if has bleeding is not well controlled with direct pressure. there is no sign of infection at the site. Medical Records I reviewed the patient's medical records. Lab Data I reviewed the patient's lab results. 07/31/22 15:49 Laboratory Results WBC 3.4 10^3/uL (4.0-10.0) L 07/31/22 15:49 RBC 3.01 10^6/uL (4.1-5.3) L 07/31/22 15:49 Hgb 10.0 g/dL (11.5-15.3) L 07/31/22 15:49 Hct 32.7 % (37.0-47.0) L 07/31/22 15:49 MCV 108.6 fl (81-99) H 07/31/22 15:49 MCH 33.2 pg (28.0-34.0) 07/31/22 15:49 MCHC 30.6 g/dL (30.0-36.0) 07/31/22 15:49 RDW 15.9 % (12.1-15.1) H 07/31/22 15:49 Plt Count 96 10^3/cmm (130-400) L 07/31/22 15:49 MPV 11.2 fL (7.4-10.4) H 07/31/22 15:49 Neut % (Auto) 56.8 % 07/31/22 15:49 Lymph % (Auto) 25.4 % 07/31/22 15:49 [place] % (Auto) 10.5 % 07/31/22 15:49 Eos % (Auto) 5.8 % 07/31/22 15:49 Baso % (Auto) 1.2 % 07/31/22 15:49 Neut # (Auto) 1.95 10^3/uL (1.8-7.7) 07/31/22 15:49 Lymph # (Auto) 0.9 10^3/uL (0.8-4.8) 07/31/22 15:49 [place] # (Auto) 0.4 10^3/uL (0.2-0.9) 07/31/22 15:49 Eos # (Auto) 0.2 10^3/uL (0.0-0.8) 07/31/22 15:49 Baso # (Auto) 0.0 10^3/uL (0.0-0.1) 07/31/22 15:49 Nucleated RBC % (auto) 0 % 07/31/22 15:49 Nucleated RBCs # 0.0 /100WBC 07/31/22 15:49 Discharge Plan Discharge Patient Disposition: Home Clinical Impression: Hemorrhage from dialysis catheter Condition: Stable Prescriptions: No Action furosemide 20 mg tablet 20 mg PO DAILY levothyroxine 125 mcg tablet 125 mcg PO DAILY omeprazole 20 mg capsule,delayed release(DR/EC) 20 mg PO BID flaxseed oil 1,000 mg capsule 1,000 mg PO DAILY cholecalciferol (vitamin D3) 25 mcg (1,000 unit) tablet 1,000 unit PO DAILY aspirin [Adult Low Dose Aspirin] 81 mg tablet,delayed release (DR/EC) 81 mg PO DAILY PreserVision Lutein 226 mg-200 unit -5 mg-0.8 mg capsule 1 cap PO BID isosorbide mononitrate 60 mg tablet extended release 24 hr See Rx Instructions .ROUTE .COMPLEX Qty: 180 3RF Dose Instruction: TAKE ONE TABLET BY MOUTH EVERY 12 HOURS Rx Instructions: TAKE ONE TABLET BY MOUTH EVERY 12 HOURS metoprolol tartrate 50 mg tablet 50 mg PO BID Qty: 180 3RF gabapentin 100 mg capsule 200 mg PO DAILY lovastatin 20 mg tablet 40 mg PO DAILY Fish Oil 300-1,000 mg Capsule,Delayed Release(Dr/Ec) 1 cap PO DAILY hydralazine 25 mg tablet 25 mg PO TID Qty: 90 3RF Discharge Orders: Discharge ED (Routine); Ordered 07/31/22 Ordered By: Cipriano Earl Referrals: Yvette Pickens MD [Primary Care Provider] - Discharge Diet: Usual diet Discharge Activity: Resume usual activity Patient Instructions: Opioid Safety, Pain Management Activity Restrictions/Additional Instructions: You had a small amount of bleeding from the dialysis catheter. Because of its location in the groin it has more potential for oozing and bleeding with movement with your leg. Recommend whenever possible for the next few days to stay at rest and/or keep pressure on it. You can apply topical antibiotic ointment at the entrance point. Follow-up with your doctor as needed. Coding Level of Care Code ED Council Member for Andrés Deng
[2022-07-31 15:57] LABS: Basophils % 1.2 %; Eosinophils # 0.2 10^3/uL (0.0-0.8); Eosinophils % 5.8 %; Hematocrit 32.7 % (37.0-47.0); Lymphocytes # 0.9 10^3/uL (0.8-4.8); Lymphocytes % 25.4 %; Mean Corpuscular HGB Conc 30.6 g/dL (30.0-36.0); Mean Corpuscular Hemoglobin 33.2 pg (28.0-34.0); Mean Corpuscular Volume 108.6 fl (81-99); Mean Platelet Volume 11.2 fL (7.4-10.4); Monocytes # 0.4 10^3/uL (0.2-0.9); Monocytes % 10.5 %; Neutrophils # 1.95 10^3/uL (1.8-7.7); Neutrophils % 56.8 %; Nucleated Red Blood Cells % 0 %; Platelet Count 96 10^3/cmm (130-400); Red Blood Count 3.01 10^6/uL (4.1-5.3); Red Cell Distribution Width 15.9 % (12.1-15.1); White Blood Count 3.4 10^3/uL (4.0-10.0)
== END 2022-07-31 17:24 | disposition home or self-care (01) ==
PROVIDERS: Emergency Provider Family Medicine; PCP Family Medicine
DX: T82.838A Hemorrhage due to vascular prosthetic devices, implants and grafts, initial encounter (principal); Z79.82 Long term (current) use of aspirin; Z87.891 Personal history of nicotine dependence; I25.10 Atherosclerotic heart disease of native coronary artery without angina pectoris; E11.22 Type 2 diabetes mellitus with diabetic chronic kidney disease; I12.9 Hypertensive chronic kidney disease with stage 1 through stage 4 chronic kidney disease, or unspecified chronic kidney disease; N18.9 Chronic kidney disease, unspecified; E78.5 Hyperlipidemia, unspecified; Z85.3 Personal history of malignant neoplasm of breast; Y71.1 Therapeutic (nonsurgical) and rehabilitative cardiovascular devices associated with adverse incidents
CPT/HCPCS: 36415; 85025; 99283

== ENCOUNTER 2022-08-13 14:38 | Oncology outpatient (recurring) (ONCR) | payer MEDICARE, MEDICAID, SELFPAY ==
--- NOTE | 2022-08-13 13:08 | MM_ITS ---
WS: [id number] DIAGNOSTIC RIGHT DIGITAL TOMOSYNTHESIS MAMMOGRAPHY. WITH CAD. HISTORY: breast cancer, follow-up asymmetry in the central anterior breast. COMPARISON: 01/05/2022, 07/04/2021 and 06/12/2021 Technique: CC, MLO and ML views. Spot compression RIGHT MLO and cc. Breast composition: There are scattered areas of fibroglandular density. Asymmetry since 2020 is les s prominent. There are coarse benign calcifications in the anterior breast. Increasing calcification may be due to degenerating fibroid. MM/[place] [id number] IMPRESSION: BI-RADS: 2-Benign FOLLOW UP: 1 Year Follow-up Return to annual mammography.
== END 2022-08-21 23:59 | disposition home or self-care (01) ==
LOC: RAD 14:38 → ONCMED 14:39
PROVIDERS: PCP Family Medicine; Visit Provider Nurse Practitioner Family
DX: C50.111 Malignant neoplasm of central portion of right female breast (principal); Z17.0 Estrogen receptor positive status [ER+]; M25.59 Pain in other specified joint; E11.22 Type 2 diabetes mellitus with diabetic chronic kidney disease; N18.6 End stage renal disease; I12.0 Hypertensive chronic kidney disease with stage 5 chronic kidney disease or end stage renal disease; Z99.2 Dependence on renal dialysis; I89.0 Lymphedema, not elsewhere classified; L98.8 Other specified disorders of the skin and subcutaneous tissue; Z79.4 Long term (current) use of insulin; Z92.21 Personal history of antineoplastic chemotherapy; Z92.3 Personal history of irradiation
CPT/HCPCS: 77061; 99214; 99215; G0279

== ENCOUNTER 2022-11-10 11:06 | Inpatient (IN) | payer MEDICARE, MEDICAID, SELFPAY ==
[2022-11-10] VITALS (27 sets, daily range): BP systolic 110–190; BP diastolic 56–96; PULSE 64–123; RESP 18–24; TEMP 36.7–36.8; O2SAT 92–100; BMI 25.8
--- NOTE | 2022-11-10 11:29 | ECG_ITS ---
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 Measurements Intervals [place] Rate: 117 P: 0 GA: 0 QRS: 77 QRSD: 145 T: 18 QT: 372 QTc: 521 Interpretive Statements ATRIAL FIBRILLATION WITH RAPID VENTRICULAR RESPONSE LEFT BUNDLE BRANCH BLOCK [120+ ms QRS DURATION, 80+ ms Q/S IN V1/V2, 85+ ms R IN I/aVL/V5/V6] Compared to ECG 01/18/2022 00:17:53 Sinus rhythm no longer present Electronically Signed On 11-11-2022 9:41:10 CDT by Miguel Nguyen M.D. [email or web address]
--- NOTE | 2022-11-10 11:29 | XRR_ITS ---
PROCEDURE INFORMATION: Exam: XR Chest Exam date and time: 11/10/2022 11:35 AM Age: 87 years old Clinical indication: Shortness of breath; Prior surgery; Surgery type: Shoulder; Cath; Additional info: Chest pain TECHNIQUE: Imaging protocol: Radiologic exam of the chest. Views: 1 view. COMPARISON: [place] [id number] 01/17/2022 9:33 PM FINDINGS: Lungs: There is extensive bilateral lower lobe airspace disease in part secondary to atelectasis with superimposed pneumonia and/or pulmonary edema felt likely. Bandlike opacity right mid lung zone representing either subsegmental atelectasis or fluid within a fissure. Pleural spaces: There are small bilateral pleural effusions likely cardiogenic in nature. Heart/Mediastinum: Heart is moderately enlarged with pulmonary vascular redistribution indicating elevated central venous pressure. Bones/joints: Prior right shoulder replacement. No acute abnormalities. XR/XR chest 1V portable [id number] IMPRESSION: 1. Cardiomegaly with elevated central venous pressure and small bibasilar pleural effusions likely cardiogenic in nature. 2. Diffuse lower lobe airspace disease, nonspecific as discussed above.
[2022-11-10] MEDS: dilTIAZem 5 mg/mL SDV 5 mL 10 MG IVP (11:45)
--- NOTE | 2022-11-10 11:45 | ED_ITS ---
HPI - Chest Pain General: Chief Complaint: Chest Pain Stated Complaint: Chest Pain Time Seen by Provider: 11/10/22 11:29 History of Present Illness: Patient presents to the ER by EMS with complaints of left-sided chest pain. Patient was at dialysis when his pain started. Patient was given 324 mg aspirin and 1 nitro glycerin and the pain resolved. Patient states when his pain came she is very short of breath. Patient did finish 2 hours approximately of dialysis and still had 1 hour left ago. Patient says her heart is beating very fast. MD complaint: chest pain Onset (ago): minute(s) (Prior to arrival while at dialysis) Timing of current episode: constant and now resolved Prior episodes: No Onset: during rest Pain location: left chest Pain radiation: none Relieving factors: nitroglycerin Exacerbating factors: nothing Associated symptoms: Reports dyspnea and palpitations; Deny abdominal pain, fever(s), nausea or vomiting Treatment prior to arrival: aspirin and nitroglycerin Review of Systems General: Reports: 10 or more systems reviewed and unremarkable except in HPI and below Const: Denies: fever(s) or chills Eyes: Denies: change in vision or photophobia ENMT: Denies: throat pain or odynophagia Card: Reports: chest pain and palpitations Resp: Reports: dyspnea; Denies: productive cough or non-productive cough GI: Denies: abdominal pain, nausea, vomiting or diarrhea : Denies: flank pain or difficulty voiding PFSH ED PFSH: Medical History Acute kidney injury superimposed on CKD Bilateral carotid artery stenosis Breast cancer CAD (coronary artery disease) Had the most recent cardiac catheterization in January 2012. She was found to have mild to moderate diffuse coronary artery disease. Most recent myoca rdial perfusion imaging in 2013. No evidence of ischemia. Diabetes End stage renal disease Hyperlipidemia Hypertension Hypothyroidism Osteopenia Personal history of irradiation Right ureteral stone Rotator cuff arthropathy of right shoulder Subclavian artery stenosis, right UTI (urinary tract infection) Surgical History History of appendectomy History of lumpectomy of right breast History of shoulder surgery Hx of cholecystectomy Hx of repair of rotator cuff Hx of shoulder replacement S/P ureteral stent placement Family History Other CAD (coronary artery disease) Chronic kidney disease (CKD) Diabetes Family history of premature coronary artery disease Hyperlipidemia Hypertension Lung disease Stroke Social History Smoking and tobacco status: former smoker Alcohol intake: never Substance/Drug Use: never Current occupational status: retired Physical Exam Const: COMMON NORMALS: average body habitus, patient oriented x3, no limitations, healthy appearing, alert and well nourished HENMT: COMMON NORMALS: normocephalic, atraumatic, hearing grossly normal bilaterally, external ears normal, Normal external nose present and moist oral mucous membranes HEAD & SCALP: normocephalic and atraumatic NOSE: Normal external nose present EXTERNAL EAR: Yes external ears normal Eye: COMMON NORMALS: Equal, round and reactive pupils present, EOMs intact bilaterally, conjunctivae normal and no scleral icterus CONJUNCTIVA: Yes conjunctivae normal PUPIL: Yes Equal, round and reactive pupils present Neck/C-Spine: COMMON NORMALS: full ROM, no lymphadenopathy, supple, no me ningeal signs, no JVD and Thyroid normal THYROID: Thyroid normal Chest: COMMONS NORMALS: normal inspection of the chest and normal palpation of entire chest wall Resp: COMMON NORMALS: normal respiratory effort, No retractions, No use of accessory muscles and clear to auscultation bilaterally AUSCULTATION: clear to auscultation bilaterally Cardio: COMMON NORMALS: no JVD RATE: tachycardic RHYTHM: abnormal rhythm irregularly irregular GI: COMMON NORMALS: Normal to inspection, nondistended, normoactive bowel sounds present, Soft to palpation, non-tender, No hepatosplenomegaly present and no masses PALPATION: Yes Soft to palpation and Yes No hepatosplenomegaly present : COMMON NORMALS: Yes no CVA tenderness BLADDER/KIDNEY EXAM: Yes no CVA tenderness Back/Pelvis: COMMON NORMALS: no CVA tenderness Neuro: COMMON NORMALS: patient oriented x3 SENSORIUM/ORIENTATION: Yes alert MENINGEAL SIGNS: Yes no meningeal signs Course Vital Signs: Vital signs: Vital Signs Temperature 98.2 F 11/10/22 11:14 Pulse Rate 102 H 11/10/22 13:26 Respiratory Rate 20 H 11/10/22 13:15 Blood Pressure 123/77 11/10/22 13:26 Pulse Oximetry 94 11/10/22 13:26 Oxygen Delivery Me thod Nasal Cannula 11/10/22 12:26 Oxygen Flow Rate 3 11/10/22 12:26 MDM - Chest Pain Medical Decision Making Patient presents to the ER by EMS with complaints of left-sided nonradiating chest pain that started at dialysis. Patient was given 1 nitro and a 3 and 24 mg aspirin and pain resolved. Upon arrival patient was in A-fib with RVR with a rate of 123 bpm. And visibly dyspneic. Patient was on 4 L of oxygen which were she normally wears 2 L of oxygen at all times. Per patient she does not have a history of A-fib. Lab work was obtained which showed initial troponin of 68. We are waiting on the 2-hour troponin. EKG showed atrial fibrillation with RVR. Patient was given 10 mg IV push of Cardizem which slowed her heart rate down to the 80s. When this started wearing off she went back up to the 120s. And placed was placed on a Cardizem drip starting off at 5. This was discussed with the patient and as well as Dr. Dudley patient will be placed in CSU and we will get a CT exam exam of the chest. Differential Diagnosis Likely acute respiratory failure; Unlikely acute massive pulmonary embolism, cardiac arrest or sudden cardiac Medical Records I reviewed the patient's medical records. Lab Data I reviewed the patient's lab results. 11/10/22 12:24 11/10/22 12:24 Radiology Impressions Chest X-Ray 11/10/22 11:29 IMPRESSION: 1. Cardiomegaly with elevated central venous pressure and small bibasilar pleural effusions likely cardiogenic in nature. 2. Diffuse lower lobe airspace disease, nonspecific as discussed above. Laboratory Results WBC 2.8 10^3/uL (4.0-10.0) L 11/10/22 12:24 Corrected WBC Cancelled 11/10/22 11:44 RBC 3.08 10^6/uL (4.1-5.3) L 11/10/22 12:24 Hgb 10.5 g/dL (11.5-15.3) L 11/10/22 12:24 Hct 34.1 % (37.0-47.0) L 11/10/22 12:24 MCV 110.7 fl (81-99) H 11/10/22 12:24 MCH 34.1 pg (28.0-34.0) H 11/10/22 12:24 MCHC 30.8 g/dL (30.0-36.0) 11/10/22 12:24 RDW 13.7 % (12.1-15.1) 11/10/22 12:24 Plt Count 105 10^3/cmm (130-400) L 11/10/22 12:24 MPV 12.0 fL (7.4-10.4) H 11/10/22 12:24 Gran % Cancelled 11/10/22 11:44 Neut % (Auto) 40.4 % 11/10/22 12:24 Lymph % (Auto) 38.1 % 11/10/22 12:24 [place] % (Auto) 15.8 % 11/10/22 12:24 Eos % (Auto) 3.6 % 11/10/22 12:24 Baso % (Auto) 1.4 % 11/10/22 12:24 Neut # (Auto) 1.12 10^3/uL (1.8-7.7) L 11/10/22 12:24 Lymph # (Auto) 1.1 10^3/uL (0.8-4.8) 11/10/22 12:24 [place] # (Auto) 0.4 10^3/uL (0.2-0.9) 11/10/22 12:24 Eos # (Auto) 0.1 10^3/uL (0.0-0.8) 11/10/22 12:24 Baso # (Auto) 0.0 10^3/uL (0.0-0.1) 11/10/22 12:24 Absolute Gran (auto) Cancelled 11/10/22 11:44 Nucleated RBC % (auto) 0 % 11/10/22 12:24 Nucleated RBCs # 0.0 /100WBC 11/10/22 12:24 PT 14.80 SECONDS (12.1-14.9) 11/10/22 12:24 INR 1.12 (0.8-1.2) 11/10/22 12:24 Sodium 138 mmol/L (136-145) 11/10/22 12:24 Potassium 3.6 mmol/L (3.5-5.1) 11/10/22 12:24 Chloride 99 mmol/L (98-107) 11/10/22 12:24 Carbon Dioxide 29 mmol/L (22-29) 11/10/22 12:24 Anion Gap 13.6 (5-19) 11/10/22 12:24 BUN 11 mg/dL (8-23) 11/10/22 12:24 Creatinine 1.8 mg/dL (0.5-0.9) H 11/10/22 12:24 GFR Calculation Not Reportable 11/10/22 12:24 Glucose 90 mg/dL (65-115) 11/10/22 12:24 Calculated Osmolality 285 mOsm/kg (285-295) 11/10/22 12:24 Calcium 8.8 mg/dL (8.5-10.5) 11/10/22 12:24 Phosphorus 1.7 mg/dL (2.5-4.5) L 11/10/22 12:24 Magnesium 1.8 mg/dL (1.7-2.3) 11/10/22 12:24 Total Bilirubin 0.6 mg/dL (0.15-1.2) 11/10/22 12:24 AST 20 U/L (0-32) 11/10/22 12:24 ALT 7 U/L (0-33) 11/10/22 12:24 Alkaline Phosphatase 62 U/L (35-105) 11/10/22 12:24 Troponin T Baseline 68 ng/L (0-10) H 11/10/22 12:24 Total Protein 5.5 g/dL (6.6-8.7) L 11/10/22 12:24 Albumin 3.6 g/dL (3.5-5.2) 11/10/22 12:24 Globulin 1.9 g/dL (1.3-4.6) 11/10/22 12:24 EKG Data EKG 1: I personally reviewed and interpreted this EKG as follows: EKG interpretation date: 11/10/22 EKG interpretation time: 11:34 Prior EKG tracings: not available for review Interpretation: EKG showed atrial fibrillation with rapid ventricular response, ventricular rate of 117, left bundle branch block, QRS duration 145, QTc of 442, EKG 2: I personally reviewed and interpreted this EKG as follows: EKG interpretation date: 11/10/22 EKG interpretation time: 13:40 Prior EKG tracings: available for review Interpretation: EKG showed atrial fibrillation with a ventricular rate of 98 bpm, left bundle branch block, QRS duration 150, QTc of 436, Discharge Plan Discharge Patient Disposition: Admitted As Inpatient Clinical Impression: Atrial fibrillation with rapid ventricular response, Acute dyspnea, Chronic kidney disease with end stage renal disease on dialysis due to type 2 diabetes mellitus Condition: Stable Prescriptions: No Action furosemide 20 mg tablet 20 mg PO DAILY levothyroxine 125 mcg tablet 125 mcg PO DAILY omeprazole 20 mg capsule,delayed release(DR/EC) 20 mg PO BID flaxseed oil 1,000 mg capsule 1,000 mg PO DAILY cholecalciferol (vitamin D3) 25 mcg (1,000 unit) tablet 1,000 unit PO DAILY aspirin [Adult Low Dose Aspirin] 81 mg tablet,delayed release (DR/EC) 81 mg PO DAILY PreserVision Lutein 226 mg-200 unit -5 mg-0.8 mg capsule 1 cap PO BID isosorbide mononitrate 60 mg tablet extended release 24 hr See Rx Instructions .ROUTE .COMPLEX Qty: 180 3RF Dose Instruction: TAKE ONE TABLET BY MOUTH EVERY 12 HOURS Rx Instructions: TAKE ONE TABLET BY MOUTH EVERY 12 HOURS metoprolol tartrate 50 mg tablet 50 mg PO BID Qty: 180 3RF lovastatin 20 mg tablet 40 mg PO DAILY Fish Oil 300-1,000 mg Capsule,Delayed Release(Dr/Ec) 1 cap PO DAILY hydralazine 25 mg tablet 25 mg PO TID Qty: 90 3RF Referrals: Yvette Pickens MD [Primary Care Provider] - Coding Level of Care Code ED Manager [employer] for Chg Sowmya
[2022-11-10 12:32] LABS: Basophils % 1.4 %; Eosinophils # 0.1 10^3/uL (0.0-0.8); Eosinophils % 3.6 %; Hematocrit 34.1 % (37.0-47.0); Hemoglobin 10.5 g/dL (11.5-15.3); Lymphocytes # 1.1 10^3/uL (0.8-4.8); Lymphocytes % 38.1 %; Mean Corpuscular HGB Conc 30.8 g/dL (30.0-36.0); Mean Corpuscular Hemoglobin 34.1 pg (28.0-34.0); Mean Corpuscular Volume 110.7 fl (81-99); Monocytes # 0.4 10^3/uL (0.2-0.9); Monocytes % 15.8 %; Neutrophils # 1.12 10^3/uL (1.8-7.7); Neutrophils % 40.4 %; Nucleated Red Blood Cells % 0 %; Platelet Count 105 10^3/cmm (130-400); Red Blood Count 3.08 10^6/uL (4.1-5.3); Red Cell Distribution Width 13.7 % (12.1-15.1); White Blood Count 2.8 10^3/uL (4.0-10.0)
[2022-11-10 12:44] LABS: INR 1.12 (0.8-1.2)
[2022-11-10 12:53] LABS: Alanine Aminotransferase 7 U/L (0-33); Albumin Level 3.6 g/dL (3.5-5.2); Alkaline Phosphatase 62 U/L (35-105); Anion Gap 13.6 (5-19); Aspartate Amino Transferase 20 U/L (0-32); Blood Urea Nitrogen 11 mg/dL (8-23); Calcium 8.8 mg/dL (8.5-10.5); Carbon Dioxide 29 mmol/L (22-29); Chloride 99 mmol/L (98-107); Globulin 1.9 g/dL (1.3-4.6); Glucose 90 mg/dL (65-115); Magnesium 1.8 mg/dL (1.7-2.3); Osmolality Calculated 285 mOsm/kg (285-295); Phosphorus 1.7 mg/dL (2.5-4.5); Potassium 3.6 mmol/L (3.5-5.1); Sodium 138 mmol/L (136-145); Total Bilirubin 0.6 mg/dL (0.15-1.2); Total Protein 5.5 g/dL (6.6-8.7)
[2022-11-10 13:06] LABS: Troponin(5th) Baseline 68 ng/L (0-10)
--- NOTE | 2022-11-10 13:40 | ECG_ITS ---
[facility] Test Date: 2022-11-10 Pat Name: Cecilio Ashton Department: Room: Gender: Female Licensed Marriage And Family Therapist: : [id number] Requested By: Jordin Montelongo Order Number: [id number] Olga MD: Miguel Nguyen M.D. Measurements Intervals [place] Rate: 98 P: 0 DC: 0 QRS: 61 QRSD: 150 T: 67 QT: 380 QTc: 487 Interpretive Statements ATRIAL FIBRILLATION LEFT BUNDLE BRANCH BLOCK [120+ ms QRS DURATION, 80+ ms Q/S IN V1/V2, 85+ ms R IN I/aVL/V5/V6] WARNING: DATA QUALITY MAY AFFECT INTERPRETATION Compared to ECG 11/10/2022 11:34:41 No significant changes Electronically Signed On 11-11-2022 9:47:01 CDT by Miguel Nguyen M.D. [id number]
[2022-11-10] MEDS: dilTIAZem 100 MG in sodium chloride 0.9% (add-van) 100 ML IV (14:26)
--- NOTE | 2022-11-10 14:26 | CTR_ITS ---
PROCEDURE INFORMATION: Exam: CT Chest Without Contrast; Diagnostic Exam date and time: 11/10/2022 2:36 PM Age: 87 years old Clinical indication: Other: Dyspnea, tachycardia, dialysis PT; Prior surgery TECHNIQUE: Imaging protocol: Diagnostic computed tomography of the chest without contrast. Radiation optimization: All CT scans at this facility use at least one of these dose optimization techniques: automated exposure control; mA and/or kV adjustment per patient size (includes targeted exams where dose is matched to clinical indication); or iterative reconstruction. REPORTING DATA: Count of CT and Cardiac NM exams in prior 12 months: This patient has received 2 known CTs and 0 known cardiac nuclear medicine studies in the 12 months prior to the current study. COM[place]: [place] [id number] 01/17/2022 9:33 PM RADIATION DOSE METRICS: Total DLP (mGy-cm): 290.15 FINDINGS: Tubes, catheters and devices: There is a dialysis catheter within the IVC. Metallic artifact from right shoulder prosthesis. Lungs: Interval development of moderate-sized bilateral pleural effusions likely cardiogenic in nature with adjacent passive atelectasis of the lower lung zones. Interval development of 1.7 cm lobulated pulmonary nodule left midlung zone concerning for malignancy. Scattered platelike and subsegmental atelectasis right midlung zone. Pleural spaces: See Lungs finding. Heart: Heart is mild-moderately enlarged, unchanged. Diffuse calcification of coronary arteries. No significant pericardial effusion. Lymph nodes: Scattered small mediastinal lymph nodes, unchanged favoring benign etiology. Vasculature: Diffuse atherosclerotic changes with ectasia tortuosity of the thoracic aorta. No aortic aneurysm. There is a vascular stent within the right subclavian vein. Bones/joints: Unremarkable. No acute fracture. Soft tissues: Unremarkable. CT/CT chest wo con [id number] IMPRESSION: 1. Cardiomegaly with moderate bilateral pleural effusions possibly cardiogenic in nature with adjacent lower lobe atelectasis. 2. Interval development of 1.7 cm pulmonary nodule left midlung zone concerning for bronchogenic malignancy. Consider follow-up CT PET scan for further assessment. 3. Additional findings as above.
[2022-11-10 14:48] LABS: Troponin 5 2HR 81.25 ng/L (0-10)
--- NOTE | 2022-11-10 14:51 | PC.NURSE ---
dr. hopson gave verbal order to decrease cardizem dose to 2.5ml/hr
[2022-11-10 15:00] LABS: Troponin 5 2HR Delta 13.25 ABS# (0-10)
[2022-11-10 17:09] LABS: Glucose Point of Care 101 mg/dL (70-110)
--- NOTE | 2022-11-10 17:19 | PM.HP ---
Providers/Chief Complaint Admitting Physician: Edgar Topete MD Primary Care Provider: Yvette Pickens MD Chief Complaint: Chest Pain History of Present Illness Cecilio Ashton is a 87 year old female with past medical history of CAD with most recent cardiac stress test in 2019 which was negative for acute ischemia on medical management, AAA, CKD on dialysis, hypertension, hyperlipidemia who follows up with Dr. Soliz as an outpatient was brought into the ER today from dialysis center where during dialysis she started having difficulty in breathing and central chest pain. As per patient he has been having difficulty in breathing along with occasional episode of chest pain both at rest and on exertion for last 3 to 4 days. Today while dialysis she had acute shortness of breath along with sensation of palpitations and when seen she was found to be having A-fib with RVR so was brought to the ER. In the ER she was found to be in A-fib with RVR in received 10 mg of IV Cardizem which brought her heart rate down to 90s but in half an hour went back to 120s. She was started on Cardizem drip. Blood work in the ER showed a white count of 2.8, hemoglobin of 10.5, platelet count of 105, sodium 138, creatinine of 1.8, potassium of 3.6, baseline troponin of 68 with a positive delta of [address] chest was done as below. Review of Systems General: Reports: 10 or more systems reviewed and unremarkable except in HPI and below Const: Denies: fever(s), chills, body aches, change in appetite, change in weight, malaise, night sweats, diaphoresis, change in sleep pattern, daytime sleepiness or snoring Eyes: Denies: change in vision, blurry vision, photophobia, eye discomfort or eye discharge ENMT: Denies: throat pain, enlarged tonsils, hoarseness, mouth pain, oral sores, dry mouth, tinnitus, nasal congestion or post nasal drip Card: Denies: chest pain, palpitations, irregular heart rhythm, edema, swelling of feet/ankles, lightheadedness, syncope, pre-syncope, dyspnea on exertion, orthopnea, leg pain with exertion or acrocyanosis Resp: Denies: dyspnea, productive cough, non-productive cough, wheezing, stridor, pain on inspiration, change in phlegm color, hemoptysis or chest congestion GI: Denies: abdominal pain, nausea, vomiting, hematemesis, coffee ground emesis, dysphagia, heartburn, diarrhea, constipation, bloating, GI cramping, change in bowel habits, pain on defecation, hematochezia or melena : Denies: flank pain, dysuria, urinary frequency, urinary urgency, urinary hesitancy, nocturia or hematuria Musc: Denies: neck pain, back pain, extremity pain, joint pain, joint swelling, joint redness, joint stiffness or limited range of motion Neuro: Denies: headache(s), numbness in extremities, weakness in extremities, sensory changes, lack of coordination, difficulty walking, frequent falls, dizziness, vertigo, confusion, Slurred speech present, difficulty communicating thoughts or seizure-like activity Psych: Denies: anxiety, depression, mood swings, panic attacks, hopelessness or irritability Endo: Denies: polyuria, polydipsia, tired all the time, cold intolerance, excessive sweating, flushing or heat intolerance Mike/Lymph: Denies: easy bruising or easy bleeding All/Imm: Denies: tongue swelling, facial swelling or acute wheezing Medications/Allergies Home Medications Medication Instructions Recorded Confirmed Last Taken Type cholecalciferol (vitamin D3) 25 1,000 unit PO DAILY 09/30/19 11/10/22 11/09/22 History mcg (1,000 unit) tablet flaxseed oil 1,000 mg capsule 1,000 mg PO DAILY 09/30/19 11/10/22 11/09/22 History omeprazole 20 mg capsule,delayed 20 mg PO BID 09/30/19 11/10/22 11/09/22 History release aspirin 81 mg tablet,delayed 81 mg PO DAILY 06/20/21 11/10/22 11/10/22 History release (Adult Low Dose Aspirin) lovastatin 20 mg tablet 40 mg PO DAILY 06/20/21 11/10/22 11/09/22 History vit C 226 mg-vit E 90 mg-copper 1 cap PO BID 06/20/21 11/10/22 11/09/22 History 0.8 mg-zinc oxide-lutein 5 mg capsule (PreserVision Lutein) levothyroxine 125 mcg tablet 125 mcg PO DAILY 12/14/21 11/10/22 11/09/22 History omega 9-wxw-dvl-fish oil 300 1 cap PO DAILY 01/18/22 11/10/22 11/09/22 History mg-1,000 mg capsule,delayed release (Fish Oil) hydralazine 25 mg tablet 25 mg PO TID #90 tabs 01/20/22 11/10/22 11/09/22 Rx isosorbide mononitrate 60 mg See Rx Instructions .Route 02/02/22 11/10/22 11/09/22 Rx tablet,extended release 24 hr .COMPLEX #180 tabs metoprolol tartrate 50 mg tablet 50 mg PO BID #180 tabs 05/11/22 11/10/22 11/09/22 Rx ferric citrate 210 mg iron tablet 210 mg PO TID 11/10/22 11/10/22 11/09/22 History (Auryxia) fluticasone propionate 50 2 spray intranasal DAILY PRN Nasal 11/10/22 11/10/22 Unknown History mcg/actuation nasal Congestion spray,suspension vit B,C-folic ac 800 mcg-zinc 12.5 1 tab PO DAILY 11/10/22 11/10/22 11/09/22 History mg-selen-D3 2,000 unit-vit E tablet (RenaPlex-D) Allergies Allergy/AdvReac Type Severity Reaction Status Date / Time amlodipine Allergy Severe Swelling Verified 08/13/22 14:47 clopidogrel [From Plavix] Allergy gi bleed Verified 08/13/22 14:47 oxycodone Allergy can't Verified 08/13/22 14:47 breathe Sulfa (Sulfonamide Allergy cant Verified 08/13/22 14:47 Antibiotics) breathe lisinopril AdvReac cough Verified 08/13/22 14:47 PFSH Acute PFSH: Medical History (Updated 11/10/22 @ 17:42 by Edgar Topete MD) Acute kidney injury superimposed on CKD Bilateral carotid artery stenosis Breast cancer CAD (coronary artery disease) Had the most recent cardiac catheterization in January 2012. She was found to have mild to moderate diffuse coronary artery disease. Most recent myocardial perfusion imaging in 2013. No evidence of ischemia. Diabetes End stage renal disease Hyperlipidemia Hypertension Hypothyroidism 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 Osteopenia Personal history of irradiation Right ureteral stone Rotator cuff arthropathy of right shoulder Subclavian artery stenosis, right UTI (urinary tract infection) Surgical History (Updated 11/10/22 @ 17:21 by Edgar Topete MD) History of appendectomy History of lumpectomy of right breast History of shoulder surgery Hx of cholecystectomy Hx of repair of rotator cuff Hx of shoulder replacement S/P matrixectomy of toe S/P ureteral stent placement Status post reverse arthroplasty of shoulder Family History Other CAD (coronary artery disease) Chronic kidney disease (CKD) Diabetes Family history of premature coronary artery disease Hyperlipidemia Hypertension Lung disease Stroke Social History Smoking and tobacco status: former smoker Alcohol intake: never Substance/Drug Use: never Current occupational status: retired Vitals/I&O/Wt Last Vital Signs Temp 98.2 F 11/10/22 11:14 Pulse 82 11/10/22 15:00 Resp 18 11/10/22 14:30 BP 158/59 11/10/22 15:00 Pulse Ox 100 11/10/22 15:00 O2 Del Method Nasal Cannula 11/10/22 15:00 O2 Flow Rate 2 11/10/22 15:00 11/10/22 11/10/22 11/10/22 06:59 14:59 22:59 Intake Total 2.083 / 2.083 Balance 2.083 / 2.083 Weight last 48 hrs Weight 56.245 kg Physical Exam Narrative: General: No acute distress, AO x3, NC oxygen supplementation, chronically sick appearing, legally blind HEENT: PERRLA, pupils bilaterally equal and reactive Chest:Bronchial breath sounds b/l ,decreased air entry, equal good air entry bilaterally, no more fine basal crackles CVS: S1-S2 irregularly irregular, pansystolic murmur at apex, no tachycardia, no gallops, no rubs Abdomen: Soft, nontender, no organomegaly, bowel sounds present, morbidly obese Neuro: No focal deficits, no facial deformity, AO x3, power 5/5 in all limbs Data 11/10/22 12:24 11/10/22 12:24 A&P Assessment and plan (1) Atrial fibrillation with rapid ventricular response: Currently on Cardizem drip of 2.5. Takes metoprolol 50 mg twice daily at home. Heart rate well controlled. Switch from Cardizem drip to metoprolol 75 mg twice daily. Yasmany vas score 5. Patient would benefit with anticoagulation. Discussed in detail with patient regarding benefits versus demerits. Patient is agreeable. Start on heparin drip for now. (2) SOB (shortness of breath): Most likely in setting of congestive heart failure in setting of atrial fibrillation. Appreciate CT chest. Consistent with pleural effusion and cardiomegaly. No concerns for pneumonia for now. We will continue to monitor. Last echocardiogram from 2015 shows an EF 57% with moderate LVH, grade 1 diastolic dysfunction. Repeat echocardiogram. Check D-dimer. If elevated can plan for CTA. Did not complete dialysis today. Might require repeat dialysis. We will consult nephrology. IV Lasix 60 mg one-time. Monitor blood pressures. (3) Chest pain: History of CAD with nonobstructive findings and angiogram done in 2011. Last stress test from January 2022 negative for acute ischemia. Aspirin 324 mg one-time, followed by 81 mg daily. Continue with home dose of statin and beta-tonia. Check A1c, lipid panel. If regional wall motion abnormality on echocardiogram can repeat stress test. (4) ESRD (end stage renal disease) on dialysis: (5) CAD (coronary artery disease): Qualifiers: Associated angina: without angina Coronary Disease-Associated Artery/Lesion type: [place] artery [place] vs. transplanted heart: [place] heart Qualified Code(s): I25.10 - Atherosclerotic heart disease of [place] coronary artery without angina pectoris (6) Hypertension: Qualifiers: Hypertension type: essential hypertension Qualified Code(s): I10 - Essential (primary) hypertension (7) Hyperlipidemia: Qualifiers: Hyperlipidemia type: mixed hyperlipidemia Qualified Code(s): E78.2 - Mixed hyperlipidemia Plan CODE STATUS: Discussed in detail with the patient. She would want to be full code. Renal dialysis diet. Heparin drip will suffice for DVT prophylaxis Protonix OPD prophylaxis. Attestations Medical Necessity Statement*: Admission for more than 2 midnights for management of atrial fibrillation with rapid ventricular response, congestive heart failure, chest pain while CAD is ruled out Diagnoses Atrial fibrillation with rapid ventricular response I48.91 SOB (shortness of breath) R06.02 Chest pain R07.9 ESRD (end stage renal disease) on dialysis N18.6; Z99.2 CAD (coronary artery disease) I25.10 Associated angina: without angina Coronary Disease-Associated Artery/Lesion type: [place] artery [place] vs. transplanted heart: [place] heart Hypertension I10 Hypertension type: essential hypertension Hyperlipidemia E78.2 Hyperlipidemia type: mixed hyperlipidemia
--- NOTE | 2022-11-10 17:29 | ECG_ITS ---
[facility] Test Date: 2022-11-10 Pat Name: Cecilio Ashton Department: Room: 105 Gender: Female Ambulatory Care Nurse: : 1935 Requested By: Jordin Montelongo Order Number: [id number] Reading MD: Miguel Nguyen M.D. Measurements Intervals [place] Rate: P: 0 SC: 0 QRS: 0 QRSD: 0 T: 0 QT: 0 QTc: 0 Interpretive Statements NO FURTHER INTERPRETATION POSSIBLE ATYPICAL ECG WARNING: DATA QUALITY MAY AFFECT INTERPRETATION Compared to ECG 11/10/2022 13:40:45 Atrial fibrillation no longer present Left bundle-branch block no longer present Electronically Signed On 11-11-2022 9:47:33 CDT by Miguel Nguyen M.D. [id number]
[2022-11-10 18:04] LABS: Procalcitonin 0.21 ng/mL (0-0.5); Thyroid Stimulating Hormone 3.74 uIU/mL (0.27-4.20); Vitamin B12 924 pg/mL (232-1245)
[2022-11-10] MEDS: heparin drip 25,000 UNIT/500 ML PREMIX 19.12 UNIT IV (18:27)
[2022-11-10] MEDS: FUROsemide 10 mg/mL SDV 10mL 60 MG IVP (18:27)
[2022-11-10] MEDS: isosorbide mononitrate ER 60 mg Tablet PO (18:28)
[2022-11-10] MEDS: metoprolol tartrate 50 mg Tablet 75 MG PO (18:28)
[2022-11-10] MEDS: aspirin 325 mg EC Tablet PO (18:28)
[2022-11-10] MEDS: pantoprazole DR 40 mg Tablet PO (18:31)
[2022-11-10 19:02] LABS: D Dimer 1.53 ug/mIFEU (0-0.59)
[2022-11-10 19:10] LABS: Troponin 5 6HR 123.8 ng/L (0-10)
[2022-11-10 19:12] LABS: Troponin 5 6HR Delta 55.8 ng/L (0-12)
[2022-11-10] MEDS: acetaminophen 325 mg Tablet 650 MG PO (20:46)
[2022-11-10 20:55] LABS: Folate Level > 20.0 ng/mL (4.8-37.3)
--- NOTE | 2022-11-10 22:50 | ECG_ITS ---
[facility] Test Date: 2022-11-10 Pat Name: Cecilio Ashton Department: Room: 105 Gender: Female Rn Neonatal Icu: : 1935 Requested By: Edgar Topete Order Number: [id number] Olga MD: Miguel Nguyen M.D. Measurements Intervals [place] Rate: 65 P: 20 CT: 156 QRS: 26 QRSD: 158 T: 75 QT: 464 QTc: 483 Interpretive Statements SINUS RHYTHM LEFT BUNDLE BRANCH BLOCK [120+ ms QRS DURATION, 80+ ms Q/S IN V1/V2, 85+ ms R IN I/aVL/V5/V6] Compared to ECG 11/10/2022 17:42:43 Left bundle-branch block now present Electronically Signed On 11-11-2022 9:48:04 CDT by Miguel Nguyen M.D. [id number]
[2022-11-11] VITALS (12 sets, daily range): BP systolic 149–185; BP diastolic 52–70; PULSE 60–81; RESP 16–22; TEMP 36.6–37; O2SAT 90–100
[2022-11-11 01:23] LABS: Partial Thromboplastin Time 147.7 SECONDS (23.9-36.7)
[2022-11-11 04:02] LABS: Basophils # 0.1 10^3/uL (0.0-0.1); Basophils % 1.8 %; Eosinophils # 0.4 10^3/uL (0.0-0.8); Hematocrit 33.3 % (37.0-47.0); Lymphocytes # 1.2 10^3/uL (0.8-4.8); Lymphocytes % 42.4 %; Mean Corpuscular Hemoglobin 33.7 pg (28.0-34.0); Mean Corpuscular Volume 112.1 fl (81-99); Mean Platelet Volume 11.1 fL (7.4-10.4); Monocytes # 0.5 10^3/uL (0.2-0.9); Monocytes % 17.4 %; Nucleated Red Blood Cells % 0 %; Platelet Count 113 10^3/cmm (130-400); Red Blood Count 2.97 10^6/uL (4.1-5.3); Red Cell Distribution Width 13.8 % (12.1-15.1); White Blood Count 2.8 10^3/uL (4.0-10.0)
[2022-11-11 04:26] LABS: Neutrophils # 0.69 10^3/uL (1.8-7.7)
[2022-11-11 04:29] LABS: Troponin T (5th) Once 132 ng/L (0-10)
[2022-11-11 04:32] LABS: Procalcitonin 0.26 ng/mL (0-0.5)
[2022-11-11 04:34] LABS: Alanine Aminotransferase 8 U/L (0-33); Albumin Level 3.3 g/dL (3.5-5.2); Alkaline Phosphatase 55 U/L (35-105); Anion Gap 14.3 (5-19); Aspartate Amino Transferase 20 U/L (0-32); Blood Urea Nitrogen 18 mg/dL (8-23); Carbon Dioxide 27 mmol/L (22-29); Chloride 102 mmol/L (98-107); Chol HDL Ratio 2.01 mg/dL (0.0-4.40); Cholesterol 157 mg/dL (0-200); Creatinine Clr Calc Pharmacy 15.4222; Globulin 1.9 g/dL (1.3-4.6); Glucose 83 mg/dL (65-115); HDL Cholesterol 78 mg/dL (60-100); LDL Cholesterol Calculated 63 mg/dL (50-129); LDL HDL Ratio 0.81 RATIO (0.00-3.22); Magnesium 1.9 mg/dL (1.7-2.3); Osmolality Calculated 291 mOsm/kg (285-295); Phosphorus 2.7 mg/dL (2.5-4.5); Potassium 3.3 mmol/L (3.5-5.1); Sodium 140 mmol/L (136-145); Total Bilirubin 0.4 mg/dL (0.15-1.2); Total Protein 5.2 g/dL (6.6-8.7); Triglycerides 81 mg/dL (0-150)
[2022-11-11] MEDS: levothyroxine 125 mcg Tablet PO (05:57)
--- NOTE | 2022-11-11 06:00 | USCV_ITS ---
Cecilio Ashton Age: 87 Gender: F : 1935 Exam Date: 11/11/2022 09:20 Ordering Phys: Edgar Topete MD Technologist: SALOME [place] [facility] [place]: cad afib BP: / HR: 55 Rhythm: Sinus Technical Quality: Adequate MEASUREMENTS (Male / Female) Normal Values 2D ECHO LV Diastolic Diameter PLAX 4.3 cm 4.2 - 5.9 / 3.9 - 5.3 cm LV Systolic Diameter PLAX 3.2 cm IVS Diastolic Thickness 1.0 cm 0.6 - 1.0 / 0.6 - 0.9 cm IVS Systolic Thickness 1.4 cm LVPW Diastolic Thickness 1.0 cm 0.6 - 1.0 / 0.6 - 0.9 cm LVPW Systolic Thickness 1.9 cm LVOT Diameter 2.4 cm LV Ejection Fraction 2D Teich 50.1 % LV Ejection Fraction MOD 2C 40.7 % LV Ejection Fraction 2C AL 39.0 % LA Diameter 4.0 cm IVC Diameter 2.3 cm M-MODE Aortic Annulus Diameter 3.0 cm LA Ao Ratio MM 1.5 MV E Point Septal Separation 0.5 cm DOPPLER AV Peak Velocity 163.0 cm/s LVOT Peak Velocity 124.0 cm/s AV Area Cont Eq vti 3.1 cm squared AV Area Cont Eq pk 3.3 cm squared MV Area PHT 7.9 cm squared MV E' Velocity 85.5 cm/s Mitral E to MV E' Ratio 20.5 Mitral E to LV E' Lateral Ratio 13.9 Mitral E to LV E' Septal Ratio 40.0 TR Peak Velocity 181.0 cm/s TR Peak Gradient 13.1 mmHg TV Peak E Velocity 56.0 cm/s Right Atrial Pressure 3.0 mmHg Pulmonary Artery Systolic Pressu 16.1 mmHg PV Peak Velocity 155.0 cm/s FINDINGS Left Ventricle Normal left ventricular cavity size. Moderate left ventricular hypertrophy. Normal left ventricular systolic function. Left ventricular ejection fraction is estimated at 50 %. No regional wall motion abnormalities. Grade II/IV diastolic dysfunction, moderately elevated filling pressures. Right Ventricle Normal right ventricular size and systolic function. Normal right ventricular systolic pressure. Right Atrium The right atrium is normal in size. Left Atrium The left atrium is normal in size. Mitral Valve Structurally normal mitral valve. Mild mitral valve regurgitation. Aortic Valve Structurally normal trileaflet aortic valve. Trace aortic valve regurgitation. No aortic valve stenosis. Tricuspid Valve Structurally normal tricuspid valve without significant stenosis or regurgitation. Pulmonary artery systolic pressure is normal. Pulmonic Valve Pulmonic valve not well visualized. Pericardium Normal pericardium without effusion. Aorta Normal ascending aorta dimension. IVC The inferior vena cava appears normal. CONCLUSIONS Normal left ventricular cavity size. Moderate left ventricular hypertrophy. Normal left ventricular systolic function. Left ventricular ejection fraction is estimated at 50 %. No regional wall motion abnormalities. Grade II/IV diastolic dysfunction, moderately elevated filling pressures. Structurally normal mitral valve. Mild mitral valve regurgitation. Structurally normal trileaflet aortic valve. Trace aortic valve regurgitation. No aortic valve stenosis. No change from the previous studies dated 12/22/2015 and 11/01/2010. Dr. Miguel Nguyen MD (Electronically Signed) Final Date: 12 November 2022 07:41 S
[2022-11-11 06:13] LABS: Add Urine Microscopic? YES; Bilirubin Urine Neg (Negative); Blood Urine Neg (Negative); Glucose Urine UA Norm (Normal); Ketones Urine Negative (Negative); Leukocyte Esterase Urine Negative (Negative); Nitrate Urine Negative (Negative); Protein Urine 1+ (Negative); Specific Gravity, Urine 1.005 (1.005-1.030); Urine Appearance Clear (CLEAR); Urine Color Yellow (Yellow); Urobilinogen Urine Norm (Negative); pH Urine 5 (5-7)
[2022-11-11 06:14] LABS: RBC Urine 0-4 /hpf (0-2); Squamous Epithelial Cell Urine 0-4 /hpf (0-5)
[2022-11-11 06:15] LABS: Add Urine Culture? Yes; Bacteria Urine 2+ /hpf
[2022-11-11 07:51] LABS: Estmated Average Glucose 68
[2022-11-11] MEDS: aspirin 81 mg EC Tablet PO (08:42)
[2022-11-11] MEDS: atorvastatin 40 mg Tablet 20 MG PO (08:43)
[2022-11-11] MEDS: metoprolol tartrate 50 mg Tablet 75 MG PO ×2 (08:43→18:16)
[2022-11-11] MEDS: pantoprazole DR 40 mg Tablet PO ×2 (08:44→18:17)
[2022-11-11] MEDS: isosorbide mononitrate ER 60 mg Tablet PO ×2 (08:44→18:17)
[2022-11-11 08:45] LABS: Partial Thromboplastin Time 102.7 SECONDS (23.9-36.7)
[2022-11-11] MEDS: hyDRALAzine 25 mg Tablet PO (10:04)
--- NOTE | 2022-11-11 10:38 | P.CONIM_ITS ---
Providers/Reason For Consult Consulting Physician/Specialty*: rama hinojosa md / telenephrology Reason for Consult*: ESRD pt Requesting Physician: DR Rivera Attending Physician: Edgar Topete MD Primary Care Provider: Yvette Pickens MD History of Present Illness History of Present Illness Cecilio Ashton is a 87 year old female w/ CAD, AAA, ESRD on HD TTS, htn, hyperlipidemia. Pt presented from dialysis yesterday w/ SOB- found to be in a fib w/ RVR. she was started on a cardizem drip. CT revealed pleural effusions. renal is called for ESRD care Review of Systems Narrative: sob, cp, palps, orthopnea, ELIZABETH, weak, nausea Medications/Allergies Home Medications Medication Instructions Recorded Confirmed Last Taken Type cholecalciferol (vitamin D3) 25 1,000 unit PO DAILY 09/30/19 11/10/22 11/09/22 History mcg (1,000 unit) tablet flaxseed oil 1,000 mg capsule 1,000 mg PO DAILY 09/30/19 11/10/22 11/09/22 History omeprazole 20 mg capsule,delayed 20 mg PO BID 09/30/19 11/10/22 11/09/22 History release aspirin 81 mg tablet,delayed 81 mg PO DAILY 06/20/21 11/10/22 11/10/22 History release (Adult Low Dose Aspirin) lovastatin 20 mg tablet 40 mg PO DAILY 06/20/21 11/10/22 11/09/22 History vit C 226 mg-vit E 90 mg-copper 1 cap PO BID 06/20/21 11/10/22 11/09/22 History 0.8 mg-zinc oxide-lutein 5 mg capsule (PreserVision Lutein) levothyroxine 125 mcg tablet 125 mcg PO DAILY 12/14/21 11/10/22 11/09/22 History omega 5-ois-jhz-fish oil 300 1 cap PO DAILY 01/18/22 11/10/22 11/09/22 History mg-1,000 mg capsule,delayed release (Fish Oil) hydralazine 25 mg tablet 25 mg PO TID #90 tabs 01/20/22 11/10/22 11/09/22 Rx isosorbide mononitrate 60 mg See Rx Instructions .Route 02/02/22 11/10/2223 Rx tablet,extended release 24 hr .COMPLEX #180 tabs metoprolol tartrate 50 mg tablet 50 mg PO BID #180 tabs 05/11/22 11/10/22 11/09/22 Rx ferric citrate 210 mg iron tablet 210 mg PO TID 11/10/22 11/10/22 11/09/22 History (Auryxia) fluticasone propionate 50 2 spray intranasal DAILY PRN Nasal 11/10/22 11/10/22 Unknown History mcg/actuation nasal Congestion spray,suspension vit B,C-folic ac 800 mcg-zinc 12.5 1 tab PO DAILY 11/10/22 11/10/22 11/09/22 History mg-selen-D3 2,000 unit-vit E tablet (RenaPlex-D) Allergies Allergy/AdvReac Type Severity Reaction Status Date / Time amlodipine Allergy Severe Swelling Verified 08/13/22 14:47 clopidogrel [From Plavix] Allergy gi bleed Verified 08/13/22 14:47 oxycodone Allergy can't Verified 08/13/22 14:47 breathe Sulfa (Sulfonamide Allergy cant Verified 08/13/22 14:47 Antibiotics) breathe lisinopril AdvReac cough Verified 08/13/22 14:47 Current Medications Generic Name Dose Route Start Last Admin Trade Name Freq PRN Reason Stop Dose Admin Acetaminophen 650 mg 11/10/22 17:21 11/10/22 20:46 Acetaminophen 325 Mg Tablet PO 650 mg Q6H PRN Administration Mild/Mod Pain Or Temp >/= 101 Aspirin 81 mg 11/11/22 09:00 11/11/22 08:42 Aspirin 81 Mg Ec Tablet PO 81 mg DAILY EMMA Administration Atorvastatin Calcium 20 mg 11/11/22 09:00 11/11/22 08:43 Atorvastatin 40 Mg Tablet PO 20 mg DAILY EMMA Administration Hydralazine HCl 25 mg 11/11/22 09:30 11/11/22 10:04 Hydralazine 25 Mg Tablet PO 25 mg TID EMMA Administration Heparin Sodium/Sodium Chloride 25,000 unit in 500 mls @ 0 mls/hr 11/10/22 17:30 11/11/22 09:06 Heparin Drip IV 8 unit/kg/hr .Q0M EMMA 9 mls/hr Titration Protocol Per Protocol Isosorbide Mononitrate 60 mg 11/11/22 09:00 11/11/22 08:44 Isosorbide Mononitrate Er 60 Mg Tablet PO 60 mg BID EMMA Administration Levothyroxine Sodium 125 mcg 11/11/22 06:00 11/11/22 05:57 Levothyroxine 125 Mcg Tablet PO 125 mcg 0600 EMMA Administration Metoprolol Tartrate 75 mg 11/10/22 18:00 11/11/22 08:43 Metoprolol Tartrate 50 Mg Tablet PO 75 mg BID EMMA Administration Pantoprazole Sodium 40 mg 11/10/22 18:00 11/11/22 08:[address] 40 Mg Tablet PO 40 mg BID EMMA Administration PFSH Acute PFSH: Medical History (Updated 11/10/22 @ 17:42 by Edgar Topete MD) Acute kidney injury superimposed on CKD Bilateral carotid artery stenosis Breast cancer CAD (coronary artery disease) Had the most recent cardiac catheterization in January 2012. She was found to have mild to moderate diffuse coronary artery disease. Most recent myocardial perfusion imaging in 2013. No evidence of ischemia. Diabetes End stage renal disease Hyperlipidemia Hypertension Hypothyroidism 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 Osteopenia Personal history of irradiation Right ureteral stone Rotator cuff arthropathy of right shoulder Subclavian artery stenosis, right UTI (urinary tract infection) Surgical History (Updated 11/10/22 @ 17:21 by Edgar Topete MD) History of appendectomy History of lumpectomy of right breast History of shoulder surgery Hx of cholecystectomy Hx of repair of rotator cuff Hx of shoulder replacement S/P matrixectomy of toe S/P ureteral stent placement Status post reverse arthroplasty of shoulder Family History Other CAD (coronary artery disease) Chronic kidney disease (CKD) Diabetes Family history of premature coronary artery disease Hyperlipidemia Hypertension Lung disease Stroke Social History Smoking and tobacco status: former smoker Alcohol intake: never Substance/Drug Use: never Current occupational status: retired Vitals/I&O/Wt Last Vital Signs Temp 98.0 F 11/11/22 08:00 Pulse 77 11/11/22 08:00 Resp 22 H 11/11/22 08:00 BP 185/70 11/11/22 08:00 Pulse Ox 94 11/11/22 08:00 O2 Del Method Nasal Cannula 11/11/22 07:42 O2 Flow Rate 2 11/11/22 07:42 11/10/22 11/11/22 11/11/22 22:59 06:59 14:59 Intake Total 130.516 / 132.599 310.783 / 443.382 458.583 / 458.583 Output Total 0 / 0 200 / 200 Balance 130.516 / 132.599 310.783 / 443.382 258.583 / 258.583 Weight last 48 hrs Weight 58.74 kg Weight 58.06 kg Weight 56.245 kg Physical Exam Narrative: BP elevated, sob in bed on nc02 heent- nc/at, eomi neck + jvp, supple lungs dull heart reg, + s1, s2 abd soft, nt, nd, + bns ext 1+ edema RUE edema and groin shily/permacath neuro- a,a, o x 2+ Data 11/11/22 03:30 11/11/22 03:30 A&P Assessment and plan (1) ESRD (end stage renal disease) on dialysis: 87 yr old female 1. a fib w/ RVR- control per medicine 2. ESRD and SOB- will do extra SUF for 2.5 hrs, remove 2.5 l as tolerated 3. hgb okay 4. leukopenia per medicine 5. replete k 6. +trop per medicine/ cardiology 7. BNP 23576- monitor w/ dialysis time spent 50+ min seen and examined w/ RN telehealth visit -informed consent for dialysis and telehealth obtained from the pt Plan see above Consult Attestations Medical Necessity Statement: esrd, cad, a fib, sob, chf Time Spent in Patient Care: Greater than 35 minutes (>than 50% of time spent in counselling and/or direct pt care on unit) . Coding Level of Care Code Acute Code for Chg Fwd Diagnoses ESRD (end stage renal disease) on dialysis N18.6; Z99.2
[2022-11-11 11:31] LABS: Hepatitis B Surface Antigen Non-Reactive (Nonreactive)
[2022-11-11 11:33] LABS: Hepatitis C Virus Antibody Non-Reactive (Nonreactive)
--- NOTE | 2022-11-11 14:01 | PM.PN ---
Subjective Subjective: No acute events overnight. Patient denies any nausea, vomiting, headache. States breathing is okay though on examination does look a slightly out of breath. Blood pressure slightly on the higher side. On 2 L oxygen supplementation saturating more than 95%. Denies any chest pain. Cardizem drip was switched of yesterday evening after rate was controlled. Vitals/I&O/Wt Last Vital Signs Temp 98.1 F 11/11/22 11:15 Pulse 66 11/11/22 11:15 Resp 18 11/11/22 11:15 BP 158/60 11/11/22 11:15 Pulse Ox 98 11/11/22 11:15 O2 Del Method Nasal Cannula 11/11/22 11:15 O2 Flow Rate 2 11/11/22 07:42 11/10/22 11/11/22 11/11/22 22:59 06:59 14:59 Intake Total 130.516 / 132.599 310.783 / 443.382 698.583 / 698.583 Output Total 0 / 0 200 / 200 Balance 130.516 / 132.599 310.783 / 443.382 498.583 / 498.583 Weight last 48 hrs Weight 58.74 kg Weight 58.06 kg Weight 56.245 kg Physical Exam Narrative: General: No acute distress, AO x3, NC oxygen supplementation, chronically sick appearing, legally blind HEENT: PERRLA, pupils bilaterally equal and reactive Chest:Bronchial breath sounds b/l ,decreased air entry, equal good air entry bilaterally, no more fine basal crackles CVS: S1-S2 irregularly irregular, pansystolic murmur at apex, no tachycardia, no gallops, no rubs Abdomen: Soft, nontender, no organomegaly, bowel sounds present, morbidly obese Neuro: No focal deficits, no facial deformity, AO x3, power 5/5 in all limbs Data 11/11/22 03:30 11/11/22 03:30 A&P Assessment and plan (1) Atrial fibrillation with rapid ventricular response: Rate controlled. Continue with metoprolol 75 mg twice daily. Yasmany vas score 5. Patient would benefit with anticoagulation. Discussed in detail with patient regarding benefits versus demerits. Patient is agreeable. Start on heparin drip for now. (2) SOB (shortness of breath): Most likely in setting of congestive heart failure in setting of atrial fibrillation along with non-ST elevation SC. Appreciate CT chest. Consistent with pleural effusion and cardiomegaly. No concerns for pneumonia for now. We will continue to monitor. Last echocardiogram from 2015 shows an EF 57% with moderate LVH, grade 1 diastolic dysfunction. Repeat echocardiogram still pending. D-dimer negative for age. Did not complete dialysis today. Might require repeat dialysis. Getting repeat dialysis today. Monitor blood pressures. (3) Non-ST elevation (NSTEMI) myocardial infarction: History of CAD with nonobstructive findings and angiogram done in 2011. Last stress test from January 2022 negative for acute ischemia. Continue with aspirin 81 mg oral daily, statin and beta-tonia. A1c 4, lipid panel appreciated. Echocardiogram awaited. Given recent cardiac stress test and positive troponin cycle we will consult cardiology for further recommendation and possible cardiac angiogram. (4) ESRD (end stage renal disease) on dialysis: (5) CAD (coronary artery disease): Qualifiers: Coronary Disease-Associated Artery/Lesion type: [place] artery [place] vs. transplanted heart: [place] heart Associated angina: without angina Qualified Code(s): I25.10 - Atherosclerotic heart disease of [place] coronary artery without angina pectoris (6) Hypertension: Qualifiers: Hypertension type: essential hypertension Qualified Code(s): I10 - Essential (primary) hypertension (7) Hyperlipidemia: Qualifiers: Hyperlipidemia type: mixed hyperlipidemia Qualified Code(s): E78.2 - Mixed hyperlipidemia (8) Chest pain: Plan CODE STATUS: Discussed in detail with the patient. She would want to be full code. Renal dialysis diet. Heparin drip will suffice for DVT prophylaxis Protonix OPD prophylaxis. Attestations Medical Necessity Statement*: Requires further hospitalization for management of shortness of breath in setting of congestive heart failure, non-ST elevation SC, atrial fibrillation with rapid ventricular response while patient requires further ACS work-up Diagnoses Atrial fibrillation with rapid ventricular response I48.91 SOB (shortness of breath) R06.02 Non-ST elevation (NSTEMI) myocardial infarction I21.4 ESRD (end stage renal disease) on dialysis N18.6; Z99.2 CAD (coronary artery disease) I25.10 Coronary Disease-Associated Artery/Lesion type: [place] artery [place] vs. transplanted heart: [place] heart Associated angina: without angina Hypertension I10 Hypertension type: essential hypertension Hyperlipidemia E78.2 Hyperlipidemia type: mixed hyperlipidemia Chest pain R07.9
[2022-11-11 14:50] LABS: Reticulocyte % 1.4 % (0.5-2.0)
[2022-11-11 15:07] LABS: LAB Peripheral Smear Sent for Review
[2022-11-11 15:17] LABS: Lactate Dehydrogenase 176 U/L (135-214)
[2022-11-11 15:18] LABS: Partial Thromboplastin Time 85.4 SECONDS (23.9-36.7)
[2022-11-11 22:38] LABS: Partial Thromboplastin Time 75.5 SECONDS (23.9-36.7)
[2022-11-11 23:47] LABS: Adenovirus Not Detected (NOT DETECT); Chlamydia Pneumoniae Not Detected (NOT DETECT); Coronavirus 229E,HKU1,NL63,OC4 Not Detected (NOT DETECT); Human Metapneumovirus Not Detected (NOT DETECT); Human Rhinovirus/Enterovirus Not Detected (NOT DETECT); Influenza A Not Detected (NOT DETECT); Influenza A H1 Not Detected (NOT DETECT); Influenza A H1-2009 Not Detected (NOT DETECT); Influenza A H3 Not Detected (NOT DETECT); Influenza B Not Detected (NOT DETECT); Mycoplasma Pneumoniae Not Detected (NOT DETECT); Parainfluenza Virus Type 1 Not Detected (NOT DETECT); Parainfluenza Virus Type 2 Not Detected (NOT DETECT); Parainfluenza Virus Type 3 Not Detected (NOT DETECT); Parainfluenza Virus Type 4 Not Detected (NOT DETECT); Respiratory Syncytial Virus A Not Detected (NOT DETECT); Respiratory Syncytial Virus B Not Detected (NOT DETECT); SARS-COV-2 Not Detected (NOT DETECT)
[2022-11-12] VITALS (12 sets, daily range): BP systolic 142–179; BP diastolic 55–68; PULSE 64–81; RESP 16–20; TEMP 36.6–36.8; O2SAT 96–100; BMI 25.4
[2022-11-12] MEDS: levothyroxine 125 mcg Tablet PO (05:08)
[2022-11-12 05:38] LABS: Basophils % 1.1 %; Eosinophils # 0.3 10^3/uL (0.0-0.8); Eosinophils % 11.7 %; Hematocrit 32.6 % (37.0-47.0); Hemoglobin 10.1 g/dL (11.5-15.3); Lymphocytes # 0.9 10^3/uL (0.8-4.8); Mean Corpuscular Hemoglobin 34.1 pg (28.0-34.0); Mean Corpuscular Volume 110.1 fl (81-99); Mean Platelet Volume 11.9 fL (7.4-10.4); Monocytes # 0.4 10^3/uL (0.2-0.9); Neutrophils % 36.8 %; Nucleated Red Blood Cells % 0 %; Platelet Count 109 10^3/cmm (130-400); Red Blood Count 2.96 10^6/uL (4.1-5.3); Red Cell Distribution Width 13.7 % (12.1-15.1); White Blood Count 2.7 10^3/uL (4.0-10.0)
[2022-11-12 05:45] LABS: Partial Thromboplastin Time 28.1 SECONDS (23.9-36.7)
[2022-11-12 05:57] LABS: Alanine Aminotransferase 7 U/L (0-33); Albumin Level 3.3 g/dL (3.5-5.2); Alkaline Phosphatase 65 U/L (35-105); Anion Gap 10.4 (5-19); Aspartate Amino Transferase 17 U/L (0-32); Blood Urea Nitrogen 28 mg/dL (8-23); Calcium 9.3 mg/dL (8.5-10.5); Carbon Dioxide 29 mmol/L (22-29); Chloride 100 mmol/L (98-107); Globulin 1.9 g/dL (1.3-4.6); Glucose 106 mg/dL (65-115); Osmolality Calculated 288 mOsm/kg (285-295); Potassium 3.4 mmol/L (3.5-5.1); Sodium 136 mmol/L (136-145); Total Bilirubin 0.3 mg/dL (0.15-1.2); Total Protein 5.2 g/dL (6.6-8.7)
[2022-11-12 06:27] LABS: Calcium 9.5 mg/dL (8.5-10.5)
[2022-11-12 06:30] LABS: Parathyroid Hormone 9.5 pg/mL (15-65)
[2022-11-12 07:06] LABS: Neutrophils # 0.98 10^3/uL (1.8-7.7)
[2022-11-12 07:38] LABS: Iron 64 ug/dL (37-145); Percent Saturation 44.1 % (20-50); Total Iron Binding Capacity 145 mcg/dl; Unsaturated Iron Binding 81 ug/dL (112-347)
--- NOTE | 2022-11-12 07:47 | P.PN_ITS ---
Subjective Subjective: feels better. s/p UF yesterday. no mayorga or cp. has nausea and weaknss. Medications: Reviewed: Yes Medication Review Details: Current Medications Acetaminophen (Acetaminophen 325 Mg Tablet) 650 mg PO Q6H PRN PRN Reason: Mild/Mod Pain Or Temp >/= 101 Last Admin: 11/10/22 20:46 Dose: 650 mg Albuterol/Ipratropium (Ipratropium-Albuterol 3 Ml Neb) 3 ml INHALATION Q6H PRN PRN Reason: SHORTNESS OF BREATH Aspirin (Aspirin 81 Mg Ec Tablet) 81 mg PO DAILY [facility] Last Admin: 11/11/22 08:42 Dose: 81 mg Atorvastatin Calcium (Atorvastatin 40 Mg Tablet) 20 mg PO DAILY [facility] Last Admin: 11/11/22 08:43 Dose: 20 mg Bisacodyl (Bisacodyl 5 Mg Tablet) 10 mg PO DAILY PRN; Protocol PRN Reason: Constipation (see protocol) Fluticasone Propionate (Fluticasone Nasal [place] 16gm Btl) 2 spray INTRANASAL DAILY PRN PRN Reason: Nasal Congestion Heparin Sodium (Porcine) (Heparin 5,000 Unit/Ml Inj 1 Ml) 0 unit IV PRN PRN; Protocol PRN Reason: Heparin weight-base protocol Heparin Sodium/Sodium Chloride (Heparin Drip) 25,000 unit in 500 mls @ 0 mls/hr IV .Q0M [facility]; Protocol Last Titration: 11/11/22 22:56 Dose: 5.33 unit/kg/hr, 6 mls/hr Albumin Human (Albumin) 12.5 gm in 50 mls @ 60 mls/hr IV PRN PRN PRN Reason: Hypotension and/or symptomatic Isosorbide Mononitrate (Isosorbide Mononitrate Er 60 Mg Tablet) 60 mg PO BID [facility] Last Admin: 11/11/22 18:17 Dose: 60 mg Lactulose (Lactulose Oral Liq 20 Gm/30 Ml Udc) 10 gm PO DAILY PRN; Protocol PRN Reason: Constipation (see protocol) Levothyroxine Sodium (Levothyroxine 125 Mcg Tablet) 125 mcg PO 0600 [facility] Last Admin: 11/12/22 05:08 Dose: 125 mcg Magnesium Hydroxide (Magnesium Hydroxide 30 Ml Udc) 30 ml PO DAILY PRN; Pr otocol PRN Reason: Constipation (see protocol) Metoprolol Tartrate (Metoprolol Tartrate 50 Mg Tablet) 75 mg PO BID [facility] Last Admin: 11/11/22 18:16 Dose: 75 mg Morphine Sulfate (Morphine 4 Mg/Ml Sdv 1 Ml) 2 mg IVP Q4H PRN PRN Reason: SEVERE PAIN Ondansetron HCl (Ondansetron 2 Mg/Ml Sdv 2 Ml) 4 mg IVP Q8H PRN PRN Reason: vomiting, or N/V if npo Pantoprazole Sodium (Pantoprazole Dr 40 Mg Tablet) 40 mg PO BID [facility] Last Admin: 11/11/22 18:17 Dose: 40 mg Vitals/I&O/Wt Last Vital Signs Temp 98.0 F 11/12/22 07:24 Pulse 81 11/12/22 07:24 Resp 20 H 11/12/22 07:24 BP 179/65 11/12/22 07:24 Pulse Ox 97 11/12/22 07:24 O2 Del Method Nasal Cannula 11/12/22 07:24 O2 Flow Rate 2 11/12/22 03:23 11/11/22 11/12/22 11/12/22 22:59 06:59 14:59 Intake Total 924.5 / 1623.083 Output Total 3005 / 3205 300 / 3505 Balance -2080.5 / -1581.917 -300 / -1881.917 Weight last 48 hrs Weight 52.5 kg Weight 54.885 kg Weight 58.74 kg Weight 58.06 kg Weight 56.245 kg Physical Exam Narrative: BP elevated, more comfortable in bed on nc02 heent- nc/at, eomi neck no jvp, supple lungs dull bases heart reg, + s1, s2 abd soft, nt, nd, + bns ext 1+ edema RUE edema and avf + rt femoral dialysis catheter neuro- a,a, o x 3 Data 11/12/22 05:17 11/12/22 05:17 A&P Assessment and plan (1) ESRD (end stage renal disease) on dialysis: 87 yr old female 1. a fib w/ RVR- control per medicine -replete k hr now in NSR 2. ESRD- s/p extra SUF yesterday. plan full dialysis for saturday 3. pancytopenia- tsat 41%, await ferritin -consider hematology eval -epo 10,000 units once 4. +trop per medicine/ cardiology 5. BNP 66135- monitor w/ dialysis 6. htn- time spent 30 min seen and examined w/ RN telehealth visit -informed consent for dialysis and telehealth obtained from the pt Plan see above Attestations Medical Necessity Statement*: htn, chf, esrd- d/c per medicine Time Spent in Patient Care: 16 - 35 minutes (>than 50% of time spent in counselling and/or direct pt care on unit) . Coding Level of Care Code Acute Code for Chg Fwd Diagnoses ESRD (end stage renal disease) on dialysis N18.6; Z99.2
[2022-11-12 07:54] LABS: 25 Hydroxy Vitamin D 66 ng/mL (30-100)
[2022-11-12 08:08] LABS: Ferritin 1298 ng/mL (15-150)
[2022-11-12] MEDS: heparin 5,000 unit/mL INJ 1 mL IV (08:29)
[2022-11-12] MEDS: metoprolol tartrate 50 mg Tablet 75 MG PO ×2 (08:33→17:54)
[2022-11-12] MEDS: isosorbide mononitrate ER 60 mg Tablet PO ×2 (08:33→17:54)
[2022-11-12] MEDS: atorvastatin 40 mg Tablet 20 MG PO (08:33)
[2022-11-12] MEDS: aspirin 81 mg EC Tablet PO (08:33)
[2022-11-12] MEDS: losartan 50 mg Tablet PO (08:34)
[2022-11-12] MEDS: pantoprazole DR 40 mg Tablet PO ×2 (08:35→17:54)
[2022-11-12] MEDS: epoetin alfa 10,000 unit/mL INJ 10000 UNIT SUBCUT (09:10)
[2022-11-12 15:19] LABS: Partial Thromboplastin Time 77.8 SECONDS (23.9-36.7)
[2022-11-12] MEDS: heparin drip 25,000 UNIT/500 ML PREMIX 9 UNIT IV (16:14)
--- NOTE | 2022-11-12 20:26 | P.PN_ITS ---
Subjective Subjective: Patient was seen earlier today. She is feeling better. Breathing is doing okay and she has not noted any palpitations. In talking with her, she reports she has had a lot of new issues issues since she started hemodialysis last year. She has had swelling in her right upper extremity since her fistula was placed. She recently had evaluation in the right upper extremity and underwent stent pl acement of some kind related to the fistula that helped her swelling quite a bit. This procedure was done in [place]. She does not recall being told that she has low platelets before. Has not heard the term pancytopenia. She notes she has been anemic before. Denies recent fevers. Vitals/I&O/Wt Last Vital Signs Temp 98.1 F 11/12/22 20:00 Pulse 72 11/12/22 20:00 Resp 16 11/12/22 20:00 BP 154/60 11/12/22 20:00 Pulse Ox 96 11/12/22 20:00 O2 Del Method Nasal Cannula 11/12/22 20:00 O2 Flow Rate 2 11/12/22 20:00 11/12/22 11/12/22 11/12/22 06:59 14:59 22:59 Intake Total 535.4 / 535.4 317.067 / 852.467 Output Total 300 / 3505 Balance -300 / -1881.917 535.4 / 535.4 317.067 / 852.467 Weight last 48 hrs Weight 57.294 kg Weight 52.5 kg Weight 54.885 kg Weight 58.74 kg Physical Exam Narrative: Awake and alert. Lungs are clear. Regular rhythm. Left upper extremity is edematous with positive thrill at fistula site. Abdomen is soft. Trace edema. Dry skin. Scattered small bruises. Speech is clear. Data 11/12/22 05:17 11/12/22 05:17 Micro: Microbiology 11/11/22 05:20 Urine Culture - Preliminary Urine,Clean Catch Gram Negative Rods A&P Assessment and plan (1) Atrial fibrillation with rapid ventricular response: RVR at presentation, initially treated with diltiazem Now in sinus rhythm On metoprolol 75 mg twice daily, up from home dose of 50 bid. Yasmany vas score 5. Patient would benefit with anticoagulation, but with pa ncytopenia and need for bone marrow biopsy will hold on consideration presently (2) SOB (shortness of breath): Most likely in setting of volume overload or acute on chronic congestive heart failure in setting of atrial fibrillation along with non-ST elevation DE. CT chest. Consistent with pleural effusion and cardiomegaly. No concerns for pneumonia. D-dimer negative for age. Presently improved (3) Non-ST elevation (NSTEMI) myocardial infarction: History of CAD with nonobstructive findings and angiogram done in 2011. 6-hour troponin delta at admission of 55 Last stress test from January 2022 negative for acute ischemia. Continue with aspirin 81 mg oral daily, statin and beta-tonia. Echocardiogram showed ejection fraction of 50% with no change from prior studies and no regional wall motion abnormalities Medical management at this time and outpatient follow-up to cardiology (4) ESRD (end stage renal disease) on dialysis: Usual dialysis days Tuesdays, , Saturdays Had an extra session of dialysis while here Fistula in right upper extremity not yet being used, right upper extremity edema, status post recent stent to the fistula Hemodialysis catheter in the right groin Nephrology following and appreciated (5) Hypertension: Suboptimally controlled Chronically on hydralazine, isosorbide, metoprolol Here is presently on an increased dose of metoprolol, usual dosing of isosorbide and addition of losartan today by nephrology Will monitor response to adjustments Qualifiers: Hypertension type: essential hypertension Qualified Code(s): I10 - E ssential (primary) hypertension (6) Hyperlipidemia: Chronically on statin therapy Qualifiers: Hyperlipidemia type: mixed hyperlipidemia Qualified Code(s): E78.2 - Mixed hyperlipidemia (7) Pancytopenia: 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 Patient has followed with Dr. Borja outpatient for breast cancer, with last visit in July of this year Plan to discuss with heme-onc timing of follow-up and consideration for bone marrow biopsy for Mrs. Ashton Hold initiation of oral anticoagulation for atrial fibrillation at this time Respiratory viral panel negative LDH and retic normal range Plan Legally blind CODE STATUS: Discussed in detail with the patient. She would want to be full code. Renal dialysis diet. SCD for DVT prophylaxis, anticoagulation held for pancytpenia and possibility of BM biopsy Protonix GI prophylaxis. At discharge will resume home oxygen, need follow-up with Dr. Pickens, Dr. Soliz, heme-onc, usual dialysis schedule Attestations Medical Necessity Statement*: Requires ongoing inpatient stay for continued management of ST elevation DE, hypertension not optimally controlled presently and other care as described along with determination of plan of care regarding peripheral smear review for pancytopenia. With comorbid conditions and recent acute issues at high risk of recurrent acute symptoms. Coding Level of Care Code Acute Code for Chg Fwd Diagnoses Atrial fibrillation with rapid ventricular response I48.91 SOB (shortness of breath) R06.02 Non-ST elevation (NSTEMI) myocardial infarction I21.4 ESRD (end stage renal disease) on dialysis N18.6; Z99.2 Hypertension I10 Hypertension type: essential hypertension Hyperlipidemia E78.2 Hyperlipidemia type: mixed hyperlipidemia Pancytopenia D61.818
[2022-11-12] MEDS: acetaminophen 325 mg Tablet 650 MG PO (20:36)
[2022-11-12 22:12] LABS: Partial Thromboplastin Time 41.2 SECONDS (23.9-36.7)
[2022-11-13] VITALS (7 sets, daily range): BP systolic 130–162; BP diastolic 55–67; PULSE 65–73; RESP 16–19; TEMP 36.7–37; O2SAT 94–99; BMI 25.3
--- NOTE | 2022-11-13 02:07 | PC.NURSE ---
11/12/227 - Discussed latest pt ptt, heparin gtt, and that pt was without IV or gtt for approximately 45 mins around the beginning of the shift. Told to inrease gtt per protocol but skip bolus at this time.
[2022-11-13 05:01] LABS: Hematocrit 31.8 % (37.0-47.0); Hemoglobin 9.5 g/dL (11.5-15.3); Mean Corpuscular HGB Conc 29.9 g/dL (30.0-36.0); Mean Corpuscular Hemoglobin 33.3 pg (28.0-34.0); Mean Corpuscular Volume 111.6 fl (81-99); Mean Platelet Volume 12.1 fL (7.4-10.4); Platelet Count 109 10^3/cmm (130-400); Red Blood Count 2.85 10^6/uL (4.1-5.3); Red Cell Distribution Width 14.1 % (12.1-15.1); White Blood Count 2.7 10^3/uL (4.0-10.0)
[2022-11-13 05:09] LABS: Partial Thromboplastin Time 63.4 SECONDS (23.9-36.7)
[2022-11-13] MEDS: levothyroxine 125 mcg Tablet PO (05:15)
[2022-11-13 05:17] LABS: Anion Gap 12.3 (5-19); Blood Urea Nitrogen 32 mg/dL (8-23); Calcium 9.2 mg/dL (8.5-10.5); Carbon Dioxide 28 mmol/L (22-29); Chloride 101 mmol/L (98-107); Glucose 109 mg/dL (65-115); Magnesium 1.6 mg/dL (1.7-2.3); Osmolality Calculated 293 mOsm/kg (285-295); Phosphorus 3.6 mg/dL (2.5-4.5); Potassium 3.3 mmol/L (3.5-5.1); Sodium 138 mmol/L (136-145)
[2022-11-13 05:26] LABS: Absolute Eosinophils 0.1 10^3/cmm (0.0-0.7); Absolute Neutrophil 1.2 10^3/cmm (1.4-6.5); Absolute Segmented Neutrophil 1.2 10/cmm (1.6-7.1); Eosinophils 5 %; Lymphocytes 40 %; Lymphocytes Absolute 1.1 10^3/cmm (1.2-3.4); Monocytes Absolute 0.3 10^3/cmm (0.1-0.6); Platelet Estimate Decreased (Normal); Segmented Neutrophils 43 %; Total Cells Counted 100 (0-100)
[2022-11-13] MEDS: metoprolol tartrate 50 mg Tablet 75 MG PO (08:55)
[2022-11-13] MEDS: aspirin 81 mg EC Tablet PO (08:55)
[2022-11-13] MEDS: pantoprazole DR 40 mg Tablet PO (08:55)
[2022-11-13] MEDS: atorvastatin 40 mg Tablet 20 MG PO (08:55)
[2022-11-13] MEDS: isosorbide mononitrate ER 60 mg Tablet PO (08:55)
[2022-11-13] MEDS: losartan 50 mg Tablet PO (08:56)
--- NOTE | 2022-11-13 09:37 | PC.CHAP ---
Pastoral Care Encounter/Spiritual Assessment Type of Contact [] Declined salt operator visit [] Patient/Family/Request visit [] Outpatient visit [] Follow-up visit [] Physician referral [] Code/Alert [x] Routine visit [] Staff referral [] Actively dying [] Patient sleeping [x] Family support [] [] Out of room [] Palliative care [] [] Receiving care in room [] Pre-surgical visit [] Trauma [] Long length of stay [] ICU visit [] Other: Relational/Emotional Strength [x] Patient feels connected with others/family/visitors/staff [] Distress [] Loneliness/isolation [] Abandonment Spirituality of Patient [x] Person of Kat [x] Attends Bahai of their Kat [x] Believes in Prayer [] Reads Bible or Jew materials [] There are Spiritual issues to be addressed Apprentice Electrician Interventions [x] Prayer [x] Active listening [] Non-anxious presence [x] Spiritual/emotional support [] Crisis/trauma care [] Spiritual counseling [] Bereavement support [] Provided bereavement packet [] Provided Bible/devotional materials [] Provided toy/stuffed animal, coloring book to patient or family member [] Provided Communion [] Anointing/Keller [] Salvation [x] Completed spiritual assessment [] Other: Impact on Illness or Injury [] Angry [] Fearful [] Anxious [] Often cries [] Exhaustion [] Unable to work [] Unable to attend islam [] Unable to walk/stand [] Unable to read [] Unable to drive [] Unable to eat/drink [] Unable to sleep [] Unable to be with family [] Patient intubated [] Other: Summary Time spent with patient 10 min
--- NOTE | 2022-11-13 09:54 | PM.PN ---
Subjective Subjective: no new complaints Medications: Reviewed: Yes Vitals/I&O/Wt Last Vital Signs Temp 98.1 F 11/13/22 04:11 Pulse 71 11/13/22 08:00 Resp 19 H 11/13/22 08:00 BP 156/67 11/13/22 08:56 Pulse Ox 94 11/13/22 08:00 O2 Del Method Nasal Cannula 11/13/22 08:00 O2 Flow Rate 1 11/13/22 02:34 FiO2 1 11/13/22 08:00 11/12/22 11/13/22 11/13/22 22:59 06:59 14:59 Intake Total 477.517 / 1012.917 50 / 1062.917 330.383 / 330.383 Balance 477.517 / 1012.917 50 / 1062.917 330.383 / 330.383 Weight last 48 hrs Weight 57.294 kg Weight 52.5 kg Weight 54.885 kg Physical Exam Narrative: more comfortable in bed on nc02 heent- nc/at, eomi neck no jvp, supple ext 1+ edema RUE edema and avf Data 11/13/22 04:51 11/13/22 04:51 Micro: Microbiology 11/11/22 05:20 Urine Culture - Preliminary Urine,Clean Catch Gram Negative Rods A&P Assessment and plan (1) ESRD (end stage renal disease) on dialysis: 87 yr old female 1. a fib w/ RVR- control per medicine 2. ESRD- s/p extra SUF yesterday. plan full dialysis today 3. pancytopenia- tsat 41%, await ferritin -consider hematology eval -s/p epo 10,000 units once 4. +trop per medicine/ cardiology time spent 30 min seen and examined w/ RN telehealth visit -informed consent for dialysis and telehealth obtained from the pt Plan see above Attestations Medical Necessity Statement*: per medicine Coding Level of Care Code Acute Code for Chg Fwd Diagnoses ESRD (end stage renal disease) on dialysis N18.6; Z99.2
--- NOTE | 2022-11-13 11:08 | PC.SOCIAL ---
Pg 2 IMM Explained to pt Pg 2 IMM. No questions voiced. Provided pt a copy. Initialed, dated, & timed a copy & placed in chart.
--- NOTE | 2022-11-13 11:12 | P.DS_ITS ---
Discharge Providers Date of Admission: 11/10/22 14:56 Date of Discharge: November 13, 2022 Attending Provider at Admission: Edgar Topete MD Attending Provider at Discharge: Emmanuel Pompa MD Consults: Nephrology Primary Care Provider: Yvette Pickens MD Diagnoses at Discharge Discharge Diagnosis (1) ESRD (end stage renal disease) on dialysis: Status: Acute (2) Atrial fibrillation with rapid ventricular response: Status: Acute (3) Acute dyspnea: Status: Acute (4) Non-ST elevation (NSTEMI) myocardial infarction: Status: Acute (5) Hypertension: Status: Acute Qualifiers: Hypertension type: essential hypertension Qualified Code(s): I10 - Essential (primary) hypertension (6) Pancytopenia: Status: Acute (7) CAD (coronary artery disease): Status: Acute Qualifiers: Coronary Disease-Associated Artery/Lesion type: [place] artery [place] vs. transplanted heart: [place] heart Associated angina: without angina Qualified Code(s): I25.10 - Atherosclerotic heart disease of [place] coronary ar [place] without angina pectoris Permanent problem details: Had the most recent cardiac catheterization in January 2012. She was found to have mild to moderate diffuse coronary artery disease. Most recent myocardial perfusion imaging in 2013. No evidence of ischemia. (8) Hyperlipidemia: Status: Acute Qualifiers: Hyperlipidemia type: mixed hyperlipidemia Qualified Code(s): E78.2 - Mixed hyperlipidemia (9) Bilateral carotid artery stenosis: Status: Acute Reason for Visit Reason for Visit: Chest Pain Hospital Course Hospital Course Cecilio Ashton is an 87-year-old female with a past medical history significant for ESRD on HD, coronary artery disease, hypertension, hyperlipidemia, osteoarthritis, and anemia who presented with chest pain, found to have atrial fibrillation with rapid ventricular response with acute myocardial injury / type 2 NSTEMI. A type 1 NSTEMI was considered by ruled out. She was initially treated with Cardizem drip and transitioned to increased dose of metoprolol tartrate. Patient converted back to normal sinus rhythm with pharmacological treatment. Her symptoms resolved. Patient also found to have pancytopenia. Chart review review patient was previously anemic, but more recently has become thrombocytopenic followed by leukopenia producing pancytopenia. Patient was not treated with therapeutic anticoaguation due to her pancytopenia. Given concern for possible undiagnosed myelodysplastic syndrome, patient referred to hematology/oncology clinic for further work up. Patient is to also follow up with her primary care provider within one week. Physical Exam Narrative: General: Patient is awake and alert. Head: Normocephalic. Atraumatic. EOM intact. Neck: No JVD. Cardiovascular: No gallops. No murmurs. Trace peripheral edema. Lungs: Clear to auscultation, no use of accessory muscles, no crackles or wheezes. Skin: No jaundice. No rashes. Abdomen: Normal bowel sounds, abdomen soft and nontender. Genito Urinary: Genital exam not performed since complaints not related. Rectal: Rectal exam not performed since no symptoms indicated blood loss. Extremities: No cyanosis or clubbing. Dialysis line in right groin. Fistula in right arm, reportedly not mature. Musculoskeletal: Normal range of motion, no swollen or erythematous joints. Neurological: Moves all 4 extremities. No myoclonus. Discharge Data Studies Completed and Pending Completed Studies During Hospitalization Category Date Time Status CT chest wo con [id number] Stat Cat Scan 11/10/22 14:26 Completed XR chest 1V portable [id number] Stat Exams 11/10/22 11:29 Completed CV. echo complete* [id number] Routine Ultrasound 11/11/22 06:00 Completed Pending at discharge Category Date Time Status Urine Culture Routine Lab 11/11/22 05:20 Results Radiology Impressions Chest X-Ray 11/10/22 11:29 IMPRESSION: 1. Cardiomegaly with elevated central venous pressure and small bibasilar pleural effusions likely cardiogenic in nature. 2. Diffuse lower lobe airspace disease, nonspecific as discussed above. Chest CT 11/10/22 14:26 IMPRESSION: 1. Cardiomegaly with moderate bilateral pleural effusions possibly cardiogenic in nature with adjacent lower lobe atelectasis. 2. Interval development of 1.7 cm pulmonary nodule left midlung zone concerning for bronchogenic malignancy. Consider follow-up CT PET scan for further assessment. 3. Additional findings as above. Laboratory Results WBC 2.7 10^3/uL (4.0-10.0) L 11/13/22 04:51 Corrected WBC Cancelled 11/10/22 11:44 RBC 2.85 10^6/uL (4.1-5.3) L 11/13/22 04:51 Hgb 9.5 g/dL (11.5-15.3) L 11/13/22 04:51 Hct 31.8 % (37.0-47.0) L 11/13/22 04:51 MCV 111.6 fl (81-99) H 11/13/22 04:51 MCH 33.3 pg (28.0-34.0) 11/13/22 04:51 MCHC 29.9 g/dL (30.0-36.0) L 11/13/22 04:51 RDW 14.1 % (12.1-15.1) 11/13/22 04:51 Plt Count 109 10^3/cmm (130-400) L 11/13/22 04:51 MPV 12.1 fL (7.4-10.4) H 11/13/22 04:51 Gran % Cancelled 11/10/22 11:44 Neut % (Auto) 36.8 % 11/12/22 05:17 Lymph % (Auto) 35.0 % 11/12/22 05:17 [place] % (Auto) 15.0 % 11/12/22 05:17 Eos % (Auto) 11.7 % 11/12/22 05:17 Baso % (Auto) 1.1 % 11/12/22 05:17 Reticulocyte % (Auto) 1.4 % (0.5-2.0) 11/11/22 14:36 Neut # (Auto) 0.98 10^3/uL (1.8-7.7) L* 11/12/22 05:17 Lymph # (Auto) 0.9 10^3/uL (0.8-4.8) 11/12/22 05:17 [place] # (Auto) 0.4 10^3/uL (0.2-0.9) 11/12/22 05:17 Eos # (Auto) 0.3 10^3/uL (0.0-0.8) 11/12/22 05:17 Baso # (Auto) 0.0 10^3/uL (0.0-0.1) 11/12/22 05:17 Absolute Gran (auto) Cancelled 11/10/22 11:44 Nucleated RBC % (auto) 0 % 11/12/22 05:17 Total Counted 100 (0-100) 11/13/22 04:51 Atypical Lymphs % 0.0 % (0-5) 11/13/22 04:51 Absolute Neutrophils 1.2 10^3/cmm (1.4-6.5) L 11/13/22 04:51 Segmented Neutrophils 43 % 11/13/22 04:51 Abs Segm Neuts (Man) 1.2 10/cmm (1.6-7.1) L 11/13/22 04:51 Band Neutrophils 0.0 % 11/13/22 04:51 Abs Band Neuts (Man) 0.0 10^3/cmm (0.0-1.2) 11/13/22 04:51 Absolute Lymphocytes 1.1 10^3/cmm (1.2-3.4) L 11/13/22 04:51 Lymphocytes (Manual) 40 % 11/13/22 04:51 Monocytes (Manual) 12.0 % 11/13/22 04:51 Absolute Monocytes 0.3 10^3/cmm (0.1-0.6) 11/13/22 04:51 Eosinophils (Manual) 5 % 11/13/22 04:51 Absolute Eosinophils 0.1 10^3/cmm (0.0-0.7) 11/13/22 04:51 Basophils (Manual) 0.0 % 11/13/22 04:51 Absolute Basophils 0.0 10^3/cmm (0.0-0.2) 11/13/22 04:51 Nucleated RBCs # 0.0 /100WBC 11/12/22 05:17 Platelet Estimate Decreased (Normal) L 11/13/22 04:51 PT 14.80 SECONDS (12.1-14.9) 11/10/22 12:24 INR 1.12 (0.8-1.2) 11/10/22 12:24 APTT 63.4 SECONDS (23.9-36.7) H D 11/13/22 04:51 D-Dimer 1.53 ug/mIFEU (0-0.59) H 11/10/22 18:41 Sodium 138 mmol/L (136-145) 11/13/22 04:51 Potassium 3.3 mmol/L (3.5-5.1) L 11/13/22 04:51 Chloride 101 mmol/L (98-107) 11/13/22 04:51 Carbon Dioxide 28 mmol/L (22-29) 11/13/22 04:51 Anion Gap 12.3 (5-19) 11/13/22 04:51 BUN 32 mg/dL (8-23) H 11/13/22 04:51 Creatinine 3.9 mg/dL (0.5-0.9) H 11/13/22 04:51 GFR Calculation Not Reportable 11/13/22 04:51 Glucose 109 mg/dL (65-115) 11/13/22 04:51 POC Glucose 101 mg/dL (70-110) 11/10/22 17:05 Estimat Average Glucose 68 11/11/22 03:30 Hemoglobin A1c 4.0 % (4.0-6.0) 11/11/22 03:30 Calculated Osmolality 293 mOsm/kg (285-295) 11/13/22 04:51 Calcium 9.2 mg/dL (8.5-10.5) 11/13/22 04:51 Phosphorus 3.6 mg/dL (2.5-4.5) 11/13/22 04:51 Magnesium 1.6 mg/dL (1.7-2.3) L 11/13/22 04:51 Iron 64 ug/dL (37-145) 11/12/22 05:17 TIBC 145 mcg/dl 11/12/22 05:17 % Saturation 44.1 % (20-50) 11/12/22 05:17 Unsat Iron Binding 81 ug/dL (112-347) L 11/12/22 05:17 Ferritin 1298 ng/mL (15-150) H 11/12/22 05:17 Total Bilirubin 0.3 mg/dL (0.15-1.2) 11/12/22 05:17 AST 17 U/L (0-32) 11/12/22 05:17 ALT 7 U/L (0-33) 11/12/22 05:17 Alkaline Phosphatase 65 U/L (35-105) 11/12/22 05:17 Lactate Dehydrogenase 176 U/L (135-214) 11/11/22 14:36 Troponin T Gen 5 ng/L 132 ng/L (0-10) H* 11/11/22 03:30 Troponin T Baseline 68 ng/L (0-10) H 11/10/22 12:24 Troponin T 120 Minute 81.25 ng/L (0-10) H 11/10/22 14:08 Delta Troponin T 13.25 ABS# (0-10) H* 11/10/22 14:08 Troponin T Hi Sens 6Hr 123.8 ng/L (0-10) H 11/10/22 18:41 Troponin T Hi Sens 6Hr Delta 55.8 ng/L (0-12) H* 11/10/22 18:41 NT-Pro-B Natriuret Pep 65834 pg/mL (0-450) H 11/10/22 18:41 Total Protein 5.2 g/dL (6.6-8.7) L 11/12/22 05:17 Albumin 3.3 g/dL (3.5-5.2) L 11/12/22 05:17 Globulin 1.9 g/dL (1.3-4.6) 11/12/22 05:17 Triglycerides 81 mg/dL (0-150) 11/11/22 03:30 Cholesterol 157 mg/dL (0-200) 11/11/22 03:30 LDL Cholesterol, Calc 63 mg/dL (50-129) 11/11/22 03:30 HDL Cholesterol 78 mg/dL (60-100) 11/11/22 03:30 LDL/HDL Ratio 0.81 RATIO (0.00-3.22) 11/11/22 03:30 Cholesterol/HDL Ratio 2.01 mg/dL (0.0-4.40) 11/11/22 03:30 Vitamin B12 924 pg/mL (232-1245) 11/10/22 12:24 25-OH Vitamin D Total 66 ng/mL (30-100) 11/12/22 05:17 Folate > 20.0 ng/mL (4.8-37.3) 11/10/22 12:24 Procalcitonin 0.26 ng/mL (0-0.5) 11/11/22 03:30 TSH 3.74 uIU/mL (0.27-4.20) 11/10/22 12:24 PTH Intact 9.5 pg/mL (15-65) L 11/12/22 05:17 Calcium (PTH Intact) 9.5 mg/dL (8.5-10.5) 11/12/22 05:17 Urine Color Yellow (Yellow) 11/11/22 05:20 Urine Appearance Clear (CLEAR) 11/11/22 05:20 Urine pH 5 (5-7) 11/11/22 05:20 Ur Specific [place] 1.005 (1.005-1.030) 11/11/22 05:20 Urine Protein 1+ (Negative) H 11/11/22 05:20 Urine Glucose (UA) Norm (Normal) 11/11/22 05:20 Urine Ketones Negative (Negative) 11/11/22 05:20 Urine Blood Neg (Negative) 11/11/22 05:20 Urine Nitrate Negative (Negative) 11/11/22 05:20 Urine Bilirubin Neg (Negative) 11/11/22 05:20 Urine Urobilinogen Norm mg/dL (Negative) 11/11/22 05:20 Ur Leukocyte Esterase Negative (Negative) 11/11/22 05:20 Urine RBC 0-4 /hpf (0-2) H 11/11/22 05:20 Urine WBC 10-15 /hpf (0-5) H 11/11/22 05:20 Ur Squamous Epith Cells 0-4 /hpf (0-5) H 11/11/22 05:20 Amorphous Sediment Not Reportable 11/11/22 05:20 Urine Bacteria 2+ /hpf (NONE) H 11/11/22 05:20 Nasal Influ A H1 2008 PCR Not detected (NOT DETECT) 11/11/22 18:35 Adenovirus (PCR) Not detected (NOT DETECT) 11/11/22 18:35 C. pneumoniae DNA (PCR) Not detected (NOT DETECT) 11/11/22 18:35 Coronavirus 229E (PCR) Not detected (NOT DETECT) 11/11/22 18:35 Hep Bs Antigen Non-reactive (Nonreactive) 11/11/22 03:30 Hep Bs Antibody 31.0 (11.5-1000) 11/11/22 03:30 Hepatitis C Antibody Non-reactive (Nonreactive) 11/11/22 03:30 Human Metapneumovir PCR Not detected (NOT DETECT) 11/11/22 18:35 Influenza A (H1) PCR Not detected (NOT DETECT) 11/11/22 18:35 Influenza A (H3) PCR Not detected (NOT DETECT) 11/11/22 18:35 Influenza Type A (PCR) Not detected (NOT DETECT) 11/11/22 18:35 Influenza Type B (PCR) Not detected (NOT DETECT) 11/11/22 18:35 M. pneumoniae (PCR) Not detected (NOT DETECT) 11/11/22 18:35 Parainfluenza 1 (PCR) Not detected (NOT DETECT) 11/11/22 18:35 Parainfluenza 2 (PCR) Not detected (NOT DETECT) 11/11/22 18:35 Parainfluenza 3 (PCR) Not detected (NOT DETECT) 11/11/22 18:35 Parainfluenza 4 (PCR) Not detected (NOT DETECT) 11/11/22 18:35 RSV Type A (PCR) Not detected (NOT DETECT) 11/11/22 18:35 RSV Type B (PCR) Not detected (NOT DETECT) 11/11/22 18:35 Entero/Rhino (PCR) Not detected (NOT DETECT) 11/11/22 18:35 SARS-CoV-2 (PCR) Not detected (NOT DETECT) 11/11/22 18:35 Procedures Performed None Vitals Last Vital Signs Temp 98.1 F 11/13/22 04:11 Pulse 71 11/13/22 08:00 Resp 19 H 11/13/22 08:00 BP 156/67 11/13/22 08:56 Pulse Ox 94 11/13/22 08:00 O2 Del Method Nasal Cannula 11/13/22 08:00 O2 Flow Rate 1 11/13/22 02:34 FiO2 1 11/13/22 08:00 Discharge Plan Discharge Patient Disposition: Home Condition: Stable Prescriptions: New metoprolol tartrate 50 mg Tablet 75 mg PO BID 30 Days Qty: 90 1RF Continued levothyroxine 125 mcg tablet 125 mcg PO DAILY omeprazole 20 mg capsule,delayed release(DR/EC) 20 mg PO BID flaxseed oil 1,000 mg capsule 1,000 mg PO DAILY cholecalciferol (vitamin D3) 25 mcg (1,000 unit) tablet 1,000 unit PO DAILY aspirin [Adult Low Dose Aspirin] 81 mg tablet,delayed release (DR/EC) 81 mg PO DAILY PreserVision Lutein 226 mg-200 unit -5 mg-0.8 mg capsule 1 cap PO BID isosorbide mononitrate 60 mg tablet extended release 24 hr See Rx Instructions .ROUTE .COMPLEX Qty: 180 3RF Dose Instruction: TAKE ONE TABLET BY MOUTH EVERY 12 HOURS Rx Instructions: TAKE ONE TABLET BY MOUTH EVERY 12 HOURS lovastatin 20 mg tablet 40 mg PO DAILY omega 9-ymn-[id number]-fish oil [Fish Oil] 300-1,000 mg Capsule,Delayed Release(Dr/Ec) 1 cap PO DAILY hydralazine 25 mg tablet 25 mg PO TID Qty: 90 3RF Flonase 50 mcg/actuation [place],Suspension 2 spray INTRANASAL DAILY PRN (Reason: Nasal Congestion) Rx Instructions: administer into each nostril Auryxia 210 mg iron tablet 210 mg PO TID RenaPlex-D 800 mcg-12.5 mg -2,000 unit tablet 1 tab PO DAILY Discontinued metoprolol tartrate 50 mg tablet 50 mg PO BID Qty: 180 3RF Discharge Orders: Discharge Order (Routine); Ordered 11/13/22 Ordered By: Emmanuel Pompa Referrals: Oncology Providers [Provider Group] - 4-7 days (Work up of pancytopenia) Yvette Pickens MD [Primary Care Provider] - 4-7 days Discharge Diet: Advance as tolerated and Usual diet Discharge Activity: Resume usual activity and Increase activity as tolerated Patient Instructions: Opioid Safety Plan of Treatment: 1. Take medications as prescribed. 2. Keep follow up appointments. 3. Increase physical activity as tolerated. Discharge Attestations Time Spent in Discharge Care*: greater than 30 min Status at Discharge: Cognitive status at discharge: cognitively intact , Behavioral status at discharge: cooperative , Overall status at discharge: patient is progressing back to baseline Quality Metrics Clinical Quality Measures [ No reported AMI, CVA or VTE this stay] Coding Level of Care Code Acute Code for Chg Fwd Diagnoses ESRD (end stage renal disease) on dialysis N18.6; Z99.2 Atrial fibrillation with rapid ventricular response I48.91 Acute dyspnea R06.00 Non-ST elevation (NSTEMI) myocardial infarction I21.4 Hypertension I10 Hypertension type: essential hypertension Pancytopenia D61.818 CAD (coronary artery disease) I25.10 Coronary Disease-Associated Artery/Lesion type: [place] artery [place] vs. transplanted heart: [place] heart Associated angina: without angina Hyperlipidemia E78.2 Hyperlipidemia type: mixed hyperlipidemia Bilateral carotid artery stenosis I65.23
--- NOTE | 2022-11-13 16:24 | PC.HD ---
HD orders were written for 3.5 hours; angélica, patient usually runs 3 hours at clinic and requested to run her normal treatment. OK per Dr. Strickland. Treatment time changed. Full UF goal of 2500 removed.
--- NOTE | 2022-11-13 18:00 | PC.NURSE ---
Patient was discharged at 16:50. IV discontinued. Given written and verbal education, verbalized understanding. Patient taken out in wheel chair, left facility with sister.
== END 2022-11-13 17:00 | disposition home or self-care (01) | DRG 280 ==
LOC: ER 14:46 → CSU 14:57
PROVIDERS: Family Medicine; Hospitalist; Internal Medicine; Internal Medicine Nephrology; Admitting Provider Student in an Organized Health Care Education/Training Program; Emergency Provider Emergency Medicine; PCP Family Medicine; Visit Provider Internal Medicine
DX: I48.91 Unspecified atrial fibrillation (principal); I50.33 Acute on chronic diastolic (congestive) heart failure; I21.A1 Myocardial infarction type 2; N18.6 End stage renal disease; N39.0 Urinary tract infection, site not specified; I13.2 Hypertensive heart and chronic kidney disease with heart failure and with stage 5 chronic kidney disease, or end stage renal disease; D61.818 Other pancytopenia; B96.20 Unspecified Escherichia coli [E. coli] as the cause of diseases classified elsewhere; E11.22 Type 2 diabetes mellitus with diabetic chronic kidney disease; Z99.2 Dependence on renal dialysis; I25.10 Atherosclerotic heart disease of native coronary artery without angina pectoris; E78.2 Mixed hyperlipidemia; M19.90 Unspecified osteoarthritis, unspecified site; D63.1 Anemia in chronic kidney disease; Z79.82 Long term (current) use of aspirin; I65.23 Occlusion and stenosis of bilateral carotid arteries; H54.8 Legal blindness, as defined in USA; D69.6 Thrombocytopenia, unspecified; Z87.440 Personal history of urinary (tract) infections; E03.9 Hypothyroidism, unspecified; Z88.2 Allergy status to sulfonamides; Z88.8 Allergy status to other drugs, medicaments and biological substances; I71.40 Abdominal aortic aneurysm, without rupture, unspecified; Z87.891 Personal history of nicotine dependence; Z85.3 Personal history of malignant neoplasm of breast
CPT/HCPCS: 12345; 36415; 36416; 71045; 71250; 80048; 80053; 80061; 80503; 81001; 82306; 82310; 82607; 82728; 82746; 82962; 83036; 83540; 83550; 83615; 83735; 83880; 83970; 84100; 84145; 84443; 84484; 85007; 85025; 85027; 85045; 85378; 85610; 85730; 86706; 86803; 87077; 87086; 87186; 87340; 87486; 87581; 87633; 90935; 93005; 93306; 94664; 96365; 96366; 96372; 96376; 99285; A9270; J1644; J1940; J3490; Q3014; Q4081

== ENCOUNTER 2022-11-26 09:27 | Oncology outpatient (recurring) (ONCR) | payer MEDICARE, MEDICAID, SELFPAY | END 2022-12-19 23:59 | disposition home or self-care (01) | LOC: ONCMED 09:30 | PROVIDERS: PCP Family Medicine; Visit Provider Internal Medicine Medical Oncology | DX: I12.0 Hypertensive chronic kidney disease with stage 5 chronic kidney disease or end stage renal disease (principal); N18.6 End stage renal disease; D63.1 Anemia in chronic kidney disease; D61.818 Other pancytopenia; Z85.3 Personal history of malignant neoplasm of breast; Z92.23 Personal history of estrogen therapy; Z79.899 Other long term (current) drug therapy; Z87.891 Personal history of nicotine dependence | CPT/HCPCS: 99215 ==

== ENCOUNTER 2022-12-15 12:57 | Emergency (ER) | payer MEDICARE, MEDICAID, SELFPAY ==
[2022-12-15 13:00] VITALS: BP 141/86; PULSE 72; RESP 16; TEMP 36.6; O2SAT 96; BMI 23.2
--- NOTE | 2022-12-15 13:20 | ED_ITS ---
HPI - General Adult General: Chief complaint: General Medical Stated complaint: BLEEDING FROM PORT Time Seen by Provider: 12/15/22 13:09 History of Present Illness: Ellen Ashotn is a 87-year-old female that presents to the emergency department with bleeding from her fistula site. Fistula is located in the right bicep. She was undergoing hemodialysis today and post exchange they had difficulty controlling the bleeding from the site. This has become a chronic issue and according to the patient his leasing manager is working on general surgery/nephrology follow-up. At the time of my evaluation the patient has had the clamps on since noon. I remove the clamps and observed the site for 6 minutes. No bleeding at this time. Patient denies any other complaints or concerns It is reported that she is anticoagulated. Patient is on antiplatelet therapy. Associated symptoms: Deny chest pain, confusion, dyspnea, headache(s), malaise, nausea, rash, palpitations or vomiting Review of Systems General: Reports: 10 or more systems reviewed and unremarkable except in HPI and below Const: Denies: fever(s), chills, change in appetite, change in weight, fatigue or malaise Eyes: Denies: change in vision, eye discomfort, eye discharge or eye redness ENMT: Denies: throat pain, enlarged tonsils, odynophagia, hoarseness, ear or mastoid pain, ear discharge, change in hearing, tinnitus, nasal discharge, nasal congestion, post nasal drip or sinus pain Card: Denies: chest pain, palpitations, irregular heart rhythm, edema, dyspnea on exertion, orthopnea or leg pain with exertion Resp: Denies: dyspnea, productive cough, non-productive cough, wheezing, stridor or chest congestion GI: Denies: abdominal pain, nausea, vomiting, dysphagia, diarrhea, constipation, bloating, GI cramping or hematochezia : Denies: flank pain, difficulty voiding, dysuria, urinary frequency, urinary urgency, urinary hesitancy, oliguria or hematuria Musc: Denies: neck pain, back pain, extremity pain, joint pain, joint swelling, joint redness, joint warmth or muscle weakness Skin/Breast: Denies: rash, pruritus, erythema, photosensitivity or new lesions Neuro: Denies: headache(s), numbness in extremities, weakness in extremities, sensory changes, lack of coordination, difficulty walking, frequent falls, dizziness, confusion, Slurred speech present, difficulty communicating thoughts, seizure-like activity or involuntary movements Endo: Denies: polyuria, polydipsia or tired all the time Mike/Lymph: Denies: easy bruising or easy bleeding PFSH ED PFSH: Medical History Acute kidney injury superimposed on CKD Bilateral carotid artery stenosis Breast cancer CAD (coronary artery disease) Had the most recent cardiac catheterization in January 2012. She was found to have mild to moderate diffuse coronary artery disease. Most recent myocardial perfusion imaging in 2013. No evidence of ischemia. Diabetes End stage renal disease Hyperlipidemia Hypertension Hypothyroidism 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 Osteopenia Personal history of irradiation Right ureteral stone Rotator cuff arthropathy of right shoulder Subclavian artery stenosis, right UTI (urinary tract infection) Surgical History History of appendectomy History of lumpectomy of right breast History of shoulder surgery Hx of cholecystectomy Hx of repair of rotator cuff Hx of shoulder replacement S/P matrixectomy of toe S/P ureteral stent placement Status post reverse arthroplasty of shoulder Family History Other CAD (coronary artery disease) Chronic kidney disease (CKD) Diabetes Family history of premature coronary artery disease Hyperlipidemia Hypertension Lung disease Stroke Social History Smoking and tobacco status: former smoker Alcohol intake: never Substance/Drug Use: never Current occupational status: retired Physical Exam Const: COMMON NORMALS: no acute distress, patient oriented x3 and alert GENERAL APPEARANCE: cooperative ORIENTATION/CONSCIOUSNESS: Yes awake, Yes oriented to person, Yes oriented to place and Yes oriented to time HENMT: COMMON NORMALS: normocephalic and atraumatic HEAD & SCALP: normocephalic and atraumatic FACE & SINUS: normal facial exam MOUTH: Normal oral and palatal mucosa present THROAT: posterior oropharynx normal Eye: COMMON NORMALS: Equal, round and reactive pupils present, EOMs intact bilaterally, conjunctivae normal and no scleral icterus GENERAL EYE: appearance normal, both eyes and all related structures ALIGNMENT: Yes alignment normal PERIORBITAL: periorbital findings normal CONJUNCTIVA: Yes conjunctivae normal PUPIL: Yes Equal, round and reactive pupils present Neck/C-Spine: COMMON NORMALS: full ROM GENERAL: Yes normal visual inspection Lymph: LYMPHATIC: no lymphadenopathy noted Chest: COMMONS NORMALS: normal inspection of the chest Breast/axilla inspection: Yes no chest deformity, asymmetry, normal contours, no nodules, masses, tenderness Resp: COMMON NORMALS: normal respiratory effort, No retractions, No use of accessory muscles and clear to auscultation bilaterally EFFORT & INSPECTION: Yes able to speak in complete sentences and Yes symmetric chest movement AUSCULTATION: clear to auscultation bilaterally Cardio: COMMON NORMALS: regular rate, regular rhythm and Peripheral pulses 2+ throughout RATE: regular rate RHYTHM: regular rhythm PERIPHERAL PULSES: Peripheral pulses 2+ throughout GI: COMMON NORMALS: Normal to inspection, nondistended, normoactive bowel sounds present, Soft to palpation, non-tender and No hepatosplenomegaly present INSPECTION: Yes normal to inspection AUSCULTATION: Yes normoactive bowel sounds PALPATION: Yes Soft to palpation and Yes No hepatosplenomegaly present RECTAL EXAM: deferred Extremity: COMMON NORMALS: normal to inspection NARRATIVE EXTREMITY EXAM: Fistula in the right bicep. Bounding pulses present GENERAL: Yes normal exam except as noted Neuro: COMMON NORMALS: patient oriented x3 SENSORIUM/ORIENTATION: Yes alert, Yes oriented to person, Yes oriented to place and Yes oriented to time CRANIAL NERVES: Yes CN normal except as noted Psych: COMMON NORMALS: mental status grossly normal, Normal thought process present, cooperative, activity/motor behavior normal, denies homicidal ideation and denies suicidal ideation THOUGHT PROCESS: Normal thought process present Skin: COMMON NORMALS: no rashes or lesions noted, no wounds and turgor normal GENERAL SKIN EXAM: no rashes or lesions noted and turgor normal Course Vital Signs: Vital signs: Vital Signs Temperature 97.8 F 12/15/22 13:00 Pulse Rate 71 12/15/22 13:22 Respiratory Rate 14 12/15/22 13:22 Blood Pressure 189/67 12/15/22 13:22 Pulse Oximetry 100 12/15/22 13:22 Oxygen Delivery Me thod Room Air 12/15/22 13:22 Oxygen Flow Rate 2 12/15/22 13:00 [facility] - General Adult Medical Decision Making Differential diagnosis includes fistula injury, coagulopathy. Patient was evaluated in the emergency department due to ongoing bleeding from fistula after hemodialysis. This has become a chronic issue and patient is gett ing set up with a general surgeon for evaluation regarding this issue. By the time the patient had arrived here she had had the clamps on her right upper extremity for probably 45 minutes. I remove the clamps upon her arrival and evaluation and observed her for about 45 minutes. There was no redevelopment of bleeding. Patient is going to discharge home. Her niece is coming to get her. She is to return to the emergency department for new concerning or worsening symptoms. All questions answered Discharge Plan Discharge Patient Disposition: Home Clinical Impression: Hemorrhage of hemodialysis arteriovenous fistula of right thigh, Chronic kidney disease, Presence of arteriovenous fistula for hemodialysis Condition: Stable Prescriptions: No Action levothyroxine 125 mcg tablet 125 mcg PO DAILY omeprazole 20 mg capsule,delayed release(DR/EC) 20 mg PO BID flaxseed oil 1,000 mg capsule 1,000 mg PO DAILY cholecalciferol (vitamin D3) 25 mcg (1,000 unit) tablet 1,000 unit PO DAILY aspirin [Adult Low Dose Aspirin] 81 mg tablet,delayed release (DR/EC) 81 mg PO DAILY PreserVision Lutein 226 mg-200 unit -5 mg-0.8 mg capsule 1 cap PO BID isosorbide mononitrate 60 mg tablet extended release 24 hr See Rx Instructions .ROUTE .COMPLEX Qty: 180 3RF Dose Instruction: TAKE ONE TABLET BY MOUTH EVERY 12 HOURS Rx Instructions: TAKE ONE TABLET BY MOUTH EVERY 12 HOURS lovastatin 20 mg tablet 40 mg PO DAILY omega 4-zbn-[id number]-fish oil [Fish Oil] 300-1,000 mg Capsule,Delayed Release(Dr/Ec) 1 cap PO DAILY hydralazine 25 mg tablet 25 mg PO TID Qty: 90 3RF fluticasone propionate 50 mcg/actuation [place],Suspension 2 spray INTRANASAL DAILY PRN (Reason: Nasal Congestion) Rx Instructions: administer into each nostril Auryxia 210 mg iron tablet 210 mg PO TID RenaPlex-D 800 mcg-12.5 mg -2,000 unit tablet 1 tab PO DAILY metoprolol tartrate 50 mg Tablet 75 mg PO BID 30 Days Qty: 90 1RF cefpodoxime 200 mg tablet 200 mg PO DAILY Qty: 7 0RF Rx Instructions: must administer with a meal/food Discharge Orders: Discharge ED (Routine); Ordered 12/15/22 Ordered By: Di Clemens Referrals: Yvette Pickens MD [Primary Care Provider] - Discharge Diet: Advance as tolerated Discharge Activity: Resume usual activity Patient Instructions: Pain Management Activity Restrictions/Additional Instructions: Turn to the emergency department for new concerning or worsening symptoms If you develop any bleeding from the fistula I want you to hold pressure. If it still bleeding and pressure is released after 10-15 minutes please seek medical attention Coding Level of Care Code ED Senior Care Provider for Andrés Deng
[2022-12-15 13:22] VITALS: BP 189/67; PULSE 71; RESP 14; O2SAT 100
== END 2022-12-15 14:35 | disposition home or self-care (01) ==
PROVIDERS: Emergency Provider Nurse Practitioner; PCP Family Medicine
DX: T82.838A Hemorrhage due to vascular prosthetic devices, implants and grafts, initial encounter (principal); Y83.8 Other surgical procedures as the cause of abnormal reaction of the patient, or of later complication, without mention of misadventure at the time of the procedure; Z99.2 Dependence on renal dialysis; Z79.82 Long term (current) use of aspirin; Z87.891 Personal history of nicotine dependence; I12.0 Hypertensive chronic kidney disease with stage 5 chronic kidney disease or end stage renal disease; E11.22 Type 2 diabetes mellitus with diabetic chronic kidney disease; N18.6 End stage renal disease; I25.10 Atherosclerotic heart disease of native coronary artery without angina pectoris; E78.5 Hyperlipidemia, unspecified; Z85.3 Personal history of malignant neoplasm of breast
CPT/HCPCS: 99282

== ENCOUNTER 2022-12-20 06:00 | Oncology outpatient (recurring) (ONCR) | payer MEDICARE, MEDICAID, SELFPAY | END 2022-12-20 07:00 | disposition home or self-care (01) | LOC: ONCMED 07-19 15:46 | PROVIDERS: PCP Family Medicine; Visit Provider Internal Medicine Medical Oncology | DX: Z53.9 Procedure and treatment not carried out, unspecified reason (principal) ==

== ENCOUNTER → 2023-01-25 08:45 | Outpatient (BNVA) | payer MEDICARE, MEDICAID, SELFPAY | PROVIDERS: PCP Family Medicine; Visit Provider Nurse Practitioner Family | DX: I25.10 Atherosclerotic heart disease of native coronary artery without angina pectoris (principal); I48.91 Unspecified atrial fibrillation; I12.0 Hypertensive chronic kidney disease with stage 5 chronic kidney disease or end stage renal disease; E11.22 Type 2 diabetes mellitus with diabetic chronic kidney disease; N18.6 End stage renal disease; R06.09 Other forms of dyspnea; Z87.891 Personal history of nicotine dependence | CPT/HCPCS: 99214 ==

== ENCOUNTER → 2023-01-25 08:45 | Outpatient (BNVA) | payer MEDICARE, MEDICAID, SELFPAY | PROVIDERS: PCP Family Medicine; Visit Provider Nurse Practitioner Family | DX: I25.10 Atherosclerotic heart disease of native coronary artery without angina pectoris (principal); I48.91 Unspecified atrial fibrillation; R06.09 Other forms of dyspnea; I12.0 Hypertensive chronic kidney disease with stage 5 chronic kidney disease or end stage renal disease; E11.22 Type 2 diabetes mellitus with diabetic chronic kidney disease; N18.6 End stage renal disease | CPT/HCPCS: 36415; 80048; 83880; 99214 ==

== ENCOUNTER 2023-01-29 10:14 | Inpatient (IN) | payer MEDICARE, MEDICAID, SELFPAY ==
[2023-01-29] VITALS (10 sets, daily range): BP systolic 123–186; BP diastolic 50–116; PULSE 73–87; RESP 16–20; TEMP 36.5–36.7; O2SAT 94–100; BMI 23.4
--- NOTE | 2023-01-29 10:23 | XRR_ITS ---
PROCEDURE INFORMATION: Exam: XR Chest Exam date and time: 01/29/2023 10:28 AM Age: 87 years old Clinical indication: Cough and dyspnea and shortness of breath; Prior surgery; Surgery date: 6+ months; Surgery type: Shoulder, cath; Patient HX: HX of breast cancer; Additional info: Dyspnea/cough.No history of trauma or recent surgery is provided. TECHNIQUE: Imaging protocol: Radiologic exam of the chest. 1image(s) are provided. Views: 1 view. COMPARISON: 1. CT chest wo con [id number] 11/10/2022 2:36 PM 2. CR (CHEST, ) 11/10/2022 11:35 AM FINDINGS: Lungs: There is some atelectatic consolidation of the lung bases. There is some subsegmental atelectasis versus post inflammatory similar reticulonodular scarring demonstrated. Pleural spaces: There is some pleural fluid blunting the costophrenic angles right more so than left appearing increased in the interval. No pneumothorax is appreciated. Heart/Mediastinum: The cardiomediastinal silhouette is borderline in size.This can be seen with central averaging as well as hilaria enlargement.No cardiac decompensation is appreciated. Vasculature: There is some vascular stent type material of the right upper medial hemithorax similar overall. Diaphragm: The hemidiaphragms are obscured. Bones/joints: There is similar overall positioning of the right shoulder prosthesis hardware. Osseous alignment is maintained. Could fracture interval displacedThere is slightly decreased bone mineralization overall. Soft tissues: No radiopaque foreign body or subcutaneous emphysema is appreciated. Other findings: No other significant interval changes are appreciated. XR/XR chest 1V portable [id number] IMPRESSION: There is consolidative volume loss and pleural fluid at the right lung base more so than left appearing increased overall in the interval.
--- NOTE | 2023-01-29 10:30 | W.ED.RECABL ---
HPI - Recheck/Abnormal Lab/Rx General: Chief Complaint: Recheck/Abnormal Lab/Rx Stated Complaint: ABN Labs BNP Time Seen by Provider: 01/29/23 10:22 Source: patient Mode of arrival: EMS History of Present Illness: 87-year-old female presents emergency room from dialysis. Patient has end-stage renal disease and is currently getting hemodialysis. She had routine lab work BNP was greater than 70,000 she was getting dialysis morning they stopped her dialysis run approximately 45 minutes to an hour before was completed and then had her transported to the emergency room she denies any orthopnea denies any PND she has not had any increased swelling in her legs. No chest pain. She previously had been diagnosed with cancer when she was undergoing treatment for cancer she developed end-stage renal disease. She is chronically on 2 L by nasal cannula satting 100% on 2 L. MD complaint: abnormal lab Review of Systems Const: Reports: fatigue and malaise; Denies: fever(s) or chills Card: Reports: edema, dyspnea on exertion and orthopnea; Denies: chest pain, palpitations or irregular heart rhythm Resp: Reports: dyspnea and non-productive cough; Denies: productive cough GI: Denies: abdominal pain, nausea, vomiting, hematemesis, coffee ground emesis, diarrhea, constipation, bloating, hematochezia or melena : Denies: flank pain, difficulty voiding, dysuria, urinary frequency or urinary urgency Skin/Breast: Denies: rash or pruritus PFSH ED PFSH: Medical History Acute kidney injury superimposed on CKD Bilateral carotid artery stenosis Breast cancer CAD (coronary artery disease) Had the most recent cardiac catheterization in January 2012. She was found to have mild to moderate diffuse coronary artery disease. Most recent myocardial perfusion imaging in 2013. No evidence of ischemia. Diabetes End stage renal disease Hyperlipidemia Hypertension Hypothyroidism 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 Osteopenia Personal history of irradiation Right ureteral stone Rotator cuff arthropathy of right shoulder Subclavian artery stenosis, right UTI (urinary tract infection) Surgical History History of appendectomy History of lumpectomy of right breast History of shoulder surgery Hx of cholecystectomy Hx of repair of rotator cuff Hx of shoulder replacement S/P matrixectomy of toe S/P ureteral stent placement Status post reverse arthroplasty of shoulder Family History Other CAD (coronary artery disease) Chronic kidney disease (CKD) Diabetes Family history of premature coronary artery disease Hyperlipidemia Hypertension Lung disease Stroke Social History Smoking and tobacco status: former smoker Alcohol intake: never Substance/Drug Use: never Current occupational status: retired Physical Exam Const: GENERAL APPEARANCE: cooperative ORIENTATION/CONSCIOUSNESS: Yes awake, Yes oriented to person, Yes oriented to place and Yes oriented to time HENMT: COMMON NORMALS: normocephalic, atraumatic and hearing grossly normal bilaterally HEAD & SCALP: normocephalic and atraumatic Resp: COMMON NORMALS: normal respiratory effort, No retractions and No use of accessory muscles AUSCULTATION: crackles Cardio: COMMON NORMALS: regular rate, regular rhythm and No murmurs present (Cardio) RATE: regular rate RHYTHM: regular rhythm GI: COMMON NORMALS: Soft to palpation and No hepatosplenomegaly present AUSCULTATION: Yes normoactive bowel sounds PALPATION: Yes Soft to palpation, No Tenderness to palpation present (GI), No Guarding due to palpation present (GI) and Yes No hepatosplenomegaly present Extremity: COMMON NORMALS: normal to inspection, capillary refill normal, no calf tenderness and no pedal edema GENERAL: Yes edema Neuro: SENSORIUM/ORIENTATION: Yes oriented to person, Yes oriented to place and Yes oriented to time Skin: COMMON NORMALS: no rashes or lesions noted GENERAL SKIN EXAM: no rashes or lesions noted Course Vital Signs: Vital signs: Vital Signs Temperature 98.3 F 01/30/23 04:00 Pulse Rate 71 01/30/23 04:00 Respiratory Rate 17 01/30/23 04:00 Blood Pressure 142/55 01/30/23 04:00 Pulse Oximetry 97 01/30/23 04:00 Oxygen Delivery Me thod Nasal Cannula 01/30/23 04:00 Oxygen Flow Rate 2 01/30/23 04:00 MDM - Recheck/Abnormal Lab/Rx Medical Decision Making Worsening heart failure symptomatic. Discussed with hospitalist will admit unfortunately she they stopped her dialysis run about or before she was completed she will likely need to complete the dialysis run. Neutropenic. She is also anemic and mildly hypokalemic. Discussed with hospitalist orders written. UA still pending. Medical Records I reviewed the patient's medical records. Lab Data I reviewed the patient's lab results. 01/29/23 11:08 01/29/23 11:08 Radiology Impressions Chest X-Ray 01/29/23 10:23 IMPRESSION: There is consolidative volume loss and pleural fluid at the right lung base more so than left appearing increased overall in the interval. Chest CTA 01/29/23 12:00 IMPRESSION: 1. No pulmonary thromboembolism is appreciated. 2. There is some granulomatous as well as parenchymal nodularity similar for example left upper lobe. Consider dedicated percutaneous biopsy and/or PET-CT. 3. There is some pleural fluid at the lung bases along with some patchy atelectatic consolidation right more so than left appearing slightly increased overall in the interval. 4. There is some cardiac chamber enlargement left more so than right and may be slightly increased in the interval. Consider echocardiography. Laboratory Results WBC 1.8 10^3/uL (4.0-10.0) L 01/29/23 11:08 RBC 2.66 10^6/uL (4.1-5.3) L 01/29/23 11:08 Hgb 9.3 g/dL (11.5-15.3) L 01/29/23 11:08 Hct 30.3 % (37.0-47.0) L 01/29/23 11:08 MCV 113.9 fl (81-99) H 01/29/23 11:08 MCH 35.0 pg (28.0-34.0) H 01/29/23 11:08 MCHC 30.7 g/dL (30.0-36.0) 01/29/23 11:08 RDW 15.3 % (12.1-15.1) H 01/29/23 11:08 Plt Count 99 10^3/cmm (130-400) L 01/29/23 11:08 MPV 10.3 fL (7.4-10.4) 01/29/23 11:08 Neut % (Auto) 25.2 % 01/29/23 11:08 Lymph % (Auto) 42.7 % 01/29/23 11:08 Brooks % (Auto) 22.5 % 01/29/23 11:08 Eos % (Auto) 7.3 % 01/29/23 11:08 Baso % (Auto) 1.7 % 01/29/23 11:08 Neut # (Auto) 0.45 10^3/uL (1.8-7.7) L* 01/29/23 11:08 Lymph # (Auto) 0.8 10^3/uL (0.8-4.8) 01/29/23 11:08 Brooks # (Auto) 0.4 10^3/uL (0.2-0.9) 01/29/23 11:08 Eos # (Auto) 0.1 10^3/uL (0.0-0.8) 01/29/23 11:08 Baso # (Auto) 0.0 10^3/uL (0.0-0.1) 01/29/23 11:08 Nucleated RBC % (auto) 0 % 01/29/23 11:08 Nucleated RBCs # 0.0 /100WBC 01/29/23 11:08 D-Dimer 3.75 ug/mIFEU (0-0.59) H 01/29/23 11:08 Sodium 140 mmol/L (136-145) 01/29/23 11:08 Potassium 2.9 mmol/L (3.5-5.1) L 01/29/23 11:08 Chloride 102 mmol/L (98-107) 01/29/23 11:08 Carbon Dioxide 32 mmol/L (22-29) H 01/29/23 11:08 Anion Gap 8.9 (5-19) 01/29/23 11:08 BUN 11 mg/dL (8-23) 01/29/23 11:08 Creatinine 2.3 mg/dL (0.5-0.9) H 01/29/23 11:08 GFR Calculation Not Reportable 01/29/23 11:08 Glucose 83 mg/dL (65-115) 01/29/23 11:08 Calculated Osmolality 289 mOsm/kg (285-295) 01/29/23 11:08 Calcium 8.3 mg/dL (8.5-10.5) L 01/29/23 11:08 Total Bilirubin 0.7 mg/dL (0.15-1.2) 01/29/23 11:08 AST 20 U/L (0-32) 01/29/23 11:08 ALT 10 U/L (0-33) 01/29/23 11:08 Alkaline Phosphatase 60 U/L (35-105) 01/29/23 11:08 NT-Pro-B Natriuret Pep > 27681 pg/mL (0-450) H 01/29/23 11:08 Total Protein 5.1 g/dL (6.6-8.7) L 01/29/23 11:08 Albumin 3.4 g/dL (3.5-5.2) L 01/29/23 11:08 Globulin 1.7 g/dL (1.3-4.6) 01/29/23 11:08 TSH 7.13 uIU/mL (0.27-4.20) H 01/29/23 11:08 Hep Bs Antigen Non-reactive (Nonreactive) 01/29/23 11:08 Hep Bs Antibody 15.4 (11.5-1000) 01/29/23 11:08 Hep B Core Total Ab Non-reactive (Nonreactive) 01/29/23 11:08 Discharge Plan Discharge Patient Disposition: Admitted As Inpatient Admit Provider: Adriano Medel Clinical Impression: Pleural effusion, 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, Pulmonary nodule, Congestive heart failure (CHF), End stage chronic kidney disease Condition: Stable Coding Level of Care Code ED Director Of Public Health for Andrés Deng
--- NOTE | 2023-01-29 10:40 | ECG_ITS ---
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 Measurements Intervals [place] Rate: 75 P: 19 VT: 141 QRS: 24 QRSD: 165 T: 65 QT: 423 QTc: 475 Interpretive Statements SINUS RHYTHM LEFT BUNDLE BRANCH BLOCK [120+ ms QRS DURATION, 80+ ms Q/S IN V1/V2, 85+ ms R IN I/aVL/V5/V6] Compared to ECG 11/10/2022 22:50:25 No significant changes Electronically Signed On 01-29-2023 11:12:16 CDT by Brittany Johnson M.D. [id number]
[2023-01-29 11:30] LABS: Basophils % 1.7 %; Eosinophils # 0.1 10^3/uL (0.0-0.8); Eosinophils % 7.3 %; Hematocrit 30.3 % (37.0-47.0); Hemoglobin 9.3 g/dL (11.5-15.3); Lymphocytes # 0.8 10^3/uL (0.8-4.8); Lymphocytes % 42.7 %; Mean Corpuscular HGB Conc 30.7 g/dL (30.0-36.0); Mean Corpuscular Volume 113.9 fl (81-99); Mean Platelet Volume 10.3 fL (7.4-10.4); Monocytes # 0.4 10^3/uL (0.2-0.9); Monocytes % 22.5 %; Neutrophils % 25.2 %; Nucleated Red Blood Cells % 0 %; Platelet Count 99 10^3/cmm (130-400); Red Blood Count 2.66 10^6/uL (4.1-5.3); Red Cell Distribution Width 15.3 % (12.1-15.1); White Blood Count 1.8 10^3/uL (4.0-10.0)
[2023-01-29 11:40] LABS: Neutrophils # 0.45 10^3/uL (1.8-7.7)
[2023-01-29 11:48] LABS: Alanine Aminotransferase 10 U/L (0-33); Albumin Level 3.4 g/dL (3.5-5.2); Alkaline Phosphatase 60 U/L (35-105); Anion Gap 8.9 (5-19); Aspartate Amino Transferase 20 U/L (0-32); Blood Urea Nitrogen 11 mg/dL (8-23); Calcium 8.3 mg/dL (8.5-10.5); Carbon Dioxide 32 mmol/L (22-29); Chloride 102 mmol/L (98-107); Globulin 1.7 g/dL (1.3-4.6); Glucose 83 mg/dL (65-115); Osmolality Calculated 289 mOsm/kg (285-295); Sodium 140 mmol/L (136-145); Total Bilirubin 0.7 mg/dL (0.15-1.2); Total Protein 5.1 g/dL (6.6-8.7)
[2023-01-29 11:59] LABS: Potassium 2.9 mmol/L (3.5-5.1)
--- NOTE | 2023-01-29 12:00 | CTR_ITS ---
PROCEDURE INFORMATION: Exam: CTA Chest With Contrast Exam date and time: 01/29/2023 1:09 PM Age: 87 years old Clinical indication: Shortness of breath; Prior surgery; Surgery date: 6+ months; Surgery type: RT shoulder; Additional info: L pleural effusion, dyspnea, HX CA.No history of trauma or recent surgery is provided. TECHNIQUE: Imaging protocol: Computed tomographic angiography of the chest with contrast. Exam focused on the arteries. 827image(s) are provided. 3D rendering (Not supervised by radiologist): MIP and/or 3D reconstructed images were created by the technologist. Radiation optimization: All CT scans at this facility use at least one of these dose optimization techniques: automated exposure control; mA and/or kV adjustment per patient size (includes targeted exams where dose is matched to clinical indication); or iterative reconstruction. Contrast material: OMNI 350; Contrast volume: 100 ml; Contrast route: INTRAVENOUS (IV); Other technique: Axial images are available with sagittal and coronal reconstruction views. Automated dose exposure control is utilized. The DLP is 269.11. REPORTING DATA: Count of CT and Cardiac NM exams in prior 12 months: This patient has received [address] and 0 known cardiac nuclear medicine studies in the 12 months prior to the current study. COMPARISON: 1. CT chest wo con [id number] 11/10/2022 2:[address] [place] [id number] 01/17/2022 9:33 PM RADIATION DOSE METRICS: Total DLP (mGy-cm): 269.11 FINDINGS: Tubes, catheters and devices: The right shoulder prosthesis appears similar overall. There is some vascular stent material of the right apex similar. Pulmonary arteries: No central pulmonary thromboembolism is appreciated. Subsegmental evaluation is limited. Aorta: The aortic contours are unremarkable. No interval aneurysmal dilatation, intimal irregularity or periaortic fluid collections are appreciated. Thyroid: There appears to be some slightly heterogeneous and thyroid enlargement similar overall. Trachea: The central airways are patent. Lungs: There is some patchy atelectatic consolidation demonstrated with lung basilar predominance slightly increased overall with some air bronchograms. There are some bleb related changes present similar. There is some subpleural thickening and scarring type appearance about the anterior right hemithorax margins similar overall. There is some nodularity similar overall including with lobulated appearance and greatest dimensions left upper lobe of approximately 2 x 1.2 cm similar overall series 4, image 30. There is some apical fibronodular scarring at the right apex similar overall. There is some apical fibronodular scarring present also on the left. There are granulomatous calcific changes similar overall. Highly suspicious nodule(s). Consider non-emergent PET/CT, or tissue sampling.(Reference: Tk) References: Tk Carrillo, et al. Guidelines for Management of Incidental Pulmonary Nodules Detected on CT Images: From the Fleischner Society 2017. Radiology. 2017;284(1):228-243. Pleural spaces: There are pleural effusions demonstrated right larger than left appearing slightly increased in the interval. No pneumothorax is appreciated. Heart: There is some cardiac chamber overall enlargement which might be increased overall in the interval. No significant pericardial fluid collection is appreciated. There is lower overall density suggestive of slow flow return of the right inferior pulmonary vein with the adjacent parenchymal and pleural changes. Coronary arteries: There are coronary arterial calcifications overall present. Lymph nodes: There are subcentimeter predominant otherwise mediastinal and hilar lymph nodes overall present. Some of the hilar mediastinal margins are obscured. Liver: There is some slightly heterogeneous overall appearance of the liver as well as the central vasculature with marginal periportal tracking. Adrenal glands: There is some adrenal hypertrophy and enlargement right more so than left similar overall. Intraperitoneal space: There are granulomatous calcifications of the spleen similar overall. There is a similar otherwise interval appearance of the included intraperitoneal space, upper abdominal structures. Bones/joints: Osseous alignment is maintained.No interval displaced fracture or dislocation is appreciated.There is slightly decreased bone mineralization overall. Soft tissues: No radiopaque foreign body or subcutaneous emphysema is appreciated. There appears to be some subtle subcutaneous edematous stranding. Other findings: There is some motion artifact present. No other significant interval changes are appreciated. CT/CT angio chest PE protcl [id number] IMPRESSION: 1. No pulmonary thromboembolism is appreciated. 2. There is some granulomatous as well as parenchymal nodularity similar for example left upper lobe. Consider dedicated percutaneous biopsy and/or PET-CT. 3. There is some pleural fluid at the lung bases along with some patchy atelectatic consolidation right more so than left appearing slightly increased overall in the interval. 4. There is some cardiac chamber enlargement left more so than right and may be slightly increased in the interval. Consider echocardiography.
[2023-01-29 12:27] LABS: NT Pro B Type Natriuretic Pept > 70000 pg/mL (0-450)
[2023-01-29] MEDS: iohexol 350 mg/mL 500 mL Btl (per mL) IV (13:17)
--- NOTE | 2023-01-29 14:57 | PM.HP ---
Providers/Chief Complaint Primary Care Provider: Yvette Pickens MD Chief Complaint: ABN Labs BNP History of Present Illness Cecilio Ashton is a 87 year old female who presented from dialysis center when her dialysis was stopped because of abnormal BNP of 70,000, in the ER she is short of breath complaining orthopnea and PND, uses 2 L of oxygen at baseline, she follows up with Dr. 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 She has been experiencing orthopnea and PND despite getting dialysis. She does not make urine does not take Lasix Nephro consulted, will request thoracentesis and echo She is neutropenic as well started on empirical antibiotics CTA chest rule out PE, most likely she will need outpatient PET scan Review of Systems Const: Reports: chills Eyes: Denies: change in vision ENMT: Denies: throat pain Card: Reports: swelling of feet/ankles, dyspnea on exertion and orthopnea; Denies: chest pain Resp: Reports: dyspnea GI: Denies: abdominal pain : Denies: flank pain Musc: Denies: neck pain Skin/Breast: Denies: non-healing lesions Psych: Reports: anxiety Medications/Allergies Home Medications Medication Instructions Recorded Confirmed Last Taken Type flaxseed oil 1,000 mg capsule 1,000 mg PO DAILY PRN UNKNOWN 09/30/19 01/29/23 11/09/22 History omeprazole 20 mg capsule,delayed 20 mg PO BID 09/30/19 01/29/23 11/09/22 History release levothyroxine 125 mcg tablet 125 mcg PO QAM 12/14/21 01/29/23 11/09/22 History hydralazine 25 mg tablet 25 mg PO TID #90 tabs 01/20/22 01/29/23 11/09/22 Rx ferric citrate 210 mg iron tablet 1 tab PO QPM 11/10/22 01/29/23 01/28/23 History (Auryxia) fluticasone propionate 50 2 spray intranasal DAILY PRN Nasal 11/10/22 01/29/23 Unknown History mcg/actuation nasal Congestion spray,suspension vit B,C-folic ac 800 mcg-zinc 12.5 1 tab PO QAM 11/10/22 01/29/23 11/09/22 History mg-selen-D3 2,000 unit-vit E tablet (RenaPlex-D) cholecalciferol (vitamin D3) 50 50 mcg PO DAILY 01/29/23 01/29/23 Unknown History mcg (2,000 unit) capsule (Vitamin D3) fish oil 400 mg-flaxseed 400 1 cap PO DAILY 01/29/23 01/29/23 Unknown History mg-prim,blk women's health care nurse practitioner,borag oils 200 mg capsule (Fish, Flax and Borage Oil ([place])) isosorbide mononitrate 60 mg 60 mg PO Q12H 01/29/23 01/29/23 01/28/23 History tablet,extended release 24 hr lidocaine-prilocaine 2.5 %-2.5 % See Rx Instructions .Route .COMPLEX 01/29/23 01/29/23 Unknown History topical cream losartan 25 mg tablet 25 mg PO BEDTIME 01/29/23 01/29/23 01/28/23 History lovastatin 40 mg tablet 40 mg PO DAILY 01/29/23 01/29/23 Unknown History metoprolol tartrate 50 mg tablet 50 mg PO BID 01/29/23 01/29/23 01/28/23 History tramadol 50 mg tablet 25 mg PO Q6H PRN Pain 01/29/23 01/29/23 Unknown History vancomycin 1.25 gram intravenous 1 g IV .TODAY AT DIALYSIS 01/29/23 01/29/23 01/29/23 History solution PER SHASHA vit C 250 mg-vit E 90 mg-zinc 40 1 tab PO BID 01/29/23 01/29/23 Unknown History mg-copper 1 [id number] capsule (PreserVision AREDS-2) Allergies Allergy/AdvReac Type Severity Reaction Status Date / Time amlodipine Allergy Severe Swelling Verified 01/29/23 15:08 clopidogrel [From Plavix] Allergy gi bleed Verified 01/29/23 15:08 oxycodone Allergy can't Verified 01/29/23 15:08 breathe Sulfa (Sulfonamide Allergy cant Verified 01/29/23 15:08 Antibiotics) breathe lisinopril AdvReac cough Verified 01/29/23 15:08 PFSH Acute PFSH: Medical History Acute kidney injury superimposed on CKD Bilateral carotid artery stenosis Breast cancer CAD (coronary artery disease) Had the most recent cardiac catheterization in January 2012. She was found to have mild to moderate diffuse coronary artery disease. Most recent myocardial perfusion imaging in 2013. No evidence of ischemia. Diabetes End stage renal disease Hyperlipidemia Hypertension Hypothyroidism 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 Osteopenia Personal history of irradiation Right ureteral stone Rotator cuff arthropathy of right shoulder Subclavian artery stenosis, right UTI (urinary tract infection) Surgical History History of appendectomy History of lumpectomy of right breast History of shoulder surgery Hx of cholecystectomy Hx of repair of rotator cuff Hx of shoulder replacement S/P matrixectomy of toe S/P ureteral stent placement Status post reverse arthroplasty of shoulder Family History Other CAD (coronary artery disease) Chronic kidney disease (CKD) Diabetes Family history of premature coronary artery disease Hyperlipidemia Hypertension Lung disease Stroke Social History Smoking and tobacco status: former smoker Alcohol intake: never Substance/Drug Use: never Current occupational status: retired Vitals/I&O/Wt Last Vital Signs Temp 98.1 F 01/29/23 10:22 Pulse 73 01/29/23 12:40 Resp 20 H 01/29/23 10:22 BP 161/56 01/29/23 12:40 Pulse Ox 100 01/29/23 12:40 O2 Del Method Nasal Cannula 01/29/23 10:22 O2 Flow Rate 2 01/29/23 10:22 Weight last 48 hrs Weight 52.617 kg Physical Exam Narrative: Fluid overload Currently on 2 L Legally blind Awake and alert Nonfocal neuro exam Pleasant and cooperative GCS 15 Abdomen soft No audible stridor or wheezing Hypertensive Data 01/29/23 11:08 01/29/23 11:08 A&P Assessment and plan (1) Pleural effusion: (2) Hypertension: Qualifiers: Hypertension type: essential hypertension Qualified Code(s): I10 - Essential (primary) hypertension (3) CAD (coronary artery disease): Qualifiers: Coronary Disease-Associated Artery/Lesion type: [place] artery [place] vs. transplanted heart: [place] heart Associated angina: without angina Qualified Code(s): I25.10 - Atherosclerotic heart disease of [place] coronary artery without angina pectoris (4) Leg swelling: (5) ESRD (end stage renal disease) on dialysis: (6) Atrial fibrillation with rapid ventricular response: (7) Pancytopenia: (8) 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: (9) Pulmonary nodule: Plan Orthopnea and PND consistent with fluid overload Rule out congestive heart failure Requested echo Patient definitely needs ultrafiltration, nephro consulted End-stage renal disease, Today's dialysis session was cut short by 1 hour Pleural effusion right greater than left: Requested thoracentesis Neutropenia, patient history of pancytopenia: Follows up with Dr. Borja for possibility of MDS, Afebrile, start empirical antibiotic Goals of care discussed with the patient she wants a trial of CPR defibrillation and intubation but does not want to stay on a ventilator for prolonged. Time in a vegetative state Sister is her medical DPOA Hypertensive urgency optimize antihypertensive regimen We will add IV hydralazine Renal diet She can eat and drink DVT prophylaxis on board A-fib without RVR not a candidate for anticoagulation due to pancytopenia Attestations Medical Necessity Statement*: Anticipating more than 2 midnights in the hospital for management of shortness of breath orthopnea PND Diagnoses Pleural effusion J90 Hypertension I10 Hypertension type: essential hypertension CAD (coronary artery disease) I25.10 Coronary Disease-Associated Artery/Lesion type: [place] artery [place] vs. transplanted heart: [place] heart Associated angina: without angina Leg swelling M79.89 ESRD (end stage renal disease) on dialysis N18.6; Z99.2 Atrial fibrillation with rapid ventricular response I48.91 Pancytopenia D61.818 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 C50.111 Pulmonary nodule R91.1
--- NOTE | 2023-01-29 15:25 | PC.PHAR ---
Addendum entered by Leticia Camacho 01/29/23 15:33: PT STATES THE DR ERICKSOND HER ASPIRIN SHE WAS TAKING DAILY Original Note: PT STATES SHE HAS A NURSE NAMED TOI [phone]-CHARU PULLIAM FROM [facility] [phone] STATES THE PT HAD ONE GRAM OF VANC TODAY-PT BROUGHT IN MED LIST HER NURSE TOI HAD MADE OUT-
[2023-01-29 15:29] LABS: D Dimer 3.75 ug/mIFEU (0-0.59)
[2023-01-29] MEDS: hyDRALAzine 20 mg/mL INJ 1 mL 10 MG IVP (15:30)
[2023-01-29] MEDS: piperacillin-tazobactam 3.375 GM in sodium chloride 0.9% (plus) 50 ML IV (15:57)
[2023-01-29] MEDS: cefepime 1,000 MG in sodium chloride 0.9% (plus) 50 ML 100 MG IV (16:24)
[2023-01-29 17:15] LABS: Hepatitis B Core AB, Total Non-Reactive (Nonreactive); Hepatitis B Surface AB 15.4 (11.5-1000); Hepatitis B Surface Antigen Non-Reactive (Nonreactive)
--- NOTE | 2023-01-29 18:05 | PC.HD ---
Patient has a fairly recent right AV fistula. This RN was able to access without difficulty; however, the site is quite puffy and painful for patient. No s/s of infection noted.
[2023-01-29] MEDS: albumin 12.5 GM/50 ML VIAL IV ×2 (18:30→19:25)
--- NOTE | 2023-01-29 19:20 | USCV_ITS ---
Cecilio Ashton Age: 87 Gender: F : 1935 Exam Date: 01/29/2023 21:24 Ordering Phys: Adriano Medel MD Technologist: EILEEN Exam Location: [facility] [place] Indication: shortness of breath, CHF exacerbation? end-stage renal dz on dialysis, undergoing treatment for breast CA, hx CAD s/p [facility] 2013 BP: 153 / 61 HR: 89 Rhythm: Sinus Technical Quality: Good MEASUREMENTS (Male / Female) Normal Values 2D ECHO LV Diastolic Diameter PLAX 3.6 cm 4.2 - 5.9 / 3.9 - 5.3 cm LV Systolic Diameter PLAX 2.6 cm IVS Diastolic Thickness 2.0 cm 0.6 - 1.0 / 0.6 - 0.9 cm IVS Systolic Thickness 1.8 cm LVPW Diastolic Thickness 1.6 cm 0.6 - 1.0 / 0.6 - 0.9 cm LVPW Systolic Thickness 2.4 cm LVOT Diameter 1.9 cm LV Ejection Fraction 2D Teich 57.5 % LV Ejection Fraction MOD 2C 62.7 % LV Ejection Fraction 2C AL 63.5 % LA Diameter 4.0 cm LA Width 3.8 cm LA Height 6.0 cm RA Width 4.4 cm RA Height 5.3 cm Aorta at Sinotubular Diameter 2.8 cm IVC Diameter 1.8 cm M-MODE Aortic Annulus Diameter 3.0 cm LA Ao Ratio MM 1.2 MV E Point Septal Separation 0.3 cm DOPPLER AV Peak Velocity 125.0 cm/s LVOT Peak Velocity 87.0 cm/s AV Area Cont Eq vti 2.4 cm squared AV Area Cont Eq pk 2.0 cm squared MV Peak Velocity 137.0 cm/s MV Area PHT 5.0 cm squared Mitral E to A Ratio 0.8 MV E' Velocity 59.5 cm/s Mitral E to MV E' Ratio 33.0 Mitral E to LV E' Lateral Ratio 33.0 Mitral E to LV E' Septal Ratio 34.0 TR Peak Velocity 259.0 cm/s TR Peak Gradient 26.8 mmHg TV Peak E Velocity 45.0 cm/s Right Atrial Pressure 10.0 mmHg Pulmonary Artery Systolic Pressu 36.8 mmHg PV Peak Velocity 151.0 cm/s RV Acceleration Time 0.1 s RV Ejection Time 0.4 s RV AcT/ET 0.2 FINDINGS Left Ventricle Moderate left ventricular hypertrophy. Diffuse hypokinesia of the septum with LV ejection fraction around 45 to 50% (visual).Grade I/IV diastolic dysfunction (abnormal relaxation filling pattern), normal to mildly elevated filling pressures. Right Ventricle Normal right ventricular size and systolic function. Right Atrium Normal right atrial size. Left Atrium Mildly dilated left atrium Mitral Valve Thickened mitral valve. Mild to moderate mitral valve regurgitation. Aortic Valve Trace aortic valve regurgitation. Tricuspid Valve No gross abnormalities noted.trace tricuspid valve regurgitation. Pulmonic Valve Thickened pulmonic valve. Pericardium No pericardial effusion. Aorta Normal size aortic root and proximal ascending aorta. Possibly large left-sided pleural effusion IVC Normal IVC dimension with >50% respiratory change of the inferior vena cava. CONCLUSIONS Moderate left ventricular hypertrophy. Diffuse hypokinesia of the septum with LV ejection fraction around 45 to 50% (visual).Grade I/IV diastolic dysfunction (abnormal relaxation filling pattern), normal to mildly elevated filling pressures. Mildly dilated left atrium. Thickened mitral valve. Mild to moderate mitral valve regurgitation. Trace aortic valve regurgitation. Trace tricuspid valve regurgitation. Estimated PA pressure 39 mmHg Thickened pulmonic valve. Possibly large left-sided pulm effusion There is no pericardial effusion. Compared to the study from 11/11/2022, there may not be a significant change in the echocardiogram findings. The pleural effusion appears to be new Dr Edwin Soliz MD [facility] (Electronically Signed) Final Date: 31 January 2023 17:13 S
[2023-01-29 20:11] LABS: Thyroid Stimulating Hormone 7.13 uIU/mL (0.27-4.20)
[2023-01-29] MEDS: metoprolol tartrate 50 mg Tablet PO (21:00)
[2023-01-29] MEDS: pantoprazole DR 40 mg Tablet PO (21:00)
[2023-01-29] MEDS: hyDRALAzine 25 mg Tablet PO (21:00)
[2023-01-29] MEDS: isosorbide mononitrate ER 60 mg Tablet PO (21:00)
[2023-01-29] MEDS: losartan 50 mg Tablet 25 MG PO (21:04)
[2023-01-29] MEDS: heparin, porcine 1,000 unit/mL INJ 10 mL 10000 UNIT INTRACATH (21:08)
[2023-01-29] MEDS: heparin, porcine 1,000 unit/mL INJ 10 mL 1000 UNIT IV (21:08)
--- NOTE | 2023-01-29 22:02 | PM.CONSULT ---
Providers/Reason For Consult Consulting Physician/Specialty*: kommana/nEPHROLOGY Reason for Consult*: ESRD Attending Physician: Adriano Medel MD Primary Care Provider: Yvette Pickens MD History of Present Illness History of Present Illness Cecilio Ashton is a 87 year old female Patient is a 87-year-old female with past medical history of end-stage renal disease on dialysis per due to Saturday schedule was sent from dialysis center due to shortness of breath and orthopnea and also noted to have elevated BNP. It is unclear why patient was not getting aggressive dialysis as outpatient. Patient noted to have BNP of more than 70,000 CT angiogram of the chest was done in the ED showed no PE but left upper lobe nodularity, patient had partial dialysis treatment today. Potassium is low at 2.9 and creatinine was 2.3. Hemoglobin is 9.3. Echocardiogram been ordered pending results. Review of Systems Narrative: ROS negative Medications/Allergies Home Medications Medication Instructions Recorded Confirmed Last Taken Type flaxseed oil 1,000 mg capsule 1,000 mg PO DAILY PRN UNKNOWN 09/30/19 01/29/23 11/09/22 History omeprazole 20 mg capsule,delayed 20 mg PO BID 09/30/19 01/29/23 11/09/22 History release levothyroxine 125 mcg tablet 125 mcg PO QAM 12/14/21 01/29/23 11/09/22 History hydralazine 25 mg tablet 25 mg PO TID #90 tabs 01/20/22 01/29/23 11/09/22 Rx ferric citrate 210 mg iron tablet 1 tab PO QPM 11/10/22 01/29/23 01/28/23 History (Auryxia) fluticasone propionate 50 2 spray intranasal DAILY PRN Nasal 11/10/22 01/29/23 Unknown History mcg/actuation nasal Congestion spray,suspension vit B,C-folic ac 800 mcg-zinc 12.5 1 tab PO QAM 11/10/22 01/29/23 11/09/22 History mg-selen-D3 2,000 unit-vit E tablet (RenaPlex-D) cholecalciferol (vitamin D3) 50 50 mcg PO DAILY 01/29/23 01/29/23 Unknown History mcg (2,000 unit) capsule (Vitamin D3) fish oil 400 mg-flaxseed 400 1 cap PO DAILY 01/29/23 01/29/23 Unknown History mg-prim,blk management lead,borag oils 200 mg capsule (Fish, Flax and Borage Oil ([place])) isosorbide mononitrate 60 mg 60 mg PO Q12H 01/29/23 01/29/23 01/28/23 History tablet,extended release 24 hr lidocaine-prilocaine 2.5 %-2.5 % See Rx Instructions .Route .COMPLEX 01/29/23 01/29/23 Unknown History topical cream losartan 25 mg tablet 25 mg PO BEDTIME 01/29/23 01/29/23 01/28/23 History lovastatin 40 mg tablet 40 mg PO DAILY 01/29/23 01/29/23 Unknown History metoprolol tartrate 50 mg tablet 50 mg PO BID 01/29/23 01/29/23 01/28/23 History tramadol 50 mg tablet 25 mg PO Q6H PRN Pain 01/29/23 01/29/23 Unknown History vancomycin 1.25 gram intravenous 1 g IV .TODAY AT DIALYSIS 01/29/23 01/29/23 01/29/23 History solution PER SHASHA vit C 250 mg-vit E 90 mg-zinc 40 1 tab PO BID 01/29/23 01/29/23 Unknown History mg-copper 1 [id number] capsule (PreserVision AREDS-2) Allergies Allergy/AdvReac Type Severity Reaction Status Date / Time amlodipine Allergy Severe Swelling Verified 01/29/23 15:08 clopidogrel [From Plavix] Allergy gi bleed Verified 01/29/23 15:08 oxycodone Allergy can't Verified 01/29/23 15:08 breathe Sulfa (Sulfonamide Allergy cant Verified 01/29/23 15:08 Antibiotics) breathe lisinopril AdvReac cough Verified 01/29/23 15:08 Current Medications Generic Name Dose Route Start Last Admin Trade Name Freq PRN Reason Stop Dose Admin Heparin Sodium (Porcine) 5,000 unit 01/29/23 19:20 01/29/23 21:09 Heparin 5,000 Unit/Ml Inj 1 Ml SUBCUT Not Given Q12H EMMA Hydralazine HCl 25 mg 01/29/23 21:00 01/29/23 21:00 Hydralazine 25 Mg Tablet PO 25 mg TID EMMA Administration Albumin Human 12.5 gm in 50 mls @ 60 mls/hr 01/29/23 16:16 01/29/23 20:16 Albumin IV Infused PRN PRN Infusion Hypotension and/or symptomatic Isosorbide Mononitrate 60 mg 01/29/23 19:20 01/29/23 21:00 Isosorbide Mononitrate Er 60 Mg Tablet PO 60 mg Q12H EMMA Administration Losartan Potassium 25 mg 01/29/23 21:00 01/29/23 21:04 Losartan 50 Mg Tablet PO 25 mg BEDTIME EMMA Administration Metoprolol Tartrate 50 mg 01/29/23 19:20 01/29/23 21:00 Metoprolol Tartrate 50 Mg Tablet PO 50 mg BID EMMA Administration Pantoprazole Sodium 40 mg 01/29/23 19:20 01/29/23 21:[address] 40 Mg Tablet PO 40 mg BID EMMA Administration PFSH Acute PFSH: Medical History Acute kidney injury superimposed on CKD Bilateral carotid artery stenosis Breast cancer CAD (coronary artery disease) Had the most recent cardiac catheterization in January 2012. She was found to have mild to moderate diffuse coronary artery disease. Most recent myocardial perfusion imaging in 2013. No evidence of ischemia. Diabetes End stage renal disease Hyperlipidemia Hypertension Hypothyroidism 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 Osteopenia Personal history of irradiation Right ureteral stone Rotator cuff arthropathy of right shoulder Subclavian artery stenosis, right UTI (urinary tract infection) Surgical History History of appendectomy History of lumpectomy of right breast History of shoulder surgery Hx of cholecystectomy Hx of repair of rotator cuff Hx of shoulder replacement S/P matrixectomy of toe S/P ureteral stent placement Status post reverse arthroplasty of shoulder Family History Other CAD (coronary artery disease) Chronic kidney disease (CKD) Diabetes Family history of premature coronary artery disease Hyperlipidemia Hypertension Lung disease Stroke Social History Smoking and tobacco status: former smoker Alcohol intake: never Substance/Drug Use: never Current occupational status: retired Vitals/I&O/Wt Last Vital Signs Temp 97.7 F 01/29/23 21:39 Pulse 83 01/29/23 21:39 Resp 18 01/29/23 21:39 BP 168/62 01/29/23 21:39 Pulse Ox 94 01/29/23 21:39 O2 Del Method Nasal Cannula 01/29/23 21:39 O2 Flow Rate 2 01/29/23 16:28 01/29/23 01/29/23 01/29/23 06:59 14:59 22:59 Intake Total 600 / 600 Output Total 2400 / 2400 Balance -1800 / -1800 Weight last 48 hrs Weight 57.6 kg Weight 52.617 kg Physical Exam Narrative: awake , alert no distress Craclkes per report elliot lungs S1S2 irregular no edema Data 01/30/23 06:09 01/30/23 06:09 Micro: Microbiology 01/29/23 15:35 Blood Culture - Preliminary Blood SPECIMEN COLLECTED 01/29/23 15:12 Blood Culture - Preliminary Blood SPECIMEN COLLECTED A&P Assessment and plan (1) ESRD (end stage renal disease) on dialysis: Plan 1. End-stage renal disease: PT schedule as outpatient, will do ultrafiltration today for volume removal, electrolytes stable reassess daily for HD needs. 2. Acute on chronic respiratory failure including worsening shortness of breath and orthopnea, echo ordered. 3. Anemia: Hemoglobin 9.3, will order KATI 4. Hypertension: Blood pressure elevated on presentation, restart medications 5. History of coronary artery disease 6. A-fib with rapid ventricular response 7. History of breast cancer 8. Pancytopenia with history of MDS Patient evaluated using audiovisual cart. Time spent 40 minutes. Consult Attestations Medical Necessity Statement: per medicine Coding Level of Care Code Acute Code for Chg Fwd Diagnoses ESRD (end stage renal disease) on dialysis N18.6; Z99.2
[2023-01-30] VITALS (8 sets, daily range): BP systolic 135–165; BP diastolic 54–72; PULSE 66–81; RESP 16–18; TEMP 36.7–37; O2SAT 92–97
[2023-01-30 04:02] LABS: Add Urine Microscopic? YES; Bacteria Urine 2+ /hpf; Bilirubin Urine Neg (Negative); Blood Urine Neg (Negative); Glucose Urine UA Norm (Normal); Ketones Urine Negative (Negative); Leukocyte Esterase Urine 1+ (Negative); Nitrate Urine Negative (Negative); Protein Urine 3+ (Negative); RBC Urine 0-4 /hpf (0-2); Specific Gravity, Urine 1.015 (1.005-1.030); Urine Appearance Hazy (CLEAR); Urine Color Yellow (Yellow); Urobilinogen Urine Neg (Negative); pH Urine 5 (5-7)
[2023-01-30 04:03] LABS: Add Urine Culture? No; Hyaline Casts Urine 0-4 /lpf; Mucus Urine 1+ /hpf
[2023-01-30] MEDS: piperacillin-tazobactam 3.375 GM in sodium chloride 0.9% (plus) 50 ML IV ×2 (04:53→16:28)
[2023-01-30 07:14] LABS: Basophils % 2.6 %; Eosinophils # 0.2 10^3/uL (0.0-0.8); Eosinophils % 11.8 %; Hematocrit 27.4 % (37.0-47.0); Hemoglobin 8.2 g/dL (11.5-15.3); Lymphocytes # 0.5 10^3/uL (0.8-4.8); Mean Corpuscular HGB Conc 29.9 g/dL (30.0-36.0); Mean Corpuscular Hemoglobin 34.2 pg (28.0-34.0); Mean Corpuscular Volume 114.2 fl (81-99); Mean Platelet Volume 11.6 fL (7.4-10.4); Monocytes # 0.3 10^3/uL (0.2-0.9); Neutrophils % 33.9 %; Nucleated Red Blood Cells % 0 %; Platelet Count 92 10^3/cmm (130-400); Red Cell Distribution Width 15.4 % (12.1-15.1); White Blood Count 1.5 10^3/uL (4.0-10.0)
[2023-01-30 07:30] LABS: Anion Gap 11.4 (5-19); Blood Urea Nitrogen 17 mg/dL (8-23); C Reactive Protein 6.2 mg/L (0.0-4.9); Calcium 8.8 mg/dL (8.5-10.5); Carbon Dioxide 31 mmol/L (22-29); Chloride 100 mmol/L (98-107); Glucose 80 mg/dL (65-115); Magnesium 1.7 mg/dL (1.7-2.3); Osmolality Calculated 289 mOsm/kg (285-295); Potassium 3.4 mmol/L (3.5-5.1); Sodium 139 mmol/L (136-145)
[2023-01-30 07:57] LABS: Neutrophils # 0.52 10^3/uL (1.8-7.7)
[2023-01-30 08:26] LABS: INR 1.11 (0.8-1.2)
[2023-01-30] MEDS: metoprolol tartrate 50 mg Tablet PO ×2 (08:55→18:06)
[2023-01-30] MEDS: isosorbide mononitrate ER 60 mg Tablet PO ×2 (08:55→20:35)
[2023-01-30] MEDS: hyDRALAzine 25 mg Tablet PO ×3 (08:55→20:35)
[2023-01-30] MEDS: pantoprazole DR 40 mg Tablet PO ×2 (09:47→18:06)
--- NOTE | 2023-01-30 10:52 | P.PN_ITS ---
Subjective Subjective: c/o SOB Medications: Reviewed: Yes Vitals/I&O/Wt Last Vital Signs Temp 98.3 F 01/30/23 07:23 Pulse 66 01/30/23 08:51 Resp 16 01/30/23 08:51 BP 165/54 01/30/23 07:23 Pulse Ox 96 01/30/23 08:51 O2 Del Method Nasal Cannula 01/30/23 08:51 O2 Flow Rate 2 01/30/23 08:51 01/29/23 01/30/23 01/30/23 22:59 06:59 14:59 Intake Total 600 / 600 120 / 120 Output Total 2400 / 2400 Balance -1800 / -1800 120 / 120 Weight last 48 hrs Weight 57.6 kg Weight 52.617 kg Physical Exam Narrative: awake , alert no distress Craclkes per report elliot lungs S1S2 irregular no edema Data 01/30/23 06:09 01/30/23 06:09 Micro: Microbiology 01/29/23 15:35 Blood Culture - Preliminary Blood SPECIMEN COLLECTED 01/29/23 15:12 Blood Culture - Preliminary Blood SPECIMEN COLLECTED A&P Assessment and plan (1) ESRD (end stage renal disease) on dialysis: Plan 1. End-stage renal disease: PT schedule as outpatient, s/p ultrafiltration yest erday for volume removal, electrolytes stable reassess daily for HD needs. plan for HD tomorrow 2. Acute on chronic respiratory failure including worsening shortness of breath and orthopnea, echo ordered. 3. Anemia: Hemoglobin 9.3, will order KATI 4. Hypertension: Blood pressure elevated on presentation, restart medications 5. History of coronary artery disease 6. A-fib with rapid ventricular response 7. History of breast cancer 8. Pancytopenia with history of MDS Patient evaluated using audiovisual cart. Time spent 40 minutes. Attestations Medical Necessity Statement*: per medicine Coding Level of Care Code Acute Code for Chg Fwd Diagnoses ESRD (end stage renal disease) on dialysis N18.6; Z99.2
--- NOTE | 2023-01-30 11:16 | P.PN_ITS ---
Subjective Subjective: Patient is still endorsing orthopnea and PND Ultrafiltration yesterday Plan for thoracentesis today I will let her eat Nurse notified Hypokalemia repleted Vitals/I&O/Wt Last Vital Signs Temp 98.3 F 01/30/23 07:23 Pulse 66 01/30/23 08:51 Resp 16 01/30/23 08:51 BP 165/54 01/30/23 07:23 Pulse Ox 96 01/30/23 08:51 O2 Del Method Nasal Cannula 01/30/23 08:51 O2 Flow Rate 2 01/30/23 08:51 01/29/23 01/30/23 01/30/23 22:59 06:59 14:59 Intake Total 600 / 600 120 / 120 Output Total 2400 / 2400 Balance -1800 / -1800 120 / 120 Weight last 48 hrs Weight 57.6 kg Weight 52.617 kg Physical Exam Narrative: Patient currently is on 2 L Mild signs of fluid overload Abdomen soft Legally blind Nonfocal neuro exam S1, S2 Pleasant and cooperative Dry mucous membranes Asking for meal Data 01/30/23 06:09 01/30/23 06:09 Micro: Microbiology 01/29/23 15:35 Blood Culture - Preliminary Blood SPECIMEN COLLECTED 01/29/23 15:12 Blood Culture - Preliminary Blood SPECIMEN COLLECTED A&P Assessment and plan (1) Congestive heart failure (CHF): (2) End stage chronic kidney disease: (3) Pleural effusion: (4) Hypertension: Qualifiers: Hypertension type: essential hypertension Qualified Code(s): I10 - Essential (primary) hypertension (5) CAD (coronary artery disease): Qualifiers: Coronary Disease-Associated Artery/Lesion type: [place] artery [place] vs. transplanted heart: [place] heart Associated angina: without angina Qualified Code(s): I25.10 - Atherosclerotic heart disease of [place] coronary artery without angina pectoris (6) AAA (abdominal aortic aneurysm): (7) Pulmonary nodule: (8) ESRD (end stage renal disease) on dialysis: (9) Pancytopenia: (10) Afib: Plan Fluid overloaded Secondary to congestive heart failure end-stage renal disease Continue hemodialysis Plan for thoracentesis today Chronic hypoxia doing well on 2 L Patient complaining orthopnea PND hopefully this will resolve with thoracentesis No signs of UTI, she does not make much urine She does not make any urine Pancytopenia likely related to MDS Follows up with Dr. Borja outpatient No fever, continue antibiotics Give her a dose of Neulasta Thrombocytopenia no active bleed Hypertensive emergency: Blood pressure improved since yesterday Optimize antiepileptic regimen Anticipate improvement after dialysis Plan to keep her in the hospital for 1 more day monitor response Renal diet DVT prophylaxis contraindicated secondary to thrombocytopenia Patient lives alone, she is legally blind, Attestations Medical Necessity Statement*: Continue medical management Diagnoses Congestive heart failure (CHF) I50.9 End stage chronic kidney disease N18.6 Pleural effusion J90 Hypertension I10 Hypertension type: essential hypertension CAD (coronary artery disease) I25.10 Coronary Disease-Associated Artery/Lesion type: [place] artery [place] vs. transplanted heart: [place] heart Associated angina: without angina AAA (abdominal aortic aneurysm) I71.4 Pulmonary nodule R91.1 ESRD (end stage renal disease) on dialysis N18.6; Z99.2 Pancytopenia D61.818 Afib I48.91
--- NOTE | 2023-01-30 12:29 | PC.PHAR ---
PHONED DR MORGAN REGARDING PEGFILGRASTIM ORDER: ORDER CLARIFIED TO FILGRASTIM NOT PEGFILGRASTIM. WILL INPUT 300 MCG X [address] MORGAN
[2023-01-30] MEDS: filgrastim-sndz 300 mcg/0.5 mL Syringe SUBCUT (16:21)
[2023-01-30] MEDS: losartan 50 mg Tablet 25 MG PO (20:34)
[2023-01-31] VITALS (7 sets, daily range): BP systolic 108–140; BP diastolic 53–72; PULSE 67–75; RESP 16–19; TEMP 36.6–36.9; O2SAT 93–98
[2023-01-31] MEDS: ipratropium-albuterol 3 mL Neb INHALATION (04:35)
[2023-01-31] MEDS: piperacillin-tazobactam 3.375 GM in sodium chloride 0.9% (plus) 50 ML IV (04:38)
[2023-01-31 07:06] LABS: Basophils # 0.1 10^3/uL (0.0-0.1); Basophils % 1.1 %; Eosinophils # 0.3 10^3/uL (0.0-0.8); Eosinophils % 6.6 %; Hematocrit 28.1 % (37.0-47.0); Hemoglobin 8.6 g/dL (11.5-15.3); Lymphocytes # 0.8 10^3/uL (0.8-4.8); Lymphocytes % 17.2 %; Mean Corpuscular HGB Conc 30.6 g/dL (30.0-36.0); Mean Corpuscular Volume 114.2 fl (81-99); Mean Platelet Volume 11.6 fL (7.4-10.4); Monocytes # 0.6 10^3/uL (0.2-0.9); Monocytes % 12.7 %; Neutrophils # 2.93 10^3/uL (1.8-7.7); Neutrophils % 62.2 %; Nucleated Red Blood Cells % 0 %; Platelet Count 99 10^3/cmm (130-400); Red Blood Count 2.46 10^6/uL (4.1-5.3); Red Cell Distribution Width 15.5 % (12.1-15.1); White Blood Count 4.7 10^3/uL (4.0-10.0)
[2023-01-31 07:20] LABS: Anion Gap 13.4 (5-19); Blood Urea Nitrogen 25 mg/dL (8-23); Calcium 8.6 mg/dL (8.5-10.5); Carbon Dioxide 30 mmol/L (22-29); Chloride 100 mmol/L (98-107); Glucose 85 mg/dL (65-115); Osmolality Calculated 294 mOsm/kg (285-295); Potassium 3.4 mmol/L (3.5-5.1); Sodium 140 mmol/L (136-145)
--- NOTE | 2023-01-31 08:00 | US_ITS ---
WS: [id number] ULTRASOUND-GUIDED THORACENTESIS CLINICAL INFORMATION: rt pleural effusion COMPARISON: None. PROCEDURE: Informed consent: The risks, benefits, and alternatives of the procedure were discussed with the alphonse ent. Verbal and written consent was obtained. Timeout: A timeout was performed to confirm the correct patient, procedure, and site. Site: RIGHT chest Preparation: A suitable skin site was identified. The patient was prepped and draped in usual sterile fashion. Lidocaine 1% was used for local anesthesia. Catheter: 4 [place] One-Step catheter. Fluid Volume: 850 ml Color: Abbi Complications: None US/ thoracentesis [id number] IMPRESSION: 1. Uncomplicated ultrasound-guided RIGHT thoracentesis. 2. No pneumothorax on the post thoracentesis radiograph
[2023-01-31] MEDS: metoprolol tartrate 50 mg Tablet PO (08:04)
[2023-01-31] MEDS: hyDRALAzine 25 mg Tablet PO (08:04)
[2023-01-31] MEDS: sennosides-docusate Tablet 1 TAB PO (08:04)
[2023-01-31] MEDS: isosorbide mononitrate ER 60 mg Tablet PO (08:04)
[2023-01-31] MEDS: pantoprazole DR 40 mg Tablet PO (08:04)
--- NOTE | 2023-01-31 09:54 | PM.DCS ---
Discharge Providers Date of Admission: 01/30/23 11:43 Date of Discharge: January 31, 2023 Attending Provider at Admission: Adriano Medel MD Attending Provider at Discharge: Adriano Medel MD Primary Care Provider: Yvette Pickens MD Diagnoses at Discharge Discharge Diagnosis (1) Congestive heart failure (CHF): Status: Acute (2) End stage chronic kidney disease: Status: Acute (3) Pleural effusion: Status: Acute (4) Hypertension: Status: Acute Qualifiers: Hypertension type: essential hypertension Qualified Code(s): I10 - Essential (primary) hypertension (5) CAD (coronary artery disease): Status: Acute Qualifiers: Coronary Disease-Associated Artery/Lesion type: [place] artery [place] vs. transplanted heart: [place] heart Associated angina: without angina Qualified Code(s): I25.10 - Atherosclerotic heart disease of [place] coronary artery without angina pectoris Permanent problem details: Had the most recent cardiac catheterization in January 2012. She was found to have mild to moderate diffuse coronary artery disease. Most recent myocardial perfusion imaging in 2013. No evidence of ischemia. (6) AAA (abdominal aortic aneurysm): Status: Acute (7) Pulmonary nodule: Status: Acute (8) ESRD (end stage renal disease) on dialysis: Status: Acute (9) Pancytopenia: Status: Acute (10) Afib: Status: Acute Reason for Visit Reason for Visit: ABN Labs BNP Hospital Course Hospital Course 87-year female who was sent from dialysis center when her dialysis was cut short by 1 hour because of high BNP 70,000 we are not sure why her dialysis was cut short however nephrology was consulted at the time of admission for ultrafiltration, patient was experiencing shortness of breath orthopnea and PND, CTA chest did not show any signs of PE, she does have pleural effusion for which thoracentesis was requested, chronically she requires 2 L of oxygen which is not worsened throughout hospitalization, 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 Please note patient carries diagnosis of pancytopenia which is chronic, she was given Neupogen 1 dose during hospitalization, white count has improved no neutropenia hemoglobin 8.6 platelets 99,000. Patient follows up with hematology clinic outpatient. There is concern for myodysplastic syndrome Physical Exam Narrative: Signs of fluid overload improving Currently on 2 L Pleasant and cooperative Skin wrinkling noted Awake and alert Pleasant and cooperative Legally blind Discharge Data Studies Completed and Pending Completed Studies During Hospitalization Category Date Time Status CT angio chest PE protcl [id number] Stat Cat Scan 01/29/23 12:00 Completed XR chest 1V portable [id number] Stat Exams 01/29/23 10:23 Completed Pending at discharge Category Date Time Status Blood Culture Stat Lab 01/29/23 15:35 Results Cell Count w Diff Pleural Fld Routine Lab 01/30/23 07:17 Uncollected Glucose Pleural Fluid Routine Lab 01/30/23 07:17 Uncollected Sputum Culture and Gram Stain Stat Lab 01/29/23 15:04 Uncollected pH Pleural Fluid Routine Lab 01/30/23 07:17 Uncollected CV. echo complete* [id number] Routine Ultrasound 01/29/23 19:20 Taken US thoracentesis [id number] Routine Ultrasound 01/31/23 08:00 Ordered Radiology Impressions Chest X-Ray 01/29/23 10:23 IMPRESSION: There is consolidative volume loss and pleural fluid at the right lung base more so than left appearing increased overall in the interval. Chest CTA 01/29/23 12:00 IMPRESSION: 1. No pulmonary thromboembolism is appreciated. 2. There is some granulomatous as well as parenchymal nodularity similar for example left upper lobe. Consider dedicated percutaneous biopsy and/or PET-CT. 3. There is some pleural fluid at the lung bases along with some patchy atelectatic consolidation right more so than left appearing slightly increased overall in the interval. 4. There is some cardiac chamber enlargement left more so than right and may be slightly increased in the interval. Consider echocardiography. Laboratory Results WBC 4.7 10^3/uL (4.0-10.0) 01/31/23 05:47 RBC 2.46 10^6/uL (4.1-5.3) L 01/31/23 05:47 Hgb 8.6 g/dL (11.5-15.3) L 01/31/23 05:47 Hct 28.1 % (37.0-47.0) L 01/31/23 05:47 MCV 114.2 fl (81-99) H 01/31/23 05:47 MCH 35.0 pg (28.0-34.0) H 01/31/23 05:47 MCHC 30.6 g/dL (30.0-36.0) 01/31/23 05:47 RDW 15.5 % (12.1-15.1) H 01/31/23 05:47 Plt Count 99 10^3/cmm (130-400) L 01/31/23 05:47 MPV 11.6 fL (7.4-10.4) H 01/31/23 05:47 Neut % (Auto) 62.2 % 01/31/23 05:47 Lymph % (Auto) 17.2 % 01/31/23 05:47 [place] % (Auto) 12.7 % 01/31/23 05:47 Eos % (Auto) 6.6 % 01/31/23 05:47 Baso % (Auto) 1.1 % 01/31/23 05:47 Neut # (Auto) 2.93 10^3/uL (1.8-7.7) 01/31/23 05:47 Lymph # (Auto) 0.8 10^3/uL (0.8-4.8) 01/31/23 05:47 [place] # (Auto) 0.6 10^3/uL (0.2-0.9) 01/31/23 05:47 Eos # (Auto) 0.3 10^3/uL (0.0-0.8) 01/31/23 05:47 Baso # (Auto) 0.1 10^3/uL (0.0-0.1) 01/31/23 05:47 Nucleated RBC % (auto) 0 % 01/31/23 05:47 Nucleated RBCs # 0.0 /100WBC 01/31/23 05:47 PT 14.70 SECONDS (12.1-14.9) 01/30/23 06:09 INR 1.11 (0.8-1.2) 01/30/23 06:09 D-Dimer 3.75 ug/mIFEU (0-0.59) H 01/29/23 11:08 Sodium 140 mmol/L (136-145) 01/31/23 05:47 Potassium 3.4 mmol/L (3.5-5.1) L 01/31/23 05:47 Chloride 100 mmol/L (98-107) 01/31/23 05:47 Carbon Dioxide 30 mmol/L (22-29) H 01/31/23 05:47 Anion Gap 13.4 (5-19) 01/31/23 05:47 BUN 25 mg/dL (8-23) H 01/31/23 05:47 Creatinine 4.4 mg/dL (0.5-0.9) H 01/31/23 05:47 GFR Calculation Not Reportable 01/31/23 05:47 Glucose 85 mg/dL (65-115) 01/31/23 05:47 Calculated Osmolality 294 mOsm/kg (285-295) 01/31/23 05:47 Calcium 8.6 mg/dL (8.5-10.5) 01/31/23 05:47 Magnesium 1.7 mg/dL (1.7-2.3) 01/30/23 06:09 Total Bilirubin 0.7 mg/dL (0.15-1.2) 01/29/23 11:08 AST 20 U/L (0-32) 01/29/23 11:08 ALT 10 U/L (0-33) 01/29/23 11:08 Alkaline Phosphatase 60 U/L (35-105) 01/29/23 11:08 C-Reactive Protein 6.2 mg/L (0.0-4.9) H 01/30/23 06:09 NT-Pro-B Natriuret Pep > 51107 pg/mL (0-450) H 01/29/23 11:08 Total Protein 5.1 g/dL (6.6-8.7) L 01/29/23 11:08 Albumin 3.4 g/dL (3.5-5.2) L 01/29/23 11:08 Globulin 1.7 g/dL (1.3-4.6) 01/29/23 11:08 TSH 7.13 uIU/mL (0.27-4.20) H 01/29/23 11:08 Urine Color Yellow (Yellow) 01/30/23 03:39 Urine Appearance Hazy (CLEAR) A 01/30/23 03:39 Urine pH 5 (5-7) 01/30/23 03:39 Ur Specific [place] 1.015 (1.005-1.030) 01/30/23 03:39 Urine Protein 3+ (Negative) H 01/30/23 03:39 Urine Glucose (UA) Norm (Normal) 01/30/23 03:39 Urine Ketones Negative (Negative) 01/30/23 03:39 Urine Blood Neg (Negative) 01/30/23 03:39 Urine Nitrate Negative (Negative) 01/30/23 03:39 Urine Bilirubin Neg (Negative) 01/30/23 03:39 Urine Urobilinogen Neg mg/dL (Negative) 01/30/23 03:39 Ur Leukocyte Esterase 1+ (Negative) H 01/30/23 03:39 Urine RBC 0-4 /hpf (0-2) H 01/30/23 03:39 Urine WBC 5-10 /hpf (0-5) H 01/30/23 03:39 Ur Squamous Epith Cells 10-15 /hpf (0-5) H 01/30/23 03:39 Ur Transition Epith Cell 5-10 /hpf 01/30/23 03:39 Amorphous Sediment Not Reportable 01/30/23 03:39 Urine Bacteria 2+ /hpf (NONE) H 01/30/23 03:39 Hyaline Casts 0-4 /lpf H 01/30/23 03:39 Urine Mucus 1+ /hpf 01/30/23 03:39 Hep Bs Antigen Non-reactive (Nonreactive) 01/29/23 11:08 Hep Bs Antibody 15.4 (11.5-1000) 01/29/23 11:08 Hep B Core Total Ab Non-reactive (Nonreactive) 01/29/23 11:08 Vitals Last Vital Signs Temp 98.3 F 01/31/23 08:00 Pulse 75 01/31/23 08:00 Resp 16 01/31/23 08:00 BP 140/61 01/31/23 08:00 Pulse Ox 93 01/31/23 08:00 O2 Del Method Nasal Cannula 01/31/23 08:00 O2 Flow Rate 2 01/31/23 07:27 Discharge Plan Discharge Patient Disposition: Home Condition: Stable Prescriptions: New albuterol sulfate 90 mcg/actuation HFA aerosol inhaler 2 inh inhalation Q8H PRN (Reason: shortness of breath or wheezing) Qty: 6.7 0RF amoxicillin-pot clavulanate 875-125 mg tablet 1 tab PO BID Qty: 10 0RF Continued levothyroxine 125 mcg tablet 125 mcg PO QAM omeprazole 20 mg capsule,delayed release(DR/EC) 20 mg PO BID flaxseed oil 1,000 mg capsule 1,000 mg PO DAILY PRN (Reason: UNKNOWN) hydralazine 25 mg tablet 25 mg PO TID Qty: 90 3RF fluticasone propionate 50 mcg/actuation [place],Suspension 2 spray INTRANASAL DAILY PRN (Reason: Nasal Congestion) Rx Instructions: administer into each nostril Auryxia 210 mg iron tablet 1 tab PO QPM RenaPlex-D 800 mcg-12.5 mg -2,000 unit tablet 1 tab PO QAM Vitamin D3 50 mcg (2,000 unit) Capsule 50 mcg PO DAILY losartan 25 mg tablet 25 mg PO BEDTIME tramadol 50 mg tablet 25 mg PO Q6H PRN (Reason: Pain) lidocaine-prilocaine 2.5-2.5 % cream See Rx Instructions .ROUTE .COMPLEX Rx Instructions: APPLY SMALL AMOUNT TO ACCESS SITE (AVF) 1 HOUR BEFORE DIALYSIS. COVER WITH OCCLUSIVE DRESSING (SARAN WRAP) vancomycin 1.25 gram Recon Soln 1 g IV .TODAY AT DIALYSIS lovastatin 40 mg tablet 40 mg PO DAILY Fish, Flax andBorage Oil(Prim) 400-400-200 mg Capsule 1 cap PO DAILY PreserVision AREDS-2 250-90-40-1 mg Capsule 1 tab PO BID isosorbide mononitrate 60 mg tablet extended release 24 hr 60 mg PO Q12H metoprolol tartrate 50 mg tablet 50 mg PO BID Discharge Orders: Discharge Order (Routine); Ordered 01/31/23 Ordered By: Adriano Medel Referrals: Yvette Pickens MD [Primary Care Provider] - Patient Instructions: Opioid Safety Discharge Attestations Time Spent in Discharge Care*: greater than 30 min Status at Discharge: Cognitive status at discharge: cognitively intact, Behavioral status at discharge: cooperative, Quality Metrics Clinical Quality Measures [ No reported AMI, CVA or VTE this stay] Coding Level of Care Code Acute Code for [facility] Fwd Diagnoses Congestive heart failure (CHF) I50.9 End stage chronic kidney disease N18.6 Pleural effusion J90 Hypertension I10 Hypertension type: essential hypertension CAD (coronary artery disease) I25.10 Coronary Disease-Associated Artery/Lesion type: [place] artery [place] vs. transplanted heart: [place] heart Associated angina: without angina AAA (abdominal aortic aneurysm) I71.4 Pulmonary nodule R91.1 ESRD (end stage renal disease) on dialysis N18.6; Z99.2 Pancytopenia D61.818 Afib I48.91
--- NOTE | 2023-01-31 10:59 | PM.PN ---
Subjective Subjective: seen while on dialysis Feels better , SOB improved Medications: Reviewed: Yes Vitals/I&O/Wt Last Vital Signs Temp 98.3 F 01/31/23 08:00 Pulse 75 01/31/23 08:00 Resp 16 01/31/23 08:00 BP 140/61 01/31/23 08:00 Pulse Ox 93 01/31/23 08:00 O2 Del Method Nasal Cannula 01/31/23 08:00 O2 Flow Rate 2 01/31/23 07:27 01/30/23 01/31/23 01/31/23 22:59 06:59 14:59 Intake Total 170 / 460 530 / 530 Balance 170 / 460 530 / 530 Weight last 48 hrs Weight 57.6 kg Physical Exam Narrative: awake , alert no distress Craclkes per report elliot lungs S1S2 irregular no edema Data 01/31/23 05:47 01/31/23 05:47 Micro: Microbiology 01/29/23 15:35 Blood Culture - Preliminary Blood NEGATIVE TO DATE 01/29/23 15:12 Blood Culture - Preliminary Blood NEGATIVE TO DATE 01/29/23 17:15 MRSA Culture - Final Nose A&P Assessment and plan (1) ESRD (end stage renal disease) on dialysis: Plan 1. End-stage renal disease: PT schedule as outpatient, HD today 2. Acute on chronic respiratory failure including worsening shortness of breath and orthopnea, imprpved 3. Anemia: Hemoglobin 9.3, will order KATI 4. Hypertension: Blood pressure elevated on presentation, restarted medications 5. History of coronary artery disease 6. A-fib with rapid ventricular response 7. History of breast cancer 8. Pancytopenia with history of MDS Patient evaluated using audiovisual cart. Time spent 40 minutes. Attestations Medical Necessity Statement*: per [facility] Coding Level of Care Code Acute Code for Chg Fwd Diagnoses ESRD (end stage renal disease) on dialysis N18.6; Z99.2
[2023-01-31] MEDS: epoetin alfa 1000 Unit/0.05 mL (ESRD) 20000 UNIT SUBCUT (11:11)
--- NOTE | 2023-01-31 14:56 | XR_ITS ---
WS: [id number] XR chest 1V portable [id number] REASON FOR EXAM: post thoracentesis FINDINGS: Compared to the examination of 01/29/2023, near complete reduction of the right pleural effusion. Mini mal atelectasis in the reexpanded lung. No pneumothorax. Left lower lung airspace opacification and left pleural effusion unchanged compared to 01/29/2023. No new findings or other interval change. XR/XR chest 1V portable [id number] IMPRESSION: Near complete reduction of right pleural effusion with minimal residual atelect asis and no pneumothorax identified.
[2023-01-31 16:34] LABS: Appearance, Pleural Fluid CLEAR (CLEAR); Color, Pleural Fluid Yellow (Pale Yellow)
[2023-01-31 16:50] LABS: Mononuclear %, Pleural Fluid 93 %; Polynuclear Cells, Pleural % 7 %
[2023-01-31 17:27] LABS: PATH Referal YES
== END 2023-01-31 16:24 | disposition home or self-care (01) | DRG 291 ==
LOC: ER 14:56 → MEDSURG 16:33
PROVIDERS: Hospitalist; Admitting Provider Internal Medicine; Emergency Provider Family Medicine; PCP Family Medicine; Visit Provider Internal Medicine
DX: I13.2 Hypertensive heart and chronic kidney disease with heart failure and with stage 5 chronic kidney disease, or end stage renal disease (principal); N18.6 End stage renal disease; J90 Pleural effusion, not elsewhere classified; E11.22 Type 2 diabetes mellitus with diabetic chronic kidney disease; I50.30 Unspecified diastolic (congestive) heart failure; Z99.2 Dependence on renal dialysis; I16.0 Hypertensive urgency; D70.9 Neutropenia, unspecified; Z85.3 Personal history of malignant neoplasm of breast; D46.9 Myelodysplastic syndrome, unspecified; H54.8 Legal blindness, as defined in USA; I25.10 Atherosclerotic heart disease of native coronary artery without angina pectoris; E78.5 Hyperlipidemia, unspecified; E03.9 Hypothyroidism, unspecified; Z92.3 Personal history of irradiation; Z87.440 Personal history of urinary (tract) infections; Z96.611 Presence of right artificial shoulder joint; Z87.891 Personal history of nicotine dependence; D63.1 Anemia in chronic kidney disease; E87.6 Hypokalemia; Z79.891 Long term (current) use of opiate analgesic; Z99.81 Dependence on supplemental oxygen
CPT/HCPCS: 32555; 36415; 71045; 71275; 80048; 80053; 80503; 81001; 82945; 83735; 83880; 83986; 84443; 85025; 85378; 85610; 86140; 86705; 86706; 87040; 87340; 87641; 89050; 90935; 93005; 93306; 94640; 96365; 96367; 96372; 96375; 99285; G0378; J0360; J0692; J1644; J2543; P9047; Q3014; Q4081; Q5101; Q9967

== ENCOUNTER → 2023-12-02 10:11 | Outpatient (BNVA) | payer MEDICARE, MEDICAID, SELFPAY | PROVIDERS: PCP Family Medicine; Visit Provider Internal Medicine Cardiovascular Disease | DX: I25.10 Atherosclerotic heart disease of native coronary artery without angina pectoris (principal); E78.2 Mixed hyperlipidemia; N18.6 End stage renal disease; Z99.2 Dependence on renal dialysis; I71.3 Abdominal aortic aneurysm, ruptured; I13.2 Hypertensive heart and chronic kidney disease with heart failure and with stage 5 chronic kidney disease, or end stage renal disease; E11.22 Type 2 diabetes mellitus with diabetic chronic kidney disease; I50.9 Heart failure, unspecified; Z87.891 Personal history of nicotine dependence | CPT/HCPCS: 99214 ==

== ENCOUNTER 2023-12-17 11:30 | Emergency (ER) | payer MEDICARE, MEDICAID, SELFPAY ==
[2023-12-17 11:39] VITALS: BP 166/77; PULSE 65; RESP 16; TEMP 36.6; O2SAT 93
--- NOTE | 2023-12-17 12:07 | XR_ITS ---
WS: [id number] Exam: XR chest 1V portable [id number] Date/Time of Exam: 12/17/2023 12:20 PM Reason For Exam: Shortness of breath, history of pleural effusion Comparison 01/31/2023. There is cardiac enlargement with pulmonary vascular congestion and small bibasal pleural effusions s uggesting CHF. No pneumothorax is noted. RIGHT brachiocephalic artery graft is noted. Atherosclerosis and ectasia of the thoracic aorta. The superior mediastinum is normal in contour. RIGHT reverse shou lder prosthesis. Lobulated ill-defined soft tissue nodule at the LEFT perihilar region. XR/XR chest 1V portable [id number] IMPRESSION: 1. Cardiac enlargement with pulmonary vascular congestion and small bibasal ple ural effusions suggesting CHF. 2. Ill-defined lobulated soft tissue LEFT perihilar pulmonary nodule. Pulmonary malignancy not excluded. Nonemergent contrast CT scan of the chest recommended for follow-up.
--- NOTE | 2023-12-17 13:04 | ED_ITS ---
HPI - SOB/Dyspnea 2 General: Chief Complaint: Shortness of Breath/Dyspnea Stated Complaint: SOB Time Seen by Provider: 12/17/23 11:53 History of Present Illness: HPI Narrative: Patient brought in by EMS. Had dialysis today. Was complaining of weakness and shortness of breath and some crackles in her lungs per EMS. Patient states she has a history of pulmonary edema/pleural effusion in the past she has had to have fluid pulled off her right lung. She feels the same way as then. Her baseline O2 is 2 L and currently in the room she is satting 98% on 2 L during my exam. She reports she had a very rough weekend. Related Data: Home oxygen amount: 2 liters Review of Systems 2 General: Reports: 10 or more systems reviewed and unremarkable except in HPI and below PFSH ED 2 PFSH: Medical History Atrial fibrillation with rapid ventricular response ESRD (end stage renal disease) on dialysis AAA (abdominal aortic aneurysm) Afib End stage chronic kidney disease Congestive heart failure (CHF) Pleural effusion Pancytopenia Osteopenia End stage renal disease Hypothyroidism Breast cancer Pulmonary nodule Personal history of irradiation Acute kidney injury superimposed on CKD UTI (urinary tract infection) 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 She was found to have mild to moderate diffuse coronary artery disease. Most recent myocardial perfusion imaging in 2013. No evidence of ischemia. Bilateral carotid artery stenosis Hypertension Hyperlipidemia Diabetes Subclavian artery stenosis, right Surgical History S/P ureteral stent placement History of lumpectomy of right breast Hx of repair of rotator cuff Hx of shoulder replacement S/P matrixectomy of toe Status post reverse arthroplasty of shoulder Hx of cholecystectomy History of appendectomy History of shoulder surgery Family History Other CAD (coronary artery disease) Chronic kidney disease (CKD) Diabetes Family history of premature coronary artery disease Hyperlipidemia Hypertension Lung disease Stroke Social History Smoking and tobacco/nicotine status: former use of tobacco/nicotine Alcohol intake: never Substance/Drug Use: never Current occupational status: retired Physical Exam 2 Const: COMMON NORMALS: no acute distress, average body habitus, patient oriented x3, healthy appearing, alert and well nourished GENERAL APPEARANCE: well kempt and well developed HENMT: COMMON NORMALS: normocephalic, atraumatic, external ears normal and moist oral mucous membranes HEAD & SCALP: normocephalic and atraumatic E XTERNAL EAR: Yes external ears normal Eye: COMMON NORMALS: Equal, round and reactive pupils present, EOMs intact bilaterally and conjunctivae normal CONJUNCTIVA: Yes conjunctivae normal P UPIL: Yes Equal, round and reactive pupils present Neck/C-Spine: COMMON NORMALS: full ROM, no lymphadenopathy and supple Chest: CHEST: Yes Symmetrical chest wall rise and No Surgical scars present (Chest) Resp: COMMON NORMALS: normal respiratory effort, No retractions and No use of accessory muscles AUSCULTATION: rales (Mild rales in bilateral bases) Cardio: COMMON NORMALS: regular rate, regular rhythm, S1 normal heart sound present, S2 normal heart sound present, No gallops present (Cardio), No clicks present (Cardio), No murmurs present (Cardio) and No rub (Cardio) RATE: r egular rate RHYTHM: regular rhythm HEART SOUNDS: S1 normal heart sound present, S2 normal heart sound present and no murmurs PERIPHERAL PULSES: o ther (Radial pulses 2+ and symmetric) GI: COMMON NORMALS: Soft to palpation, non-tender and no masses INSPECTION: No abdominal distension PALPATION: Yes Soft to palpation, No Guarding due to palpation present (GI) and No Rebound tenderness present : COMMON NORMALS: Yes no CVA tenderness BLADDER/KIDNEY EXAM: Yes no CVA tenderness Back/Pelvis: COMMON NORMALS: no CVA tenderness Extremity: COMMON NORMALS: normal to inspection, full ROM, capillary refill normal and no clubbing, cyanosis or edema NARRATIVE EXTREMITY EXAM: Fistula in right upper arm with good thrill Neuro: COMMON NORMALS: patient oriented x3 SENSORIUM/ORIENTATION: Yes alert Psych: APPEARANCE: Yes well kempt Skin: COMMON NORMALS: no rashes or lesions noted, no wounds, turgor normal and no jaundice GENERAL SKIN EXAM: no rashes or lesions noted and turgor normal Course 2 Vital Signs: Vital signs: Vital Signs Temperature 97.9 F 05/28/24 11:39 Pulse Rate 81 12/17/23 13:30 Respiratory Rate 16 12/17/23 11:39 Blood Pressure 176/72 12/17/23 13:30 Pulse Oximetry 96 12/17/23 13:30 Oxygen Delivery Me thod Nasal Cannula 12/17/23 13:30 Oxygen Flow Rate 2 12/17/23 13:30 MDM - SOB/Dyspnea Medical Decision Making Patient comes in for weakness and some shortness of breath send worse lately. Especially this weekend. However she is feeling somewhat better after her dialysis today but she went to go ahead and get checked out at the advice of the dialysis nurses. Patient's chest x-ray is reflective of her baseline status and otherwise unremarkable. Her lab work is unremarkable in comparison to her previous and being monitored by nephrology. Patient be discharged. Follow-up with primary care. Differential Diagnosis Likely acute exacerbation of chronic obstructive airways disease, congestive heart failure and community acquired pneumonia Medical Records I reviewed the patient's medical records. Lab Data I reviewed the patient's lab results. 12/17/23 13:12 12/17/23 13:12 Labs/Radiology: Radiology Impressions Chest X-Ray 12/17/23 12:07 IMPRESSION: 1. Cardiac enlargement with pulmonary vascular congestion and small bibasal pleural effusions suggesting CHF. 2. Ill-defined lobulated soft tissue LEFT perihilar pulmonary nodule. Pulmonary malignancy not excluded. Nonemergent contrast CT scan of the chest recommended for follow-up. Laboratory Results WBC 2.04 10^3/uL (3.29-11.43) L 12/17/23 13:12 RBC 2.38 10^6/uL (3.85-5.65) L 12/17/23 13:12 Hgb 8.30 g/dL (11.27-16.99) L 12/17/23 13:12 Hct 26.1 % (36-47) L 12/17/23 13:12 MCV 109.7 fl (85-98) H 12/17/23 13:12 MCH 34.9 pg (27-33) H 12/17/23 13:12 MCHC 31.8 g/dL (30-55) 12/17/23 13:12 RDW 17.3 % (12.1-15.1) H 12/17/23 13:12 Plt Count 126 10^3/cmm (157-399) L 12/17/23 13:12 MPV 10.7 fL (7.4-10.4) H 12/17/23 13:12 Neut % (Auto) 40.2 % 12/17/23 13:12 Lymph % (Auto) 37.7 % 12/17/23 13:12 Clay % (Auto) 14.2 % 12/17/23 13:12 Eos % (Auto) 6.4 % 12/17/23 13:12 Baso % (Auto) 1.0 % 12/17/23 13:12 Neut # (Auto) 0.82 10^3/uL (1.8-7.7) L* 12/17/23 13:12 Lymph # (Auto) 0.8 10^3/uL (0.8-4.8) 12/17/23 13:12 Clay # (Auto) 0.3 10^3/uL (0.2-0.9) 12/17/23 13:12 Eos # (Auto) 0.1 10^3/uL (0.0-0.8) 12/17/23 13:12 Baso # (Auto) 0.0 10^3/uL (0.0-0.1) 12/17/23 13:12 Nucleated RBC % (auto) 0 % 12/17/23 13:12 Nucleated RBCs # 0.0 /100WBC 12/17/23 13:12 Sodium 143 mmol/L (136-145) 12/17/23 13:12 Potassium 3.2 mmol/L (3.5-5.1) L 12/17/23 13:12 Chloride 99 mmol/L (98-107) 12/17/23 13:12 Carbon Dioxide 32 mmol/L (22-29) H 12/17/23 13:12 Anion Gap 15.2 (5-19) 12/17/23 13:12 BUN 12 mg/dL (8-23) 12/17/23 13:12 Creatinine 2.3 mg/dL (0.5-0.9) H 12/17/23 13:12 GFR Calculation Not Reportable 12/17/23 13:12 Glucose 78 mg/dL (65-115) 12/17/23 13:12 Calculated Osmolality 295 mOsm/kg (285-295) 12/17/23 13:12 Calcium 8.4 mg/dL (8.5-10.5) L 12/17/23 13:12 All radiology interpretation(s) finalized by discharge Discharge Plan Discharge Patient Disposition: Home Clinical Impression: Pulmonary vascular congestion, ESRD (end stage renal disease) on dialysis Condition: Stable Prescriptions: No Action levothyroxine 125 mcg tablet 125 mcg PO QAM omeprazole 20 mg capsule,delayed release(DR/EC) 20 mg PO BID ropinirole 0.25 mg tablet 0.25 mg PO DAILY Auryxia 210 mg iron tablet 210 mg PO BID Rx Instructions: administer with a meal hydralazine 25 mg tablet 25 mg PO TID Qty: 90 3RF RenaPlex-D 800 mcg-12.5 mg -2,000 unit tablet 1 tab PO QAM losartan 50 mg tablet 50 mg PO BEDTIME isosorbide mononitrate 60 mg tablet extended release 24 hr 60 mg PO Q12H metoprolol tartrate 50 mg tablet 50 mg PO BID cholecalciferol (vitamin D3) [Vitamin D3] 50 mcg (2,000 unit) Capsule 50 mcg PO DAILY lidocaine-prilocaine 2.5-2.5 % cream See Rx Instructions .ROUTE .COMPLEX Rx Instructions: APPLY SMALL AMOUNT TO ACCESS SITE (AVF) 1 HOUR BEFORE DIALYSIS. COVER WITH OCCLUSIVE DRESSING (SARAN WRAP) lovastatin 40 mg tablet 40 mg PO DAILY Fish, Flax andBorage Oil(Prim) 400-400-200 mg Capsule 1 cap PO DAILY PreserVision AREDS-2 250-90-40-1 mg Capsule 1 tab PO BID albuterol sulfate 90 mcg/actuation HFA aerosol inhaler 2 inh inhalation Q8H PRN (Reason: shortness of breath or wheezing) Qty: 6.7 0RF Discharge Orders: Discharge ED (Routine); Ordered 12/17/23 Ordered By: Rudolph Zavaleta Referrals: Yvette Pickens MD [Primary Care Provider] - Discharge Diet: Usual diet Discharge Activity: Resume usual activity Patient Instructions: Dialysis Diet (DC) Coding Level of Care Code ED Developer Support Engineer for Andrés Deng
[2023-12-17 13:23] LABS: Eosinophils # 0.1 10^3/uL (0.0-0.8); Eosinophils % 6.4 %; Hematocrit 26.1 % (36-47); Lymphocytes # 0.8 10^3/uL (0.8-4.8); Lymphocytes % 37.7 %; Mean Corpuscular HGB Conc 31.8 g/dL (30-55); Mean Corpuscular Hemoglobin 34.9 pg (27-33); Mean Corpuscular Volume 109.7 fl (85-98); Mean Platelet Volume 10.7 fL (7.4-10.4); Monocytes # 0.3 10^3/uL (0.2-0.9); Monocytes % 14.2 %; Neutrophils % 40.2 %; Nucleated Red Blood Cells % 0 %; Platelet Count 126 10^3/cmm (157-399); Red Blood Count 2.38 10^6/uL (3.85-5.65); Red Cell Distribution Width 17.3 % (12.1-15.1); White Blood Count 2.04 10^3/uL (3.29-11.43)
--- NOTE | 2023-12-17 13:26 | PC.PHAR ---
PT USES [facility] FOR HOME HEALTH CARE BUT IS UNSURE WHAT NURSING STAFF COMES IN TO SET UP MEDICATIONS. PHONED ARELY AND THEY ARE NOT CONTRACTED.
[2023-12-17 13:30] VITALS: BP 176/72; PULSE 81; O2SAT 96
[2023-12-17 13:39] LABS: Anion Gap 15.2 (5-19); Blood Urea Nitrogen 12 mg/dL (8-23); Calcium 8.4 mg/dL (8.5-10.5); Carbon Dioxide 32 mmol/L (22-29); Chloride 99 mmol/L (98-107); Creatinine Clr Calc Pharmacy 12.9565; Glucose 78 mg/dL (65-115); Osmolality Calculated 295 mOsm/kg (285-295); Potassium 3.2 mmol/L (3.5-5.1); Sodium 143 mmol/L (136-145)
[2023-12-17 13:47] LABS: Neutrophils # 0.82 10^3/uL (1.8-7.7)
== END 2023-12-17 14:33 | disposition home or self-care (01) ==
PROVIDERS: Emergency Provider Emergency Medicine; PCP Family Medicine
DX: I87.8 Other specified disorders of veins (principal); E11.22 Type 2 diabetes mellitus with diabetic chronic kidney disease; I13.2 Hypertensive heart and chronic kidney disease with heart failure and with stage 5 chronic kidney disease, or end stage renal disease; I50.9 Heart failure, unspecified; N18.6 End stage renal disease; Z99.2 Dependence on renal dialysis; Z85.3 Personal history of malignant neoplasm of breast; I25.10 Atherosclerotic heart disease of native coronary artery without angina pectoris; E78.5 Hyperlipidemia, unspecified; Z87.891 Personal history of nicotine dependence
CPT/HCPCS: 36415; 71045; 80048; 85025; 99284

== ENCOUNTER 2024-03-24 11:21 | Outpatient (CLI) | payer MEDICARE, MEDICAID, SELFPAY ==
--- NOTE | 2024-03-24 11:33 | XRR_ITS ---
PROCEDURE INFORMATION: Exam: XR Chest Exam date and time: 03/24/2024 11:40 AM Age: 88 years old Clinical indication: Dyspnea; Prior surgery; Surgery date: 6+ months; Surgery type: Port; Patient HX: X1 month SOB, slight chest pains, x1 year ago drained fluid from chest, HX of breast cancer TECHNIQUE: Imaging protocol: Radiologic exam of the chest. Views: 2 views. COMPARISON: CR XR chest 1V portable [id number] 12/17/2023 12:14 PM FINDINGS: Lungs: See Pleural spaces finding. Pleural spaces: Small bilateral pleural effusions, right greater than left. Atelectasis or infiltrate in the abutting lower lobes. Faint left perihilar nodular density unchanged. Heart/Mediastinum: See Vasculature finding. Vasculature: Mild cardiomegaly and uncoiling of the thoracic aorta. Bones/joints: Right shoulder replacement. XR/XR chest 2V* [id number] IMPRESSION: No significant change. Persistent effusions.
== END 2024-03-24 11:22 | disposition home or self-care (01) ==
LOC: RAD 11:25
PROVIDERS: PCP Family Medicine; Visit Provider Family Medicine
DX: J98.11 Atelectasis (principal); R91.1 Solitary pulmonary nodule; J90 Pleural effusion, not elsewhere classified; R06.00 Dyspnea, unspecified; Z96.611 Presence of right artificial shoulder joint
CPT/HCPCS: 71046

== ENCOUNTER 2024-09-24 12:25 | Outpatient (CLI) | payer MEDICARE, MEDICAID, SELFPAY ==
--- NOTE | 2024-09-24 12:32 | XR_ITS ---
WS: [id number] XR chest 2V* [id number] REASON FOR EXAM: PLEURAL EFFUSION FINDINGS: Compared to the examination of 03/24/2024, there is a right IJ dialysis catheter with the tip at the cavoatrial junction. There is moderate blunting of the left costophrenic angle. This is somewhat more pronounced than on the examination of 03/24/2024. The atelectasis and pleural effusion in the lower right hemithorax is significantly increased compared to the previous examination of 03/24/2024. Abnormal chest with progression of findings in both lower hemithoraces as above. XR/XR chest 2V* [id number] IMPRESSION: Abnormal chest with progression of findings in both lower hemithoraces as above .
== END 2024-09-24 12:26 | disposition home or self-care (01) ==
PROVIDERS: PCP Family Medicine; Visit Provider Family Medicine
DX: J90 Pleural effusion, not elsewhere classified (principal); Z96.89 Presence of other specified functional implants; R91.8 Other nonspecific abnormal finding of lung field; J98.11 Atelectasis
CPT/HCPCS: 71046

== ENCOUNTER → 2024-10-02 07:53 | Day surgery (SDC) | payer MEDICARE, MEDICAID, SELFPAY ==
[2024-10-02 08:13] VITALS: BP 162/77; PULSE 76; RESP 16; TEMP 36.6; O2SAT 99; BMI 19.5
--- NOTE | 2024-10-02 08:19 | US_ITS ---
WS: [id number] ULTRASOUND-GUIDED THORACENTESIS, RIGHT HISTORY: large pleural effusion, RIGHT Procedure, risks, and complications were explained to the patient. With the patient in an upright position, the skin over the RIGHT posterior thorax was cleansed with ChloraPrep and anesthetized with 1% buffered lidocaine. A 5 Khmer Yueh needle is inserted into the pleural fluid without complication. Approximately 800 cc of clear yellow pleural fluid is removed without difficulty. Very small residual RIGHT pleural effusion. There is also a very small LEFT pleural effusion. / thoracentesis [id number] IMPRESSION: 1. RIGHT thoracentesis yielding 800 cc of fluid. Minimal fluid remaining post thoracentesis. 2. Chest radiograph to follow to evaluate for pneumothorax.
--- NOTE | 2024-10-02 08:54 | XR_ITS ---
WS: [id number] PORTABLE CHEST HISTORY: post thoracentesis, RIGHT COMPARISON: 09/24/2024 No pneumothorax status post RIGHT thoracentesis. Mild pulmonary congestion. Small bilateral residual pleural effusions are noted. Much improved aeration at the RIGHT lung base. Large bore LEFT subclavian dialysis catheter. Arterial stent over the RIGHT apex. Cardiac size: Mildly enlarged cardiac silhouette. Mediastinum/Aorta: Heavily calcified thoracic aorta. Osteopenia. Prior RIGHT shoulder replacement. XR/XR chest 1V portable [id number] IMPRESSION: 1. Status post RIGHT thoracentesis. No pneumothorax. 2. Improved aeration at the RIGHT lung base. 3. Small bilateral pleural effusions. 4. Very minimal venous congestion identified which is new since 09/24/2024.
== END ==
LOC: GILAB 07:55
PROVIDERS: Radiology Diagnostic Radiology; PCP Family Medicine; Visit Provider Family Medicine
PROC: (CPT 32554; principal; 2024-10-02 09:00)
DX: J90 Pleural effusion, not elsewhere classified (principal)
CPT/HCPCS: 32555; 71045

== ENCOUNTER 2024-10-09 12:46 | Inpatient (IN) | payer MEDICARE, MEDICAID, SELFPAY ==
[2024-10-09] VITALS (14 sets, daily range): BP systolic 138–175; BP diastolic 63–101; PULSE 70–89; RESP 18–26; TEMP 36.7–37.2; O2SAT 92–99; BMI 24.2; BMI 20.9
--- NOTE | 2024-10-09 13:01 | ECG_ITS ---
[facility] Test Date: 2024-10-09 Pat Name: Cecilio Ashton Department: Room: Gender: Female Steamship Agent: : 1935 Requested By: Cipriano Rome Order Number: [id number] Olga MD: Elian Rogers M.D. Measurements Intervals [place] Rate: 76 P: 34 AL: 171 QRS: -64 QRSD: 146 T: 104 QT: 392 QTc: 442 Interpretive Statements SINUS RHYTHM POSSIBLE LEFT ATRIAL ENLARGEMENT [-0.1mV P-WAVE IN V1/V2] LEFT AXIS DEVIATION [QRS AXIS < -30] INTRAVENTRICULAR CONDUCTION DELAY [130+ ms QRS DURATION] Compared to ECG 01/29/2023 10:40:23 Left-axis deviation now present Intraventricular conduction delay now present Left bundle-branch block no longer present Electronically Signed On 10-10-2024 07:41:11 CDT by Elian Rogers M.D. [email or web address]
--- NOTE | 2024-10-09 13:22 | XRR_ITS ---
PROCEDURE INFORMATION: Exam: XR Chest Exam date and time: 10/09/2024 2:28 PM Age: 89 years old Clinical indication: Shortness of breath; Additional info: SOB TECHNIQUE: Imaging protocol: Radiologic exam of the chest. Views: 1 view. COMPARISON: CR XR chest 1V portable [id number] 10/02/2024 8:08 AM FINDINGS: Tubes, catheters and devices: There is a left subclavian catheter whose tip is at the cavoatrial junction. Lungs: There is bilateral lung disease as before. Pleural spaces: There are bilateral pleural effusions as before. No pneumothorax. Heart/Mediastinum: Unremarkable. No cardiomegaly. Bones/joints: There has been right shoulder replacement. XR/XR chest 1V portable [id number] IMPRESSION: No significant change when compared with 10/02/2024.
--- NOTE | 2024-10-09 13:26 | ECG_ITS ---
[facility] Test Date: 2024-10-09 Pat Name: Cecilio Ashton Department: Room: Gender: Female Strapper And Buffer: : 1935 Requested By: Maura Mejia Order Number: [id number] Olga MD: Elian Rogers M.D. Measurements Intervals [place] Rate: 75 P: 77 MS: 161 QRS: -52 QRSD: 151 T: 108 QT: 402 QTc: 452 Interpretive Statements SINUS RHYTHM POSSIBLE LEFT ATRIAL ENLARGEMENT [-0.1mV P-WAVE IN V1/V2] LEFT AXIS DEVIATION [QRS AXIS < -30] INTRAVENTRICULAR CONDUCTION DELAY [130+ ms QRS DURATION] NON SPECIFIC ST T WAVE CHANGES Compared to ECG 10/09/2024 13:01:45 ST (T wave) deviation now present Electronically Signed On 10-10-2024 07:40:57 CDT by Elian Rogers M.D. [email or web address]
--- NOTE | 2024-10-09 14:20 | W.ED.SOB ---
HPI - SOB/Dyspnea General: Chief Complaint: Shortness of Breath/Dyspnea Stated Complaint: sob Time Seen by Provider: 10/09/24 14:20 History of Present Illness: HPI Narrative: 89-year-old female who presents emergency room with complaint of shortness of breath. Patient has history of breast cancer has had intermittent pleural effusions congestive heart failure and is on dialysis. She gets dialysis on Saturday and Saturdays. She had some fluid drawn off earlier this week states it really did not seem to help much. She is not currently being treated for breast cancer she has no active disease as far as they are aware. Associated symptoms: Reports chest congestion; Deny abdominal pain, chest pain or fever(s) Related Data Home Medications ?Medication ?Instructions ?Recorded ?Confirmed omeprazole 20 mg capsule,delayed 20 mg PO BID 09/30/19 10/02/24 release levothyroxine 125 mcg tablet 125 mcg PO QAM 12/14/21 10/02/24 vit B,C-folic ac 800 mcg-zinc 12.5 1 tab PO QAM 11/10/22 10/02/24 mg-selen-D3 2,000 unit-vit E tablet (RenaPlex-D) cholecalciferol (vitamin D3) 50 50 mcg PO DAILY 01/29/23 10/02/24 mcg (2,000 unit) capsule (Vitamin D3) fish oil 400 mg-flaxseed 400 1 cap PO DAILY 01/29/23 10/02/24 mg-prim,blk stud master/mistress,borag oils 200 mg capsule (Fish, Flax and Borage Oil ([place])) lidocaine-prilocaine 2.5 %-2.5 % See Rx Instructions .Route .COMPLEX 01/29/23 10/02/24 topical cream lovastatin 40 mg tablet 40 mg PO DAILY 01/29/23 10/02/24 vit C 250 mg-vit E 90 mg-zinc 40 1 tab PO BID 01/29/23 10/02/24 mg-copper 1 [id number] capsule (PreserVision AREDS-2) ferric citrate 210 mg iron tablet 210 mg PO BID 12/02/23 10/02/24 (Auryxia) ropinirole 0.25 mg tablet 0.25 mg PO DAILY 12/02/23 10/02/24 isosorbide mononitrate 60 mg 60 mg PO Q12H 12/17/23 10/02/24 tablet,extended release 24 hr losartan 50 mg tablet 50 mg PO BEDTIME 12/17/23 10/02/24 hydralazine 25 mg tablet 25 mg PO TID PRN anxiety, itching 10/01/24 10/02/24 Previous Rx's ?Medication ?Instructions ?Recorded metoprolol tartrate 50 mg tablet See Rx Instructions .Route 04/29/24 .COMPLEX #180 tabs Allergies Allergy/AdvReac Type Severity Reaction Status Date / Time amlodipine Allergy Severe Swelling Verified 10/01/24 10:17 clopidogrel (From Plavix) Allergy gi bleed Verified 10/01/24 10:17 oxycodone Allergy can't Verified 10/01/24 10:17 breathe Sulfa (Sulfonamide Allergy cant Verified 10/01/24 10:17 Antibiotics) breathe lisinopril AdvReac cough Verified 10/01/24 10:17 Review of Systems Const: Denies: fever(s) or chills Card: Denies: chest pain Resp: Reports: dyspnea and chest congestion GI: Denies: abdominal pain : Denies: dysuria, urinary frequency or urinary urgency Musc: Denies: neck pain or back pain Skin/Breast: Denies: rash PFSH ED PFSH: Medical History Atrial fibrillation with rapid ventricular response ESRD (end stage renal disease) on dialysis AAA (abdominal aortic aneurysm) Afib End stage chronic kidney disease Congestive heart failure (CHF) Pleural effusion Pancytopenia Osteopenia End stage renal disease Hypothyroidism Breast cancer Pulmonary nodule Personal history of irradiation Acute kidney injury superimposed on CKD UTI (urinary tract infection) 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 She was found to have mild to moderate diffuse coronary artery disease. Most recent myocardial perfusion imaging in 2013. No evidence of ischemia. Bilateral carotid artery stenosis Hypertension Hyperlipidemia Diabetes Subclavian artery stenosis, right Surgical History S/P ureteral stent placement History of lumpectomy of right breast Hx of repair of rotator cuff Hx of shoulder replacement S/P matrixectomy of toe Status post reverse arthroplasty of shoulder Hx of cholecystectomy History of appendectomy History of shoulder surgery Family History Other CAD (coronary artery disease) Chronic kidney disease (CKD) Diabetes Family history of premature coronary artery disease Hyperlipidemia Hypertension Lung disease Stroke Social History Smoking and tobacco/nicotine status: former use of tobacco/nicotine Alcohol intake: never Substance/Drug Use: never Current occupational status: retired Physical Exam Const: GENERAL APPEARANCE: cooperative ORIENTATION/CONSCIOUSNESS: Yes awake, Yes oriented to person, Yes oriented to place and Yes oriented to time HENMT: COMMON NORMALS: normocephalic, atraumatic and hearing grossly normal bilaterally HEAD & SCALP: normocephalic and atraumatic Resp: EFFORT & INSPECTION: Yes tachypneic AUSCULTATION: crackles, rhonchi and wheezes Cardio: COMMON NORMALS: regular rate, regular rhythm and No murmurs present (Cardio) RATE: regular rate RHYTHM: regular rhythm GI: COMMON NORMALS: Soft to palpation and No hepatosplenomegaly present AUSCULTATION: Yes normoactive bowel sounds PALPATION: Yes Soft to palpation, No Tenderness to palpation present (GI), No Guarding due to palpation present (GI) and Yes No hepatosplenomegaly present Extremity: COMMON NORMALS: normal to inspection, capillary refill normal, no clubbing, cyanosis or edema, no calf tenderness and no pedal edema Neuro: SENSORIUM/ORIENTATION: Yes oriented to person, Yes oriented to place and Yes oriented to time Skin: COMMON NORMALS: no rashes or lesions noted GENERAL SKIN EXAM: no rashes or lesions noted Course Vital Signs: Vital signs: Vital Signs Temperature 98.1 F 10/09/24 13:10 Pulse Rate 82 10/09/24 14:35 Respiratory Rate 18 10/09/24 13:10 Blood Pressure 161/85 10/09/24 14:35 Pulse Oximetry 98 10/09/24 14:35 Oxygen Delivery Me thod Nasal Cannula 10/09/24 13:10 Oxygen Flow Rate 2 10/09/24 13:10 MDM - SOB/Dyspnea Medical Decision Making Admit for exacerbation congestive heart failure. She has been given nitro and IV morphine did have some improvement she has worsening of heart failure think elevation in her troponin is from right heart strain her EKG does not show any acute changes compared to previous EKGs. She is requiring 4 L which is above her usual 2 L that she has at baseline for oxygen. Medical Records I reviewed the patient's medical records. Lab Data I reviewed the patient's lab results. 10/09/24 14:46 10/09/24 14:46 Labs/Radiology: Radiology Impressions Chest X-Ray 10/09/24 13:22 IMPRESSION: No significant change when compared with 10/02/2024. Laboratory Results WBC 2.72 10^3/uL (3.29-11.43) L 10/09/24 14:46 RBC 3.18 10^6/uL (3.85-5.65) L 10/09/24 14:46 Hgb 10.80 g/dL (11.27-16.99) L 10/09/24 14:46 Hct 36.7 % (36-47) 10/09/24 14:46 MCV 115.4 fl (85-98) H 10/09/24 14:46 MCH 34.0 pg (27-33) H 10/09/24 14:46 MCHC 29.4 g/dL (30-55) L 10/09/24 14:46 RDW 14.6 % (12.1-15.1) 10/09/24 14:46 Plt Count 133 10^3/cmm (157-399) L 10/09/24 14:46 MPV 11.2 fL (7.4-10.4) H 10/09/24 14:46 Neut % (Auto) 51.6 % 10/09/24 14:46 Lymph % (Auto) 17.6 % 10/09/24 14:46 [place] % (Auto) 16.5 % 10/09/24 14:46 Eos % (Auto) 9.9 % 10/09/24 14:46 Baso % (Auto) 1.8 % 10/09/24 14:46 Neut # (Auto) 1.40 10^3/uL (1.8-7.7) L 10/09/24 14:46 Lymph # (Auto) 0.5 10^3/uL (0.8-4.8) L 10/09/24 14:46 [place] # (Auto) 0.5 10^3/uL (0.2-0.9) 10/09/24 14:46 Eos # (Auto) 0.3 10^3/uL (0.0-0.8) 10/09/24 14:46 Baso # (Auto) 0.1 10^3/uL (0.0-0.1) 10/09/24 14:46 Nucleated RBC % (auto) 0 % 10/09/24 14:46 Nucleated RBCs # 0.0 /100WBC 10/09/24 14:46 Sodium 136 mmol/L (136-145) 10/09/24 14:46 Potassium 4.6 mmol/L (3.5-5.1) 10/09/24 14:46 Chloride 96 mmol/L (98-107) L 10/09/24 14:46 Carbon Dioxide 27 mmol/L (22-29) 10/09/24 14:46 Anion Gap 17.6 (5-19) 10/09/24 14:46 BUN 37 mg/dL (8-23) H 10/09/24 14:46 Creatinine 4.7 mg/dL (0.5-0.9) H 10/09/24 14:46 GFR Calculation Not Reportable 10/09/24 14:46 Glucose 86 mg/dL (65-115) 10/09/24 14:46 Calculated Osmolality 290 mOsm/kg (285-295) 10/09/24 14:46 Calcium 9.1 mg/dL (8.5-10.5) 10/09/24 14:46 Total Bilirubin 0.5 mg/dL (0.15-1.2) 10/09/24 14:46 AST 18 U/L (0-32) 10/09/24 14:46 ALT 14 U/L (0-33) 10/09/24 14:46 Alkaline Phosphatase 120 U/L (35-105) H 10/09/24 14:46 Troponin T Baseline 122 ng/L (0-10) H* 10/09/24 14:46 NT-Pro-B Natriuret Pep > 69612 pg/mL (0-450) H 10/09/24 14:46 Total Protein 5.4 g/dL (6.6-8.7) L 10/09/24 14:46 Albumin 3.4 g/dL (3.5-5.2) L 10/09/24 14:46 Globulin 2.0 g/dL (1.3-4.6) 10/09/24 14:46 Procalcitonin 1.12 ng/mL (0-0.5) H 10/09/24 14:46 All radiology interpretation(s) finalized by discharge Discharge Plan Discharge Patient Disposition: Admitted As Inpatient Clinical Impression: ESRD (end stage renal disease) on dialysis, Congestive heart failure, Pleural effusion, History of breast cancer Condition: Stable Prescriptions: No Action levothyroxine 125 mcg tablet 125 mcg PO QAM omeprazole 20 mg capsule,delayed release(DR/EC) 20 mg PO BID ropinirole 0.25 mg tablet 0.25 mg PO DAILY Auryxia 210 mg iron tablet 210 mg PO BID Rx Instructions: administer with a meal metoprolol tartrate 50 mg tablet See Rx Instructions .ROUTE .COMPLEX Qty: 180 3RF Dose Instruction: TAKE ONE TABLET BY MOUTH TWICE A DAY Rx Instructions: TAKE ONE TABLET BY MOUTH TWICE A DAY RenaPlex-D 800 mcg-12.5 mg -2,000 unit tablet 1 tab PO QAM losartan 50 mg tablet 50 mg PO BEDTIME isosorbide mononitrate 60 mg tablet extended release 24 hr 60 mg PO Q12H hydralazine 25 mg tablet 25 mg PO TID PRN (Reason: anxiety, itching) cholecalciferol (vitamin D3) [Vitamin D3] 50 mcg (2,000 unit) Capsule 50 mcg PO DAILY lidocaine-prilocaine 2.5-2.5 % cream See Rx Instructions .ROUTE .COMPLEX Rx Instructions: APPLY SMALL AMOUNT TO ACCESS SITE (AVF) 1 HOUR BEFORE DIALYSIS. COVER WITH OCCLUSIVE DRESSING (SARAN WRAP) lovastatin 40 mg tablet 40 mg PO DAILY Fish, Flax andBorage Oil(Prim) 400-400-200 mg Capsule 1 cap PO DAILY PreserVision AREDS-2 250-90-40-1 mg Capsule 1 tab PO BID Referrals: Yvette Pickesn MD [Primary Care Provider] - Print Language: Angolan Coding Level of Care Code ED [employer] Andr[employer] Deng
[2024-10-09 14:51] LABS: Basophils # 0.1 10^3/uL (0.0-0.1); Basophils % 1.8 %; Eosinophils # 0.3 10^3/uL (0.0-0.8); Eosinophils % 9.9 %; Hematocrit 36.7 % (36-47); Lymphocytes # 0.5 10^3/uL (0.8-4.8); Lymphocytes % 17.6 %; Mean Corpuscular HGB Conc 29.4 g/dL (30-55); Mean Corpuscular Volume 115.4 fl (85-98); Mean Platelet Volume 11.2 fL (7.4-10.4); Monocytes # 0.5 10^3/uL (0.2-0.9); Monocytes % 16.5 %; Neutrophils % 51.6 %; Nucleated Red Blood Cells % 0 %; Platelet Count 133 10^3/cmm (157-399); Red Blood Count 3.18 10^6/uL (3.85-5.65); Red Cell Distribution Width 14.6 % (12.1-15.1); White Blood Count 2.72 10^3/uL (3.29-11.43)
[2024-10-09 15:10] LABS: Troponin(5th) Baseline 122 ng/L (0-10)
--- NOTE | 2024-10-09 15:10 | ECG_ITS ---
[facility] Test Date: 2024-10-09 Pat Name: Cecilio Ashton Department: Room: Gender: Female Water Carter: : 1935 Requested By: Maura Mejia Order Number: [id number] Olga MD: Elian Rogers M.D. Measurements Intervals [place] Rate: 82 P: 70 SD: 151 QRS: -33 QRSD: 154 T: 109 QT: 391 QTc: 458 Interpretive Statements SINUS RHYTHM LEFT AXIS DEVIATION [QRS AXIS < -30] LEFT BUNDLE BRANCH BLOCK [120+ ms QRS DURATION, 80+ ms Q/S IN V1/V2, 85+ ms R IN I/aVL/V5/V6] Compared to ECG 10/09/2024 13:26:23 Left bundle-branch block now present Intraventricular conduction delay no longer present ST (T wave) deviation no longer present Electronically Signed On 10-10-2024 07:46:19 CDT by Elian Rogers M.D. [email or web address] [id number]
[2024-10-09 15:20] LABS: Procalcitonin 1.12 ng/mL (0-0.5)
[2024-10-09 15:33] LABS: Alanine Aminotransferase 14 U/L (0-33); Albumin Level 3.4 g/dL (3.5-5.2); Alkaline Phosphatase 120 U/L (35-105); Anion Gap 17.6 (5-19); Aspartate Amino Transferase 18 U/L (0-32); Blood Urea Nitrogen 37 mg/dL (8-23); Calcium 9.1 mg/dL (8.5-10.5); Carbon Dioxide 27 mmol/L (22-29); Chloride 96 mmol/L (98-107); Creatinine Clr Calc Pharmacy 7.1095; Glucose 86 mg/dL (65-115); Osmolality Calculated 290 mOsm/kg (285-295); Potassium 4.6 mmol/L (3.5-5.1); Sodium 136 mmol/L (136-145); Total Bilirubin 0.5 mg/dL (0.15-1.2); Total Protein 5.4 g/dL (6.6-8.7)
[2024-10-09 15:47] LABS: NT Pro B Type Natriuretic Pept > 70000 pg/mL (0-450)
--- NOTE | 2024-10-09 15:50 | ECG_ITS ---
[facility] Date: 2024-10-09 Pat Name: Cecilio Ashton Department: Room: Gender: Female Prop Worker: : 1935 Requested By: Maura Mejia Order Number: [id number] Olga MD: Elian Rogers M.D. Measurements Intervals [place] Rate: 82 P: -19 ID: [id number] QRS: -25 QRSD: 158 T: 49 QT: 402 QTc: 472 Interpretive Statements SINUS RHYTHM BORDERLINE LEFT AXIS DEVIATION [QRS AXIS < -20] INTRAVENTRICULAR CONDUCTION DELAY [130+ ms QRS DURATION] Compared to ECG 10/09/2024 15:10:49 Intraventricular conduction delay now present Left bundle-branch block no longer present Electronically Signed On 10-10-2024 07:46:14 CDT by Elian Rogers M.D. [email or web address] [id number]
--- NOTE | 2024-10-09 16:48 | PM.HP ---
Providers/Chief Complaint Primary Care Provider: Yvette Pickens MD Chief Complaint: sob History of Present Illness Cecilio Ashton is a 89 year old female with past medical history of Breast cancer, hypertension, atrial fibrillation, end-stage renal disease on dialysis Saturday, congestive heart failure, pleural effusion, coronary artery disease, hypertension, hyperlipidemia who presented to the hospital today for complaint of shortness of breath. She states she had thoracentesis done last Saturday however by the time she went to dialysis she felt that thoracentesis did not do much to relieve her symptoms. She complains of chest tightness today in the middle of her chest. She was unable to complete dialysis session yesterday. Denies abdominal pain chest pain or fever. She has mild shortness of breath and is chronically on 2 L nasal cannula at home. He states breast cancer was treated long time ago and she has been okay for last 7 years from that aspect. She has a design quality engineer Dr. Soliz that she sees. She saw him last time in November 2023. Does not have a history of any CA. Patient would like to be a full code. ER doctor placed Nitropaste. Initial troponin 122. IV morphine given. Right now patient requiring 4 L nasal cannula. Her baseline is 2 L. Medications/Allergies Home Medications ?Medication ?Instructions ?Recorded ?Confirmed ?Last Taken ?Type omeprazole 20 mg capsule,delayed 20 mg PO BID 09/30/19 10/02/24 10/01/24 History release cholecalciferol (vitamin D3) 50 50 mcg PO DAILY 01/29/23 10/02/24 10/01/24 History mcg (2,000 unit) capsule (Vitamin D3) fish oil 400 mg-flaxseed 400 1 cap PO DAILY 01/29/23 10/02/24 10/01/24 History mg-prim,blk environmental health and safety intern,borag oils 200 mg capsule (Fish, Flax and Borage Oil ([place])) lovastatin 40 mg tablet 40 mg PO DAILY 01/29/23 10/02/24 10/01/24 History vit C 250 mg-vit E 90 mg-zinc 40 1 tab PO BID 01/29/23 10/02/24 10/01/24 History mg-copper 1 [id number] capsule (PreserVision AREDS-2) isosorbide mononitrate 60 mg 60 mg PO Q12H 12/17/23 10/02/24 10/01/24 History tablet,extended release 24 hr hydralazine 25 mg tablet 25 mg PO TID PRN anxiety, itching 10/01/24 10/02/24 Unknown History aspirin 81 mg tablet,delayed 81 mg PO DAILY 10/09/24 10/09/24 10/09/24 History release metoprolol tartrate 50 mg tablet 50 mg PO BID 10/09/24 10/09/24 10/09/24 History Allergies Allergy/AdvReac Type Severity Reaction Status Date / Time amlodipine Allergy Severe Swelling Verified 10/01/24 10:17 clopidogrel (From Plavix) Allergy gi bleed Verified 10/01/24 10:17 oxycodone Allergy can't Verified 10/01/24 10:17 breathe Sulfa (Sulfonamide Allergy cant Verified 10/01/24 10:17 Antibiotics) breathe lisinopril AdvReac cough Verified 10/01/24 10:17 PFSH Acute PFSH: Medical History (Updated 10/09/24 @ 17:05 by Apolonia Mcdaniel MD) Afib Atrial fibrillation with rapid ventricular response ESRD (end stage renal disease) on dialysis AAA (abdominal aortic aneurysm) End stage chronic kidney disease Congestive heart failure (CHF) Pleural effusion Pancytopenia Osteopenia End stage renal disease Hypothyroidism Breast cancer Pulmonary nodule Personal history of irradiation Acute kidney injury superimposed on CKD UTI (urinary tract infection) 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 She was found to have mild to moderate diffuse coronary artery disease. Most recent myocardial perfusion imaging in 2013. No evidence of ischemia. Bilateral carotid artery stenosis Hypertension Hyperlipidemia Diabetes Subclavian artery stenosis, right Surgical History S/P ureteral stent placement History of lumpectomy of right breast Hx of repair of rotator cuff Hx of shoulder replacement S/P matrixectomy of toe Status post reverse arthroplasty of shoulder Hx of cholecystectomy History of appendectomy History of shoulder surgery Family History Other CAD (coronary artery disease) Chronic kidney disease (CKD) Diabetes Family history of premature coronary artery disease Hyperlipidemia Hypertension Lung disease Stroke Social History Smoking and tobacco/nicotine status: former use of tobacco/nicotine Alcohol intake: never Substance/Drug Use: never Current occupational status: retired Vitals/I&O/Wt Last Vital Signs Temp 98.1 F 10/09/24 13:10 Pulse 82 10/09/24 14:35 Resp 18 10/09/24 13:10 BP 161/85 10/09/24 14:35 Pulse Ox 98 10/09/24 14:35 O2 Del Method Nasal Cannula 10/09/24 13:10 O2 Flow Rate 2 10/09/24 13:10 Weight last 48 hrs Weight 54.431 kg Physical Exam Narrative: General: Alert oriented x3, patient seen laying in bed, cachectic frail-appearing elderly female laying in bed at this time. On 4 L nasal cannula. No conversational dyspnea. HEENT: Normocephalic, atraumatic, EOMI, Cardio: Normal S1-S2, regular rate rhythm Respiratory: Clear to auscultation bilaterally no wheezes no rhonchi GI: Abdomen soft, nontender, nondistended, bowel sounds + Extremities: No edema Data 10/09/24 14:46 10/09/24 14:46 A&P Assessment and plan (1) ESRD (end stage renal disease) on dialysis: (2) Congestive heart failure: (3) Hyperlipidemia: Qualifiers: Hyperlipidemia type: mixed hyperlipidemia Qualified Code(s): E78.2 - Mixed hyperlipidemia (4) Chronic kidney disease: (5) Pleural effusion: (6) Chest tightness: Plan #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 Patient presented with complaint of shortness of breath, chest tightness unable to complete dialysis session yesterday. Requiring supplemental oxygen higher than her baseline. Currently on 4 L and normally on 2 L at home. ? Also has bilateral pleural effusions with recent thoracentesis performed last week. ? Will consult nephrology for dialysis ? Continue Nitropaste every 6 hours. ? Initial troponin 122. Possibly elevated secondary to CKD status however NSTEMI cannot be ruled out. Await 2-hour 6-hour troponin. If delta is positive patient will need to be anticoagulated ? Will check echocardiogram to rule out wall motion abnormalities. ? Breast cancer?stable, in remission ? Regular rate rhythm. EKG just shows normal sinus rhythm. ? Will need to obtain accurate med rec prior to restarting home medications. ? Continue omeprazole 20 twice daily ? Continue aspirin, statin. Note patient is not on Plavix secondary to history of GI bleed. ? Continue levothyroxine ? Echo from 2022 shows EF 45%. With diastolic dysfunction. ? Will consider cardiology consult based on further findings ? Urinalysis pending. ? Check chest x-ray in AM. Patient would like to be a full code DVT prophylaxis: Heparin SQ twice daily for now however will consider full dose anticoagulation should delta troponin be positive. Patient does have history of GI bleed. May consider heparin drip if benefits outweigh risk. PDMP PDMP Reviewed: Not Reviewed Attestations Medical Necessity Statement*: Greater than 2 midnight stay for management of heart failure exacerbation and chest pain. Diagnoses ESRD (end stage renal disease) on dialysis N18.6; Z99.2 Congestive heart failure I50.9 Mixed hyperlipidemia E78.2 Hyperlipidemia type: mixed hyperlipidemia Stage 3 chronic kidney disease N18.9 Pleural effusion J90 Chest tightness R07.89
--- NOTE | 2024-10-09 17:06 | CTR_ITS ---
PROCEDURE INFORMATION: Exam: CTA Chest With Contrast Exam date and time: 10/09/2024 7:36 PM Age: 89 years old Clinical indication: Shortness of breath; Prior surgery; Surgery date: 6+ months; Surgery type: RT breast lumpectomy. Dialysis cath. Gb. SOB with hypoxia. History of breast cancer with chf and esrd. TECHNIQUE: Imaging protocol: Computed tomographic angiography of the chest with contrast. Exam focused on the arteries. 3D rendering (Not supervised by radiologist): MIP and/or 3D reconstructed images were created by the technologist. Radiation optimization: All CT scans at this facility use at least one of these dose optimization techniques: automated exposure control; mA and/or kV adjustment per patient size (includes targeted exams where dose is matched to clinical indication); or iterative reconstruction. Contrast material: OMNI 350; Contrast volume: 46 ml; Contrast route: INTRAVENOUS (IV); COMPARISON: CT angio chest PE protcl [id number] 01/29/2023 1:09 PM RADIATION DOSE METRICS: Total DLP (mGy-cm): 188.52 FINDINGS: Pulmonary arteries: Normal. No pulmonary emboli. Aorta: There is vascular atherosclerotic calcification. No aortic aneurysm. No aortic dissection. Lungs: There is a 2.5 cm mass in the left upper lobe of the lung on series 6 image 158 as well as a 1.6 cm nodule in the left upper lobe on image 117. There is a 1.1 cm nodule in the left lower lobe lung on image 135. There is bilateral lower lobe consolidation, right worse than left which was also seen previously. There is also left upper lobe lung consolidation. Lung disease has worsened in the interval. Pleural spaces: There is a moderate right and small left pleural effusion. These were also seen previously. No pneumothorax. Heart: There is cardiomegaly. There is reflux of contrast into the inferior vena cava consistent with right heart failure. Coronary arteries: There is coronary artery calcification. Lymph nodes: Unremarkable. No enlarged lymph nodes. Adrenal glands: There is a new 3.6 cm left adrenal mass. Right adrenal bed containing lesion is again identified. Bones/joints: Unremarkable. No acute fracture. Soft tissues: Unremarkable. CT/CT angio chest PE protcl [id number] IMPRESSION: There is no evidence for a pulmonary artery embolus. When compared with 01/29/2023, bilateral pleural effusions persist. Lung nodules have increased in size consistent with worsening metastatic disease. There is also new left upper lobe lung consolidation consistent with atelectasis and/or pneumonia. Bilateral lower lobe lung consolidation persists. There is new left adrenal mass consistent with metastatic disease.
[2024-10-09] MEDS: iohexol 350 mg/mL 500 mL Btl (per mL) IV (19:44)
[2024-10-09] MEDS: cefTRIAXone 1,000 mg SDV 1000 MG IVP (20:38)
[2024-10-09] MEDS: atorvastatin 40 mg Tablet 20 MG PO (20:38)
[2024-10-09] MEDS: morphine 4 mg/mL SDV 1 mL IVP (20:39)
[2024-10-09] MEDS: azithromycin 250 mg Tablet 500 MG PO (20:40)
[2024-10-09] MEDS: metoprolol tartrate 50 mg Tablet PO (20:40)
[2024-10-09] MEDS: nitroglycerin 1 gm/inch oint Pkt 1 INCH TOPICAL (20:41)
[2024-10-09 21:40] LABS: Troponin 5 6HR Delta -17.1 ng/L (0-12)
[2024-10-09 21:41] LABS: Troponin 5 6HR 104.9 ng/L (0-10)
[2024-10-10] VITALS (14 sets, daily range): BP systolic 98–142; BP diastolic 37–64; PULSE 66–81; RESP 14–26; TEMP 36.5–37.1; O2SAT 91–99; BMI 20.9
[2024-10-10 05:12] LABS: Basophils % 1.6 %; Eosinophils # 0.3 10^3/uL (0.0-0.8); Eosinophils % 11.2 %; Hematocrit 32.6 % (36-47); Lymphocytes # 0.4 10^3/uL (0.8-4.8); Lymphocytes % 14.3 %; Mean Corpuscular HGB Conc 28.5 g/dL (30-55); Mean Corpuscular Hemoglobin 33.5 pg (27-33); Mean Corpuscular Volume 117.3 fl (85-98); Mean Platelet Volume 11.1 fL (7.4-10.4); Monocytes # 0.4 10^3/uL (0.2-0.9); Monocytes % 16.7 %; Neutrophils # 1.37 10^3/uL (1.8-7.7); Neutrophils % 54.6 %; Nucleated Red Blood Cells % 0 %; Platelet Count 128 10^3/cmm (157-399); Red Blood Count 2.78 10^6/uL (3.85-5.65); Red Cell Distribution Width 14.7 % (12.1-15.1); White Blood Count 2.51 10^3/uL (3.29-11.43)
[2024-10-10 05:23] LABS: Alanine Aminotransferase 14 U/L (0-33); Albumin Level 3.1 g/dL (3.5-5.2); Alkaline Phosphatase 132 U/L (35-105); Anion Gap 14.1 (5-19); Aspartate Amino Transferase 14 U/L (0-32); Blood Urea Nitrogen 45 mg/dL (8-23); Calcium 9.3 mg/dL (8.5-10.5); Carbon Dioxide 31 mmol/L (22-29); Chloride 100 mmol/L (98-107); Creatinine Clr Calc Pharmacy 5.3431; Globulin 2.4 g/dL (1.3-4.6); Glucose 141 mg/dL (65-115); Magnesium 1.8 mg/dL (1.7-2.3); Osmolality Calculated 304 mOsm/kg (285-295); Phosphorus 6.2 mg/dL (2.5-4.5); Potassium 5.1 mmol/L (3.5-5.1); Sodium 140 mmol/L (136-145); Total Bilirubin 0.4 mg/dL (0.15-1.2); Total Protein 5.5 g/dL (6.6-8.7)
--- NOTE | 2024-10-10 06:36 | PC.NURSE ---
Patient refused heparin stating I'll bleed to daid she was given heparin during dialysis at some point and had incident with bleeding. Dr Medel was notified verbally.
--- NOTE | 2024-10-10 08:06 | XRR_ITS ---
PROCEDURE INFORMATION: Exam: XR Chest Exam date and time: 10/10/2024 7:44 AM Age: 89 years old Clinical indication: Cough and dyspnea; Additional info: F/u TECHNIQUE: Imaging protocol: Radiologic exam of the chest. Views: 1 view. COMPARISON: CT angio chest PE protcl [id number] 10/09/2024 7:36 PM FINDINGS: Lungs: See Pleural spaces finding. Pleural spaces: Small left and moderate right pleural effusions, unchanged. Diffuse interstitial and airspace opacities are similar to prior. No new findings. Heart/Mediastinum: No cardiomegaly. Vasculature: Atherosclerotic calcifications of the aortic arch. Bones/joints: Status post right shoulder arthroplasty. Soft tissues: Left chest wall diaphoresis catheter tip overlies the superior cavoatrial junction. XR/XR chest 1V portable [id number] IMPRESSION: No interval change.
[2024-10-10] MEDS: azithromycin 250 mg Tablet 500 MG PO (08:25)
[2024-10-10] MEDS: metoprolol tartrate 50 mg Tablet PO ×2 (08:25→18:09)
[2024-10-10] MEDS: pantoprazole DR 40 mg Tablet PO (08:25)
--- NOTE | 2024-10-10 08:41 | PM.CONSULT ---
Providers/Reason For Consult Consulting Physician/Specialty*: kommana /nephrology Reason for Consult*: esrd Attending Physician: Apolonia Mcdaniel MD Primary Care Provider: Yvette Pickens MD History of Present Illness History of Present Illness Cecilio Ashton is a 89 year old female Patient is a 89-year-old female with past medical history of hypertension A-fib end-stage renal disease on dialysis per TTS schedule schedule, CHF coronary artery disease dyslipidemia hypertension presented to the hospital due to shortness of breath. Patient is currently on 4 L O2 by nasal cannula. Lab data reviewed. 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,borag oils 200 mg capsule (Fish, Flax and Borage Oil (Boyd)) lovastatin 40 mg tablet 40 mg PO DAILY 01/29/23 10/09/24 10/09/24 History vit C 250 mg-vit E 90 mg-zinc 40 1 tab PO BID 01/29/23 10/09/24 10/09/24 History mg-copper 1 [id number] capsule (PreserVision AREDS-2) isosorbide mononitrate 60 mg 60 mg PO Q12H 12/17/23 10/09/24 10/09/24 History tablet,extended release 24 hr hydralazine 25 mg tablet 25 mg PO TID anxiety, itching 10/01/24 10/09/24 10/09/24 History metoprolol tartrate 50 mg tablet 50 mg PO BID 10/09/24 10/09/24 10/09/24 History Allergies Allergy/AdvReac Type Severity Reaction Status Date / Time amlodipine Allergy Severe Swelling Verified 10/01/24 10:17 clopidogrel (From Plavix) Allergy gi bleed Verified 10/01/24 10:17 oxycodone Allergy can't Verified 10/01/24 10:17 breathe Sulfa (Sulfonamide Allergy cant Verified 10/01/24 10:17 Antibiotics) breathe lisinopril AdvReac cough Verified 10/01/24 10:17 Current Medications Generic Name Dose Route Start Last Admin Trade Name Erasmo PRN Reason Stop Dose Admin Aspirin 81 mg 10/10/24 09:00 10/10/24 08:26 Aspirin 81 Mg Ec Tablet PO Not Given DAILY EMMA Atorvastatin Calcium 20 mg 10/09/24 21:00 10/09/24 20:38 Atorvastatin 40 Mg Tablet PO 20 mg BEDTIME EMMA Administration Azithromycin 500 mg 10/09/24 20:30 10/10/24 08:25 Azithromycin 250 Mg Tablet PO 500 mg DAILY EMMA Administration Protocol Ceftriaxone Sodium 1,000 mg 10/09/24 20:30 10/09/24 20:38 Ceftriaxone 1,000 Mg Sdv IVP 1,000 mg Q24H EMMA Administration Protocol Heparin Sodium (Porcine) 5,000 unit 10/09/24 20:30 10/10/24 08:25 Heparin 5,000 Unit/Ml Inj 1 Ml SUBCUT Not Given Q12H EMMA Metoprolol Tartrate 50 mg 10/09/24 20:30 10/10/24 08:25 Metoprolol Tartrate 50 Mg Tablet PO 50 mg BID EMMA Administration Pantoprazole Sodium 40 mg 10/10/24 09:00 10/10/24 08:[address] 40 Mg Tablet PO 40 mg DAILY EMMA Administration PFSH Acute PFSH: Medical History (Updated 10/10/24 @ 14:15 by Apolonia Mcdaniel MD) Afib Atrial fibrillation with rapid ventricular response ESRD (end stage renal disease) on dialysis AAA (abdominal aortic aneurysm) End stage chronic kidney disease Congestive heart failure (CHF) Pleural effusion Pancytopenia Osteopenia End stage renal disease Hypothyroidism Breast cancer Pulmonary nodule Personal history of irradiation Acute kidney injury superimposed on CKD UTI (urinary tract infection) 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 She was found to have mild to moderate diffuse coronary artery disease. Most recent myocardial perfusion imaging in 2013. No evidence of ischemia. Bilateral carotid artery stenosis Hypertension Hyperlipidemia Diabetes Subclavian artery stenosis, right Surgical History S/P ureteral stent placement History of lumpectomy of right breast Hx of repair of rotator cuff Hx of shoulder replacement S/P matrixectomy of toe Status post reverse arthroplasty of shoulder Hx of cholecystectomy History of appendectomy History of shoulder surgery Family History Other CAD (coronary artery disease) Chronic kidney disease (CKD) Diabetes Family history of premature coronary artery disease Hyperlipidemia Hypertension Lung disease Stroke Social History Smoking and tobacco/nicotine status: former use of tobacco/nicotine Alcohol intake: never Substance/Drug Use: never Current occupational status: retired Vitals/I&O/Wt Last Vital Signs Temp 97.8 F 10/10/24 07:31 Pulse 73 10/10/24 07:31 Resp 16 10/10/24 07:31 BP 136/63 10/10/24 07:31 Pulse Ox 99 10/10/24 07:31 O2 Del Method Nasal Cannula 10/10/24 07:31 O2 Flow Rate 4 10/10/24 07:31 10/09/24 10/10/24 10/10/24 22:59 06:59 14:59 Intake Total 240 / 240 Balance 240 / 240 Weight last 48 hrs Weight 47 kg Weight 47 kg Weight 54.431 kg Physical Exam Narrative: Patient is awake alert, mild distress, on 4 L O2 by nasal cannula PERRLA S1-S2 regular rate and rhythm per report Lungs with decreased breath sounds and crackles per report Abdomen soft nontender per report No pedal edema Data 10/10/24 04:35 10/10/24 04:35 A&P Assessment and plan (1) ESRD (end stage renal disease) on dialysis: Plan 1. End-stage renal disease: On TTS schedule, last dialysis was Saturday and patient missed dialysis on . Patient currently has volume overload, HD today and ultrafiltration as tolerated 2. Acute on chronic respiratory failure: In the setting of pulmonary edema, HD as above 3. History of coronary artery disease, elevated troponin, 4. History of breast cancer 5. History of A-fib 6. Anemia: Hemoglobin at goal, monitor Patient evaluated using audiovisual cart. Time spent 40 minutes. PDMP PDMP Reviewed: Not Reviewed Consult Attestations Medical Necessity Statement: per nayeli team Coding Level of Care Code Acute Code for Chg Fwd Diagnoses ESRD (end stage renal disease) on dialysis N18.6; Z99.2
[2024-10-10 09:05] LABS: Hepatitis B Surface AB 8.6 (11.5-1000); Hepatitis B Surface Antigen Non-Reactive (Nonreactive)
--- NOTE | 2024-10-10 09:48 | PC.CHAP ---
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 [] Patient/Family/Request visit [] Outpatient visit [] Follow-up visit [] Physician referral [] Code/Alert [X] Routine visit [] Staff referral [] Actively dying [] Patient sleeping [] Family support [] [] Out of room [] Palliative care [] [] Receiving care in room [] Pre-surgical visit [] Trauma [] Long length of stay [] ICU visit [] Other: Relational/Emotional Strength [X] Patient feels connected with others/family/visitors/staff [] Distress [] Loneliness/isolation [] Abandonment Spirituality of Patient [X] Person of Kat [] Attends Anabaptist of their Kat [x] Believes in Prayer [] Reads Bible or Sabianist materials [] There are Spiritual issues to be addressed Counter Hand Interventions [X] Prayer [X] Active listening [] Non-anxious presence [] Spiritual/emotional support [] Crisis/trauma care [] Spiritual counseling [] Bereavement support [] Provided bereavement packet [] Provided Bible/devotional materials [] Provided toy/stuffed animal, coloring book to patient or family member [] Provided Communion [] Anointing/[place] [] Salvation [] Completed spiritual assessment [] Other: Impact on Illness or Injury [] Angry [] Fearful [] Anxious [] Often cries [X] Exhaustion [] Unable to work [] Unable to attend jain [] Unable to walk/stand [] Unable to read [] Unable to drive [] Unable to eat/drink [] Unable to sleep [] Unable to be with family [] Patient intubated [] Other: Summary P Time spent with patient 15 min
--- NOTE | 2024-10-10 10:16 | PC.NURSE ---
taken to Hemodialysis room Lila, PRIYA ushered pt via bed for her Hemodialysis.
[2024-10-10] MEDS: heparin, porcine 1,000 unit/mL INJ 10 mL 1000 UNIT IV (10:30)
[2024-10-10] MEDS: heparin, porcine 1,000 unit/mL INJ 10 mL 10000 UNIT INTRACATH (10:35)
[2024-10-10] MEDS: albumin 12.5 GM/50 ML VIAL IV ×2 (11:20→11:49)
--- NOTE | 2024-10-10 13:57 | P.PN_ITS ---
Subjective 2 Subjective: pt seen in dialysis subjectively feeling slightly better she says Vitals/I&O/Wt Last Vital Signs Temp 97.8 F 10/10/24 07:31 Pulse 72 10/10/24 08:00 Resp 16 10/10/24 07:31 BP 136/63 10/10/24 07:31 Pulse Ox 93 10/10/24 08:00 O2 Del Method Nasal Cannula 10/10/24 08:00 O2 Flow Rate 5 10/10/24 08:00 10/09/24 10/10/24 10/10/24 22:59 06:59 14:59 Intake Total 240 / 240 337 / 337 Balance 240 / 240 337 / 337 Weight last 48 hrs Weight 47 kg Weight 47 kg Weight 54.431 kg Physical Exam 2 Narrative: General: Alert oriented x3, patient seen laying in bed, cachectic frail- appearing elderly female laying in bed at this time. On 4 L nasal cannula. No conversational dyspnea. HEENT: Normocephalic, atraumatic, EOMI, Cardio: Normal S1-S2, regular rate rhythm Respiratory: Clear to auscultation bilaterally no wheezes no rhonchi GI: Abdomen soft, nontender, nondistended, bowel sounds + Extremities: No edema Data 10/10/24 04:35 10/10/24 04:35 A&P Assessment and plan (1) ESRD (end stage renal disease) on dialysis: (2) Congestive heart failure: (3) Hyperlipidemia: Qualifiers: Hyperlipidemia type: mixed hyperlipidemia Qualified Code(s): E78.2 - Mixed hyperlipidemia (4) Chronic kidney disease: (5) Pleural effusion: (6) Chest tightness: (7) Metastatic disease: (8) Pneumonia: Qualifiers: Laterality: bilateral Lung location: lower lobe of lung Pneumonia type: due to unspecified organism Qualified Code(s): J18.9 - Pneumonia, unspecified organism Plan #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 Patient presented with complaint of shortness of breath, chest tightness unable to complete dialysis session yesterday. Requiring supplemental oxygen higher than her baseline. Currently on 4 L and normally on 2 L at home. ? Also has bilateral pleural effusions with recent thoracentesis performed last week. ? Will consult nephrology for dialysis ? Continue Nitropaste every 6 hours. ? Initial troponin 122. Possibly elevated secondary to CKD status however NSTEMI cannot be ruled out. Await 2-hour 6-hour troponin. If delta is positive patient will need to be anticoagulated ? Will check echocardiogram to rule out wall motion abnormalities. ? Breast cancer?stable, in remission ? Regular rate rhythm. EKG just shows normal sinus rhythm. ? Will need to obtain accurate med rec prior to restarting home medications. ? Continue omeprazole 20 twice daily ? Continue aspirin, statin. Note patient is not on Plavix secondary to history of GI bleed. ? Continue levothyroxine ? Echo from 2022 shows EF 45%. With diastolic dysfunction. ? Will consider cardiology consult based on further findings ? Urinalysis pending. ? Check chest x-ray in AM. Patient would like to be a full code DVT prophylaxis: Heparin SQ twice daily for now however will consider full dose anticoagulation should delta troponin be positive. Patient does have history of GI bleed. May consider heparin drip if benefits outweigh risk. 10/10/2024 Review of chart: 07/2022 Likely neoplasm of central portion of right female breast. 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 She underwent right breast lumpectomy with axillary sentinel lymph node biopsy in 2016. Her Oncotype showed recurrence of 25% corresponding to a recurrence risk of 16% in 10 years with adjuvant hormone therapy. She opted not to take adjuvant chemotherapy. She completed radiation to the right breast in November 2016 and then began adjuvant hormonal therapy with anastrozole 1 mg daily. It was placed on hold in 2017 due to increased musculoskeletal pain but it was restarted the following month. At her follow-up visit in 2019 both anastrozole and Prolia were both put on hold due to significant decline in renal function. Patient went on to develop end-stage renal disease for which she started dialysis. Her management was complicated by development of lymphedema in right arm following placement of dialysis fistula. However there was no evidence of recurrence of breast cancer. She was expected to continue expectant management and to follow-up with oncology as needed. 11/2022 Patient with mild anemia, occurring in association with chronic kidney disease. She has now progressed to pancytopenia with significantly macrocytic red cell indices. 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 She will be scheduled for additional laboratory studies to be drawn at dialysis tomorrow. These will include CBC, comprehensive metabolic profile, sed rate and CRP level, reticulocyte count, LDH level, serum protein electrophoresis, and serum free light chain assay. She will have further evaluation as indicated. I anticipate that she will need to undergo bone marrow aspiration/biopsy. CT PE protocol: There is no evidence for a pulmonary artery embolus. When compared with 01/29/2023, bilateral pleural effusions persist. Lung nodules have increased in size consistent with worsening metastatic disease. There is also new left upper lobe lung consolidation consistent with atelectasis and/or pneumonia. Bilateral lower lobe lung consolidation persists. There is new left adrenal mass consistent with metastatic disease. -Had a discussion with patient regarding results of CT scan. Discussed with her to follow-up with oncology as an outpatient. At this time we will continue to treat for pneumonia. Will continue on ceftriaxone azithromycin. Bilateral pleural effusions most likely secondary to heart failure versus malignancy. Note patient did not take adjuvant chemotherapy as per oncology notes. She may require a PET scan going forward and will need to follow-up with oncology as an outpatient. Plan during this hospitalization to continue dialysis to optimize fluid status treat for pneumonia and plan to discharge home in next 48 to 72 hours pending clinical course. Troponins elevated most likely secondary to end-stage renal disease. Delta troponin at 6 hours-2. Patient denies any chest pain shortness of breath at this time. She did complain of some chest tightness yesterday however she stated that that resolved later on. Has not required Nitropaste overnight either. Will continue to monitor. Echo is pending. Should there be any abnormalities on echocardiogram we will consider cardiology consult. Will be contacting Mr. Ashton patient's nephew over the phone with patient updates. PDMP PDMP Reviewed: Not Reviewed Attestations 2 Medical Necessity Statement*: Continue to hospitalize at this time to treat for pneumonia, heart failure exacerbation. Diagnoses ESRD (end stage renal disease) on dialysis N18.6; Z99.2 Congestive heart failure I50.9 Mixed hyperlipidemia E78.2 Hyperlipidemia type: mixed hyperlipidemia Stage 3 chronic kidney disease N18.9 Pleural effusion J90 Chest tightness R07.89 Metastatic disease C79.9 Pneumonia J18.9 Laterality: bilateral Lung location: lower lobe of lung Pneumonia type: due to unspecified organism
--- NOTE | 2024-10-10 17:06 | USCV_ITS ---
Cecilio Ashton Age: 89 Gender: F : 1935 Exam Date: 10/10/2024 09:05 Ordering Phys: Apolonia Mcdaniel MD Technologist: Venu Robertson Exam Location: [facility] – [place] Indication: chf BP: 136 / 63 HR: 75 Rhythm: Sinus Technical Quality: Adequate MEASUREMENTS (Male / Female) Normal Values 2D ECHO LV Diastolic Diameter PLAX 5.3 cm 4.2 - 5.9 / 3.9 - 5.3 cm IVS Diastolic Thickness 1.6 cm 0.6 - 1.0 / 0.6 - 0.9 cm IVS Systolic Thickness 1.4 cm LVPW Diastolic Thickness 1.3 cm 0.6 - 1.0 / 0.6 - 0.9 cm LVPW Systolic Thickness 1.8 cm LVOT Diameter 2.0 cm LV Ejection Fraction 2D Teich 35.9 % LV Ejection Fraction MOD 4C 33.1 % LV Ejection Fraction MOD 2C 43.4 % LV Ejection Fraction 2C AL 43.9 % LA Diameter 4.1 cm RA Systolic Volume 4C AL 52.7 ml RA Systolic Volume 4C MOD 53.2 ml LA Sys Volume AL 48.1 cm cubed LA Sys Volume Index AL 37.0 cm cubed/m squared Aorta at Sinotubular Diameter 2.5 cm IVC Diameter 1.8 cm M-MODE LA Ao Ratio MM 1.5 AV Cusp Separation MM 1.6 cm DOPPLER AV Peak Velocity 165.0 cm/s LVOT Peak Velocity 87.0 cm/s AV Area Cont Eq vti 1.9 cm squared AV Area Cont Eq pk 1.7 cm squared MV Peak Velocity 127.0 cm/s MV Area PHT 4.2 cm squared Mitral E to A Ratio 0.6 TV Peak Velocity 424.5 cm/s TR Peak Velocity 508.0 cm/s TR Peak Gradient 103.2 mmHg TR Mean Velocity 372.0 cm/s TR Mean Gradient 61.9 mmHg TR Velocity Time Integral 174.9 cm PV Peak Velocity 153.0 cm/s RV Ejection Time 0.2 s FINDINGS Left Ventricle Diffuse hypokinesis of the left ventricle with ejection fraction of 43%.mild left ventricular hypertrophy. Mildly dilated left ventricle Right Ventricle Normal RV size with a slightly diminished ejection fraction Right Atrium Moderately increased right atrial size. Left Atrium Moderately increased left atrial size. Mitral Valve Thickened mitral valve. Mild mitral valve regurgitation. Aortic Valve Mild aortic valve regurgitation. Tricuspid Valve Moderate tricuspid valve regurgitation. Moderate pulmonary hypertension with estimated pulmonary artery peak systolic pressure of 65 mmHg Pulmonic Valve Mild pulmonary valve regurgitation. Pericardium No pericardial effusion. Aorta Normal aortic annulus size. IVC Normal inferior vena cava. CONCLUSIONS Diffuse hypokinesis of the left ventricle with ejection fraction of 43%.mild left ventricular hypertrophy. Mildly dilated left ventricle. Moderate biatrial enlargement. Thickened mitral valve. Mild mitral valve regurgitation. Mild aortic valve regurgitation. Moderate tricuspid valve regurgitation. Moderate pulmonary hypertension with estimated pulmonary artery peak systolic pressure of 65 mmHg. Mild pulmonary valve regurgitation. Compared to the study from 01/29/2023, the LV ejection fraction has decreased from 45- 50% to 43% Dr Edwin Soliz MD FAC (Electronically Signed) Final Date: 10 October 2024 15:01 S
--- NOTE | 2024-10-10 18:02 | ECG_ITS ---
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 Measurements Intervals [place] Rate: 80 P: 74 UT: 159 QRS: -43 QRSD: 157 T: 138 QT: 416 QTc: 482 Interpretive Statements SINUS RHYTHM WITH OCCASIONAL SUPRAVENTRICULAR PREMATURE COMPLEXES LEFT AXIS DEVIATION [QRS AXIS < -30] LEFT BUNDLE BRANCH BLOCK [120+ ms QRS DURATION, 80+ ms Q/S IN V1/V2, 85+ ms R IN I/aVL/V5/V6] Compared to ECG 10/09/2024 15:50:25 Left bundle-branch block now present Intraventricular conduction delay no longer present Electronically Signed On 10-11-2024 22:42:42 CDT by Edwin Soliz M.D. [email or web address]
[2024-10-10] MEDS: morphine 4 mg/mL SDV 1 mL 1 MG IVP (18:36)
[2024-10-10 18:48] LABS: Troponin(5th) Baseline 129 ng/L (0-10)
--- NOTE | 2024-10-10 20:02 | ECG_ITS ---
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 Measurements Intervals [place] Rate: 72 P: 73 [place]: 157 QRS: 173 QRSD: 158 T: 109 QT: 429 QTc: 472 Interpretive Statements SINUS RHYTHM INTRAVENTRICULAR CONDUCTION DELAY [130+ ms QRS DURATION] Compared to ECG 10/10/2024 18:16:03 Intraventricular conduction delay now present Left-axis deviation no longer present Left bundle-branch block no longer present Electronically Signed On 10-11-2024 22:49:49 CDT by Edwin Soliz M.D. [email or web address]
--- NOTE | 2024-10-10 20:12 | P.CONIM_ITS ---
Providers/Reason For Consult 2 Consulting Physician/Specialty*: FRANC Soliz MD/cardiology Reason for Consult*: Elevated troponin T/chest pain Requesting Physician: Dr. Mcdaniel Attending Physician: Apolonia Mcdaniel MD Primary Care Provider: Yvette Pickens MD History of Present Illness History of Present Illness Cecilio Ashton is a 89 year old female with multiple medical problems, he is admitted to hospital with complaints of chest pain and shortness of breath. She was found to have a consistently elevated troponin T. She has been having recurrent pleural effusion requiring thoracentesis. She is known to have congestive heart failure and cardiomyopathy. She is known to have end-stage renal disease and is on hemodialysis. Cardiology consult is requested for further cardiac evaluation recommendations. This patient has a history of chronic heart failure, atrial fibrillation, mild to moderate coronary artery disease by angiogram in 2011. Since last Saturday, she been having episodes of chest pain. According to her, she been having tight feeling in the chest usually last for couple of minutes and then subside spontaneously or with sublingual nitro. She has been getting more short of breath lately. She had a thoracentesis last Saturday. She had an echocardiogram today which revealed LV ejection fraction of 43%. LV ejection fraction used to be 45 to 50% by echocardiogram in 2022. He had a CT of the chest today which revealed evidence of multiple lung lesions and an adrenal mass, suggesting metastatic lesions. They were appeared to be growing in size compared to the previous study. Patient seems to have lost significant weight in the recent past. Her appetite has been poor. Her functional status also has been declining lately, as per the family. At the time of my examination, patient is pain-free. She had an episode of chest pain this evening, responded to IV morphine. She has no fever or chills. No severe cough. Review of Systems 2 Narrative: CONSTITUTIONAL: Weight loss, anorexia and shortness of EYES: No blurring of vision or other visual disturbances lately. ENT: No hoarseness of voice, auditory disturbances or sore throat. CARDIOVASCULAR: As mentioned above. RESPIRATORY: As mentioned above. Recurrent pleural effusion requiring thoracentesis x 2 GASTROINTESTINAL: No hematemesis or melena. GENITOURINARY: End-stage renal disease, on hemodialysis INTEGUMENTARY: No skin rashes or history of skin cancer. NEURO: No transient ischemic attacks or amaurosis. PSYCHIATRIC: No history of psychosis or major depression. HEMATOLOGIC: History of breast cancer, chronic anemia ENDOCRINE: No history of polyuria or polydipsia. MUSCULOSKELETAL: No recent joint pain or swelling. ALLERGY/IMMUNOLOGY: As mentioned above. Medications/Allergies Home Medications ?Medication ?Instructions ?Recorded ?Confirmed ?Last Taken ?Type omeprazole 20 mg capsule,delayed 20 mg PO BID 09/30/19 10/09/24 10/09/24 History release cholecalciferol (vitamin D3) 50 50 mcg PO DAILY 10/09/24 10/09/24 History mcg (2,000 unit) capsule (Vitamin D3) fish oil 400 mg-flaxseed 400 1 cap PO DAILY 01/29/23 0 10/09/24 10/09/24 History mg-prim,blk operations director,borag oils 200 mg capsule (Fish, Flax and Borage Oil (Jellico)) lovastatin 40 mg tablet 40 mg PO DAILY 01/29/23/08/1510/09/24 History vit C 250 mg-vit E 90 mg-zinc 40 1 tab PO BID 01/29/23 10/09/24 10/09/24 History mg-copper 1 [id number] capsule (PreserVision AREDS-2) isosorbide mononitrate 60 mg 60 mg PO Q12H 12/17/2310/09/24 History tablet,extended release 24 hr hydralazine 25 mg tablet 25 mg PO TID anxiety, itchin g 10/01/24 10/09/24 10/09/24 History metoprolol tartrate 50 mg tablet 50 mg PO BID 10/09/24 10/09/24 10/09/24 History Allergies Allergy/AdvReac Type Severity Reaction Status Date / Time amlodipine Allergy Severe Swelling Verified 10/01/24 10:17 clopidogrel (From Plavix) Allergy gi bleed Verified 10/01/24 10:17 oxycodone Allergy can't Verified 10/01/24 10:17 breathe Sulfa (Sulfonamide Allergy cant Verified 10/01/24 10:17 Antibiotics) breathe lisinopril AdvReac cough Verified 10/01/24 10:17 Current Medications Generic Name Dose Route Start Last Admin Trade Name Freq PRN Reason Stop Dose Admin Aspirin 81 mg 10/10/24 09:00 10/10/24 08:26 Aspirin 81 Mg Ec Tablet PO Not Given DAILY EMMA Atorvastatin Calcium 20 mg 10/09/24 21:00 10/09/24 20:38 Atorvastatin 40 Mg Tablet PO 20 mg BEDTIME EMMA Administration Azithromycin 500 mg 10/09/24 20:30 10/10/24 08:25 Azithromycin 250 Mg Tablet PO 500 mg DAILY EMMA Administration Protocol Ceftriaxone Sodium 1,000 mg 10/09/24 20:30 10/09/24 20:38 Ceftriaxone 1,000 Mg Sdv IVP 1,000 mg Q24H EMMA Administration Protocol Heparin Sodium (Porcine) 5,000 unit 10/09/24 20:30 10/10/24 08:25 Heparin 5,000 Unit/Ml Inj 1 Ml SUBCUT Not Given Q12H EMMA Albumin Human 12.5 gm in 50 mls @ 60 mls/hr 10/10/24 08:39 10/10/24 16:00 Albumin IV Infused PRN PRN Infusion Hypotension and/or symptomatic Metoprolol Tartrate 50 mg 10/09/24 20:30 10/10/24 18:09 Metoprolol Tartrate 50 Mg Tablet PO 50 mg BID EMMA Administration Pantoprazole Sodium 40 mg 10/10/24 09:00 10/10/24 08:[address] 40 Mg Tablet PO 40 mg DAILY EMMA Administration PFSH Acute 2 PFSH: Medical History Afib Atrial fibrillation with rapid ventricular response ESRD (end stage renal disease) on dialysis AAA (abdominal aortic aneurysm) End stage chronic kidney disease Congestive heart failure (CHF) Pleural effusion Pancytopenia Osteopenia End stage renal disease Hypothyroidism Breast cancer Pulmonary nodule Personal history of irradiation Acute kidney injury superimposed on CKD UTI (urinary tract infection) 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 She was found to have mild to moderate diffuse coronary artery disease. Most recent myocardial perfusion imaging in 2013. No evidence of ischemia. Bilateral carotid artery stenosis Hypertension Hyperlipidemia Diabetes Subclavian artery stenosis, right Surgical History S/P ureteral stent placement History of lumpectomy of right breast Hx of repair of rotator cuff Hx of shoulder replacement S/P matrixectomy of toe Status post reverse arthroplasty of shoulder Hx of cholecystectomy History of appendectomy History of shoulder surgery Family History Other CAD (coronary artery disease) Chronic kidney disease (CKD) Diabetes Family history of premature coronary artery disease Hyperlipidemia Hypertension Lung disease Stroke Social History Smoking and tobacco/nicotine status: former use of tobacco/nicotine Alcohol intake: never Substance/Drug Use: never Current occupational status: retired Vitals/I&O/Wt Last Vital Signs Temp 98.4 F 10/10/24 16:00 Pulse 72 10/10/24 16:00 Resp 22 H 10/10/24 18:36 BP 142/64 10/10/24 16:00 Pulse Ox 98 10/10/24 16:00 O2 Del Method Nasal Cannula 10/10/24 16:00 O2 Flow Rate 3 10/10/24 16:00 10/10/24 10/10/24 10/10/24 06:59 14:59 22:59 Intake Total 240 / 240 337 / 337 940 / 1277 Output Total 3497 / 3497 Balance 240 / 240 337 / 337 -2557 / -2220 Weight last 48 hrs Weight 101 lb 6.602 oz Weight 103 lb 9.876 oz Weight 103 lb 9.876 oz Weight 120 lb Physical Exam 2 Narrative: GENERAL: The patient is alert and oriented times three. Has some intermittent respiratory distress. Chronically ill looking HEENT: Moderate pallor. No icterus or lymphadenopathy.Oral cavity: There are no mucous membrane lesions. NECK: Trachea appears to be central. No masses noted. Jugular vein distention present. RESPIRATORY: Breath sounds are heard bilaterally with diminished intensity of breath sounds in the bases. Occasional coarse crackles. BREASTS: Deferred. HEART: The heart sounds are variable. No S3 or S4. Short systolic murmur in the lower sternal border. No pericardial rub ABDOMEN: No vessel pulsations or distention. No tenderness. No organomegaly appreciated. Bowel sounds are normally heard. : Deferred. RECTAL: Deferred. LYMPHATIC: No lymphadenopathy noted in the neck. EXTREMITIES: Trace edema with no cyanosis. No clubbing. MUSCULOSKELETAL: No acute joint deformities or swelling SKIN: There are no significant rashes or ecchymosis NEUROPSYCHIATRIC: The patient is alert and oriented x3. Appears to be in a good mood. No tremors or rigidity noted. Data 10/10/24 04:35 10/10/24 04:35 Other Labs: Laboratory Last Values WBC 2.51 10^3/uL (3.29-11.43) L 10/10/24 04:35 RBC 2.78 10^6/uL (3.85-5.65) L 10/10/24 04:35 Hgb 9.30 g/dL (11.27-16.99) L 10/10/24 04:35 Hct 32.6 % (36-47) L 10/10/24 04:35 MCV 117.3 fl (85-98) H 10/10/24 04:35 MCH 33.5 pg (27-33) H 10/10/24 04:35 MCHC 28.5 g/dL (30-55) L 10/10/24 04:35 RDW 14.7 % (12.1-15.1) 10/10/24 04:35 Plt Count 128 10^3/cmm (157-399) L 10/10/24 04:35 MPV 11.1 fL (7.4-10.4) H 10/10/24 04:35 Neut % (Auto) 54.6 % 10/10/24 04:35 Lymph % (Auto) 14.3 % 10/10/24 04:35 [place] % (Auto) 16.7 % 10/10/24 04:35 Eos % (Auto) 11.2 % 10/10/24 04:35 Baso % (Auto) 1.6 % 10/10/24 04:35 Neut # (Auto) 1.37 10^3/uL (1.8-7.7) L 10/10/24 04:35 Lymph # (Auto) 0.4 10^3/uL (0.8-4.8) L 10/10/24 04:35 [place] # (Auto) 0.4 10^3/uL (0.2-0.9) 10/10/24 04:35 Eos # (Auto) 0.3 10^3/uL (0.0-0.8) 10/10/24 04:35 Baso # (Auto) 0.0 10^3/uL (0.0-0.1) 10/10/24 04:35 Nucleated RBC % (auto) 0 % 10/10/24 04:35 Nucleated RBCs # 0.0 /100WBC 10/10/24 04:35 Sodium 140 mmol/L (136-145) 10/10/24 04:35 Potassium 5.1 mmol/L (3.5-5.1) 10/10/24 04:35 Chloride 100 mmol/L (98-107) 10/10/24 04:35 Carbon Dioxide 31 mmol/L (22-29) H 10/10/24 04:35 Anion Gap 14.1 (5-19) 10/10/24 04:35 BUN 45 mg/dL (8-23) H 10/10/24 04:35 Creatinine 5.4 mg/dL (0.5-0.9) H 10/10/24 04:35 GFR Calculation Not Reportable 10/10/24 04:35 Glucose 141 mg/dL (65-115) H 10/10/24 04:35 Calculated Osmolality 304 mOsm/kg (285-295) H 10/10/24 04:35 Calcium 9.3 mg/dL (8.5-10.5) 10/10/24 04:35 Phosphorus 6.2 mg/dL (2.5-4.5) H 10/10/24 04:35 Magnesium 1.8 mg/dL (1.7-2.3) 10/10/24 04:35 Total Bilirubin 0.4 mg/dL (0.15-1.2) 10/10/24 04:35 AST 14 U/L (0-32) 10/10/24 04:35 ALT 14 U/L (0-33) 10/10/24 04:35 Alkaline Phosphatase 132 U/L (35-105) H 10/10/24 04:35 Troponin T Baseline 129 ng/L (0-10) H* 10/10/24 18:13 Troponin T 120 Minute 120.0 ng/L (0-10) H 10/09/24 16:46 Delta Troponin T -2.0 ABS# (0-10) L 10/09/24 16:46 Troponin T Hi Sens 6Hr 104.9 ng/L (0-10) H 10/09/24 20:23 Troponin T Hi Sens 6Hr Delta -17.1 ng/L (0-12) L 10/09/24 20:23 NT-Pro-B Natriuret Pep > 85515 pg/mL (0-450) H 10/09/24 14:46 Total Protein 5.5 g/dL (6.6-8.7) L 10/10/24 04:35 Albumin 3.1 g/dL (3.5-5.2) L 10/10/24 04:35 Globulin 2.4 g/dL (1.3-4.6) 10/10/24 04:35 Procalcitonin 1.12 ng/mL (0-0.5) H 10/09/24 14:46 Hep Bs Antigen Non-reactive (Nonreactive) 10/10/24 04:35 Hep Bs Antibody 8.6 (11.5-1000) L 10/10/24 04:35 EKG 1: My Interpretation: Normal sinus rhythm with frequent supraventricular ectopics. Left bundle branch block pattern. Secondary ST-T changes. Other data: Echocardiogram from today, 10/10/2024 Diffuse hypokinesis of the left ventricle with ejection fraction of 43%.mild left ventricular hypertrophy. Mildly dilated left ventricle. Moderate biatrial enlargement. Thickened mitral valve. Mild mitral valve regurgitation. Mild aortic valve regurgitation. Moderate tricuspid valve regurgitation. Moderate pulmonary hypertension with estimated pulmonary artery peak systolic pressure of 65 mmHg. Mild pulmonary valve regurgitation. Compared to the study from 01/29/2023, the LV ejection fraction has decreased from 45- 50% to 43% Myocardial perfusion imaging in 2021-no evidence of ischemia Cardiac catheterization in 2011 revealed mild to moderate diffuse coronary artery disease A&P Assessment and plan (1) Elevated troponin: The troponin appears to be chronically elevated with no significant delta. End- stage renal disease with possible ischemic cardiomyopathy and congestive heart failure are contributing factors. The EKG does not reveal any acute changes. (2) Ischemic cardiomyopathy: LV ejection fraction was found to be 43% based on echocardiogram today. It dropped from 45 to 50% in 2022. Most likely she may have underlying coronary artery disease causing LV dysfunction. (3) Acute on chronic diastolic (congestive) heart failure: The end-stage renal disease coupled with LV dysfunction other major cardiorenal factors. (4) Respiratory distress: This could be multifactorial. Pleural effusion, metastatic lung disease, congestive heart failure, etc. are contributing factors (5) Chest pain: Most likely is related to underlying coronary ischemia. She will be treated with IV heparin and aspirin at this point. Since there is no significant delta in the troponins I may hold off on Plavix at this point. Qualifiers: Chest pain type: unspecified Qualified Code(s): R07.9 - Chest pain, unspecified (6) Recurrent pleural effusion: Patient was found to have moderate AV stone on the right and minimal on the left based on the CT scan. This needs to be closely monitored. (7) Metastatic cancer to lung: Most likely she has metastatic lung disease. There is no biopsy diagnosis yet. Qualifiers: Laterality: unspecified laterality Qualified Code(s): C78.00 - Secondary malignant neoplasm of unspecified lung (8) ESRD (end stage renal disease) on dialysis: She is on hemodialysis. (9) History of breast cancer: She was found to be cancer free up until result Plan I discussed at length with the patient and her family regarding further management. Patient's physical condition is very poor at this point. Her overall prognosis also seems to be very poor. She has a standing DNR status. Her advanced age, multiple medical problems and poor physical condition make her a poor candidate for any aggressive measures. She apparently does not want to undergo any invasive or interventional procedures for her heart. She also refused any IV heparin. At this point, she may be continued on the medical treatment and comfort measures. Discussed with Dr. Mcdaniel who also concurred with this plan. Thank you for the opportunity to evaluate this patient and make these recommendations PDMP PDMP Reviewed: Not Reviewed Coding Level of Care Code 11367 Diagnoses Elevated troponin R79.89 Ischemic cardiomyopathy I25.5 Acute on chronic diastolic (congestive) heart failure I50.33 Respiratory distress R06.03 Chest pain, unspecified type R07.9 Chest pain type: unspecified Recurrent pleural effusion J90 Malignant neoplasm metastatic to lung, unspecified laterality C78.00 Laterality: unspecified laterality ESRD (end stage renal disease) on dialysis N18.6; Z99.2 History of breast cancer Z85.3
[2024-10-10 20:16] LABS: Troponin 5 2HR Delta 7.5 ABS# (0-10)
[2024-10-10 20:52] LABS: Troponin 5 2HR 136.5 ng/L (0-10)
[2024-10-10] MEDS: cefTRIAXone 1,000 mg SDV 1000 MG IVP (21:18)
[2024-10-10] MEDS: atorvastatin 40 mg Tablet 20 MG PO (21:54)
--- NOTE | 2024-10-10 22:27 | PC.NURSE ---
2114- Dr. Soliz has seen patient and talked to family regarding cardiac status. Family requested to speak with this nurse and inquire about code status. Family also let this nurse know that the patient is not wanting to live by herself anymore and would like to look into options for living arrangement.This nurse talked to patient with second nurse regarding her code status. Per patient she is wanting to be switched to a DNR. Dr. Mcdaniel made aware and paperwork in chart. Family also let this nurse know that they have her living will which clarifies her code status and will bring in AM.
[2024-10-11] VITALS (12 sets, daily range): BP systolic 0–125; BP diastolic 0–54; PULSE 0–78; RESP 7–20; TEMP 35.9–37; O2SAT 0–99
[2024-10-11 01:04] LABS: Troponin 5 6HR 146.5 ng/L (0-10); Troponin 5 6HR Delta 17.5 ng/L (0-12)
[2024-10-11 05:44] LABS: Basophils % 1.5 %; Eosinophils # 0.3 10^3/uL (0.0-0.8); Eosinophils % 12.4 %; Hematocrit 33.2 % (36-47); Lymphocytes # 0.3 10^3/uL (0.8-4.8); Lymphocytes % 13.1 %; Mean Corpuscular HGB Conc 28.3 g/dL (30-55); Mean Corpuscular Hemoglobin 33.9 pg (27-33); Mean Corpuscular Volume 119.9 fl (85-98); Monocytes # 0.4 10^3/uL (0.2-0.9); Monocytes % 16.2 %; Neutrophils # 1.31 10^3/uL (1.8-7.7); Neutrophils % 50.6 %; Nucleated Red Blood Cells % 0.8 %; Platelet Count 98 10^3/cmm (157-399); Red Blood Count 2.77 10^6/uL (3.85-5.65); White Blood Count 2.59 10^3/uL (3.29-11.43)
[2024-10-11 06:15] LABS: Anion Gap 14.9 (5-19); Blood Urea Nitrogen 31 mg/dL (8-23); Calcium 9.6 mg/dL (8.5-10.5); Carbon Dioxide 29 mmol/L (22-29); Chloride 100 mmol/L (98-107); Creatinine Clr Calc Pharmacy 6.5672; Glucose 119 mg/dL (65-115); Magnesium 1.9 mg/dL (1.7-2.3); Osmolality Calculated 296 mOsm/kg (285-295); Potassium 4.9 mmol/L (3.5-5.1); Sodium 139 mmol/L (136-145)
--- NOTE | 2024-10-11 09:35 | XRR_ITS ---
PROCEDURE INFORMATION: Exam: XR Chest Exam date and time: 10/11/2024 9:44 AM Age: 89 years old Clinical indication: Shortness of breath. TECHNIQUE: Imaging protocol: Radiologic exam of the chest. Views: 1 view. COMPARISON: CR (CHEST, ) 10/10/2024 7:44 AM FINDINGS: Tubes, catheters and devices: Left internal jugular central venous access device with tip in the SVC. Lungs: Metastatic pulmonary nodules are better seen on CT. Worsening right basilar opacity likely reflecting consolidation and effusion. Decreased left basilar opacity likely reflecting consolidation and effusion. Pleural spaces: No pneumothorax. Heart/Mediastinum: The cardiac silhouette is unchanged. No gross evidence of pneumomediastinum. Vasculature: A vascular stent overlies the right apex. Bones/joints: Right shoulder hardware is noted. No gross fracture. XR/XR chest 1V portable [id number] IMPRESSION: 1. Worsening right basilar opacity likely reflecting consolidation and effusion. Decreased left basilar opacity likely reflecting consolidation and effusion. 2. Metastatic pulmonary nodules are better seen on CT.
--- NOTE | 2024-10-11 09:37 | PM.PN ---
Subjective Medications: Medication Review Details: Current Medications Acetaminophen (Acetaminophen 325 Mg Tablet) 650 mg PO Q6H PRN PRN Reason: Mild/Mod Pain Or Temp >/= 101 Aspirin (Aspirin 81 Mg Ec Tablet) 81 mg PO DAILY [facility] Last Admin: 10/10/24 08:26 Dose: Not Given Atorvastatin Calcium (Atorvastatin 40 Mg Tablet) 20 mg PO BEDTIME [facility] Last Admin: 10/10/24 21:54 Dose: 20 mg Azithromycin (Azithromycin 250 Mg Tablet) 500 mg PO DAILY [facility]; Protocol Last Admin: 10/10/24 08:25 Dose: 500 mg Ceftriaxone Sodium (Ceftriaxone 1,000 Mg Sdv) 1,000 mg IVP Q24H [facility]; Protocol Last Admin: 10/10/24 21:18 Dose: 1,000 mg Heparin Sodium (Porcine) (Heparin 5,000 Unit/Ml Inj 1 Ml) 5,000 unit SUBCUT Q12H [facility] Last Admin: 10/10/24 21:20 Dose: Not Given Sodium Chloride (Sodium Chloride 0.9%) 1,000 mls @ 0 mls/hr IV .Q0M PRN PRN Reason: hypotension or symptomatic Albumin Human (Albumin) 12.5 gm in 50 mls @ 60 mls/hr IV PRN PRN PRN Reason: Hypotension and/or symptomatic Last Infusion: 10/10/24 16:00 Dose: Infused Metoprolol Tartrate (Metoprolol Tartrate 50 Mg Tablet) 50 mg PO BID [facility] Last Admin: 10/10/24 18:09 Dose: 50 mg Ondansetron HCl (Ondansetron 2 Mg/Ml Sdv 2 Ml) 4 mg IVP Q8H PRN PRN Reason: vomiting, or N/V if npo Pantoprazole Sodium (Pantoprazole Dr 40 Mg Tablet) 40 mg PO DAILY [facility] Last Admin: 10/10/24 08:25 Dose: 40 mg Vitals/I&O/Wt Last Vital Signs Temp 98.6 F 10/11/24 07:29 Pulse 74 10/11/24 07:29 Resp 20 H 10/11/24 07:29 BP 120/43 10/11/24 07:29 Pulse Ox 96 10/11/24 07:29 O2 Del Method Nasal Cannula 10/11/24 07:29 O2 Flow Rate 2 10/11/24 07:29 10/10/24 10/11/24 10/11/24 22:59 06:59 14:59 Intake Total 940 / 1277 Output Total 3497 / 3497 Balance -2557 / -2220 Weight last 48 hrs Weight 106 lb 15.14 oz Weight 101 lb 6.602 oz Weight 103 lb 9.876 oz Weight 103 lb 9.876 oz Weight 120 lb Physical Exam Narrative: GENERAL: The patient is alert and oriented times three. Has some intermittent respiratory distress. Chronically ill looking HEENT: Moderate pallor. No icterus or lymphadenopathy.Oral cavity: There are no mucous membrane lesions. NECK: Trachea appears to be central. No masses noted. Jugular vein distention present. RESPIRATORY: Breath sounds are heard bilaterally with diminished intensity of breath sounds in the bases. Occasional coarse crackles. BREASTS: Deferred. HEART: The heart sounds are variable. No S3 or S4. Short systolic murmur in the lower sternal border. No pericardial rub ABDOMEN: No vessel pulsations or distention. No tenderness. No organomegaly appreciated. Bowel sounds are normally heard. : Deferred. RECTAL: Deferred. LYMPHATIC: No lymphadenopathy noted in the neck. EXTREMITIES: Trace edema with no cyanosis. No clubbing. MUSCULOSKELETAL: No acute joint deformities or swelling SKIN: There are no significant rashes or ecchymosis NEUROPSYCHIATRIC: The patient is alert and oriented x3. Appears to be in a good mood. No tremors or rigidity noted. Data 10/11/24 04:57 10/11/24 04:57 Other Labs: Laboratory Last Values WBC 2.59 10^3/uL (3.29-11.43) L 10/11/24 04:57 RBC 2.77 10^6/uL (3.85-5.65) L 10/11/24 04:57 Hgb 9.40 g/dL (11.27-16.99) L 10/11/24 04:57 Hct 33.2 % (36-47) L 10/11/24 04:57 MCV 119.9 fl (85-98) H 10/11/24 04:57 MCH 33.9 pg (27-33) H 10/11/24 04:57 MCHC 28.3 g/dL (30-55) L 10/11/24 04:57 RDW 15.0 % (12.1-15.1) 10/11/24 04:57 Plt Count 98 10^3/cmm (157-399) L 10/11/24 04:57 MPV 12.0 fL (7.4-10.4) H 10/11/24 04:57 Neut % (Auto) 50.6 % 10/11/24 04:57 Lymph % (Auto) 13.1 % 10/11/24 04:57 [place] % (Auto) 16.2 % 10/11/24 04:57 Eos % (Auto) 12.4 % 10/11/24 04:57 Baso % (Auto) 1.5 % 10/11/24 04:57 Neut # (Auto) 1.31 10^3/uL (1.8-7.7) L 10/11/24 04:57 Lymph # (Auto) 0.3 10^3/uL (0.8-4.8) L 10/11/24 04:57 [place] # (Auto) 0.4 10^3/uL (0.2-0.9) 10/11/24 04:57 Eos # (Auto) 0.3 10^3/uL (0.0-0.8) 10/11/24 04:57 Baso # (Auto) 0.0 10^3/uL (0.0-0.1) 10/11/24 04:57 Nucleated RBC % (auto) 0.8 % 10/11/24 04:57 Nucleated RBCs # 0.0 /100WBC 10/11/24 04:57 Sodium 139 mmol/L (136-145) 10/11/24 04:57 Potassium 4.9 mmol/L (3.5-5.1) 10/11/24 04:57 Chloride 100 mmol/L (98-107) 10/11/24 04:57 Carbon Dioxide 29 mmol/L (22-29) 10/11/24 04:57 Anion Gap 14.9 (5-19) 10/11/24 04:57 BUN 31 mg/dL (8-23) H 10/11/24 04:57 Creatinine 4.3 mg/dL (0.5-0.9) H 10/11/24 04:57 GFR Calculation Not Reportable 10/11/24 04:57 Glucose 119 mg/dL (65-115) H 10/11/24 04:57 Calculated Osmolality 296 mOsm/kg (285-295) H 10/11/24 04:57 Calcium 9.6 mg/dL (8.5-10.5) 10/11/24 04:57 Phosphorus 6.2 mg/dL (2.5-4.5) H 10/10/24 04:35 Magnesium 1.9 mg/dL (1.7-2.3) 10/11/24 04:57 Total Bilirubin 0.4 mg/dL (0.15-1.2) 10/10/24 04:35 AST 14 U/L (0-32) 10/10/24 04:35 ALT 14 U/L (0-33) 10/10/24 04:35 Alkaline Phosphatase 132 U/L (35-105) H 10/10/24 04:35 Troponin T Baseline 129 ng/L (0-10) H* 10/10/24 18:13 Troponin T 120 Minute 136.5 ng/L (0-10) H 10/10/24 19:40 Delta Troponin T 7.5 ABS# (0-10) 10/10/24 19:40 Troponin T Hi Sens 6Hr 146.5 ng/L (0-10) H 10/11/24 00:22 Troponin T Hi Sens 6Hr Delta 17.5 ng/L (0-12) H* 10/11/24 00:22 NT-Pro-B Natriuret Pep > 64282 pg/mL (0-450) H 10/09/24 14:46 Total Protein 5.5 g/dL (6.6-8.7) L 10/10/24 04:35 Albumin 3.1 g/dL (3.5-5.2) L 10/10/24 04:35 Globulin 2.4 g/dL (1.3-4.6) 10/10/24 04:35 Procalcitonin 1.12 ng/mL (0-0.5) H 10/09/24 14:46 Hep Bs Antigen Non-reactive (Nonreactive) 10/10/24 04:35 Hep Bs Antibody 8.6 (11.5-1000) L 10/10/24 04:35 A&P Assessment and plan (1) Elevated troponin: The troponin appears to be chronically elevated with no significant delta. End-stage renal disease with possible ischemic cardiomyopathy and congestive heart failure are contributing factors. The EKG does not reveal any acute changes. (2) Ischemic cardiomyopathy: LV ejection fraction was found to be 43% based on echocardiogram today. It dropped from 45 to 50% in 202. Most likely she may have underlying coronary artery disease causing LV dysfunction. (3) Acute on chronic diastolic (congestive) heart failure: The end-stage renal disease coupled with LV dysfunction other major cardiorenal factors. (4) Respiratory distress: This could be multifactorial. Pleural effusion, metastatic lung disease, congestive heart failure, etc. are contributing factors (5) Chest pain: Most likely is related to underlying coronary ischemia. She will be treated with IV heparin and aspirin at this point. Since there is no significant delta in the troponins I may hold off on Plavix at this point. Qualifiers: Chest pain type: unspecified Qualified Code(s): R07.9 - Chest pain, unspecified (6) Recurrent pleural effusion: Patient was found to have moderate AV stone on the right and minimal on the left based on the CT scan. This needs to be closely monitored. (7) Metastatic cancer to lung: Most likely she has metastatic lung disease. There is no biopsy diagnosis yet. Qualifiers: Laterality: unspecified laterality Qualified Code(s): C78.00 - Secondary malignant neoplasm of unspecified lung (8) ESRD (end stage renal disease) on dialysis: She is on hemodialysis. (9) History of breast cancer: She was found to be cancer free up until result Plan I discussed at length with the patient and her family regarding further management. Patient's physical condition is very poor at this point. Her overall prognosis also seems to be very poor. She has a standing DNR status. Her advanced age, multiple medical problems and poor physical condition make her a poor candidate for any aggressive measures. She apparently does not want to undergo any invasive or interventional procedures for her heart. She also refused any IV heparin. At this point, she may be continued on the medical treatment and comfort measures. Discussed with Dr. Mcdaniel who also concurred with this plan. Thank you for the opportunity to evaluate this patient and make these recommendations PDMP PDMP Reviewed: Not Reviewed Coding Level of Care Code Acute Code for Chg Fwd Diagnoses Elevated troponin R79.89 Ischemic cardiomyopathy I25.5 Acute on chronic diastolic (congestive) heart failure I50.33 Respiratory distress R06.03 Chest pain, unspecified type R07.9 Chest pain type: unspecified Recurrent pleural effusion J90 Malignant neoplasm metastatic to lung, unspecified laterality C78.00 Laterality: unspecified laterality ESRD (end stage renal disease) on dialysis N18.6; Z99.2 History of breast cancer Z85.3
--- NOTE | 2024-10-11 09:51 | PC.NURSE ---
med refusal Pt refused her heparin, aspirin due to difficulty of breathing. oral care provided due to pt's dry mouth.
[2024-10-11] MEDS: morphine 4 mg/mL SDV 1 mL 1 MG IVP (10:01)
[2024-10-11] MEDS: LORazepam 2 mg/mL INJ 1 mL IVP (11:00)
[2024-10-11] MEDS: morphine 4 mg/mL SDV 1 mL IVP ×3 (11:17→14:44)
--- NOTE | 2024-10-11 14:18 | P.PN_ITS ---
Subjective 2 Subjective: Overnight patient was seen by cardiology. Discussion took place between cardiology and patient and her family over the phone. Patient would like to be DNR/DNI. Family and patient does not want to pursue any further testing or treatment for anything at this time. Patient's CODE STATUS was changed overnight to DNR/DNI. She also is living mauro but states the same. Family is going to bring that in by tomorrow. Seen this morning resting in bed on 8 L oxy mask. Patient states that she is tired and she is ready to go. She would like to meet her son. Note her son has . Family present at bedside. Alert oriented x 3. Patient knows where she is what is going on. Family aware patient has pneumonia. Patient also aware that she has pneumonia. CT scans results were discussed with patient yesterday and her family. She does have evidence of metastatic disease. Patient not interested in pursuing any further chemotherapy or evaluation or workup. This morning secondary to hypoxia chest x-ray was ordered which shows worsening pneumonia. Patient has had repeated pleural effusions and has had 2 thoracentesis in the last few weeks. ABG was also ordered and BiPAP was ordered for the patient however patient states she does not want to proceed with any of the above. Discussion took place in front of family. Every single family member here today along with the patient have wishes to just keep her comfortable and proceed with comfort measures. I believe patient has capacity to make decisions at this time. Yesterday she was unable to tolerate dialysis secondary to hypotension and had received doses of albumin during the procedure. She also seems to have an NSTEMI with delta troponin at 6 hours 17.5 and has been complaining of chest tightness on and off. Echo also shows slightly reduced EF compared to prior. Cardiology was initially consulted. Patient does not want a heparin drip or proceed with any kind of invasive management. She wants to be kept comfortable at this time. Family also on board with patient's decision. Patient understands with comfort measures there will be no antibiotics IV fluids, no further testing or further treatment done. She states that is exactly what she wants at this time. Patient has lost a lot of weight in the last 2 years and at this time weight 48 kg. I agree with cardiology that patient carries a poor prognosis going forward. Discussed with nursing staff and in accordance with patient and family wishes we will transition patient to comfort measures. Vitals/I&O/Wt Last Vital Signs Temp 98.4 F 10/11/24 12:00 Pulse 78 10/11/24 12:00 Resp 14 10/11/24 12:00 BP 113/45 10/11/24 12:00 Pulse Ox 69 L 10/11/24 13:43 O2 Del Method Nasal Cannula 10/11/24 12:00 O2 Flow Rate 5 10/11/24 12:00 10/10/24 10/11/24 10/11/24 22:59 06:59 14:59 Intake Total 940 / 1277 Output Total 3497 / 3497 Balance -2557 / -2220 Weight last 48 hrs Weight 48.51 kg Weight 46 kg Weight 47 kg Weight 47 kg Physical Exam 2 Narrative: General: Alert oriented x3, patient seen laying in bed with a liter OxyMask, states she would like to see her sister and her son. She states I want to be kept comfortable. Mild conversational dyspnea present. HEENT: Normocephalic, atraumatic, EOMI, Cardio: Normal S1-S2, regular rate rhythm Respiratory: Mild rhonchi at right base, diminished breath sounds at left base. GI: Abdomen soft, nontender, nondistended, bowel sounds + Extremities: No edema Data 10/11/24 04:57 10/11/24 04:57 A&P Assessment and plan (1) ESRD (end stage renal disease) on dialysis: (2) Congestive heart failure: (3) Hyperlipidemia: Qualifiers: Hyperlipidemia type: mixed hyperlipidemia Qualified Code(s): E78.2 - Mixed hyperlipidemia (4) Chronic kidney disease: (5) Pleural effusion: (6) Chest tightness: (7) Metastatic disease: (8) Pneumonia: Qualifiers: Laterality: bilateral Lung location: lower lobe of lung Pneumonia type: due to unspecified organism Qualified Code(s): J18.9 - Pneumonia, unspecified organism Plan #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 Patient presented with complaint of shortness of breath, chest tightness unable to complete dialysis session yesterday. Requiring supplemental oxygen higher than her baseline. Currently on 4 L and normally on 2 L at home. ? Also has bilateral pleural effusions with recent thoracentesis performed last week. ? Will consult nephrology for dialysis ? Continue Nitropaste every 6 hours. ? Initial troponin 122. Possibly elevated secondary to CKD status however NSTEMI cannot be ruled out. Await 2-hour 6-hour troponin. If delta is positive patient will need to be anticoagulated ? Will check echocardiogram to rule out wall motion abnormalities. ? Breast cancer?stable, in remission ? Regular rate rhythm. EKG just shows normal sinus rhythm. ? Will need to obtain accurate med rec prior to restarting home medications. ? Continue omeprazole 20 twice daily ? Continue aspirin, statin. Note patient is not on Plavix secondary to history of GI bleed. ? Continue levothyroxine ? Echo from 2022 shows EF 45%. With diastolic dysfunction. ? Will consider cardiology consult based on further findings ? Urinalysis pending. ? Check chest x-ray in AM. Patient would like to be a full code DVT prophylaxis: Heparin SQ twice daily for now however will consider full dose anticoagulation should delta troponin be positive. Patient does have history of GI bleed. May consider heparin drip if benefits outweigh risk. 10/10/2024 Review of chart: 07/2022 Likely neoplasm of central portion of right female breast. 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 She underwent right breast lumpectomy with axillary sentinel lymph node biopsy in 2016. Her Oncotype showed recurrence of 25% corresponding to a recurrence risk of 16% in 10 years with adjuvant hormone therapy. She opted not to take adjuvant chemotherapy. She completed radiation to the right breast in November 2016 and then began adjuvant hormonal therapy with anastrozole 1 mg daily. It was placed on hold in 2017 due to increased musculoskeletal pain but it was restarted the following month. At her follow-up visit in 2019 both anastrozole and Prolia were both put on hold due to significant decline in renal function. Patient went on to develop end-stage renal disease for which she started dialysis. Her management was complicated by development of lymphedema in right arm following placement of dialysis fistula. However there was no evidence of recurrence of breast cancer. She was expected to continue expectant management and to follow-up with oncology as needed. 11/2022 Patient with mild anemia, occurring in association with chronic kidney disease. She has now progressed to pancytopenia with significantly macrocytic red cell indices. 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 She will be scheduled for additional laboratory studies to be drawn at dialysis tomorrow. These will include CBC, comprehensive metabolic profile, sed rate and CRP level, reticulocyte count, LDH level, serum protein electrophoresis, and serum free light chain assay. She will have further evaluation as indicated. I anticipate that she will need to undergo bone marrow aspiration/biopsy. CT PE protocol: There is no evidence for a pulmonary artery embolus. When compared with 01/29/2023, bilateral pleural effusions persist. Lung nodules have increased in size consistent with worsening metastatic disease. There is also new left upper lobe lung consolidation consistent with atelectasis and/or pneumonia. Bilateral lower lobe lung consolidation persists. There is new left adrenal mass consistent with metastatic disease. -Had a discussion with patient regarding results of CT scan. Discussed with her to follow-up with oncology as an outpatient. At this time we will continue to treat for pneumonia. Will continue on ceftriaxone azithromycin. Bilateral pleural effusions most likely secondary to heart failure versus malignancy. Note patient did not take adjuvant chemotherapy as per oncology notes. She may require a PET scan going forward and will need to follow-up with oncology as an outpatient. Plan during this hospitalization to continue dialysis to optimize fluid status treat for pneumonia and plan to discharge home in next 48 to 72 hours pending clinical course. Troponins elevated most likely secondary to end-stage renal disease. Delta troponin at 6 hours-2. Patient denies any chest pain shortness of breath at this time. She did complain of some chest tightness yesterday however she stated that that resolved later on. Has not required Nitropaste overnight either. Will continue to monitor. Echo is pending. Should there be any abnormalities on echocardiogram we will consider cardiology consult. Will be contacting Mr. Ashton patient's nephew over the phone with patient updates. 10/11/2024 Overnight patient was seen by cardiology. Discussion took place between cardiology and patient and her family over the phone. Patient would like to be DNR/DNI. Family and patient does not want to pursue any further testing or treatment for anything at this time. Patient's CODE STATUS was changed overnight to DNR/DNI. She also is living mauro but states the same. Family is going to bring that in by tomorrow. Seen this morning resting in bed on 8 L oxy mask. Patient states that she is tired and she is ready to go. She would like to meet her son. Note her son has . Family present at bedside. Alert oriented x 3. Patient knows where she is what is going on. Family aware patient has pneumonia. Patient also aware that she has pneumonia. CT scans results were discussed with patient yesterday and her family. She does have evidence of metastatic disease. Patient not interested in pursuing any further chemotherapy or evaluation or workup. This morning secondary to hypoxia chest x-ray was ordered which shows worsening pneumonia. Patient has had repeated pleural effusions and has had 2 thoracentesis in the last few weeks. ABG was also ordered and BiPAP was ordered for the patient however patient states she does not want to proceed with any of the above. Discussion took place in front of family. Every single family member here today along with the patient have wishes to just keep her comfortable and proceed with comfort measures. I believe patient has capacity to make decisions at this time. Yesterday she was unable to tolerate dialysis secondary to hypotension and had received doses of albumin during the procedure. She also seems to have an NSTEMI with delta troponin at 6 hours 17.5 and has been complaining of chest tightness on and off. Echo also shows slightly reduced EF compared to prior. Cardiology was initially consulted. Patient does not want a heparin drip or proceed with any kind of invasive management. She wants to be kept comfortable at this time. Family also on board with patient's decision. Patient understands with comfort measures there will be no antibiotics IV fluids, no further testing or further treatment done. She states that is exactly what she wants at this time. Patient has lost a lot of weight in the last 2 years and at this time weight 48 kg. I agree with cardiology that patient carries a poor prognosis going forward. Discussed with nursing staff and in accordance with patient and family wishes we will transition patient to comfort measures. In accordance with patient and family patient's she will be transition to comfort measures. We will transfer to [facility] floor to a private room. It was discussed with patient and family that she will be given Ativan and morphine to help with air hunger. Patient agreeable at this time. Instructed nursing staff to give first morphine dose now. Patient agreeable. All questions answered to family and patient satisfaction. Orders placed in chart. PDMP PDMP Reviewed: Not Reviewed Attestations 2 Medical Necessity Statement*: Comfort measures only. Diagnoses ESRD (end stage renal disease) on dialysis N18.6; Z99.2 Congestive heart failure I50.9 Mixed hyperlipidemia E78.2 Hyperlipidemia type: mixed hyperlipidemia Stage 3 chronic kidney disease N18.9 Pleural effusion J90 Chest tightness R07.89 Metastatic disease C79.9 Pneumonia J18.9 Laterality: bilateral Lung location: lower lobe of lung Pneumonia type: due to unspecified organism
--- NOTE | 2024-10-11 15:49 | PC.NURSE ---
Addendum entered by Nahed Bnod RN 10/11/24 16:03: notified hospitalist and house sup around 1549 pm. Original Note: patient at approximately 1535 pm.
--- NOTE | 2024-10-11 16:01 | PM.DDS ---
Discharge Providers DDS Date of Admission: 10/09/24 17:40 Date Summary Completed: 10/12/24 Attending Provider at Admission: Apolonia Mcdaniel MD Attending Provider at Discharge: Apolonia Mcdaniel MD Primary Care Provider: Yvette Pickens MD DS Diagnoses Hospital Diagnoses (1) ESRD (end stage renal disease) on dialysis: (2) Congestive heart failure: (3) Hyperlipidemia: Qualifiers: Hyperlipidemia type: mixed hyperlipidemia Qualified Code(s): E78.2 - Mixed hyperlipidemia (4) Chronic kidney disease: (5) Pleural effusion: (6) Chest tightness: (7) Metastatic disease: (8) Pneumonia: Qualifiers: Laterality: bilateral Lung location: lower lobe of lung Pneumonia type: due to unspecified organism Qualified Code(s): J18.9 - Pneumonia, unspecified organism Reason for Visit Reason for Visit sob Summary Summary Summary: Please see progress note from 10/11. Patient was comfort measures and naturally. Family present at bedside. Additional Data Advance directives?: Yes Discharge Plan Discharge Patient Disposition: Condition: Stable Prescriptions: No Action omeprazole 20 mg capsule,delayed release(DR/EC) 20 mg PO BID isosorbide mononitrate 60 mg tablet extended release 24 hr 60 mg PO Q12H hydralazine 25 mg tablet 25 mg PO TID cholecalciferol (vitamin D3) [Vitamin D3] 50 mcg (2,000 unit) Capsule 50 mcg PO DAILY lovastatin 40 mg tablet 40 mg PO DAILY Fish, Flax andBorage Oil(Prim) 400-400-200 mg Capsule 1 cap PO DAILY PreserVision AREDS-2 250-90-40-1 mg Capsule 1 tab PO BID metoprolol tartrate 50 mg tablet 50 mg PO BID Referrals: Yvette Pickens MD [Primary Care Provider] - Patient Instructions: Opioid Safety DS Attestations Time Spent in /Discharge Care*: less than 30 min Quality - AMI: AMI present?: No Quality - Stroke: CVA present?: No Symptom Onset Unknown: No Quality - VTE: VTE present?: No Deep Vein Thrombosis/Pulmonary Embolism Present on Admission: No Coding Level of Care Code Acute Code for Chg Fwd Diagnoses ESRD (end stage renal disease) on dialysis N18.6; Z99.2 Congestive heart failure I50.9 Mixed hyperlipidemia E78.2 Hyperlipidemia type: mixed hyperlipidemia Stage 3 chronic kidney disease N18.9 Pleural effusion J90 Chest tightness R07.89 Metastatic disease C79.9 Pneumonia J18.9 Laterality: bilateral Lung location: lower lobe of lung Pneumonia type: due to unspecified organism
--- NOTE | 2024-10-11 17:30 | PC.NURSE ---
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 Provided mortem care prior to arrival. central line removed from right groin. Tunneled Hemodialysis catheter is in. Pt has wrist watch on left. Both WILBER Herman and this nurse showed the staff krishan that we left this watch on her wrist. Staff said, that's okay, the family will be here tomorrow to see her, she suppose to be cremated. Pt family [facility]uni informed nurse that they have all pt's belongings such as her purse and bag.
== END 2024-10-11 17:43 | disposition expired ==
LOC: ER 16:13 → CSU 17:40
PROVIDERS: Hospitalist; Physician Assistant; Admitting Provider Internal Medicine; Emergency Provider Family Medicine; PCP Family Medicine; Visit Provider Internal Medicine
DX: I13.2 Hypertensive heart and chronic kidney disease with heart failure and with stage 5 chronic kidney disease, or end stage renal disease (principal); I50.43 Acute on chronic combined systolic (congestive) and diastolic (congestive) heart failure; I21.4 Non-ST elevation (NSTEMI) myocardial infarction; J18.9 Pneumonia, unspecified organism; N18.6 End stage renal disease; C78.00 Secondary malignant neoplasm of unspecified lung; C79.72 Secondary malignant neoplasm of left adrenal gland; C79.71 Secondary malignant neoplasm of right adrenal gland; E11.22 Type 2 diabetes mellitus with diabetic chronic kidney disease; Z99.2 Dependence on renal dialysis; Z85.3 Personal history of malignant neoplasm of breast; E78.2 Mixed hyperlipidemia; I48.91 Unspecified atrial fibrillation; I71.40 Abdominal aortic aneurysm, without rupture, unspecified; E03.9 Hypothyroidism, unspecified; Z87.440 Personal history of urinary (tract) infections; I25.10 Atherosclerotic heart disease of native coronary artery without angina pectoris; I65.23 Occlusion and stenosis of bilateral carotid arteries; Z96.619 Presence of unspecified artificial shoulder joint; Z87.891 Personal history of nicotine dependence; I95.9 Hypotension, unspecified; Z51.5 Encounter for palliative care; R09.02 Hypoxemia; Z66 Do not resuscitate; I25.5 Ischemic cardiomyopathy; D63.1 Anemia in chronic kidney disease
CPT/HCPCS: 36415; 36592; 71045; 71275; 80048; 80053; 83735; 83880; 84100; 84145; 84484; 85025; 86706; 87340; 90935; 93005; 93306; 94664; 96372; 96374; 99285; J0696; J1644; J2060; J2270; J9999; P9047; Q0144; Q3014